=== PATIENT | female | born 1935 | race Caucasian/White ===

== ENCOUNTER → 2016-11-03 | Outpatient (CLI) | payer MEDICARE, OTHER ==
[2016-11-03 11:00] LABS: HEMATOCRIT 37.8 % (36.0-47.0); HEMOGLOBIN 12.5 g/dL (12.0-15.5); HGB HCT DIFFERENCE -0.3; MEAN CORPUSCULAR HEMOGLOBIN 29.1 pg (27.0-33.4); MEAN CORPUSCULAR HGB CONC 32.9 g/dL (32.0-36.0); MEAN CORPUSCULAR VOLUME 88 fl (80-97); RED BLOOD COUNT 4.29 10^6/uL (3.72-5.28); WHITE BLOOD COUNT 11.9 10^3/uL (4.0-10.5)
[2016-11-03 11:25] LABS: ANION GAP 10 (5-19); BLOOD UREA NITROGEN 20 mg/dL (7-20); CALCIUM 9.6 mg/dL (8.4-10.2); CARBON DIOXIDE 31 mmol/L (22-30); CHLORIDE 102 mmol/L (98-107); CREATININE RESULT 1.01 mg/dL (0.52-1.25); GLUCOSE 85 mg/dL (75-110); POTASSIUM 4.4 mmol/L (3.6-5.0); SODIUM 143.1 mmol/L (137-145)
== END ==
LOC: OD 09:58
PROVIDERS: ATTEND Internal Medicine Nephrology
DX: N18.3 Chronic kidney disease, stage 3 (moderate) (principal); M10.00 Idiopathic gout, unspecified site; D64.9 Anemia, unspecified; E87.1 Hypo-osmolality and hyponatremia; E87.5 Hyperkalemia
CPT/HCPCS: 36415; 80048; 82728; 83540; 83550; 85027

== ENCOUNTER 2017-01-24 16:41 | Observation (INO) | payer MEDICARE, OTHER ==
[2017-01-24] MEDS ORDERED: ACETAMINOPHEN 325 MG TABLET PO PRN (18:01)
[2017-01-24 19:00] LABS: ABSOLUTE BASOPHILS # (AUTO) 0.1 10^3/uL (0.0-0.2); ABSOLUTE EOSINOPHILS # (AUTO) 0.5 10^3/uL (0.0-0.6); ABSOLUTE LYMPHOCYTES (AUTO) 1.9 10^3/uL (0.5-4.7); ABSOLUTE MONOCYTES (AUTO) 1.2 10^3/uL (0.1-1.4); ABSOLUTE NEUT (AUTO) 6.7 10^3/uL (1.7-8.2); BASOPHILS % (AUTO) 0.5 % (0-2); EOSINOPHILS % (AUTO) 5.2 % (0-6); HEMATOCRIT 33.9 % (36.0-47.0); HEMOGLOBIN 11.5 g/dL (12.0-15.5); HGB HCT DIFFERENCE 0.6; LYMPHOCYTES % (AUTO) 18.2 % (13-45); MEAN CORPUSCULAR HEMOGLOBIN 29.4 pg (27.0-33.4); MEAN CORPUSCULAR HGB CONC 33.9 g/dL (32.0-36.0); MEAN CORPUSCULAR VOLUME 87 fl (80-97); MONOCYTES % (AUTO) 11.3 % (3-13); RED CELL DISTRIBUTION WIDTH 15.6 % (11.5-14.0); SEGMENTED NEUTROPHILS % (AUTO) 64.8 % (42-78); WHITE BLOOD COUNT 10.3 10^3/uL (4.0-10.5)
[2017-01-24 19:10] LABS: ANION GAP 14 (5-19); BLOOD UREA NITROGEN 14 mg/dL (7-20); CALCIUM 9.2 mg/dL (8.4-10.2); CARBON DIOXIDE 26 mmol/L (22-30); CHLORIDE 101 mmol/L (98-107); CREATININE RESULT 1.02 mg/dL (0.52-1.25); GLUCOSE 87 mg/dL (75-110); POTASSIUM 3.8 mmol/L (3.6-5.0); SODIUM 140.9 mmol/L (137-145)
[2017-01-24] MEDS: IPRATROPIUM/ALBUTEROL 0.5-2.5 MG/3 ML AMPUL NEB SCH (20:07)
[2017-01-24] MEDS: METHYLPREDNISOLONE INJ 125 MG/2 ML SDV IV SCH (22:04)
[2017-01-25 01:42] LABS: APPEARANCE,URINE CLEAR; BILIRUBIN,URINE NEGATIVE (NEGATIVE); GLUCOSE, URINE NEGATIVE (NEGATIVE); KETONES,URINE NEGATIVE (NEGATIVE); LEUKOCYTE ESTERASE,URINE SMALL (NEGATIVE); NITRITE,URINE NEGATIVE (NEGATIVE); PROTEIN,URINE NEGATIVE (NEGATIVE); URINE SPECIFIC GRAVITY 1.005; UROBILINOGEN,URINE NEGATIVE mg/dL (<2.0)
[2017-01-25 05:36] LABS: VENOUS BLOOD BASE EXCESS 1.1 mmol/L; VENOUS BLOOD HCO3 25.2 mmol/L (20-32); VENOUS BLOOD PCO2 38.6 mmHg (35-63); VENOUS BLOOD PH 7.43 (7.30-7.42)
[2017-01-25 05:39] LABS: CHOLESTEROL 141.09 mg/dL (0-200); Direct HDL 63 mg/dL (>40); TRIGLYCERIDES 50 mg/dL (<150)
[2017-01-25 05:50] LABS: DIRECT LDL 58 mg/dL (<100)
--- NOTE | 2017-01-25 07:46 | EKG REPORT ---
SEVERITY:- ABNORMAL ECG - SINUS RHYTHM VENTRICULAR BIGEMINY PROBABLE LEFT ATRIAL ABNORMALITY NON SPECIFIC IVCD : Confirmed by: Charlie Hayward 25-Jan-2017 07:45:57
[2017-01-25] MEDS ORDERED: ENOXAPARIN SODIUM INJ 40 MG/0.4 ML DISP.SYRIN SUBCUT SCH (08:00)
[2017-01-25] MEDS: IPRATROPIUM/ALBUTEROL 0.5-2.5 MG/3 ML AMPUL NEB SCH (08:21)
--- NOTE | 2017-01-25 09:28 | PDOC H&P ---
History of Present Illness Admission Date/PCP: 01/24/17 16:[address] AYDE GREENE History of Present Illness: SHAWN GORDON is a 81 year old female Was a direct admission from Dr. Gagnon's office because of increasing shortness of breath and hypoxemia Patient has a long history of chronic COPD O2 dependent she had been more dyspneic for the last few days Patient denied any chest pain she actually stated" I do not feel any worse than my usual" Patient was admitted to telemetry unit for observation Past Medical History Cardiac Medical History: Reports: Atrial Fibrillation, Congestive Heart Failure - Chronic diastolic CHF, Hypertension Pulmonary Medical History: Reports: Chronic Obstructive Pulmonary Disease (COPD) , Respiratory Failure GI Medical History: Reports: Cirrhosis Past Surgical History Past Surgical History: Reports: Appendectomy, Coronary Stent, Orthopedic Surgery Social History Information Source: Patient Smoking Status: Former Smoker Number of Years Smokin Last Time Smoked: 2014 Frequency of Alcohol Use: Rare Hx Recreational Drug Use: No Drugs: None Hx Prescription Drug Abuse: No - Advance Directive Resuscitation Status: Do Not Resuscitate Surrogate healthcare decision maker:: Her Phillip Family History Family History: DM, Hypertension, Malignancy Parental Family History Reviewed: Yes Children Family History Reviewed: Yes Sibling(s) Family History Reviewed.: Yes Medication/Allergy Home Medications: Fluticasone/Salmeterol [Advair 500-50 Diskus 28 Dose] 1 inh IH BID 05/04/15 Ipratropium/Albuterol Sulfate [Combivent Inhaler] 1 inh IN QID 05/04/15 Loratadine 10 mg PO DAILY 05/04/15 Tiotropium Alpine [Spiriva Handihaler 18 mcg/dose (30 Dose)] 1 inh IN DAILY 12/14 Aspirin [Ecotrin 81 mg EC Tablet] 81 mg PO DAILY #30 tabec 05/09/15 Atorvastatin Calcium [Lipitor 20 mg Tablet] 20 mg PO DAILY 01/24/17 Metoprolol Succinate [Toprol Xl 25 mg Tab.sr] 12.5 mg PO Q2DAYS 01/24/17 Allergies/Adverse Reactions: No Known Allergies Allergy (Unverified 05/04/15 13:21) Review of Systems Constitutional: ABSENT: chills, fever(s), headache(s), weight gain, weight loss Eyes: ABSENT: visual disturbances Ears: ABSENT: hearing changes Cardiovascular: ABSENT: chest pain, dyspnea on exertion, edema, orthropnea, palpitations Respiratory: PRESENT: as per HPI, cough, dyspnea. ABSENT: hemoptysis, sputum Gastrointestinal: ABSENT: abdominal pain, constipation, diarrhea, hematemesis, hematochezia, nausea, vomiting Genitourinary: ABSENT: dysuria, hematuria Musculoskeletal: ABSENT: joint swelling Integumentary: ABSENT: rash, wounds Neurological: ABSENT: abnormal gait, abnormal speech, confusion, dizziness, focal weakness, syncope Psychiatric: ABSENT: anxiety, depression, homidical ideation, suicidal ideation Endocrine: ABSENT: cold intolerance, heat intolerance, polydipsia, polyuria Hematologic/Lymphatic: ABSENT: easy bleeding, easy bruising Physical Exam Vital Signs: Temp Pulse Resp BP Pulse Ox 97.9 F 99 19 146/59 H 93 01/25/17 07:51 01/25/17 07:51 01/25/17 07:51 01/25/17 07:51 01/25/17 07:51 Intake & Output 01/24/17 01/25/17 01/26/17 00:59 00:59 00:59 Intake Total 300 401 Balance 300 401 Weight 47.5 kg 48.1 kg General appearance: PRESENT: no acute distress, thin Head exam: PRESENT: atraumatic, normocephalic Eye exam: PRESENT: conjunctiva pink, EOMI, PERRLA. ABSENT: scleral icterus Ear exam: PRESENT: normal external ear exam Mouth exam: PRESENT: moist, tongue midline Neck exam: ABSENT: carotid bruit, JVD, lymphadenopathy, thyromegaly Respiratory exam: PRESENT: decreased breath sounds, symmetrical, wheezes. ABSENT: accessory muscle use, rales, rhonchi Cardiovascular exam: PRESENT: irregular rhythm, tachycardia. ABSENT: diastolic murmur, rubs, systolic murmur Pulses: PRESENT: normal dorsalis pedis pul Vascular exam: PRESENT: normal capillary refill GI/Abdominal exam: PRESENT: normal bowel sounds, soft. ABSENT: distended, guarding, mass, organolmegaly, rebound, tenderness Rectal exam: PRESENT: deferred Extremities exam: PRESENT: full ROM. ABSENT: calf tenderness, clubbing, pedal edema Neurological exam: PRESENT: alert, awake, oriented to person, oriented to place , oriented to time, oriented to situation, CN II-XII grossly intact. ABSENT: motor sensory deficit Psychiatric exam: PRESENT: appropriate affect, normal mood. ABSENT: homicidal ideation, suicidal ideation Skin exam: PRESENT: dry, intact, warm. ABSENT: cyanosis, rash Results Laboratory Results: 01/24/17 18:40 01/24/17 18:40 01/24/17 01/24/17 01/24/17 18:40 18:40 18:40 WBC 10.3 RBC 3.90 Hgb 11.5 L Hct 33.9 L MCV 87 MCH 29.4 MCHC 33.9 RDW 15.6 H Plt Count 379 Seg Neutrophils % 64.8 Lymphocytes % 18.2 Monocytes % 11.3 Eosinophils % 5.2 Basophils % 0.5 Absolute Neutrophils 6.7 Absolute Lymphocytes 1.9 Absolute Monocytes 1.2 Absolute Eosinophils 0.5 Absolute Basophils 0.1 VBG pH VBG pCO2 VBG HCO3 VBG Base Excess Sodium 140.9 Potassium 3.8 Chloride 101 Carbon Dioxide 26 Anion Gap 14 BUN 14 Creatinine 1.02 Est GFR ( Amer) > 60 Est GFR (Non-Af Amer) 52 L Glucose 87 Calcium 9.2 Triglycerides Cholesterol LDL Cholesterol Direct VLDL Cholesterol HDL Cholesterol TSH 1.09 Urine Color Urine Appearance Urine pH Ur Specific [place] Urine Protein Urine Glucose (UA) Urine Ketones Urine Blood Urine Nitrite Ur Leukocyte Esterase Urine WBC (Auto) 01/25/17 01/25/17 01/25/17 00:15 05:08 05:08 WBC RBC Hgb Hct MCV MCH MCHC RDW Plt Count Seg Neutrophils % Lymphocytes % Monocytes % Eosinophils % Basophils % Absolute Neutrophils Absolute Lymphocytes Absolute Monocytes Absolute Eosinophils Absolute Basophils VBG pH 7.43 H VBG pCO2 38.6 VBG HCO3 25.2 VBG Base Excess 1.1 Sodium Potassium Chloride Carbon Dioxide Anion Gap BUN Creatinine Est GFR ( Amer) Est GFR (Non-Af Amer) Glucose Calcium Triglycerides 50 Cholesterol 141.09 LDL Cholesterol Direct 58 VLDL Cholesterol 10.0 HDL Cholesterol 63 TSH Urine Color YELLOW Urine Appearance CLEAR Urine pH 6.0 Ur Specific [place] 1.005 Urine Protein NEGATIVE Urine Glucose (UA) NEGATIVE Urine Ketones NEGATIVE Urine Blood NEGATIVE Urine Nitrite NEGATIVE Ur Leukocyte Esterase SMALL H Urine WBC (Auto) 2 01/24/17 01/24/17 01/25/17 18:40 18:40 00:36 Troponin I 0.014 0.014 NT-Pro-B Natriuret Pep 2260 H 01/25/17 05:08 Troponin I 0.031 NT-Pro-B Natriuret Pep EKG Comments: [SR] . SINUS RHYTHM [VBIG] . VENTRICULAR BIGEMINY [PLAA] . PROBABLE LEFT ATRIAL ABNORMALITY - STMT - * NON SPECIFIC IVCD [id number] SHAWN GORDON 25-Jan-2017 04:58:27 : 1935 81 Years Female Race: White Dept: Inpatients Room: 307 Oper: st HR 92 VA 168 QRSD 130 QT 408 QTc 505 -- AXIS -- P 74 QRS -40 T 153 Requested By: MAXIMILIANO LEE Reason: SOB Order Impressions: Chest X-Ray 01/24/17 18:05 IMPRESSION: NO ACUTE RADIOGRAPHIC FINDING IN THE CHEST. Assessment & Plan - Diagnosis (1) COPD (chronic obstructive pulmonary disease) Is this a current diagnosis for this admission?: Yes (2) Chronic respiratory failure Is this a current diagnosis for this admission?: Yes (3) Left ventricular diastolic dysfunction Is this a current diagnosis for this admission?: Yes - Time Time Spent with patient: We will admit the patient for observation We will obtain serial troponins Treat the patient with steroids and nebs Reevaluate her cardiac status Patient likely to be discharged tomorrow with follow-up with Dr. Gagnon and Dr. Hayward Time Spent: 50 to 70 Minutes - Inpatient Certification Based on my medical assessment, after consideration of the patient's comorbidities, presenting symptoms, or acuity I expect that the services needed warrant INPATIENT care.: No I certify that my determination is in accordance with my understanding of Medicare's requirements for reasonable and necessary INPATIENT services [42 CFR 412.3e].: No
[2017-01-25] MEDS: METHYLPREDNISOLONE INJ 125 MG/2 ML SDV IV SCH (09:45)
--- NOTE | 2017-01-25 09:55 | PDOC DISCHARGE SUMMARY ---
General - Admit/Disc Date/PCP Admission Date/Primary Care Provider: 01/24/17 16:41 K Eleonora AMAYA MD Discharge Date: 01/25/17 - Discharge Diagnosis (1) COPD (chronic obstructive pulmonary disease) Is this a current diagnosis for this admission?: YesSummary: Patient's chronically O2 dependent She was treated with nebs and steroids overnight She did not have any severe hypoxemia and or acidemia she's to continue her prior regimen Chest x-ray did not show any infiltrate (2) Chronic respiratory failure Is this a current diagnosis for this admission?: YesSummary: continue supplemental O2 at home (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 Hayward We will add Toprol-XL lisinopril and Lasix the prior medication regimen - Additional Information Resuscitation Status: Do Not Resuscitate Home Medications: Fluticasone/Salmeterol [Advair 500-50 Diskus 28 Dose] 1 inh IH BID 05/04/15 Ipratropium/Albuterol Sulfate [Combivent Inhaler] 1 inh IN QID 05/04/15 Loratadine 10 mg PO DAILY 05/04/15 Tiotropium [place] [Spiriva Handihaler 18 mcg/dose (30 Dose)] 1 inh IN DAILY 12/14 Aspirin [Ecotrin 81 mg EC Tablet] 81 mg PO DAILY #30 tabec 05/09/15 Atorvastatin Calcium [Lipitor 20 mg Tablet] 20 mg PO DAILY 01/24/17 Metoprolol Succinate [Toprol Xl 25 mg Tab.sr] 12.5 mg PO Q2DAYS 01/24/17 Furosemide [Lasix] 20 mg PO DAILY #30 tablet 01/25/17 Lisinopril 2.5 mg PO DAILY #30 tablet 01/25/17 Metoprolol Succinate [Toprol Xl 25 mg Tab.sr] 25 mg PO DAILY #30 tab.sr.24h History of Present Illness Patient complains of: Shortness of breath History of Present Illness: SHAWN GORDON is a 81 year old female Was a direct admission from Dr. Gagnon's office because of increasing shortness of breath and hypoxemia Patient has a long history of chronic COPD O2 dependent she had been more dyspneic for the last few days Patient denied any chest pain she actually stated" I do not feel any worse than my usual" Patient was admitted to telemetry unit for observation Hospital Course Hospital Course: See above Physical Exam Vital Signs: Temp Pulse Resp BP Pulse Ox 97.9 F 99 19 146/59 H 93 01/25/17 07:51 01/25/17 07:51 01/25/17 07:51 01/25/17 07:51 01/25/17 07:51 Intake & Output 01/24/17 01/25/17 01/26/17 00:59 00:59 00:59 Intake Total 300 401 Balance 300 401 Weight 47.5 kg 48.1 kg General appearance: PRESENT: no acute distress, well-developed, well-nourished Head exam: PRESENT: atraumatic, normocephalic Eye exam: PRESENT: conjunctiva pink, EOMI, PERRLA. ABSENT: scleral icterus Ear exam: PRESENT: normal external ear exam Mouth exam: PRESENT: moist, tongue midline Neck exam: ABSENT: carotid bruit, JVD, lymphadenopathy, thyromegaly Respiratory exam: PRESENT: decreased breath sounds, wheezes. ABSENT: rales, rhonchi Cardiovascular exam: PRESENT: irregular rhythm. ABSENT: diastolic murmur, rubs , systolic murmur Pulses: PRESENT: normal dorsalis pedis pul Vascular exam: PRESENT: normal capillary refill GI/Abdominal exam: PRESENT: normal bowel sounds, soft. ABSENT: distended, guarding, mass, organolmegaly, rebound, tenderness Rectal exam: PRESENT: deferred Extremities exam: PRESENT: full ROM. ABSENT: calf tenderness, clubbing, pedal edema Neurological exam: PRESENT: alert, awake, oriented to person, oriented to place , oriented to time, oriented to situation, CN II-XII grossly intact. ABSENT: motor sensory deficit Psychiatric exam: PRESENT: appropriate affect, normal mood. ABSENT: homicidal ideation, suicidal ideation Skin exam: PRESENT: dry, intact, warm. ABSENT: cyanosis, rash Results Laboratory Results: 01/24/17 18:40 01/24/17 18:40 01/24/17 01/24/17 01/24/17 18:40 18:40 18:40 WBC 10.3 RBC 3.90 Hgb 11.5 L Hct 33.9 L MCV 87 MCH 29.4 MCHC 33.9 RDW 15.6 H Plt Count 379 Seg Neutrophils % 64.8 Lymphocytes % 18.2 Monocytes % 11.3 Eosinophils % 5.2 Basophils % 0.5 Absolute Neutrophils 6.7 Absolute Lymphocytes 1.9 Absolute Monocytes 1.2 Absolute Eosinophils 0.5 Absolute Basophils 0.1 VBG pH VBG pCO2 VBG HCO3 VBG Base Excess Sodium 140.9 Potassium 3.8 Chloride 101 Carbon Dioxide 26 Anion Gap 14 BUN 14 Creatinine 1.02 Est GFR ( Amer) > 60 Est GFR (Non-Af Amer) 52 L Glucose 87 Calcium 9.2 Triglycerides Cholesterol LDL Cholesterol Direct VLDL Cholesterol HDL Cholesterol TSH 1.09 Urine Color Urine Appearance Urine pH Ur Specific [place] Urine Protein Urine Glucose (UA) Urine Ketones Urine Blood Urine Nitrite Ur Leukocyte Esterase Urine WBC (Auto) 01/25/17 01/25/17 01/25/17 00:15 05:08 05:08 WBC RBC Hgb Hct MCV MCH MCHC RDW Plt Count Seg Neutrophils % Lymphocytes % Monocytes % Eosinophils % Basophils % Absolute Neutrophils Absolute Lymphocytes Absolute Monocytes Absolute Eosinophils Absolute Basophils VBG pH 7.43 H VBG pCO2 38.6 VBG HCO3 25.2 VBG Base Excess 1.1 Sodium Potassium Chloride Carbon Dioxide Anion Gap BUN Creatinine Est GFR ( Amer) Est GFR (Non-Af Amer) Glucose Calcium Triglycerides 50 Cholesterol 141.09 LDL Cholesterol Direct 58 VLDL Cholesterol 10.0 HDL Cholesterol 63 TSH Urine Color YELLOW Urine Appearance CLEAR Urine pH 6.0 Ur Specific [place] 1.005 Urine Protein NEGATIVE Urine Glucose (UA) NEGATIVE Urine Ketones NEGATIVE Urine Blood NEGATIVE Urine Nitrite NEGATIVE Ur Leukocyte Esterase SMALL H Urine WBC (Auto) 2 01/24/17 01/24/17 01/25/17 18:40 18:40 00:36 Troponin I 0.014 0.014 NT-Pro-B Natriuret Pep 2260 H 01/25/17 05:08 Troponin I 0.031 NT-Pro-B Natriuret Pep EKG Comments: SR] . SINUS RHYTHM [VBIG] . VENTRICULAR BIGEMINY [PLAA] . PROBABLE LEFT ATRIAL ABNORMALITY - STMT - * NON SPECIFIC IVCD [id number] SHAWN GORDON 25-Jan-2017 04:58:27 : 1935 81 Years Female Race: White Dept: Inpatients Room: 307 Oper: st HR Impressions: Chest X-Ray 01/24/17 18:05 IMPRESSION: NO ACUTE RADIOGRAPHIC FINDING IN THE CHEST. Plan Discharge Plan: Patient was discharged home to follow-up with Dr. Reece Time Spent: Greater than 30 Minutes
[2017-01-25] MEDS ORDERED: LORATADINE 10 MG TABLET PO SCH (10:00)
[2017-01-25] MEDS ORDERED: ASPIRIN 81 MG TABLET, ENT COATED PO SCH (10:00)
[2017-01-25] MEDS ORDERED: FLUTICASONE/SALMETEROL DISKUS 500-50 MCG/DOSE IH SCH (10:00)
[2017-01-25] MEDS ORDERED: METOPROLOL SUCCINATE 25 MG TAB.SR.24H PO SCH (10:00)
[2017-01-25] MEDS ORDERED: FUROSEMIDE INJ/PF 20 MG/2 ML SDV IV ONE (10:00)
[2017-01-25] MEDS ORDERED: ATORVASTATIN CALCIUM 20 MG TABLET PO SCH (10:00)
[2017-01-25] MEDS ORDERED: TIOTROPIUM BROMIDE DPI 5 CAP/KIT (18 MCG/CAP) IH SCH (10:00)
[2017-01-25 10:07] VITALS: BP 123/65
[2017-01-26] MEDS ORDERED: METOPROLOL SUCCINATE 25 MG TAB.SR.24H PO SCH (10:00)
== END 2017-01-25 10:55 | disposition home or self-care (01) ==
LOC: 3N 16:41 → INTOOBSV 16:41
PROVIDERS: ADMIT Emergency Medicine; ATTEND Emergency Medicine
PROC: 3E0F7GC Introduction of Other Therapeutic Substance into Respiratory Tract, Via Natural or Artificial Opening (ICD-10-PCS; principal; 2017-01-24)
DX: J44.9 Chronic obstructive pulmonary disease, unspecified (principal); J96.10 Chronic respiratory failure, unspecified whether with hypoxia or hypercapnia; I50.40 Unspecified combined systolic (congestive) and diastolic (congestive) heart failure; I11.0 Hypertensive heart disease with heart failure; I49.9 Cardiac arrhythmia, unspecified; I44.7 Left bundle-branch block, unspecified; R00.8 Other abnormalities of heart beat; Z66 Do not resuscitate; Z79.82 Long term (current) use of aspirin; Z99.81 Dependence on supplemental oxygen; Z79.51 Long term (current) use of inhaled steroids; Z79.899 Other long term (current) drug therapy; Z87.891 Personal history of nicotine dependence; Z95.5 Presence of coronary angioplasty implant and graft; Z82.49 Family history of ischemic heart disease and other diseases of the circulatory system; Z80.9 Family history of malignant neoplasm, unspecified
CPT/HCPCS: 36415 ×2; 84443; 85025; 80048; 81001; 84484 ×2; 82803; 80061; 83880; 71010; 93005; 93010; 94640 ×2; G0378 ×2; G0379; A9270 ×5; J3490 ×2; J1940; J2930 ×2; J7620

== ENCOUNTER → 2017-05-05 | Outpatient (CLI) | payer MEDICARE, OTHER ==
[2017-05-05 14:28] LABS: HEMATOCRIT 38.8 % (36.0-47.0); HEMOGLOBIN 12.8 g/dL (12.0-15.5); HGB HCT DIFFERENCE -0.4; MEAN CORPUSCULAR HEMOGLOBIN 29.5 pg (27.0-33.4); MEAN CORPUSCULAR HGB CONC 33.1 g/dL (32.0-36.0); MEAN CORPUSCULAR VOLUME 89 fl (80-97); RED BLOOD COUNT 4.35 10^6/uL (3.72-5.28); RED CELL DISTRIBUTION WIDTH 17.9 % (11.5-14.0); WHITE BLOOD COUNT 10.4 10^3/uL (4.0-10.5)
[2017-05-05 14:44] LABS: APPEARANCE,URINE CLEAR; BILIRUBIN,URINE NEGATIVE (NEGATIVE); GLUCOSE, URINE NEGATIVE (NEGATIVE); KETONES,URINE NEGATIVE (NEGATIVE); LEUKOCYTE ESTERASE,URINE NEGATIVE (NEGATIVE); NITRITE,URINE NEGATIVE (NEGATIVE); PROTEIN,URINE NEGATIVE (NEGATIVE); UROBILINOGEN,URINE NEGATIVE mg/dL (<2.0)
[2017-05-05 14:48] LABS: ANION GAP 11 (5-19); BLOOD UREA NITROGEN 22 mg/dL (7-20); CALCIUM 9.5 mg/dL (8.4-10.2); CARBON DIOXIDE 28 mmol/L (22-30); CHLORIDE 101 mmol/L (98-107); CREATININE RESULT 1.26 mg/dL (0.52-1.25); GLUCOSE 91 mg/dL (75-110); POTASSIUM 4.6 mmol/L (3.6-5.0); SODIUM 140.4 mmol/L (137-145)
== END ==
LOC: OD 13:35
PROVIDERS: ATTEND Internal Medicine Nephrology
DX: N18.3 Chronic kidney disease, stage 3 (moderate) (principal); E87.5 Hyperkalemia; E87.0 Hyperosmolality and hypernatremia; D63.1 Anemia in chronic kidney disease
CPT/HCPCS: 36415; 80048; 81001; 85027

== ENCOUNTER → 2017-09-08 | Outpatient (CLI) | payer MEDICARE, OTHER ==
[2017-09-08 09:59] LABS: HEMATOCRIT 39.9 % (36.0-47.0); HEMOGLOBIN 13.3 g/dL (12.0-15.5); MEAN CORPUSCULAR HEMOGLOBIN 30.6 pg (27.0-33.4); MEAN CORPUSCULAR HGB CONC 33.4 g/dL (32.0-36.0); MEAN CORPUSCULAR VOLUME 92 fl (80-97); RED BLOOD COUNT 4.35 10^6/uL (3.72-5.28); RED CELL DISTRIBUTION WIDTH 15.8 % (11.5-14.0); WHITE BLOOD COUNT 10.7 10^3/uL (4.0-10.5)
[2017-09-08 10:06] LABS: APPEARANCE,URINE CLEAR; BILIRUBIN,URINE NEGATIVE (NEGATIVE); GLUCOSE, URINE NEGATIVE (NEGATIVE); KETONES,URINE NEGATIVE (NEGATIVE); LEUKOCYTE ESTERASE,URINE TRACE (NEGATIVE); NITRITE,URINE NEGATIVE (NEGATIVE); PROTEIN,URINE NEGATIVE (NEGATIVE); URINE SPECIFIC GRAVITY 1.004; UROBILINOGEN,URINE NEGATIVE mg/dL (<2.0)
[2017-09-08 10:22] LABS: ANION GAP 17 (5-19); BLOOD UREA NITROGEN 20 mg/dL (7-20); CALCIUM 9.3 mg/dL (8.4-10.2); CARBON DIOXIDE 24 mmol/L (22-30); CHLORIDE 101 mmol/L (98-107); GLUCOSE 78 mg/dL (75-110); POTASSIUM 4.4 mmol/L (3.6-5.0); SODIUM 142.4 mmol/L (137-145)
== END ==
LOC: OD 08:27
PROVIDERS: ATTEND Internal Medicine Nephrology
DX: N18.3 Chronic kidney disease, stage 3 (moderate) (principal); I12.9 Hypertensive chronic kidney disease with stage 1 through stage 4 chronic kidney disease, or unspecified chronic kidney disease; D64.9 Anemia, unspecified
CPT/HCPCS: 36415; 80048; 81001; 85027

== ENCOUNTER → 2018-02-05 | Outpatient (CLI) | payer MEDICARE, OTHER ==
[2018-02-05 11:30] LABS: HEMATOCRIT 40.3 % (36.0-47.0); HEMOGLOBIN 13.3 g/dL (12.0-15.5); MEAN CORPUSCULAR HEMOGLOBIN 30.2 pg (27.0-33.4); MEAN CORPUSCULAR HGB CONC 33.2 g/dL (32.0-36.0); MEAN CORPUSCULAR VOLUME 91 fl (80-97); PLATELET COUNT 417 10^3/uL (150-450); RED BLOOD COUNT 4.42 10^6/uL (3.72-5.28); RED CELL DISTRIBUTION WIDTH 15.5 % (11.5-14.0); WHITE BLOOD COUNT 9.7 10^3/uL (4.0-10.5)
[2018-02-05 11:54] LABS: ANION GAP 11 (5-19); BLOOD UREA NITROGEN 21 mg/dL (7-20); CALCIUM 9.7 mg/dL (8.4-10.2); CARBON DIOXIDE 33 mmol/L (22-30); CHLORIDE 101 mmol/L (98-107); GLUCOSE 95 mg/dL (75-110); SODIUM 144.7 mmol/L (137-145)
== END ==
LOC: OD 11:06
PROVIDERS: ATTEND Internal Medicine Nephrology
DX: N18.3 Chronic kidney disease, stage 3 (moderate) (principal); E87.5 Hyperkalemia; M10.00 Idiopathic gout, unspecified site; D64.9 Anemia, unspecified
CPT/HCPCS: 36415; 80048; 85027

== ENCOUNTER 2018-04-23 19:21 | Inpatient (IN) | payer MEDICARE, OTHER ==
--- NOTE | 2018-04-23 20:16 | RADIOLOGY REPORT (SQ) ---
EXAM DESCRIPTION: CHEST SINGLE VIEW COMPLETED DATE/TIME: 04/23/2018 8:07 pm REASON FOR STUDY: sob COMPARISON: 01/24/2017. EXAM PARAMETERS: NUMBER OF VIEWS: One view. TECHNIQUE: Single frontal radiographic view of the chest acquired. RADIATION DOSE: NA LIMITATIONS: None. FINDINGS: LUNGS AND PLEURA: No opacities, masses or pneumothorax. No pleural effusion. MEDIASTINUM AND HILAR STRUCTURES: No masses. Contour normal. HEART AND VASCULAR STRUCTURES: Heart normal in size. Normal vasculature. BONES: No acute findings. HARDWARE: Breast implants. OTHER: No other significant finding. IMPRESSION: NO ACUTE RADIOGRAPHIC FINDING IN THE CHEST. TECHNICAL DOCUMENTATION: JOB ID: [id number] [employer]- All Rights Reserved Reading location - IP/workstation name: [email or web address]
[2018-04-23] MEDS ORDERED: METHYLPREDNISOLONE INJ 125 MG/2 ML SDV IV ONE (20:34)
[2018-04-23] MEDS ORDERED: IPRATROPIUM/ALBUTEROL 0.5-2.5 MG/3 ML AMPUL NEB ONE (20:34)
--- NOTE | 2018-04-23 20:42 | ER Document Report ---
ED General - General Chief Complaint: Shortness Of Breath Stated Complaint: SHORTNESS OF BREATH Time Seen by Provider: 04/23/18 19:50 Notes: Patient is an 82-year-old female with a past medical history of COPD with oxygen dependence, hypertension, paroxysmal atrial fibrillation, who presents with 3 days of low back pain, cough, worsening shortness of breath. Patient reports that the symptoms started gradually progressively worsening since that time. Exertion dramatically worsens her shortness of breath. Nothing seems to improve her symptoms. She describes the pain as being located in the middle of her low L-spine region and as a throbbing, aching constant pain. She has not seen her general doctor regarding today's concerns. She denies any bowel or bladder incontinence, urinary retention, focal weakness or numbness. She denies any chest pain, fever or constitutional symptoms. TRAVEL OUTSIDE OF THE [place] IN LAST 30 DAYS: No - Related Data Allergies/Adverse Reactions: No Known Allergies Allergy (Unverified 05/04/15 13:21) Past Medical History - General Information source: Patient - Social History Smoking Status: Former Smoker Chew tobacco use (# tins/day): No Frequency of alcohol use: Rare Drug Abuse: None Lives with: Spouse/Significant other Family History: DM, Hypertension, Malignancy Patient has suicidal ideation: No Patient has homicidal ideation: No - Past Medical History Cardiac Medical History: Reports: Hx Atrial Fibrillation, Hx Congestive Heart Failure - Chronic diastolic CHF, Hx Hypertension Pulmonary Medical History: Reports: Hx COPD, Hx Respiratory Failure Renal/ Medical History: Reports: Hx Kidney Stones. Denies: Hx Peritoneal Dialysis GI Medical History: Reports: Hx Cirrhosis Psychiatric Medical History: Reports: Hx Anxiety Past Surgical History: Reports: Hx Appendectomy, Hx Coronary Stent, Hx Neurologic Surgery - brain surg x2 for aneursym, Hx Orthopedic Surgery - Immunizations Hx Pneumococcal Vaccination: 05/04/15 Review of Systems - Review of Systems Notes: Constitutional: Negative for fever. HENT: Negative for sore throat. Eyes: Negative for visual changes. Cardiovascular: Negative for chest pain. Respiratory: Positive for shortness of breath. Gastrointestinal: Negative for abdominal pain, vomiting or diarrhea. Genitourinary: Negative for dysuria. Musculoskeletal: Positive for low back pain Skin: Negative for rash. Neurological: Negative for headaches, weakness or numbness. 10 point ROS negative except as marked above and in HPI. Physical Exam - Vital signs Vitals: Resp Pulse Ox 31 H 95 04/23/18 20:45 04/23/18 20:45 Interpretation: Hypoxic, Tachypneic Notes: PHYSICAL EXAMINATION: GENERAL: Frail, somewhat cachectic in moderate respiratory distress HEAD: Atraumatic, normocephalic. EYES: Pupils equal round and reactive to light, extraocular movements intact, sclera anicteric, conjunctiva are normal. ENT: nares patent, oropharynx clear without exudates. Moderately dry mucous membranes. NECK: Normal range of motion, supple without lymphadenopathy LUNGS: Coarse rhonchi in all lung roche. Moderate tachypnea with moderate respiratory distress breathing 30 times per minute. No retractions. HEART: Regular rate and rhythm without murmurs ABDOMEN: Soft, nontender, normoactive bowel sounds. No guarding, no rebound. No masses appreciated. EXTREMITIES: Normal range of motion, no pitting or edema. No cyanosis. NEUROLOGICAL: No focal neurological deficits. Moves all extremities spontaneously and on command. PSYCH: Normal mood, normal affect. SKIN: Warm, Dry, normal turgor, no rashes or lesions noted. Course - Re-evaluation Re-evalutation: 04/23/18 20:10 Patient presents in moderate respiratory distress breathing 30 times per minute saturating 91% on 4 L by nasal cannula when she normally requires 2 L to maintain saturations in the upper 90s. Patient has a wet sounding cough. On examination she is able speak in 4-5 word sentences before she is clearly short of breath. She has a known history of COPD but no prior history of CHF. No history of DVT or pulmonary embolus. She has not had any fever or constitutional symptoms. Primary considerations are a COPD exacerbation, early pneumonia which is not present on initial chest x-ray, less likely pulmonary edema given normal chest x-ray and absence of prior history of the same. Very low clinical suspicion for an acute pulmonary and was given patient's cough as well as her clinical history. Patient is having some back pain but it is low in her lumbar spinal region where she has had a spinal fusion in the past. However I am concerned of the possibility of a compression fracture given the patient's persistent cough, advanced age and frail state. The patient will be placed on BiPAP given her respiratory distress and was started on continuous nebulizers, IV steroids, IV magnesium, will obtain labs, CT of the L-spine and reassess. Given her respiratory distress she will require frequent reassessments. 2100-patient is on BiPAP, breathing is improved although she is quite anxious on the BiPAP. 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 04/23/18 22:35 Patient has had difficulty tolerating the BiPAP, continues to take it off although when she comes off of the BiPAP she again breeze in the mid 30s and drops her saturations into the 80s. I have convinced the patient to go back on BiPAP and will give 2 mg of IV haloperidol to help her relax along with BiPAP. Her BNP is elevated today at 4000 and is higher than it has been in the past. Although the radiologist has read the chest x-ray is not having any evidence of findings, to me it appears that there is vascular congestion that was not present on a chest x-ray from 2014. This would also fit with her clinical exam of rales as well as bilateral lower extremity edema. Will give 20 mg of Lasix. I discussed with the hospitalist Dr. Sosa - Vital Signs Vital signs: Temp Pulse Resp BP Pulse Ox 31 H 95 04/23/18 20:45 04/23/18 20:45 - Laboratory Result Diagrams: 04/23/18 20:51 04/23/18 20:51 Laboratory results interpreted by me: 04/23/18 04/23/18 04/23/18 20:51 20:51 20:51 RDW 15.3 H Lymphocytes % 10.6 L Sodium 136.9 L BUN 24 H Est GFR ( Amer) 53 L Est GFR (Non-Af Amer) 44 L Direct Bilirubin 0.5 H NT-Pro-B Natriuret Pep 4560 H - Diagnostic Test Radiology reviewed: Image reviewed, Reports reviewed Radiology results interpreted by me: 04/23/18 20:40 Chest x-ray: No acute infiltrate or pneumothorax Critical Care Note - Critical Care Note Total time excluding time spent on procedures (mins): 38 Comments: Critical care time spent obtaining history from patient or surrogate, discussions with consultants, development of treatment plan with patient or surrogate, evaluation of patient's response to treatment, examination of patient , ordering and performing treatments and interventions, ordering and review of laboratory studies, re-evaluation of patient's condition, ordering and review of radiographic studies and review of old charts Discharge - Discharge Clinical Impression: Respiratory distress, COPD exacerbation, Pulmonary vascular congestion Condition: Fair Disposition: ADMITTED INPATIENT Admitting Provider: Hospitalist Unit Admitted: [facility]
[2018-04-23] MEDS: MAGNESIUM SULFATE/D5W 1 GM/100 ML RTUPB IV SCH ×2 (20:51→22:04)
[2018-04-23] MEDS ORDERED: METOCLOPRAMIDE HCL INJ/PF 10 MG/2 ML SDV IV ONE (20:59)
[2018-04-23 21:03] LABS: ABSOLUTE BASOPHILS # (AUTO) 0.1 10^3/uL (0.0-0.2); ABSOLUTE EOSINOPHILS # (AUTO) 0.5 10^3/uL (0.0-0.6); ABSOLUTE LYMPHOCYTES (AUTO) 1.1 10^3/uL (0.5-4.7); ABSOLUTE MONOCYTES (AUTO) 1.3 10^3/uL (0.1-1.4); ABSOLUTE NEUT (AUTO) 7.4 10^3/uL (1.7-8.2); BASOPHILS % (AUTO) 0.6 % (0-2); EOSINOPHILS % (AUTO) 5.1 % (0-6); HEMATOCRIT 39.3 % (36.0-47.0); LYMPHOCYTES % (AUTO) 10.6 % (13-45); MEAN CORPUSCULAR HEMOGLOBIN 29.6 pg (27.0-33.4); MEAN CORPUSCULAR VOLUME 90 fl (80-97); MONOCYTES % (AUTO) 12.2 % (3-13); PLATELET COUNT 351 10^3/uL (150-450); RED BLOOD COUNT 4.39 10^6/uL (3.72-5.28); RED CELL DISTRIBUTION WIDTH 15.3 % (11.5-14.0); SEGMENTED NEUTROPHILS % (AUTO) 71.5 % (42-78); TOTAL CELLS COUNTED % (AUTO) 100 %; WHITE BLOOD COUNT 10.3 10^3/uL (4.0-10.5)
[2018-04-23 21:04] LABS: VENOUS BLOOD BASE EXCESS 0.4 mmol/L; VENOUS BLOOD HCO3 26.1 mmol/L (20-32); VENOUS BLOOD PH 7.37 (7.30-7.42)
[2018-04-23 21:30] LABS: ALANINE AMINOTRANSFERASE 22 U/L (9-52); ALBUMIN 3.7 g/dL (3.5-5.0); ALKALINE PHOSPHATASE 84 U/L (38-126); ANION GAP 13 (5-19); ASPARTATE AMINO TRANSFERASE 28 U/L (14-36); BILIRUBIN,DIRECT 0.5 mg/dL (0.0-0.4); BILIRUBIN,TOTAL 0.9 mg/dL (0.2-1.3); BLOOD UREA NITROGEN 24 mg/dL (7-20); CALCIUM 9.3 mg/dL (8.4-10.2); CARBON DIOXIDE 23 mmol/L (22-30); CHLORIDE 101 mmol/L (98-107); CREATINE KINASE 86 U/L (30-135); GLUCOSE 80 mg/dL (75-110); POTASSIUM 4.8 mmol/L (3.6-5.0); SODIUM 136.9 mmol/L (137-145); TOTAL PROTEIN 7.1 g/dL (6.3-8.2)
[2018-04-23 21:57] LABS: TROPONIN I 0.05 ng/mL
[2018-04-23] MEDS ORDERED: FUROSEMIDE INJ/PF 20 MG/2 ML SDV IV ONE (22:08)
[2018-04-23] MEDS ORDERED: ONDANSETRON HCL INJ/PF 4 MG/2 ML SDV IV ONE (22:09)
[2018-04-23] MEDS ORDERED: HALOPERIDOL LACTATE INJ 5 MG/1 ML VIAL IV ONE (22:33)
[2018-04-24] MEDS ORDERED: METHYLPREDNISOLONE INJ 40 MG/1 ML SDV IV SCH ×2 (02:00→12:00)
[2018-04-24] MEDS ORDERED: IPRATROPIUM/ALBUTEROL 0.5-2.5 MG/3 ML AMPUL NEB PRN (02:01)
[2018-04-24] MEDS ORDERED: MAG HYDROX/AL HYDROX/SIMETH SUSP 30 ML UDCUP PO PRN (02:07)
[2018-04-24] MEDS ORDERED: PROMETHAZINE HCL INJ 25 MG/1 ML VIAL IV PRN (02:07)
--- NOTE | 2018-04-24 02:54 | PDOC H&P ---
History of Present Illness Admission Date/PCP: 04/23/18 23:36 Paty RUSSO Patient complains of: Sortness of breath History of Present Illness: SHAWN GORDON is a 82 year old female with medical history of chronic respiratory failure secondary to COPD and severe pulmonary hypertension, on oxygen 2 L via nasal cannula, with average O2 sat of 95%; comes to the emergency department complaining of shortness of breath. Her tells me last day she went to her PCP because of right foot swelling and tenderness and recommended right lower extremity ultrasound, the patient had a long walking and started complaining of back pain located in the middle of her low L spine region, throbbing, aching and constant pain. Since then she was deteriorating with progressive shortness of breath, chest congestion, wheezing. Denies fever, chills, nausea, vomiting, sore throat, urinary symptoms or changes in her bowel movements. In the emergency department she was noted on respiratory distress with a respiratory rate of 36, he was initiated on BiPAP, at some point she did not want it but her oxygen saturation was dropping into the mid 80s. By the time of when to see her she was tolerating BiPAP with an oxygen saturation in the 93% . Chest x-ray shows emphysema BNP 4560 Recent lower extremity ultrasound negative for DVT Past Medical History Cardiac Medical History: Reports: Atrial Fibrillation, Congestive Heart Failure - Chronic diastolic CHF, Hypertension Pulmonary Medical History: Reports: Chronic Obstructive Pulmonary Disease (COPD ) - Chronic respiratory failure on 2 L oxygen at home, Respiratory Failure, Other - Pulmonary hypertension GI Medical History: Reports: Cirrhosis Past Surgical History Past Surgical History: Reports: Appendectomy, Coronary Stent, Orthopedic Surgery Social History Lives with: Spouse/Significant other Smoking Status: Former Smoker Frequency of Alcohol Use: Rare Hx Recreational Drug Use: No Drugs: None Hx Prescription Drug Abuse: No Family History Family History: DM, Hypertension, Malignancy Parental Family History Reviewed: No Children Family History Reviewed: NA Sibling(s) Family History Reviewed.: NA Medication/Allergy Home Medications: Fluticasone/Salmeterol [Advair 500-50 Diskus 28 Dose] 1 inh IH BID 05/04/15 Ipratropium/Albuterol Sulfate [Combivent Inhaler] 1 inh IN QID 05/04/15 Loratadine 10 mg PO DAILY 05/04/15 Tiotropium [place] [Spiriva Handihaler 18 mcg/dose (30 Dose)] 1 inh IN DAILY 12/14 Aspirin [Ecotrin 81 mg EC Tablet] 81 mg PO DAILY #30 tabec 05/09/15 Atorvastatin Calcium [Lipitor 20 mg Tablet] 20 mg PO DAILY 01/24/17 Metoprolol Succinate [Toprol Xl 25 mg Tab.sr] 12.5 mg PO Q2DAYS 01/24/17 Furosemide [Lasix] 20 mg PO DAILY #30 tablet 01/25/17 Lisinopril 2.5 mg PO DAILY #30 tablet 01/25/17 Metoprolol Succinate [Toprol Xl 25 mg Tab.sr] 25 mg PO DAILY #30 tab.sr.24h Allergies/Adverse Reactions: No Known Allergies Allergy (Unverified 05/04/15 13:21) Review of Systems Review of Systems: As outlined in the HPI, all others negative Physical Exam Vital Signs: Temp Pulse Resp BP Pulse Ox 16 95 04/24/18 00:49 04/24/18 00:52 Additional comments: General appearance: Well-developed, well-nourished, alert and cooperative, and appears to be in no acute distress. Wearing BiPAP Head: Normocephalic Eyes: PEERL, EOMI, vision is grossly intact. Ears: External auditory canal and tympanic membranes clear, hearing grossly intact. Nose: No nasal discharge. Throat: Oral cavity and pharynx normal. No inflammation, swelling, exudate or lesions. Neck: Neck supple, nontender without lymphadenopathy, masses or thyromegaly. Cardiac: Normal S1 and S2. No S3, S4 or murmurs. Rhythm is regular. There is no peripheral edema, cyanosis or pallor. Extremities are warm and well perfused. Capillary refill is less than 2 seconds. No carotid bruits. Lungs: Bilateral decreased breath sounds with diffuse coarse crackles, expiratory wheezing and diffuse rhonchi. Not using accessory muscles. Abdomen: Positive bowel sounds. Soft. Nondistended, nontender. No guarding or rebound. No masses. No hepatosplenomegaly Extremities: No significant deformity or joint abnormality. No edema at the time of my exam. Peripheral pulses intact. Positive varicosities. Neurological: Cranial nerves II through XII grossly intact. Strength and sensation symmetric and intact throughout. Reflexes 2+ throughout. Skin: Skin normal color, texture and turgor with no lesions or eruptions, warm and dry. Psychiatric: The mental examination revealed the patient was oriented to person , place, and time. The patient was able to demonstrate good judgment on recent , without hallucinations, abnormal affect or abnormal behaviors. Results Laboratory Results: 04/23/18 04/23/18 04/23/18 20:51 20:51 20:51 WBC 10.3 RBC 4.39 Hgb 13.0 Hct 39.3 MCV 90 MCH 29.6 MCHC 33.0 RDW 15.3 H Plt Count 351 Seg Neutrophils % 71.5 Lymphocytes % 10.6 L Monocytes % 12.2 Eosinophils % 5.1 Basophils % 0.6 Absolute Neutrophils 7.4 Absolute Lymphocytes 1.1 Absolute Monocytes 1.3 Absolute Eosinophils 0.5 Absolute Basophils 0.1 VBG pH VBG pCO2 VBG HCO3 VBG Base Excess Sodium 136.9 L Potassium 4.8 Chloride 101 Carbon Dioxide 23 Anion Gap 13 BUN 24 H Creatinine 1.19 Est GFR ( Amer) 53 L Est GFR (Non-Af Amer) 44 L Glucose 80 Calcium 9.3 Total Bilirubin 0.9 Direct Bilirubin 0.5 H AST 28 ALT 22 Alkaline Phosphatase 84 Creatine Kinase 86 Troponin I 0.050 NT-Pro-B Natriuret Pep 4560 H Total Protein 7.1 Albumin 3.7 04/23/18 20:51 WBC RBC Hgb Hct MCV MCH MCHC RDW Plt Count Seg Neutrophils % Lymphocytes % Monocytes % Eosinophils % Basophils % Absolute Neutrophils Absolute Lymphocytes Absolute Monocytes Absolute Eosinophils Absolute Basophils VBG pH 7.37 VBG pCO2 46.0 VBG HCO3 26.1 VBG Base Excess 0.4 Sodium Potassium Chloride Carbon Dioxide Anion Gap BUN Creatinine Est GFR ( Amer) Est GFR (Non-Af Amer) Glucose Calcium Total Bilirubin Direct Bilirubin AST ALT Alkaline Phosphatase Creatine Kinase Troponin I NT-Pro-B Natriuret Pep Total Protein Albumin EKG Comments: Reviewed by me, sinus tachycardia, LBBB Impressions: Chest X-Ray 04/23/18 19:50 IMPRESSION: NO ACUTE RADIOGRAPHIC FINDING IN THE CHEST. Assessment & Plan - Diagnosis (1) COPD exacerbation Is this a current diagnosis for this admission?: Yes Plan: Vision comes with progressive respiratory symptoms in the setting of chronic respiratory failure on 2 L oxygen, wearing BiPAP in the ED, I will continue with BiPAP. IV azithromycin. IV steroids. RT consultation. Incentive spirometry. Close monitor of the respiratory status. (2) Chronic respiratory failure Qualifiers: Respiratory failure complication: hypoxia Qualified Code(s): J96.11 - Chronic respiratory failure with hypoxia Is this a current diagnosis for this admission?: Yes Plan: At home on 2 L oxygen via nasal cannula, oxygen saturation average 95%. (3) Pulmonary hypertension, moderate to severe Is this a current diagnosis for this admission?: Yes Plan: As per echocardiogram read by Dr. Hayward in 2015 the patient has severe pulmonary hypertension this can be a contributor of dyspnea probably her lower extremities edema. (4) CKD (chronic kidney disease), stage III Is this a current diagnosis for this admission?: Yes Plan: Stable, BUN 24 and creatinine 1.19 (5) Chronic diastolic CHF (congestive heart failure) Is this a current diagnosis for this admission?: Yes Plan: As per records chronic diastolic CHF, her last echocardiogram with normal ejection fraction. She is on Lasix at home. Her lower extremities edema completely resolved by the time I saw her and the tells me since she is laying down for the last couple of days it has resolved. I do not see any pulmonary edema or venous congestion but we are going to be careful with IV fluids. (6) Hypertension Is this a current diagnosis for this admission?: Yes - Time Time Spent: 30 to 50 Minutes - Inpatient Certification Based on my medical assessment, after consideration of the patient's comorbidities, presenting symptoms, or acuity I expect that the services needed warrant INPATIENT care.: Yes I certify that my determination is in accordance with my understanding of Medicare's requirements for reasonable and necessary INPATIENT services [42 CFR 412.3e].: Yes Medical Necessity: Need Close Monitoring Due to Risk of Patient Decompensation, Risk of Complication if Not Cared For in Hospital
[2018-04-24] MEDS ORDERED: AZITHROMYCIN 500 MG in DEXTROSE 5%-WATER 250 ML IV ONE (03:00)
[2018-04-24] MEDS ORDERED: AZITHROMYCIN INJ 500 MG VIAL IV ONE (03:35)
[2018-04-24 04:00] LABS: ABSOLUTE LYMPHOCYTES (AUTO) 0.5 10^3/uL (0.5-4.7); ABSOLUTE MONOCYTES (AUTO) 0.1 10^3/uL (0.1-1.4); ABSOLUTE NEUT (AUTO) 7.6 10^3/uL (1.7-8.2); BASOPHILS % (AUTO) 0.2 % (0-2); EOSINOPHILS % (AUTO) 0.1 % (0-6); HEMATOCRIT 38.2 % (36.0-47.0); HEMOGLOBIN 12.8 g/dL (12.0-15.5); MEAN CORPUSCULAR HEMOGLOBIN 30.2 pg (27.0-33.4); MEAN CORPUSCULAR HGB CONC 33.6 g/dL (32.0-36.0); MEAN CORPUSCULAR VOLUME 90 fl (80-97); MONOCYTES % (AUTO) 1.6 % (3-13); PLATELET COUNT 369 10^3/uL (150-450); RED BLOOD COUNT 4.25 10^6/uL (3.72-5.28); RED CELL DISTRIBUTION WIDTH 15.5 % (11.5-14.0); SEGMENTED NEUTROPHILS % (AUTO) 92.1 % (42-78); TOTAL CELLS COUNTED % (AUTO) 100 %; WHITE BLOOD COUNT 8.2 10^3/uL (4.0-10.5)
[2018-04-24 04:13] LABS: ANION GAP 18 (5-19); BLOOD UREA NITROGEN 28 mg/dL (7-20); CALCIUM 9.2 mg/dL (8.4-10.2); CARBON DIOXIDE 20 mmol/L (22-30); CHLORIDE 98 mmol/L (98-107); GLUCOSE 132 mg/dL (75-110); PHOSPHORUS 5.9 mg/dL (2.5-4.5); POTASSIUM 5.5 mmol/L (3.6-5.0); SODIUM 136.2 mmol/L (137-145)
[2018-04-24 06:02] LABS: ARTERIAL BLOOD BASE EXCESS -3.7 mmol/L; ARTERIAL BLOOD HCO3 20.9 mmol/L (20-26); ARTERIAL BLOOD O2 SATURATION 97.3 % (94-98); ARTERIAL BLOOD PCO2 36.6 mmHg (35-45); ARTERIAL BLOOD PH 7.38 (7.35-7.45)
[2018-04-24 06:09] LABS: ARTERIAL BLOOD FIO2 35%
[2018-04-24] MEDS: HEPARIN SOD (PORCINE) 5,000 UNIT/ML 1 ML SYRINGE SUBCUT SCH ×3 (07:05→22:23)
--- NOTE | 2018-04-24 08:00 | EKG REPORT ---
SEVERITY:- ABNORMAL ECG - SINUS RHYTHM LEFT BUNDLE BRANCH BLOCK : Confirmed by: Betsey Rojas MD 24-Apr-2018 07:59:16
[2018-04-24] MEDS: IPRATROPIUM/ALBUTEROL 0.5-2.5 MG/3 ML AMPUL NEB SCH ×3 (08:32→20:44)
[2018-04-24] MEDS ORDERED: LEVALBUTEROL HCL NEB 1.25 MG/3 ML AMPUL NEB PRN (08:51)
[2018-04-24] MEDS ORDERED: FLUTICASONE/SALMETEROL DISKUS 500-50 MCG/DOSE IH SCH (10:00)
[2018-04-24] MEDS ORDERED: ALBUTEROL SULFATE IN SCH (10:00)
[2018-04-24] MEDS ORDERED: IPRATROPIUM IN SCH (10:00)
[2018-04-24] MEDS: METOPROLOL SUCCINATE 25 MG TAB.SR.24H PO SCH ×2 (10:26→17:33)
[2018-04-24] MEDS: LORATADINE 10 MG TABLET PO SCH (10:26)
[2018-04-24] MEDS: FUROSEMIDE 20 MG TABLET PO SCH (10:26)
[2018-04-24] MEDS: ASPIRIN 81 MG TABLET, ENT COATED PO SCH (10:27)
[2018-04-24] MEDS: FLUTICASONE/SALMETEROL DISKUS 500-50 MCG/DOSE IH SCH ×2 (10:27→17:32)
[2018-04-24] MEDS ORDERED: METHYLPREDNISOLONE INJ 40 MG/1 ML SDV IV ONE (10:30)
[2018-04-24] MEDS: METHYLPREDNISOLONE INJ 40 MG/1 ML SDV IV SCH ×2 (17:32→23:31)
--- NOTE | 2018-04-24 19:39 | Progress Note ---
Provider Note Provider Note: 82 y.o. F admitted for acute respiratory failure. History of COPD, pulmonary HTN , on home O2 (2L average SPO2 95%) presented to the ED complaining of SOB placed on BIPAP. Patient seen this morning on rounds, she is resting comfortably in bed on nasal cannula. The patient states that she feels much better when compared to her initial arrival. Agree with coiler operator's plan of care: 1. COPD exacerbation: Supplemental O2 for SPO2> 88%. Empiric antibiotics. IV steroids. PRN and scheduled nebulizers 2. CHRONIC RESPIRATORY FAILURE: Supplemental O2 for SPO2>88%. 3. PULMONARY HTN: 2014 ECHO demonstrated Pulmonary HTN. Patient was due for f/u ECHO next week with Dr. Hayward, will complete while she is inpatient. Diuresed in ED, will continue daily PO lasix. 4. CKD: currently at patient's baseline Cr. 1.19 5. CHF: Normal EF per last ECHO in 2014. Continue home dose Metoprolol and Lasix. BNP 4560 6. HTN: Continue home dose Metoprolol and Lasix
[2018-04-24] MEDS ORDERED: AZITHROMYCIN 500 MG in DEXTROSE 5%-WATER 250 ML IV SCH (22:00)
[2018-04-24] MEDS: ATORVASTATIN CALCIUM 20 MG TABLET PO SCH (22:23)
[2018-04-25] MEDS: IPRATROPIUM/ALBUTEROL 0.5-2.5 MG/3 ML AMPUL NEB SCH ×4 (01:11→19:48)
[2018-04-25 04:40] LABS: HEMATOCRIT 33.6 % (36.0-47.0); HEMOGLOBIN 11.6 g/dL (12.0-15.5); MEAN CORPUSCULAR HEMOGLOBIN 30.7 pg (27.0-33.4); MEAN CORPUSCULAR HGB CONC 34.6 g/dL (32.0-36.0); MEAN CORPUSCULAR VOLUME 89 fl (80-97); PLATELET COUNT 323 10^3/uL (150-450); RED BLOOD COUNT 3.79 10^6/uL (3.72-5.28); RED CELL DISTRIBUTION WIDTH 15.4 % (11.5-14.0); WHITE BLOOD COUNT 11.3 10^3/uL (4.0-10.5)
[2018-04-25 05:02] LABS: ANION GAP 17 (5-19); BLOOD UREA NITROGEN 45 mg/dL (7-20); CARBON DIOXIDE 19 mmol/L (22-30); CHLORIDE 98 mmol/L (98-107); GLUCOSE 115 mg/dL (75-110); POTASSIUM 4.7 mmol/L (3.6-5.0); SODIUM 133.8 mmol/L (137-145)
[2018-04-25] MEDS: HEPARIN SOD (PORCINE) 5,000 UNIT/ML 1 ML SYRINGE SUBCUT SCH ×3 (05:16→21:35)
[2018-04-25] MEDS: METHYLPREDNISOLONE INJ 40 MG/1 ML SDV IV SCH ×4 (05:16→23:53)
[2018-04-25] MEDS ORDERED: AZITHROMYCIN 500 MG in DEXTROSE 5%-WATER 250 ML IV SCH (08:00)
[2018-04-25] MEDS: FUROSEMIDE 20 MG TABLET PO SCH (10:25)
[2018-04-25] MEDS: FLUTICASONE/SALMETEROL DISKUS 500-50 MCG/DOSE IH SCH ×2 (10:25→17:46)
[2018-04-25] MEDS: ASPIRIN 81 MG TABLET, ENT COATED PO SCH (10:25)
[2018-04-25] MEDS: LORATADINE 10 MG TABLET PO SCH (10:26)
[2018-04-25] MEDS: METOPROLOL SUCCINATE 25 MG TAB.SR.24H PO SCH ×2 (10:26→17:46)
[2018-04-25] MEDS: GUAIFENESIN 600 MG TABLET.SA PO SCH ×2 (12:21→21:34)
[2018-04-25] MEDS: LEVOFLOXACIN 750 MG/D5W RTU 750 MG/150 ML RTUPB IV SCH (12:22)
[2018-04-25] MEDS ORDERED: NORMAL SALINE 1000 ML 1,000 ML IV PRN (15:57)
--- NOTE | 2018-04-25 16:11 | PDOC PROGRESS REPORT ---
Subjective Progress Note for:: 04/25/18 Subjective:: 82 y.o. F who presented 04/23/2018 with shortness of breath, admitted for COPD exacerbation and acute respiratory failure requiring BIPAP. PMH includes COPD, pulmonary HTN, on home O2 (2L average SPO2 95%), HTN, CHF, AFIB. The patient was seen this morning on rounds, she is resting in bed comfortably on supplemental oxygen via nasal cannula. Her is at the bedside. The patient states that she feels 'much better' today and denies any respiratory complaints. The patient is alert and oriented to self and place, she is disoriented to the year and situation. Per , this is normal for the patient. Her dementia has been getting progressively worse over the years. Upon assessment, rhonchi can be auscultated in all lung roche, wheezing heard in the RML and are RLL. The patient does not exhibit any s/s of respiratory distress. She is able to answer all questions appropriately without pause. Plan to expand antibiotic regimen. Review ECHOcardiogram results to determine degree of Pulmonary HTN. Reason For Visit: COPD EXACERBATION WITH ACUTE HYPOXIC RESPIRATORY Physical Exam Vital Signs: Temp Pulse Resp BP Pulse Ox 97.8 F 101 H 16 114/66 93 04/25/18 11:31 04/25/18 13:56 04/25/18 13:56 04/25/18 11:31 04/25/18 13:56 Intake & Output 04/24/18 04/25/18 04/26/18 06:59 06:59 06:59 Intake Total 250 175 637 Output Total 1850 300 Balance 250 -1675 337 Weight 49.3 kg General appearance: PRESENT: no acute distress Eye exam: PRESENT: conjunctiva pink, PERRLA Mouth exam: PRESENT: moist Neck exam: PRESENT: full ROM Respiratory exam: PRESENT: rhonchi - bilaterally, symmetrical, unlabored, wheezes - RML RLL Cardiovascular exam: PRESENT: +S1, +S2 Pulses: PRESENT: normal radial pulses, normal dorsalis pedis pul GI/Abdominal exam: PRESENT: normal bowel sounds, soft. ABSENT: tenderness Rectal exam: PRESENT: deferred Extremities exam: PRESENT: full ROM. ABSENT: pedal edema Musculoskeletal exam: PRESENT: ambulatory, full ROM Neurological exam: PRESENT: alert, awake, oriented to person, oriented to place , oriented to time, oriented to situation Psychiatric exam: PRESENT: appropriate affect Skin exam: PRESENT: dry, intact, normal color Results Laboratory Results: 04/25/18 03:58 04/25/18 03:58 04/25/18 04/25/18 03:58 03:58 WBC 11.3 H RBC 3.79 Hgb 11.6 L Hct 33.6 L MCV 89 MCH 30.7 MCHC 34.6 RDW 15.4 H Plt Count 323 Sodium 133.8 L Potassium 4.7 Chloride 98 Carbon Dioxide 19 L Anion Gap 17 BUN 45 H Creatinine 1.29 H Est GFR ( Amer) 48 L Est GFR (Non-Af Amer) 40 L Glucose 115 H Calcium 9.0 Magnesium 3.1 H Impressions: Chest X-Ray 04/23/18 19:50 IMPRESSION: NO ACUTE RADIOGRAPHIC FINDING IN THE CHEST. Status: Imported from PACS Assessment & Plan - Diagnosis (1) COPD exacerbation Is this a current diagnosis for this admission?: Yes Plan: Likely stemming from upper respiratory infection as evidence by leukocytosis, tachypnea, and productive cough CXR does not demonstrate acute findings or any significant cardiopulmonary pathology Initially required BIPAP, weaned to home dose O2 Rhonci heard this morning on assessment, plan to broaden antibiotic spectrum Patient remains afebrile Discontinue IV azithromycin, initiate IV levaquin Continue IV steroids Continue PRN and scheduled nebulizer treatments Mucinex BID (2) Chronic respiratory failure with hypoxia Is this a current diagnosis for this admission?: Yes Plan: Improved, weaned from BIPAP to nasal cannula Likely due to COPD exacerbation stemming from upper respiratory infection see plan above (3) Pulmonary hypertension, moderate to severe Is this a current diagnosis for this admission?: Yes Plan: Patient endorses history of Pulmonary HTN, diagnosed on ECHO done by Dr. Hayward in 2015 Repeat ECHO done today, results pending (4) CKD (chronic kidney disease), stage III Is this a current diagnosis for this admission?: Yes Plan: Worsening. Creatinine increased from 1.19 to 1.29 today Rise in BUN 25->45 Likely related to dehydration following diuresis in the ED Encourage PO intake Initiate gentle IVF @ 50mL/hr (5) Chronic diastolic CHF (congestive heart failure) Is this a current diagnosis for this admission?: Yes Plan: BNP upon arrival 4500 ECHOcardiogram completed today, results pending Gentle IV for worsening CKD Hold PO lasix for now while on IVF Monitor closely for symptoms of volume overload ASA therapy Statin therapy Continue home dose Metoprolol (6) Hypertension Is this a current diagnosis for this admission?: Yes Plan: Endorses history of HTN Continue home dose metoprolol (7) Debility Is this a current diagnosis for this admission?: Yes Plan: Per , patient has been experiencing back pain and swollen extremities for a few weeks (ruled out for DVT) She has not been very mobile recently given her overall poor state of health At home, she was requiring a walker to ambulate, which she normally does not use Requested PT/OT consult to help patient regain strength - Time Time Spent with patient: 15-24 minutes Medications reviewed and adjusted accordingly: Yes Anticipated discharge: Home - Inpatient Certification Based on my medical assessment, after consideration of the patient's comorbidities, presenting symptoms, or acuity I expect that the services needed warrant INPATIENT care.: Yes I certify that my determination is in accordance with my understanding of Medicare's requirements for reasonable and necessary INPATIENT services [42 CFR 412.3e].: Yes Medical Necessity: Risk of Complication if Not Cared For in Hospital - Plan Summary Plan Summary: CHANGE ANTIBIOTICS TO LEVAQUIN, CONCERN FOR PNA. PT/OT EVAL GIVEN RECENT PROBLEMS WITH MOBILITY. ECHO RESULTS PENDING.
--- NOTE | 2018-04-25 18:56 | XCELERA REPORT ---
[address] [address] Transthoracic Echocardiogram Report Name: SHAWN GORDON Age: 82 yrs Gender: Female : 1935 Patient Status: Inpatient Patient Location: [address] [place], [place] [address] Study Date: 04/25/2018 09:33 AM Procedure: A complete two-dimensional transthoracic echocardiogram was performed (2D, M-mode, spectral and color flow Doppler). The study was technically difficult with many images being suboptimal in quality. Reason For Study: New CHF. Hx significant Pulm HTN Ordering Physician: GRABIEL REED Performed By: Yuliya Rodríguez Interpretation Summary LV EF is 45% The left ventricle is grossly normal size. There is mild concentric left ventricular hypertrophy. Doppler measurements suggest reversible restrictive left ventricular relaxation, which is associated with grade III/IV or moderate diastolic dysfunction There is apical wall mild hypokinesis The right ventricular systolic function is normal. The left atrial size is normal. The right atrium is normal. There is a trace amount of mitral regurgitation There is no mitral valve stenosis. No aortic regurgitation is present. There is no aortic valve stenosis There is no tricuspid stenosis. No tricuspid regurgitation. The aortic root is not well visualized but is probably normal size. The inferior vena cava was not well visualized There is no pericardial effusion. MMode/2D Measurements & Calculations RVDd: 3.1 cm LVIDd: 4.9 cmFS: 32.1 % Ao root diam: 3.0 cm IVSd: 1.1 cm LVIDs: 3.3 cmEDV(Teich): 111.9 ml Ao root area: 7.0 cm2 LVPWd: 1.0 cmESV(Teich): 44.6 ml EF(Teich): 60.2 % LVOT diam: 1.5 cm LVOT area: 1.7 cm2 Doppler Measurements & Calculations MV E max sandy: MV dec slope: Ao V2 max: LV V1 max P.1 cm/sec 125.3 cm/sec 4.4 mmHg MV A max sandy: 786.5 cm/sec2 Ao max PG: LV V1 max: 34.3 cm/sec MV dec time: 6.3 mmHg 105.4 cm/sec MV E/A: 3.6 0.16 sec RACHEL(V,D): 1.4 cm2 PA V2 max: 91.8 cm/sec PA max P.4 mmHg Left Ventricle The left ventricle is grossly normal size. There is mild concentric left ventricular hypertrophy. LV EF is 45%. Doppler measurements suggest reversible restrictive left ventricular relaxation, which is associated with grade III/IV or moderate diastolic dysfunction. There is apical wall mild hypokinesis. Right Ventricle The right ventricle is grossly normal size. The right ventricular systolic function is normal. Atria The right atrium is normal. The left atrial size is normal. Interarterial septum not well visualized and not well dopplered. Cannot comment on ASD/PFO presence. Mitral Valve The mitral valve is grossly normal. There is no mitral valve stenosis. There is a trace amount of mitral regurgitation. Aortic Valve The aortic valve is grossly normal. There is no aortic valve stenosis. No aortic regurgitation is present. Tricuspid Valve The tricuspid valve is not well visualized, but is grossly normal. There is no tricuspid stenosis. No tricuspid regurgitation. Pulmonic Valve The pulmonic valve is not well visualized. Great Vessels The aortic root is not well visualized but is probably normal size. The inferior vena cava was not well visualized. Effusions There is no pericardial effusion. : GRABIEL REED Shyamal
[2018-04-25] MEDS ORDERED: LORAZEPAM INJ 2 MG/1 ML VIAL IV ONE (20:30)
[2018-04-25] MEDS: ATORVASTATIN CALCIUM 20 MG TABLET PO SCH (21:34)
[2018-04-26] MEDS: IPRATROPIUM/ALBUTEROL 0.5-2.5 MG/3 ML AMPUL NEB SCH ×4 (01:32→19:48)
[2018-04-26] MEDS: METHYLPREDNISOLONE INJ 40 MG/1 ML SDV IV SCH ×4 (05:26→23:29)
[2018-04-26] MEDS: HEPARIN SOD (PORCINE) 5,000 UNIT/ML 1 ML SYRINGE SUBCUT SCH ×3 (05:26→21:19)
[2018-04-26 08:28] LABS: HEMATOCRIT 34.7 % (36.0-47.0); HEMOGLOBIN 11.8 g/dL (12.0-15.5); MEAN CORPUSCULAR HGB CONC 34.1 g/dL (32.0-36.0); MEAN CORPUSCULAR VOLUME 88 fl (80-97); PLATELET COUNT 354 10^3/uL (150-450); RED BLOOD COUNT 3.94 10^6/uL (3.72-5.28); RED CELL DISTRIBUTION WIDTH 15.2 % (11.5-14.0); WHITE BLOOD COUNT 7.8 10^3/uL (4.0-10.5)
[2018-04-26 08:51] LABS: ALANINE AMINOTRANSFERASE 29 U/L (9-52); ALBUMIN 3.5 g/dL (3.5-5.0); ALKALINE PHOSPHATASE 73 U/L (38-126); ANION GAP 12 (5-19); ASPARTATE AMINO TRANSFERASE 41 U/L (14-36); BILIRUBIN,DIRECT 0.4 mg/dL (0.0-0.4); BILIRUBIN,TOTAL 0.6 mg/dL (0.2-1.3); BLOOD UREA NITROGEN 39 mg/dL (7-20); CALCIUM 9.1 mg/dL (8.4-10.2); CARBON DIOXIDE 23 mmol/L (22-30); CHLORIDE 105 mmol/L (98-107); GLUCOSE 119 mg/dL (75-110); POTASSIUM 4.8 mmol/L (3.6-5.0); TOTAL PROTEIN 6.7 g/dL (6.3-8.2)
[2018-04-26] MEDS: FUROSEMIDE 20 MG TABLET PO SCH (10:06)
[2018-04-26] MEDS: GUAIFENESIN 600 MG TABLET.SA PO SCH ×2 (10:07→21:21)
[2018-04-26] MEDS: LORATADINE 10 MG TABLET PO SCH (10:07)
[2018-04-26] MEDS: METOPROLOL SUCCINATE 25 MG TAB.SR.24H PO SCH ×2 (10:07→18:42)
[2018-04-26] MEDS: FLUTICASONE/SALMETEROL DISKUS 500-50 MCG/DOSE IH SCH ×2 (10:08→18:43)
[2018-04-26] MEDS: ASPIRIN 81 MG TABLET, ENT COATED PO SCH (10:08)
[2018-04-26] MEDS: LEVOFLOXACIN 750 MG/D5W RTU 750 MG/150 ML RTUPB IV SCH (12:20)
--- NOTE | 2018-04-26 17:02 | PDOC PROGRESS REPORT ---
Subjective Progress Note for:: 04/26/18 Subjective:: 82 y.o. F who presented 04/23/2018 with shortness of breath, admitted for COPD exacerbation and acute respiratory failure requiring BIPAP. PMH includes COPD, pulmonary HTN, on home O2 (2L average SPO2 95%), HTN, CHF, AFIB. The patient was seen this morning on rounds, she is resting in bed comfortably on supplemental oxygen via nasal cannula. Her is at the bedside. The patient states that she feels well today and denies any respiratory complaints. Upon assessment, rhonchi can be auscultated in all lung roche, wheezing heard in the RML. The patient does not exhibit any s/s of respiratory distress. She is able to answer all questions appropriately without pause. Patient ambulated today with nursing staff while on portable vital signs monitor. She became tachycardic (HR 130s) and hypoxic (85%) and short of breath. Plan to keep inpatient while continuing to treat COPD exacerbation. Reason For Visit: COPD EXACERBATION WITH ACUTE HYPOXIC RESPIRATORY Physical Exam Vital Signs: Temp Pulse Resp BP Pulse Ox 97.5 F 115 H 16 138/76 H 97 04/26/18 15:29 04/26/18 15:29 04/26/18 15:29 04/26/18 15:29 04/26/18 15:29 Intake & Output 04/25/18 04/26/18 04/27/18 06:59 06:59 06:59 Intake Total 175 1687 325 Output Total 1850 1850 225 Balance -1675 -163 100 Weight 49.3 kg 48.4 kg General appearance: PRESENT: no acute distress, thin Head exam: PRESENT: atraumatic Eye exam: PRESENT: conjunctiva pink, PERRLA Mouth exam: PRESENT: moist Neck exam: PRESENT: full ROM Respiratory exam: PRESENT: rhonchi, symmetrical, unlabored, wheezes Cardiovascular exam: PRESENT: +S1, +S2 Pulses: PRESENT: normal radial pulses, normal dorsalis pedis pul GI/Abdominal exam: PRESENT: normal bowel sounds, soft. ABSENT: tenderness Rectal exam: PRESENT: deferred Extremities exam: PRESENT: full ROM Musculoskeletal exam: PRESENT: ambulatory, full ROM Neurological exam: PRESENT: alert, awake, oriented to person, oriented to place , oriented to time, oriented to situation Psychiatric exam: PRESENT: appropriate affect Skin exam: PRESENT: dry, intact, normal color, warm Results Laboratory Results: 04/26/18 07:52 04/26/18 07:52 04/26/18 04/26/18 07:52 07:52 WBC 7.8 RBC 3.94 Hgb 11.8 L Hct 34.7 L MCV 88 MCH 30.0 MCHC 34.1 RDW 15.2 H Plt Count 354 Sodium 140.0 Potassium 4.8 Chloride 105 Carbon Dioxide 23 Anion Gap 12 BUN 39 H Creatinine 1.08 Est GFR ( Amer) 59 L Est GFR (Non-Af Amer) 49 L Glucose 119 H Calcium 9.1 Total Bilirubin 0.6 AST 41 H ALT 29 Alkaline Phosphatase 73 Total Protein 6.7 Albumin 3.5 Impressions: Chest X-Ray 04/23/18 19:50 IMPRESSION: NO ACUTE RADIOGRAPHIC FINDING IN THE CHEST. Status: Imported from PACS Assessment & Plan - Diagnosis (1) COPD exacerbation Is this a current diagnosis for this admission?: Yes Plan: Likely stemming from upper respiratory infection as evidence by leukocytosis, tachypnea, and productive cough CXR does not demonstrate acute findings or any significant cardiopulmonary pathology Initially required BIPAP, weaned to home dose O2 Rhonci heard this morning on assessment, continue IV levaquin for severe COPD exacerbation Patient remains afebrile Increase dose of IV steroids due to persistent wheezing Continue PRN and scheduled nebulizer treatments Mucinex BID (2) Chronic respiratory failure with hypoxia Is this a current diagnosis for this admission?: Yes Plan: Improved, weaned from BIPAP to nasal cannula Likely due to COPD exacerbation stemming from upper respiratory infection see plan above (3) Pulmonary hypertension, moderate to severe Is this a current diagnosis for this admission?: Yes Plan: Patient endorses history of Pulmonary HTN, diagnosed on ECHO done by Dr. Hayward in 2014 Repeat ECHO done yesterday, LVEF 45%, mild concentric LVH, grade III/IV diastolic dysfunction. Interpreting physician did not comment on presence of pulmonary hypertension, RV appears normal on ECHO (4) CKD (chronic kidney disease), stage III Is this a current diagnosis for this admission?: Yes Plan: Improving. Creatinine decreased from 1.29 to 1.08 today Likely related to dehydration following diuresis in the ED Encourage PO intake Initiate gentle IVF @ 50mL/hr (5) Chronic diastolic CHF (congestive heart failure) Is this a current diagnosis for this admission?: Yes Plan: BNP upon arrival 4500 ECHOcardiogram completed LVEF 45%, mild concentric LVH, grade III/IV diastolic dysfunction. Hold PO lasix for now for dehydration stemming from overdiuresis early in admission Monitor closely for symptoms of volume overload ASA therapy Statin therapy Continue home dose Metoprolol (6) Hypertension Is this a current diagnosis for this admission?: Yes Plan: Endorses history of HTN Continue home dose metoprolol (7) Debility Is this a current diagnosis for this admission?: Yes Plan: Per , patient has been experiencing back pain and swollen extremities for a few weeks (ruled out for DVT) She has not been very mobile recently given her overall poor state of health At home, she was requiring a walker to ambulate, which she normally does not use Requested PT/OT consult to help patient regain strength - Time Time Spent with patient: 15-24 minutes Medications reviewed and adjusted accordingly: Yes Anticipated discharge: Home - Inpatient Certification Based on my medical assessment, after consideration of the patient's comorbidities, presenting symptoms, or acuity I expect that the services needed warrant INPATIENT care.: Yes I certify that my determination is in accordance with my understanding of Medicare's requirements for reasonable and necessary INPATIENT services [42 CFR 412.3e].: Yes Medical Necessity: Risk of Complication if Not Cared For in Hospital - Plan Summary Plan Summary: CONTINUE IV ANTIBIOTICS, STEROIDS, NEBULIZER TREATMENTS
[2018-04-26] MEDS: ATORVASTATIN CALCIUM 20 MG TABLET PO SCH (21:21)
[2018-04-27] MEDS: IPRATROPIUM/ALBUTEROL 0.5-2.5 MG/3 ML AMPUL NEB SCH ×4 (01:42→19:43)
[2018-04-27] MEDS: METHYLPREDNISOLONE INJ 40 MG/1 ML SDV IV SCH ×4 (05:27→23:47)
[2018-04-27] MEDS: HEPARIN SOD (PORCINE) 5,000 UNIT/ML 1 ML SYRINGE SUBCUT SCH ×3 (05:27→21:38)
[2018-04-27 08:18] LABS: HEMATOCRIT 35.1 % (36.0-47.0); HEMOGLOBIN 11.9 g/dL (12.0-15.5); MEAN CORPUSCULAR HEMOGLOBIN 29.9 pg (27.0-33.4); MEAN CORPUSCULAR VOLUME 88 fl (80-97); PLATELET COUNT 348 10^3/uL (150-450); RED BLOOD COUNT 3.99 10^6/uL (3.72-5.28); WHITE BLOOD COUNT 8.4 10^3/uL (4.0-10.5)
[2018-04-27 08:33] LABS: ALANINE AMINOTRANSFERASE 36 U/L (9-52); ALBUMIN 3.5 g/dL (3.5-5.0); ALKALINE PHOSPHATASE 70 U/L (38-126); ANION GAP 14 (5-19); ASPARTATE AMINO TRANSFERASE 45 U/L (14-36); BILIRUBIN,DIRECT 0.4 mg/dL (0.0-0.4); BILIRUBIN,TOTAL 0.7 mg/dL (0.2-1.3); BLOOD UREA NITROGEN 34 mg/dL (7-20); CALCIUM 9.1 mg/dL (8.4-10.2); CARBON DIOXIDE 21 mmol/L (22-30); CHLORIDE 102 mmol/L (98-107); GLUCOSE 128 mg/dL (75-110); SODIUM 137.2 mmol/L (137-145); TOTAL PROTEIN 6.5 g/dL (6.3-8.2)
[2018-04-27] MEDS: ASPIRIN 81 MG TABLET, ENT COATED PO SCH (09:14)
[2018-04-27] MEDS: GUAIFENESIN 600 MG TABLET.SA PO SCH ×2 (09:14→21:38)
[2018-04-27] MEDS: METOPROLOL SUCCINATE 25 MG TAB.SR.24H PO SCH ×2 (09:14→18:36)
[2018-04-27] MEDS: LORATADINE 10 MG TABLET PO SCH (09:14)
[2018-04-27] MEDS: FUROSEMIDE 20 MG TABLET PO SCH (09:14)
[2018-04-27] MEDS: FLUTICASONE/SALMETEROL DISKUS 500-50 MCG/DOSE IH SCH (09:15)
[2018-04-27] MEDS: LEVOFLOXACIN 750 MG/D5W RTU 750 MG/150 ML RTUPB IV SCH (13:19)
[2018-04-27] MEDS: SALMETEROL XINAFOATE DISKUS 50 MCG/1 DOSE 28 DOSE IH SCH ×2 (15:23→21:40)
[2018-04-27] MEDS: TIOTROPIUM BROMIDE DPI 5 CAP/KIT (18 MCG/CAP) IH SCH (15:23)
--- NOTE | 2018-04-27 18:08 | PDOC PROGRESS REPORT ---
Subjective Progress Note for:: 04/27/18 Subjective:: 82 y.o. F who presented 04/23/2018 with shortness of breath, admitted for COPD exacerbation and acute respiratory failure requiring BIPAP. PMH includes COPD, pulmonary HTN, on home O2 (2L average SPO2 95%), HTN, CHF, AFIB. The patient was seen this morning on rounds, she had just finished ambulating in the hallway with RN and . Audible wheezing could be heard from the doorway. She is somewhat tachypneic and needs to pause frequently to take a breath when answering questions. Upon assessment, rhonchi can be auscultated in all lung roche, wheezing heard in the RML. Plan to keep inpatient while continuing to treat COPD exacerbation. Reason For Visit: COPD EXACERBATION WITH ACUTE HYPOXIC RESPIRATORY Physical Exam Vital Signs: Temp Pulse Resp BP Pulse Ox 97.7 F 111 H 20 134/67 H 99 04/27/18 10:47 04/27/18 15:54 04/27/18 15:54 04/27/18 10:47 04/27/18 15:54 Intake & Output 04/26/18 04/27/18 04/28/18 06:59 06:59 06:59 Intake Total 1687 2855 537 Output Total 1850 1725 400 Balance -163 1130 137 Weight 48.4 kg 51.5 kg General appearance: PRESENT: no acute distress Head exam: PRESENT: atraumatic Eye exam: PRESENT: conjunctiva pink, PERRLA Mouth exam: PRESENT: moist Teeth exam: PRESENT: poor dentation Neck exam: PRESENT: full ROM Respiratory exam: PRESENT: rhonchi, symmetrical, tachypnea, wheezes Cardiovascular exam: PRESENT: +S1, +S2 Pulses: PRESENT: normal radial pulses, normal dorsalis pedis pul GI/Abdominal exam: PRESENT: normal bowel sounds, soft. ABSENT: tenderness Rectal exam: PRESENT: deferred Extremities exam: PRESENT: full ROM. ABSENT: joint swelling, pedal edema Musculoskeletal exam: PRESENT: ambulatory, full ROM Neurological exam: PRESENT: alert, awake, oriented to person, oriented to place , oriented to time, oriented to situation Psychiatric exam: PRESENT: appropriate affect Skin exam: PRESENT: dry, intact, normal color Results Laboratory Results: 04/27/18 07:53 04/27/18 07:53 04/27/18 04/27/18 07:53 07:53 WBC 8.4 RBC 3.99 Hgb 11.9 L Hct 35.1 L MCV 88 MCH 29.9 MCHC 34.0 RDW 15.0 H Plt Count 348 Sodium 137.2 Potassium 4.0 Chloride 102 Carbon Dioxide 21 L Anion Gap 14 BUN 34 H Creatinine 1.10 Est GFR ( Amer) 58 L Est GFR (Non-Af Amer) 48 L Glucose 128 H Calcium 9.1 Total Bilirubin 0.7 AST 45 H ALT 36 Alkaline Phosphatase 70 Total Protein 6.5 Albumin 3.5 Impressions: Chest X-Ray 04/23/18 19:50 IMPRESSION: NO ACUTE RADIOGRAPHIC FINDING IN THE CHEST. Status: Imported from PACS Assessment & Plan - Diagnosis (1) COPD exacerbation Is this a current diagnosis for this admission?: Yes Plan: Likely stemming from upper respiratory infection as evidence by leukocytosis, tachypnea, and productive cough CXR does not demonstrate acute findings or any significant cardiopulmonary pathology Initially required BIPAP, weaned to home dose O2 Rhonci heard this morning on assessment, continue IV levaquin for severe COPD exacerbation Patient remains afebrile IV steroids 60mg q6hr due to persistent wheezing Continue PRN and scheduled nebulizer treatments Mucinex BID Spiriva and Serevent inhalers (2) Chronic respiratory failure with hypoxia Is this a current diagnosis for this admission?: Yes Plan: Improved, weaned from BIPAP to nasal cannula Likely due to COPD exacerbation stemming from upper respiratory infection see plan above (3) Pulmonary hypertension, moderate to severe Is this a current diagnosis for this admission?: Yes Plan: Patient endorses history of Pulmonary HTN, diagnosed on ECHO done by Dr. Hayward in 2014 Repeat ECHO done yesterday, LVEF 45%, mild concentric LVH, grade III/IV diastolic dysfunction. Interpreting physician did not comment on presence of pulmonary hypertension, RV appears normal on ECHO (4) CKD (chronic kidney disease), stage III Is this a current diagnosis for this admission?: Yes Plan: Stabilized. Creatinine 1.1 today, 1.08 yesterday Likely related to dehydration following diuresis in the ED Encourage PO intake (5) Chronic diastolic CHF (congestive heart failure) Is this a current diagnosis for this admission?: Yes Plan: BNP upon arrival 4500 ECHOcardiogram completed LVEF 45%, mild concentric LVH, grade III/IV diastolic dysfunction. Hold PO lasix for now for dehydration stemming from overdiuresis early in admission Monitor closely for symptoms of volume overload ASA therapy Statin therapy Continue home dose Metoprolol (6) Hypertension Is this a current diagnosis for this admission?: Yes Plan: Endorses history of HTN Continue home dose metoprolol (7) Debility Is this a current diagnosis for this admission?: Yes Plan: Per , patient has been experiencing back pain and swollen extremities for a few weeks (ruled out for DVT) She has not been very mobile recently given her overall poor state of health At home, she was requiring a walker to ambulate, which she normally does not use Requested PT/OT consult to help patient regain strength but patient able to ambulate in hallway with RN and walker - Time Time Spent with patient: 15-24 minutes Medications reviewed and adjusted accordingly: Yes Anticipated discharge: Home - Inpatient Certification Based on my medical assessment, after consideration of the patient's comorbidities, presenting symptoms, or acuity I expect that the services needed warrant INPATIENT care.: Yes I certify that my determination is in accordance with my understanding of Medicare's requirements for reasonable and necessary INPATIENT services [42 CFR 412.3e].: Yes Medical Necessity: Risk of Complication if Not Cared For in Hospital - Plan Summary Plan Summary: Continue treatment for COPD exacerbation. Resume daily Lasix. Likely discharge home within 48-72 hours.
[2018-04-27] MEDS: ATORVASTATIN CALCIUM 20 MG TABLET PO SCH (21:38)
[2018-04-28] MEDS: IPRATROPIUM/ALBUTEROL 0.5-2.5 MG/3 ML AMPUL NEB SCH ×6 (00:15→19:51)
[2018-04-28] MEDS: HEPARIN SOD (PORCINE) 5,000 UNIT/ML 1 ML SYRINGE SUBCUT SCH ×3 (05:24→21:34)
[2018-04-28] MEDS: METHYLPREDNISOLONE INJ 40 MG/1 ML SDV IV SCH ×3 (05:24→17:26)
[2018-04-28] MEDS ORDERED: FUROSEMIDE 40 MG TABLET PO SCH (10:00)
[2018-04-28] MEDS: LORATADINE 10 MG TABLET PO SCH (10:04)
[2018-04-28] MEDS: FUROSEMIDE 20 MG TABLET PO SCH (10:04)
[2018-04-28] MEDS: GUAIFENESIN 600 MG TABLET.SA PO SCH ×2 (10:05→21:32)
[2018-04-28] MEDS: TIOTROPIUM BROMIDE DPI 5 CAP/KIT (18 MCG/CAP) IH SCH (10:05)
[2018-04-28] MEDS: METOPROLOL SUCCINATE 25 MG TAB.SR.24H PO SCH ×2 (10:05→17:25)
[2018-04-28] MEDS: SALMETEROL XINAFOATE DISKUS 50 MCG/1 DOSE 28 DOSE IH SCH ×2 (10:06→21:33)
[2018-04-28] MEDS ORDERED: ASPIRIN 81 MG TABLET, ENT COATED PO ONE (11:00)
[2018-04-28 11:13] LABS: HEMATOCRIT 35.8 % (36.0-47.0); HEMOGLOBIN 11.9 g/dL (12.0-15.5); MEAN CORPUSCULAR HEMOGLOBIN 29.4 pg (27.0-33.4); MEAN CORPUSCULAR HGB CONC 33.4 g/dL (32.0-36.0); MEAN CORPUSCULAR VOLUME 88 fl (80-97); PLATELET COUNT 332 10^3/uL (150-450); RED BLOOD COUNT 4.06 10^6/uL (3.72-5.28); RED CELL DISTRIBUTION WIDTH 15.4 % (11.5-14.0); WHITE BLOOD COUNT 7.7 10^3/uL (4.0-10.5)
[2018-04-28] MEDS: LEVOFLOXACIN 750 MG/D5W RTU 750 MG/150 ML RTUPB IV SCH (11:14)
--- NOTE | 2018-04-28 16:54 | PDOC PROGRESS REPORT ---
Subjective Progress Note for:: 04/28/18 Subjective:: 82 y.o. F who presented 04/23/2018 with shortness of breath, admitted for COPD exacerbation and acute respiratory failure requiring BIPAP. PMH includes COPD, pulmonary HTN, on home O2 (2L average SPO2 95%), HTN, CHF, AFIB. The patient was seen this morning on rounds, she is resting comfortably in bed on supplemental oxygen. She is alert and oriented 3, able to answer all questions appropriately and without pause. Upon assessment, rhonchi can be auscultated in all lung roche, wheezing heard in the RML. The patient frequently becomes hypoxic and tachycardic when ambulating in the hallways on supplemental oxygen, this despite days of treatment with steroids, nebulizers, and antibiotics for her COPD exacerbation. Plan for CT chest to evaluate for other cardiopulmonary pathology. Will keep inpatient while continuing to treat COPD exacerbation. Reason For Visit: COPD EXACERBATION WITH ACUTE HYPOXIC RESPIRATORY Physical Exam Vital Signs: Temp Pulse Resp BP Pulse Ox 98.6 F 101 H 20 118/77 97 04/28/18 14:45 04/28/18 14:45 04/28/18 14:45 04/28/18 14:45 04/28/18 14:45 Intake & Output 04/27/18 04/28/18 04/29/18 06:59 06:59 06:59 Intake Total 2855 812 150 Output Total 1725 1450 Balance 1130 -638 150 Weight 51.5 kg 49 kg General appearance: PRESENT: no acute distress Eye exam: PRESENT: conjunctiva pink, PERRLA Mouth exam: PRESENT: moist Neck exam: PRESENT: full ROM Respiratory exam: PRESENT: clear to auscultation ulises, symmetrical, unlabored Cardiovascular exam: PRESENT: +S1, +S2 Pulses: PRESENT: normal radial pulses, normal dorsalis pedis pul GI/Abdominal exam: PRESENT: normal bowel sounds, soft. ABSENT: tenderness Rectal exam: PRESENT: deferred Extremities exam: PRESENT: full ROM. ABSENT: pedal edema Musculoskeletal exam: PRESENT: ambulatory, full ROM Neurological exam: PRESENT: alert, awake, oriented to person, oriented to place , oriented to time, oriented to situation Psychiatric exam: PRESENT: appropriate affect Skin exam: PRESENT: dry, intact, normal color Results Laboratory Results: 04/28/18 10:52 04/27/18 07:53 04/28/18 10:52 WBC 7.7 RBC 4.06 Hgb 11.9 L Hct 35.8 L MCV 88 MCH 29.4 MCHC 33.4 RDW 15.4 H Plt Count 332 Impressions: Chest X-Ray 04/23/18 19:50 IMPRESSION: NO ACUTE RADIOGRAPHIC FINDING IN THE CHEST. Status: Imported from PACS Assessment & Plan - Diagnosis (1) COPD exacerbation Is this a current diagnosis for this admission?: Yes Plan: Likely stemming from upper respiratory infection as evidence by leukocytosis, tachypnea, and productive cough CXR does not demonstrate acute findings or any significant cardiopulmonary pathology Initially required BIPAP, weaned to home dose O2 Rhonci heard this morning on assessment, continue IV levaquin for severe COPD exacerbation Patient remains afebrile IV steroids 60mg q6hr, wheezing has improved, will attempt slow steroid wean Continue PRN and scheduled nebulizer treatments Mucinex BID Spiriva and Serevent inhalers (2) Chronic respiratory failure with hypoxia Is this a current diagnosis for this admission?: Yes Plan: Improved, weaned from BIPAP to nasal cannula Likely due to COPD exacerbation stemming from upper respiratory infection see plan above (3) Pulmonary hypertension, moderate to severe Is this a current diagnosis for this admission?: Yes Plan: Patient endorses history of Pulmonary HTN, diagnosed on ECHO done by Dr. Hayward in 2014 Repeat ECHO done yesterday, LVEF 45%, mild concentric LVH, grade III/IV diastolic dysfunction. Interpreting physician did not comment on presence of pulmonary hypertension, RV appears normal on ECHO (4) CKD (chronic kidney disease), stage III Is this a current diagnosis for this admission?: Yes Plan: Stabilized. Creatinine 1.1 Initial elevated creatinine related to dehydration following diuresis in the ED Encourage PO intake (5) Chronic diastolic CHF (congestive heart failure) Is this a current diagnosis for this admission?: Yes Plan: BNP upon arrival 4500 ECHOcardiogram completed LVEF 45%, mild concentric LVH, grade III/IV diastolic dysfunction. PO Lasix 40mg daily Monitor closely for symptoms of volume overload ASA therapy Statin therapy Continue home dose Metoprolol (6) Hypertension Is this a current diagnosis for this admission?: Yes Plan: Endorses history of HTN Continue home dose metoprolol (7) Debility Is this a current diagnosis for this admission?: Yes Plan: Per , patient has been experiencing back pain and swollen extremities for a few weeks (ruled out for DVT) She has not been very mobile recently given her overall poor state of health At home, she was requiring a walker to ambulate, which she normally does not use PT/OT following - Time Time Spent with patient: 15-24 minutes Medications reviewed and adjusted accordingly: Yes Anticipated discharge: Home Within: within 48 hours - Inpatient Certification Based on my medical assessment, after consideration of the patient's comorbidities, presenting symptoms, or acuity I expect that the services needed warrant INPATIENT care.: Yes I certify that my determination is in accordance with my understanding of Medicare's requirements for reasonable and necessary INPATIENT services [42 CFR 412.3e].: Yes Medical Necessity: Need for IV Antibiotics, Risk of Complication if Not Cared For in Hospital - Plan Summary Plan Summary: CONTINUE IV ABX, NEBS, STEROIDS. CT CHEST TO ASSESS FOR OTHER PATHOLOGY.
--- NOTE | 2018-04-28 18:01 | RADIOLOGY REPORT (SQ) ---
EXAM DESCRIPTION: CTA CHEST COMPLETED DATE/TIME: 04/28/2018 5:51 pm REASON FOR STUDY: Tachycardia. SOB. Evaluate for PE COMPARISON: 04/23/2018 chest radiograph TECHNIQUE: CT scan of the chest performed using helical scanning technique with dynamic intravenous contrast injection. Images reviewed with lung, soft tissue and bone windows. Reconstructed coronal and sagittal MPR images reviewed. Additional 3 dimensional post-processing performed to develop Maximal Intensity Projection images (NC P). All images stored on PACS. All CT scanners at this facility use dose modulation, iterative reconstruction, and/or weight based d osing when appropriate to reduce radiation dose to as low as reasonably achievable (ALARA). [facility]: Dose Right [facility]: CareDose [facility]: Dose Right [facility]: Teradose 4D [facility]: [employer] CONTRAST TYPE AND DOSE: contrast/concentration: Isovue 370.00 mg/ml; Total Contrast Delivered: 61.0 ml; Total Saline Delivered: 101.0 ml Contrast bolus optimized for the pulmonary arteries. Not diagnostic for the aorta. RENAL FUNCTION: Creatinine 1.1 RADIATION DOSE: CT Rad equipment meets quality standard of care and radiation dose reduction techniq ues were employed. CTDIvol: 13.2 - 17.5 mGy. DLP: 610 mGy-cm. . LIMITATIONS: None. FINDINGS: LUNGS AND PLEURA: Parenchymal opacity in the right upper lobe with air bronchograms and sm all right effusion. AORTA AND GREAT VESSELS: No aneurysm. Contrast bolus not optimized for the aorta. HEART: No pericardial effusion. No significant coronary artery calcifications. PULMONARY ARTERIES: No emboli visualized in the main pulmonary arteries or the segmental branches. HILAR AND MEDIASTINAL STRUCTURES: No identified masses or abnormal nodes. HARDWARE: None in the chest. UPPER ABDOMEN: No significant findings. Limited exam. THYROID AND OTHER SOFT TISSUES: Breast prostheses. BONES: No acute findings. 3D MIPS: Confirm above findings. OTHER: No other significant finding. IMPRESSION: No pulmonary emboli. Right upper lobe pneumonia with minimal right effusion. COMMENT: Quality ID # [id number]: Final reports with documentation of one or more dose reduction techniques (e.g., Automated exposure control, adjustment of the mA and/or kV according to patient size, use of iterative reconstruction technique) TECHNICAL DOCUMENTATION: JOB ID: [id number] [employer]- All Rights Reserved Reading location - IP/workstation name: [email or web address]
[2018-04-28] MEDS: ATORVASTATIN CALCIUM 20 MG TABLET PO SCH (21:32)
[2018-04-29] MEDS: IPRATROPIUM/ALBUTEROL 0.5-2.5 MG/3 ML AMPUL NEB SCH ×6 (00:03→19:38)
[2018-04-29] MEDS: METHYLPREDNISOLONE INJ 40 MG/1 ML SDV IV SCH ×5 (01:27→23:07)
[2018-04-29 04:52] LABS: HEMATOCRIT 33.3 % (36.0-47.0); HEMOGLOBIN 11.3 g/dL (12.0-15.5); MEAN CORPUSCULAR HEMOGLOBIN 29.6 pg (27.0-33.4); MEAN CORPUSCULAR HGB CONC 33.8 g/dL (32.0-36.0); MEAN CORPUSCULAR VOLUME 88 fl (80-97); PLATELET COUNT 274 10^3/uL (150-450); RED BLOOD COUNT 3.81 10^6/uL (3.72-5.28); WHITE BLOOD COUNT 9.2 10^3/uL (4.0-10.5)
[2018-04-29] MEDS: HEPARIN SOD (PORCINE) 5,000 UNIT/ML 1 ML SYRINGE SUBCUT SCH ×3 (06:33→22:53)
[2018-04-29] MEDS: FUROSEMIDE 20 MG TABLET PO SCH (11:00)
[2018-04-29] MEDS: METOPROLOL SUCCINATE 25 MG TAB.SR.24H PO SCH ×2 (11:00→22:53)
[2018-04-29] MEDS: GUAIFENESIN 600 MG TABLET.SA PO SCH ×2 (11:01→22:53)
[2018-04-29] MEDS: LORATADINE 10 MG TABLET PO SCH (11:01)
[2018-04-29] MEDS: ASPIRIN 81 MG TABLET, ENT COATED PO SCH (11:01)
[2018-04-29] MEDS: TIOTROPIUM BROMIDE DPI 5 CAP/KIT (18 MCG/CAP) IH SCH (11:05)
[2018-04-29] MEDS: SALMETEROL XINAFOATE DISKUS 50 MCG/1 DOSE 28 DOSE IH SCH ×2 (11:10→22:53)
[2018-04-29] MEDS: LEVOFLOXACIN 750 MG/D5W RTU 750 MG/150 ML RTUPB IV SCH (12:14)
[2018-04-29] MEDS ORDERED: METOPROLOL TARTRATE PF/INJ 5 MG/5 ML SDV IV ONE (16:00)
--- NOTE | 2018-04-29 19:05 | PDOC PROGRESS REPORT ---
Subjective Progress Note for:: 04/29/18 Subjective:: 82 y.o. F who presented 04/23/2018 with shortness of breath, admitted for COPD exacerbation and acute respiratory failure requiring BIPAP. PMH includes COPD, pulmonary HTN, on home O2 (2L average SPO2 95%), HTN, CHF, AFIB. The patient was seen this morning on rounds, she is resting comfortably in bed on supplemental oxygen. She is alert and oriented 3, able to answer all questions appropriately and without pause. Upon assessment, rhonchi can be auscultated in RML. The patient frequently becomes hypoxic and tachycardic when ambulating in the hallways on supplemental oxygen, this despite days of treatment with steroids, nebulizers, and antibiotics for her COPD exacerbation. CTA chest completed, reveals RML infiltrate - no other pathology. Nursing staff reports that the patient was ambulated in the hallway today and her SPO2 dropped to 83% while on supplemental oxygen. The staff reports that the patient became tachypneic and had to stop multiple times to catch her breath. Plan to keep inpatient while continuing to treat COPD exacerbation. Reason For Visit: COPD EXACERBATION WITH ACUTE HYPOXIC RESPIRATORY Physical Exam Vital Signs: Temp Pulse Resp BP Pulse Ox 97.9 F 99 18 127/74 H 97 04/29/18 15:18 04/29/18 16:17 04/29/18 16:17 04/29/18 15:18 04/29/18 16:17 Intake & Output 04/28/18 04/29/18 04/30/18 06:59 06:59 06:59 Intake Total 812 980 525 Output Total 1450 300 270 Balance -638 680 255 Weight 49 kg 48.8 kg General appearance: PRESENT: mild distress, thin Head exam: PRESENT: atraumatic Eye exam: PRESENT: conjunctiva pink, PERRLA Mouth exam: PRESENT: moist Neck exam: PRESENT: full ROM Respiratory exam: PRESENT: rhonchi, symmetrical, unlabored Cardiovascular exam: PRESENT: +S1, +S2, tachycardia Pulses: PRESENT: normal radial pulses, normal dorsalis pedis pul Vascular exam: PRESENT: normal capillary refill GI/Abdominal exam: PRESENT: normal bowel sounds, soft. ABSENT: tenderness Rectal exam: PRESENT: deferred Extremities exam: PRESENT: full ROM. ABSENT: joint swelling, pedal edema Musculoskeletal exam: PRESENT: ambulatory, full ROM Neurological exam: PRESENT: alert, awake, oriented to person, oriented to place , oriented to time, oriented to situation Psychiatric exam: PRESENT: appropriate affect Skin exam: PRESENT: dry, intact, normal color Results Laboratory Results: 04/29/18 03:46 04/27/18 07:53 04/29/18 03:46 WBC 9.2 RBC 3.81 Hgb 11.3 L Hct 33.3 L MCV 88 MCH 29.6 MCHC 33.8 RDW 15.0 H Plt Count 274 04/24/18 03:50 Blood Blood Culture - Final NO GROWTH IN 5 DAYS 04/24/18 03:45 Blood Blood Culture - Final NO GROWTH IN 5 DAYS Impressions: Chest X-Ray 04/23/18 19:50 IMPRESSION: NO ACUTE RADIOGRAPHIC FINDING IN THE CHEST. Chest/Abdomen CTA 04/28/18 00:00 IMPRESSION: No pulmonary emboli. Right upper lobe pneumonia with minimal right effusion. Status: Imported from PACS Assessment & Plan - Diagnosis (1) COPD exacerbation Is this a current diagnosis for this admission?: Yes Plan: Likely stemming from upper respiratory infection as evidence by leukocytosis, tachypnea, and productive cough CXR does not demonstrate acute findings or any significant cardiopulmonary pathology Initially required BIPAP, weaned to home dose O2 Rhonci heard this morning on assessment, continue IV levaquin for severe COPD exacerbation Patient remains afebrile IV steroids 40mg q6hr, continue slow steroid wean Continue PRN and scheduled nebulizer treatments Mucinex BID Spiriva and Serevent inhalers (2) Chronic respiratory failure with hypoxia Is this a current diagnosis for this admission?: Yes Plan: Improved, weaned from BIPAP to nasal cannula Likely due to COPD exacerbation stemming from upper respiratory infection see plan above (3) Pulmonary hypertension, moderate to severe Is this a current diagnosis for this admission?: Yes Plan: Patient endorses history of Pulmonary HTN, diagnosed on ECHO done by Dr. Hayward in 2015 Repeat ECHO done yesterday, LVEF 45%, mild concentric LVH, grade III/IV diastolic dysfunction. Interpreting physician did not comment on presence of pulmonary hypertension, RV appears normal on ECHO (4) CKD (chronic kidney disease), stage III Is this a current diagnosis for this admission?: Yes Plan: Stabilized. Creatinine 1.1 Initial elevated creatinine related to dehydration following diuresis in the ED Encourage PO intake (5) Chronic diastolic CHF (congestive heart failure) Is this a current diagnosis for this admission?: Yes Plan: BNP upon arrival 4500 ECHOcardiogram completed LVEF 45%, mild concentric LVH, grade III/IV diastolic dysfunction. PO Lasix 40mg daily Monitor closely for symptoms of volume overload ASA therapy Statin therapy Increased dose of Metoprolol from 25mg to 50mg PO for persistent tachycardia (6) Hypertension Is this a current diagnosis for this admission?: Yes Plan: Endorses history of HTN Continue home dose metoprolol (7) Debility Is this a current diagnosis for this admission?: Yes Plan: Per , patient has been experiencing back pain and swollen extremities for a few weeks (ruled out for DVT) She has not been very mobile recently given her overall poor state of health At home, she was requiring a walker to ambulate, which she normally does not use PT/OT following - Time Time Spent with patient: 15-24 minutes Medications reviewed and adjusted accordingly: Yes Anticipated discharge: Home - Inpatient Certification Based on my medical assessment, after consideration of the patient's comorbidities, presenting symptoms, or acuity I expect that the services needed warrant INPATIENT care.: Yes I certify that my determination is in accordance with my understanding of Medicare's requirements for reasonable and necessary INPATIENT services [42 CFR 412.3e].: Yes Medical Necessity: Need for IV Antibiotics, Risk of Complication if Not Cared For in Hospital - Plan Summary Plan Summary: CONTINUE IVF ANTIBIOTICS. DAILY AMBULATION. NEBULIZERS. STEROIDS.
[2018-04-29] MEDS: ATORVASTATIN CALCIUM 20 MG TABLET PO SCH (22:53)
[2018-04-30] MEDS: IPRATROPIUM/ALBUTEROL 0.5-2.5 MG/3 ML AMPUL NEB SCH ×4 (00:13→12:27)
[2018-04-30 04:52] LABS: HEMATOCRIT 30.7 % (36.0-47.0); HEMOGLOBIN 10.5 g/dL (12.0-15.5); MEAN CORPUSCULAR HGB CONC 34.2 g/dL (32.0-36.0); MEAN CORPUSCULAR VOLUME 88 fl (80-97); PLATELET COUNT 308 10^3/uL (150-450); RED CELL DISTRIBUTION WIDTH 15.4 % (11.5-14.0); WHITE BLOOD COUNT 11.8 10^3/uL (4.0-10.5)
[2018-04-30 05:11] LABS: ALANINE AMINOTRANSFERASE 38 U/L (9-52); ALBUMIN 2.8 g/dL (3.5-5.0); ALKALINE PHOSPHATASE 53 U/L (38-126); ANION GAP 11 (5-19); ASPARTATE AMINO TRANSFERASE 49 U/L (14-36); BILIRUBIN,DIRECT 0.4 mg/dL (0.0-0.4); BILIRUBIN,TOTAL 0.5 mg/dL (0.2-1.3); BLOOD UREA NITROGEN 34 mg/dL (7-20); CALCIUM 8.6 mg/dL (8.4-10.2); CARBON DIOXIDE 25 mmol/L (22-30); CHLORIDE 102 mmol/L (98-107); GLUCOSE 157 mg/dL (75-110); POTASSIUM 3.3 mmol/L (3.6-5.0); SODIUM 138.2 mmol/L (137-145); TOTAL PROTEIN 5.4 g/dL (6.3-8.2)
[2018-04-30] MEDS: METHYLPREDNISOLONE INJ 40 MG/1 ML SDV IV SCH ×2 (06:08→11:57)
[2018-04-30] MEDS: HEPARIN SOD (PORCINE) 5,000 UNIT/ML 1 ML SYRINGE SUBCUT SCH (06:08)
[2018-04-30] MEDS: ASPIRIN 81 MG TABLET, ENT COATED PO SCH (10:14)
[2018-04-30] MEDS: FUROSEMIDE 20 MG TABLET PO SCH (10:14)
[2018-04-30] MEDS: GUAIFENESIN 600 MG TABLET.SA PO SCH (10:14)
[2018-04-30] MEDS: METOPROLOL SUCCINATE 25 MG TAB.SR.24H PO SCH (10:14)
[2018-04-30] MEDS: SALMETEROL XINAFOATE DISKUS 50 MCG/1 DOSE 28 DOSE IH SCH (10:15)
[2018-04-30] MEDS: TIOTROPIUM BROMIDE DPI 5 CAP/KIT (18 MCG/CAP) IH SCH (10:15)
[2018-04-30] MEDS ORDERED: POTASSIUM CHLORIDE 10 MEQ CAPSULE.ER PO ONE (11:30)
[2018-04-30] MEDS: LEVOFLOXACIN 750 MG/D5W RTU 750 MG/150 ML RTUPB IV SCH (11:58)
[2018-04-30] MEDS: LORATADINE 10 MG TABLET PO SCH (11:59)
[2018-04-30 13:20] VITALS: BP 118/50
--- NOTE | 2018-05-03 11:11 | PDOC DISCHARGE SUMMARY ---
General - Admit/Disc Date/PCP Admission Date/Primary Care Provider: 04/23/18 23:36 SANJEEV FORD-Landy Discharge Date: 04/30/18 - Discharge Diagnosis (1) COPD exacerbation Is this a current diagnosis for this admission?: Yes (2) Chronic respiratory failure with hypoxia Is this a current diagnosis for this admission?: Yes (3) Pulmonary hypertension, moderate to severe Is this a current diagnosis for this admission?: Yes (4) CKD (chronic kidney disease), stage III Is this a current diagnosis for this admission?: Yes (5) Chronic diastolic CHF (congestive heart failure) Is this a current diagnosis for this admission?: Yes (6) Hypertension Is this a current diagnosis for this admission?: Yes (7) Debility Is this a current diagnosis for this admission?: Yes - Additional Information Resuscitation Status: Full Code Discharge Diet: As Tolerated Discharge Activity: Activity As Tolerated, Balance Activity w/Rest Prescriptions: Guaifenesin [Mucinex Sr 600 mg Tablet.sa] 600 mg PO Q12 #12 tablet.sa Levofloxacin [Levaquin 750 mg Tablet] 750 mg PO DAILY 10 Days #10 tab Metoprolol Succinate [Toprol Xl 25 mg Tab.sr] 50 mg PO Q12 #60 tab.sr.24h Prednisone 20 mg PO DAILY #20 tablet Home Medications: Loratadine 10 mg PO DAILYP PRN 05/04/15 Aspirin [Ecotrin 81 mg EC Tablet] 81 mg PO DAILY #30 tabec 05/09/15 Atorvastatin Calcium [Lipitor 20 mg Tablet] 20 mg PO DAILY 01/24/17 Fluticasone/Salmeterol [Advair 500-50 Diskus 14 Dose/Diskus] 1 puff IN BID 04/24 Furosemide [Lasix] 40 mg PO DAILY 04/24/18 Ipratropium/Albuterol Sulfate [Combivent Respimat 4 gm Mdi] 1 puff IH QID Metoprolol Succinate [Toprol Xl 25 mg Tab.sr] 25 mg PO BID 04/24/18 Nystatin 1 applic TP BID 04/24/18 Guaifenesin [Mucinex Sr 600 mg Tablet.sa] 600 mg PO Q12 #12 tablet.sa 04/30/18 Levofloxacin [Levaquin 750 mg Tablet] 750 mg PO DAILY 10 Days #10 tab 04/30/18 Metoprolol Succinate [Toprol Xl 25 mg Tab.sr] 50 mg PO Q12 #60 tab.sr.24h Prednisone 20 mg PO DAILY #20 tablet 04/30/18 History of Present Illness History of Present Illness: Per Dr. Kayley Maldonado: SHAWN GORDON is a 82 year old female with medical history of chronic respiratory failure secondary to COPD and severe pulmonary hypertension , on oxygen 2 L via nasal cannula, with average O2 sat of 95%; comes to the emergency department complaining of shortness of breath. Her tells me last day she went to her PCP because of right foot swelling and tenderness and recommended right lower extremity ultrasound, the patient had a long walking and started complaining of back pain located in the middle of her low L spine region, throbbing, aching and constant pain. Since then she was deteriorating with progressive shortness of breath, chest congestion, wheezing. Denies fever, chills, nausea, vomiting, sore throat, urinary symptoms or changes in her bowel movements. In the emergency department she was noted on respiratory distress with a respiratory rate of 36, he was initiated on BiPAP, at some point she did not want it but her oxygen saturation was dropping into the mid 80s. By the time of when to see her she was tolerating BiPAP with an oxygen saturation in the 93% . Chest x-ray shows emphysema BNP 4560 Recent lower extremity ultrasound negative for DVT Hospital Course Hospital Course: 82 y.o. F with a PMH that includes COPD, pulmonary HTN, on home O2 (2L average SPO2 95%), HTN, CHF, AFIB. She presented 04/23/2018 with shortness of breath, admitted for COPD exacerbation and acute respiratory failure requiring BIPAP. Symptoms likely stemming from upper respiratory infection as evidence by leukocytosis, tachypnea, and productive cough, although CXR did not demonstrate acute findings or any significant cardiopulmonary pathology. Additionally, the patient's creatinine was elevated (1.2) above her baseline (>1.0). BNP upon arrival was 4500. The patient was empirically started on Azithromycin IV, as well as IV steroids, mucinex and scheduled nebulizer treatments. Gentle IVF hydration was provided for prerenal acute on chronic renal failure. Of note, the patient endorses history of Pulmonary HTN, diagnosed on ECHO done by Dr. Hayward in 2014. A repeat ECHOcardiogram was done, which showed LVEF 45%, mild concentric LVH, grade III/IV diastolic dysfunction. Interpreting physician did not comment on presence of pulmonary hypertension but RV appeared normal. The patient was able to wean from BIPAP to her home dose of O2, but the patient had developed significant rhonci and wheezing approx. 72 hours into her hospital stay. Her antibiotic coverage was expanded to Levaquin IV. The patient' s creatinine had returned to baseline and her IVF was discontinued. In order to avoid volume overload and worsening her respiratory status, the patient was restarted on her home dose of PO lasix. In preparation for discharge, medical staff began ambulating the patient at least once per shift while observing her vital signs. Unfortunately, the patient frequently become hypoxic (SPO2 mid-80s) and tachycardic (HR 130s), requiring frequent stops to catch her breath. CTA chest was done to evaluate for other pulmonary pathology (PE, tumor, etc.) and it demonstrated a RML infiltrate. Unfortunately, the patient's bronchitis had evolved to pneumonia. The patient was offered incentive spirometry and a flutter valve. It was reinforced to nursing staff to ambulate the patient 1-2 times per shift during daytime. The patient was noted to be persistently tachycardic even when resting in bed ( HR 110). As stated earlier, her HR would escalate to 130s when ambulating. The patient remained afebrile and lab work did not reveal leukocytosis. Her tachycardia was not felt to be related to worsening infection. 6 days into her hospital stay, the patient's home dose of metoprolol was increased from 25mg BID to 50mg BID. Following 7 days in the hospital, the patient was deemed safe for discharge. She was able to ambulate without becoming tachypneic and without derrangements to her vital signs. The patient stated she was "more than ready" to go home. She was prescribed a PO prednisone steroid taper, PO levaquin to complete her antibiotic treatment of PNA, and the increased dose of Metoprolol. The patient was instructed to follow up with her manager paid/PMD to track her progress on the new dose of metoprolol. The family/patient requested home health with physical therapy, discharge planning was notified and agreed to coordinate. The patient and stated full understanding of the discharge instructions. For any further information regarding the patient's hospitalization, please refer to the EMR. Physical Exam Vital Signs: Temp Pulse Resp BP Pulse Ox 97.4 F 84 18 118/50 L 95 04/30/18 13:12 04/30/18 13:12 04/30/18 13:12 04/30/18 13:12 04/30/18 13:12 Results Laboratory Results: 04/30/18 03:53 04/30/18 03:53 Impressions: Chest X-Ray 04/23/18 19:50 IMPRESSION: NO ACUTE RADIOGRAPHIC FINDING IN THE CHEST. Chest/Abdomen CTA 04/28/18 00:00 IMPRESSION: No pulmonary emboli. Right upper lobe pneumonia with minimal right effusion. Status: Imported from PACS Qualifiers - * PATIENT BEING DISCHARGED WITH ANY OF THE FOLLOWING DIAGNOSIS: No Plan Discharge Plan: DISCHARGE HOME ON PREDNISONE TAPER & ORAL ANTIBIOTICS. INCREASE METOPROLOL DOSE FROM 25MG TO 50MG. FOLLOW UP WITH PMD/LOSS CONTROL TECHNICIAN. HOME HEALTH W/PHYSICAL THERAPY. Time Spent: Less than 30 Minutes
== END 2018-04-30 14:55 | disposition home health service (06) | DRG 190 ==
LOC: ER 19:21 → EH 23:36 → 3N 04-24 22:05
PROVIDERS: ADMIT Internal Medicine; ATTEND Internal Medicine
PROC: 5A09457 Assistance with Respiratory Ventilation, 24-96 Consecutive Hours, Continuous Positive Airway Pressure (ICD-10-PCS; principal; 2018-04-23)
PROC: 3E0F73Z Introduction of Anti-inflammatory into Respiratory Tract, Via Natural or Artificial Opening (ICD-10-PCS; 2018-04-24)
DX: J44.1 Chronic obstructive pulmonary disease with (acute) exacerbation (principal); J96.21 Acute and chronic respiratory failure with hypoxia; J18.9 Pneumonia, unspecified organism; I13.0 Hypertensive heart and chronic kidney disease with heart failure and stage 1 through stage 4 chronic kidney disease, or unspecified chronic kidney disease; I50.32 Chronic diastolic (congestive) heart failure; F03.90 Unspecified dementia, unspecified severity, without behavioral disturbance, psychotic disturbance, mood disturbance, and anxiety; E86.0 Dehydration; J44.0 Chronic obstructive pulmonary disease with (acute) lower respiratory infection; N18.3 Chronic kidney disease, stage 3 (moderate); I27.20 Pulmonary hypertension, unspecified; I48.91 Unspecified atrial fibrillation; Z99.81 Dependence on supplemental oxygen; Z95.5 Presence of coronary angioplasty implant and graft; Z90.49 Acquired absence of other specified parts of digestive tract; Z83.3 Family history of diabetes mellitus; Z82.49 Family history of ischemic heart disease and other diseases of the circulatory system; Z80.9 Family history of malignant neoplasm, unspecified; Z79.899 Other long term (current) drug therapy; Z79.51 Long term (current) use of inhaled steroids
CPT/HCPCS: 36415; 36600; 71045; 71275; 80048; 80053; 82550; 82803; 83605; 83735; 83880; 84100; 84484; 85025; 85027; 87040; 93005; 93010; 93306; 94660; 94667; 94668; 94799; G8978-GP; G8979-GP; G8987-GO; G8988-GO; J0456; J1630; J1644; J1940; J1956; J2060; J2405; J2765; J2920; J2930; J3475; J3490; J7030; J7060; J7620

== ENCOUNTER 2018-05-15 10:30 | Emergency (ER) | payer MEDICARE, OTHER ==
--- NOTE | 2018-05-15 10:54 | ER Document Report ---
ED Respiratory Problem - General Mode of Arrival: Medic Information source: Patient, Relative TRAVEL OUTSIDE OF THE [place] IN LAST 30 DAYS: No <TOMAS LEDEZMA - Last Filed: 05/15/18 11:53> <AZEEM SELLERS - Last Filed: 05/15/18 16:09> - General Stated Complaint: BLOOD PRESSURE ISSUES Time Seen by Provider: 05/15/18 10:41 Notes: 82-year-old female presents to the emergency department today with complaints of hypotension. According to at bedside, the patient has had physical therapy coming to the house after the patient was discharged 2 weeks ago from this facility for pneumonia. states the patient's blood pressure was "lower than normal" today for home health as her normal blood pressure is 100 systolic and today prior to arrival her blood pressure was 50/32. Patient is on 2L of home O2 [id number]. states the patient has not been drinking as many fluids as she should. (TOMAS LEDEZMA) The patient's spouse reports the patient's problems with swallowing seem to have developed since she was discharged from the hospital 2 weeks ago. (AZEEM SELLERS) - Related Data Allergies/Adverse Reactions: No Known Allergies Allergy (Verified 05/15/18 11:37) Past Medical History - General Information source: Patient - Social History Smoking Status: Former Smoker Cigarette use (# per day): No Frequency of alcohol use: None Drug Abuse: None Lives with: Family Family History: Reviewed & Not Pertinent, DM, Hypertension, Malignancy - Past Medical History Cardiac Medical History: Reports: Hx Atrial Fibrillation, Hx Congestive Heart Failure - Chronic diastolic CHF, Hx Hypertension Pulmonary Medical History: Reports: Hx COPD - Chronic respiratory failure on 2 L oxygen at home, Hx Respiratory Failure Renal/ Medical History: Reports: Hx Kidney Stones GI Medical History: Reports: Hx Cirrhosis Psychiatric Medical History: Reports: Hx Anxiety Past Surgical History: Reports: Hx Appendectomy, Hx Coronary Stent, Hx Neurologic Surgery - brain surg x2 for aneursym, Hx Orthopedic Surgery - Immunizations Hx Pneumococcal Vaccination: 05/04/15 <TOMAS LEDEZMA - Last Filed: 05/15/18 11:53> Review of Systems - Review of Systems Constitutional: No symptoms reported EENT: No symptoms reported Cardiovascular: See HPI, Other - hypotensive Respiratory: No symptoms reported Gastrointestinal: No symptoms reported Genitourinary: No symptoms reported Female Genitourinary: No symptoms reported Musculoskeletal: No symptoms reported Skin: No symptoms reported Hematologic/Lymphatic: No symptoms reported Neurological/Psychological: No symptoms reported -: Yes All other systems reviewed and negative <TOMAS LEDEZMA - Last Filed: 05/15/18 11:53> Physical Exam <TOMAS LEDEZMA - Last Filed: 05/15/18 11:53> <AZEEM SELLERS - Last Filed: 05/15/18 16:09> - Vital signs Vitals: Resp 17 05/15/18 11:05 - Notes Notes: Physical Exam: General: Alert, appears age appropriate, requesting to go home. HEENT: Normocephalic. Atraumatic. PERRL. Extraocular movements intact. Oropharynx clear. Neck: Supple. Non-tender. Respiratory: No respiratory distress. Rhonchi bilaterally with forced cough. Cardiovascular: Regular rate and rhythm. Abdominal: Normal Inspection. Non-tender. No distension. Normal Bowel Sounds. Back: Non-tender. No deformity or step off. Extremities: Moves all four extremities. Upper extremities: Normal inspection. Normal ROM. Lower extremities: Normal inspection. No edema. Normal ROM. Neurological: Normal cognition. AAOx4. Normal speech. Psychological: Normal affect. Normal Mood. Skin: Warm. Dry. Normal color. (TOMAS LEDEZMA) Course - Laboratory Result Diagrams: 05/15/18 11:28 05/15/18 11:28 <TOMAS LEDEZMA - Last Filed: 05/15/18 11:53> - Laboratory Result Diagrams: 05/15/18 11:28 05/15/18 11:28 - Diagnostic Test Radiology reviewed: Image reviewed, Reports reviewed - Chest x-ray does not show any acute changes. <AZEEM SELLERS - Last Filed: 05/15/18 16:09> - Re-evaluation Re-evalutation: 05/15/18 14:07 Patient vomited soon after receiving the oral potassium. 05/15/18 16:05 The patient did drink half a bottle of Ensure, but then developed some nauseousness. She will be sent home with prescription for Zofran to take for nausea as needed. (AZEEM SELLERS) - Vital Signs Vital signs: Temp Pulse Resp BP Pulse Ox 98.1 F 20 106/63 97 05/15/18 15:16 05/15/18 15:16 05/15/18 15:16 05/15/18 15:16 - Laboratory Laboratory results interpreted by me: 05/15/18 05/15/18 05/15/18 11:28 11:28 11:28 WBC 13.9 H RBC 3.37 L Hgb 9.9 L Hct 29.9 L RDW 15.6 H Seg Neutrophils % 83.0 H Lymphocytes % 6.0 L Absolute Neutrophils 11.5 H Potassium 3.1 L BUN 31 H Est GFR (Non-Af Amer) 58 L Calcium 7.8 L NT-Pro-B Natriuret Pep 3170 H Total Protein 5.8 L Albumin 2.8 L Discharge <TOMAS LEDEZMA - Last Filed: 05/15/18 11:53> <AZEEM SELLERS - Last Filed: 05/15/18 16:09> - Discharge Clinical Impression: Hypokalemia Hypotension Qualifiers: Hypotension type: unspecified hypotension type Qualified Code(s): I95.9 - Hypotension, unspecified COPD (chronic obstructive pulmonary disease) Qualifiers: COPD type: unspecified COPD Qualified Code(s): J44.9 - Chronic obstructive pulmonary disease, unspecified Condition: Stable Disposition: HOME, SELF-CARE Additional Instructions: Hypotension Your blood pressure is low. Low blood pressure can make you feel weak, lightheaded, and even make you pass out. Low blood pressure can be caused by dehydration or blood loss. Problems with the heart, kidneys, or blood vessels can cause hypotension. Certain medications can make your blood pressure abnormally low. Infection can lower blood pressure. In many cases, the person is totally healthy, but for unknown reasons, the blood pressure falls when they stand up. This is called benign orthostatic hypotension. The treatment of low blood pressure depends on the severity of the symptoms , and on the underlying cause. Sometimes it's not possible to identify a cause. At this time, it doesn't appear that the problem is serious enough to require hospitalization. Medicines that could be contributing to the problem can be withheld or reduced in dosage if your doctor approves. Get plenty of fluids. Eat a healthy diet. Be careful to stand up slowly. If you feel suddenly lightheaded or if your vision goes echeverria, sit or lie down at once. Don't drive or operate machinery until the symptoms are under control. Return or call the doctor if you develop fainting or severe dizziness, severe weakness, problems with vision, chest pain, shortness of breath, fever, or confusion. Hypokalemia You have an abnormally decreased level of serum potassium. Hypokalemia may cause weakness, fatigue, or heart rhythm abnormalities. Sometimes there are no symptoms at all. Usually, low serum potassium is due to taking diuretics ( water pills). It can also be due to excessive vomiting or diarrhea. If no obvious cause is evident, further evaluation will be necessary. Treatment is usually oral potassium supplements. Take these exactly as prescribed. You may also want to select foods which are naturally high in potassium -- fruits (such as bananas, cantaloupe, grapes, oranges, prunes, tomatoes), fresh vegetables (potatoes, spinach, beans, peas), orange or tomato juice, tomato pasta sauce, milk, fish (halibut, tuna, salmon, emmett) A follow-up blood test is usually performed to assure that the potassium is returning to normal. Call the physician if you suffer severe weakness, muscle twitching or cramping, palpitations (pounding or irregular heartbeat), or any other new or alarming symptoms. Your low blood pressure was most likely due to inadequate fluid intake. You should increase your nutritional and fluid intake. Try drinking Ensure or boost if you do not get your appetite back. Your potassium levels or low, probably due to poor dietary intake. You can raise your potassium levels fairly quickly by eating a few bananas. Be sure you are drinking plenty of fluids so that you are urinating at least every few hours. Take medication as prescribed for nausea if needed. Follow-up with your doctor in the next 1-2 days if not improving. RETURN TO THE EMERGENCY ROOM IF ANY NEW OR WORSENING SYMPTOMS. Prescriptions: Ondansetron [Zofran Odt 4 mg Tablet] 1 tab PO Q4H PRN #15 tab.rapdis PRN Reason: For Nausea/Vomiting Referrals: ETHEL SANTIAGO, CUSTOM DESIGNER-C [Primary Care Provider] - Follow up as needed Scribe Attestation: 05/15/18 11:04 I personally performed the services described in the documentation, reviewed and edited the documentation which was dictated to the scribe in my presence, and it accurately records my words and actions. (AZEEM SELLERS) Scribe Documentation - Scribe Written by Monyibe:: Ceci Sarmiento, 05/15/2018 1211 acting as scribe for :: Mima <TOMAS LEDEZMA - Last Filed: 05/15/18 11:53>
--- NOTE | 2018-05-15 11:35 | RADIOLOGY REPORT (SQ) ---
EXAM DESCRIPTION: CHEST SINGLE VIEW COMPLETED DATE/TIME: 05/15/2018 11:20 am REASON FOR STUDY: Hypotension, dehydration, COPD COMPARISON: 04/23/2018 NUMBER OF VIEWS: One view. TECHNIQUE: Single frontal radiographic image of the chest acquired. LIMITATIONS: Breast implants. FINDINGS: LUNGS AND PLEURA: Chronic interstitial changes. Right lower lobe airspace disease. MEDIASTINUM AND HEART: Stable heart size and mediastinal structures. BONY STRUCTURES: No acute findings. HARDWARE: None. OTHER: No other significant finding. IMPRESSION: Right lower lobe pneumonia. TECHNICAL DOCUMENTATION: JOB ID: [id number] Reading location - IP/workstation name: [facility]
[2018-05-15 11:46] LABS: ABSOLUTE BASOPHILS # (AUTO) 0.1 10^3/uL (0.0-0.2); ABSOLUTE EOSINOPHILS # (AUTO) 0.2 10^3/uL (0.0-0.6); ABSOLUTE LYMPHOCYTES (AUTO) 0.8 10^3/uL (0.5-4.7); ABSOLUTE MONOCYTES (AUTO) 1.3 10^3/uL (0.1-1.4); ABSOLUTE NEUT (AUTO) 11.5 10^3/uL (1.7-8.2); BASOPHILS % (AUTO) 0.4 % (0-2); EOSINOPHILS % (AUTO) 1.2 % (0-6); HEMATOCRIT 29.9 % (36.0-47.0); HEMOGLOBIN 9.9 g/dL (12.0-15.5); MEAN CORPUSCULAR HEMOGLOBIN 29.3 pg (27.0-33.4); MEAN CORPUSCULAR VOLUME 89 fl (80-97); MONOCYTES % (AUTO) 9.4 % (3-13); PLATELET COUNT 214 10^3/uL (150-450); RED BLOOD COUNT 3.37 10^6/uL (3.72-5.28); RED CELL DISTRIBUTION WIDTH 15.6 % (11.5-14.0); TOTAL CELLS COUNTED % (AUTO) 100 %; WHITE BLOOD COUNT 13.9 10^3/uL (4.0-10.5)
[2018-05-15 12:05] LABS: ALANINE AMINOTRANSFERASE 16 U/L (9-52); ALBUMIN 2.8 g/dL (3.5-5.0); ALKALINE PHOSPHATASE 90 U/L (38-126); ANION GAP 9 (5-19); ASPARTATE AMINO TRANSFERASE 31 U/L (14-36); BILIRUBIN,DIRECT 0.4 mg/dL (0.0-0.4); BILIRUBIN,TOTAL 0.8 mg/dL (0.2-1.3); BLOOD UREA NITROGEN 31 mg/dL (7-20); CALCIUM 7.8 mg/dL (8.4-10.2); CARBON DIOXIDE 27 mmol/L (22-30); CHLORIDE 107 mmol/L (98-107); CREATINE KINASE 42 U/L (30-135); GLUCOSE 78 mg/dL (75-110); POTASSIUM 3.1 mmol/L (3.6-5.0); SODIUM 143.1 mmol/L (137-145); TOTAL PROTEIN 5.8 g/dL (6.3-8.2)
[2018-05-15] MEDS ORDERED: POTASSIUM CHLORIDE 20 MEQ/15 ML UDCUP PO ONE (12:17)
[2018-05-15 12:22] LABS: TROPONIN I 0.044 ng/mL
--- NOTE | 2018-05-15 12:25 | RADIOLOGY REPORT (SQ) ---
EXAM DESCRIPTION: CHEST SINGLE VIEW COMPLETED DATE/TIME: 05/15/2018 12:07 pm REASON FOR STUDY: Please move breast implants out of the field COMPARISON: Earlier same day. NUMBER OF VIEWS: Two view. TECHNIQUE: Frontal and lateral radiographic views of the chest acquired. LIMITATIONS: None. FINDINGS: LUNGS AND PLEURA: Density previously seen in the right lower lobe no longer visualize cons istent with overlying artifact from breast implant. COPD with stable areas of scarring in the lung b ases. MEDIASTINUM AND HILAR STRUCTURES: No masses. No contour abnormalities. HEART AND VASCULAR STRUCTURES: Heart normal in size and contour. No evidence for failure. BONES: No acute findings. HARDWARE: None in the chest. OTHER: No other significant finding. IMPRESSION: COPD. NO ACUTE RADIOGRAPHIC FINDING IN THE CHEST. TECHNICAL DOCUMENTATION: JOB ID: [id number] [employer]- All Rights Reserved Reading location - IP/workstation name: [email or web address]
[2018-05-15] MEDS ORDERED: DEXTROSE 5%-LACTATED RINGERS 1,000 ML IV ONE (13:36)
[2018-05-15] MEDS ORDERED: ONDANSETRON HCL INJ/PF 4 MG/2 ML SDV IV ONE (13:36)
[2018-05-15 13:46] LABS: APPEARANCE,URINE CLEAR; BILIRUBIN,URINE NEGATIVE (NEGATIVE); COLOR,URINE YELLOW; GLUCOSE, URINE NEGATIVE (NEGATIVE); KETONES,URINE NEGATIVE (NEGATIVE); LEUKOCYTE ESTERASE,URINE NEGATIVE (NEGATIVE); NITRITE,URINE NEGATIVE (NEGATIVE); PROTEIN,URINE NEGATIVE (NEGATIVE); URINE SPECIFIC GRAVITY 1.019; UROBILINOGEN,URINE NEGATIVE mg/dL (<2.0)
[2018-05-15 15:36] VITALS: BP 106/63
== END 2018-05-15 16:45 | disposition home or self-care (01) ==
LOC: ER 10:30
DX: I95.9 Hypotension, unspecified (principal); E87.6 Hypokalemia; R11.2 Nausea with vomiting, unspecified; I10 Essential (primary) hypertension; J44.9 Chronic obstructive pulmonary disease, unspecified; J96.10 Chronic respiratory failure, unspecified whether with hypoxia or hypercapnia; Z99.81 Dependence on supplemental oxygen; Z87.891 Personal history of nicotine dependence
CPT/HCPCS: 99285; 51701; 96374; 36415; 87040; 82550; 85025; 80053; 81001; 84484; 83605; 83880; 71045; A9270; J2405

== ENCOUNTER 2018-05-19 10:00 | Inpatient (IN) | payer MEDICARE, OTHER ==
[2018-05-19] MEDS ORDERED: NORMAL SALINE 250 ML IV ONE ×2 (11:09→14:12)
--- NOTE | 2018-05-19 11:15 | ER Document Report ---
ED General - General Chief Complaint: Back Pain Stated Complaint: BACK PAIN Time Seen by Provider: 05/19/18 10:28 Mode of Arrival: Medic Information source: Patient, Relative Notes: Patient presents with multiple complaints today. Patient's spouse states that she has had low blood pressure at home as low as 50s over 30s causing him to adjust her doses of her medications. Patient's spouse states that her metoprolol had been increased to 50 mg twice a day at the end of April when she was admitted recently. Patient spell states that her blood pressure initially had good rate control and her blood pressure was stable although over the past week she has been having low blood pressure. Patient's spouse only gave her 25 mg today of her metoprolol. As a result he has noticed that she has had a fast heart rate which is not typical for her although her blood pressure at this time 100/50 is a typical blood pressure for her at this time. Patient also reports that she has had a productive cough since yesterday, patient denies any chest pain or shortness of breath. Patient does complain of some constipation symptoms stating that she really has not had a decent bowel movement over the past 3 weeks. The patient has been leaking liquid stool rectally. Patient also complains of back pain for the past month that has flared up causing her to have difficulty with ambulation. Patient normally walks without assistance but states she cannot get up today due to the increased low back pain. Patient additionally has prominent blood vessels and bruising to the left posterior lower leg that are tender to palpation. Patient denies any recent falls or trauma. Patient was evaluated in the emergency department 4 days ago for hypotension as well as hypokalemia. TRAVEL OUTSIDE OF THE [place] IN LAST 30 DAYS: No - HPI Onset: Other - Past month, worse over the past week Onset/Duration: Worse Quality of pain: Sharp Pain Level: 5 Associated symptoms: Productive cough, Other - fast heart rate low back pain,. denies: Chest pain, Fever, Leg swelling, Vomiting, Shortness of breath Exacerbated by: Movement Relieved by: Denies Similar symptoms previously: Yes Recently seen / treated by doctor: Yes - Related Data Allergies/Adverse Reactions: No Known Allergies Allergy (Verified 05/15/18 11:37) Past Medical History - General Information source: Patient, Relative - Social History Smoking Status: Former Smoker Chew tobacco use (# tins/day): No Frequency of alcohol use: None Drug Abuse: None Lives with: Spouse/Significant other Family History: Reviewed & Not Pertinent, DM, Hypertension, Malignancy Patient has suicidal ideation: No Patient has homicidal ideation: No - Past Medical History Cardiac Medical History: Reports: Hx Atrial Fibrillation, Hx Congestive Heart Failure - Chronic diastolic CHF, Hx Heart Attack, Hx Hypertension Pulmonary Medical History: Reports: Hx COPD - Chronic respiratory failure on 2 L oxygen at home, Hx Respiratory Failure Renal/ Medical History: Reports: Hx Kidney Stones. Denies: Hx Peritoneal Dialysis Psychiatric Medical History: Reports: Hx Anxiety Denies: Hx Depression Past Surgical History: Reports: Hx Appendectomy, Hx Coronary Stent, Hx Neurologic Surgery - brain surg x2 for aneursym, Hx Orthopedic Surgery - Immunizations Hx Pneumococcal Vaccination: 05/04/15 Review of Systems - Review of Systems Constitutional: No symptoms reported. denies: Fever, Recent illness EENT: No symptoms reported Cardiovascular: See HPI - Tachycardia. denies: Chest pain Respiratory: Cough, Sputum Gastrointestinal: Abdominal pain, Constipation, Poor fluid intake. denies: Vomiting Genitourinary: No symptoms reported. denies: Dysuria, Flank pain Female Genitourinary: No symptoms reported Musculoskeletal: Back pain Skin: Other - Bruising, prominent vessels to left lower leg Hematologic/Lymphatic: Easy bruising Neurological/Psychological: No symptoms reported. denies: Headaches Physical Exam - Vital signs Vitals: Temp Resp 98.6 F 24 H 05/19/18 10:03 05/19/18 10:03 - General General appearance: Appears well, Alert In distress: None - HEENT Head: Normocephalic, Atraumatic Eyes: Normal Conjunctiva: Normal Nasal: Normal Mouth/Lips: Normal Mucous membranes: Normal Neck: Normal, Supple. No: Lymphadenopathy - Respiratory Respiratory status: No respiratory distress. No: Labored, Tachypnea Chest status: Nontender Breath sounds: Productive cough, Rhonchi Chest palpation: Normal - Cardiovascular Rhythm: Tachycardia Heart sounds: S1 appreciated, S2 appreciated - Abdominal Inspection: Normal Distension: No distension Bowel sounds: Normal Tenderness: Tender - LLQ Organomegaly: No organomegaly - Back Back: Vertebra tenderness - Lower lumbar tenderness, Scars - Linear lumbar scar - Extremities General upper extremity: Normal ROM General lower extremity: Normal ROM, Other - Tenderness to posterior aspect of left calf with ecchymosis extending down distal two thirds of left lower leg. No: Edema - Neurological Neuro grossly intact: Yes Joselo Coma Scale Eye Opening: Spontaneous Joselo Coma Scale Verbal: Oriented Joselo Coma Scale Motor: Obeys Commands Joselo Coma Scale Total: 15 Speech: Normal Cranial nerves: Normal Notes: No saddle anesthesia, no footdrop - Psychological Associated symptoms: Normal affect, Normal mood - Skin Skin Temperature: Warm Skin Moisture: Dry Skin Color: Ecchymosis - Scattered areas of ecchymosis to bilateral upper and lower extremities, large area of ecchymosis to posterior left calf area Course - Re-evaluation Re-evalutation: 05/19/18 13:13 Patient recently returned from radiology department. Patient updated regarding plan of care at this time. 05/19/18 14:13 Doppler roving technician called with preliminary report, Doppler study negative for any DVT to left lower extremity. 05/19/18 15:[address] Sun regarding patient presentation as well as diagnostic evaluation. Recommends consultation with hospitalist given patient's hypotension in the setting of tachycardia and poor rate control, given hx of a fib and CHF. 05/19/18 15:21 Patient reports improvement of back pain after application of Lidoderm patch. Pt continues tachycardic 110's, blood pressure 105/52. 05/19/18 15:[address] Parada who agrees to accept patient for admission but does advise obtaining orthostatics at this time. 05/19/18 15:50 Patient unable to tolerate getting up for orthostatics. Patient was assisted to the sitting position and heart rate increased to the 130s, blood pressure dropped to 90/77. Patient adamant that she cannot tolerate standing, patient assisted back to supine position. Patient states back pain is better at this time and does not need any pain medication when she is lying down. - Vital Signs Vital signs: Temp Pulse Resp BP Pulse Ox 98.6 F 116 H 18 105/52 L 95 05/19/18 10:03 05/19/18 17:22 05/19/18 17:22 05/19/18 17:22 05/19/18 18:07 - Laboratory Result Diagrams: 05/19/18 11:27 05/19/18 11:27 Laboratory results interpreted by me: 05/19/18 05/19/18 05/19/18 11:27 11:27 11:27 RBC 3.54 L Hgb 10.4 L Hct 31.2 L RDW 16.0 H Monocytes % 14.2 H PT APTT Alkaline Phosphatase 128 H NT-Pro-B Natriuret Pep 8430 H Albumin 2.9 L 05/19/18 11:27 RBC Hgb Hct RDW Monocytes % PT 15.9 H APTT 43.2 H Alkaline Phosphatase NT-Pro-B Natriuret Pep Albumin Labs- Entire Visit 05/19/18 05/19/18 05/19/18 11:27 11:27 11:27 WBC 6.8 RBC 3.54 L Hgb 10.4 L Hct 31.2 L MCV 88 MCH 29.3 MCHC 33.2 RDW 16.0 H Plt Count 408 Seg Neutrophils % 67.7 Lymphocytes % 13.3 Monocytes % 14.2 H Eosinophils % 4.3 Basophils % 0.5 Absolute Neutrophils 4.6 Absolute Lymphocytes 0.9 Absolute Monocytes 1.0 Absolute Eosinophils 0.3 Absolute Basophils 0.0 PT INR APTT VBG pH VBG pCO2 VBG HCO3 VBG Base Excess Sodium 142.2 Potassium 4.5 Chloride 106 Carbon Dioxide 28 Anion Gap 8 BUN 12 Creatinine 0.78 Est GFR ( Amer) > 60 Est GFR (Non-Af Amer) > 60 Glucose 80 Lactic Acid Calcium 8.5 Magnesium 2.3 Total Bilirubin 0.6 Direct Bilirubin 0.4 Neonat Total Bilirubin Not Reportable Neonat Direct Bilirubin Not Reportable Neonat Indirect Bili Not Reportable AST 26 ALT 11 Alkaline Phosphatase 128 H Creatine Kinase 35 CK-MB (CK-2) 1.24 Troponin I 0.013 NT-Pro-B Natriuret Pep 8430 H Total Protein 6.3 Albumin 2.9 L TSH Urine Color Urine Appearance Urine pH Ur Specific [place] Urine Protein Urine Glucose (UA) Urine Ketones Urine Blood Urine Nitrite Urine Bilirubin Urine Urobilinogen Ur Leukocyte Esterase Urine WBC (Auto) Urine RBC (Auto) U Hyaline Cast (Auto) Urine Bacteria (Auto) Squamous Epi Cells Auto Urine Mucus (Auto) Urine Ascorbic Acid 05/19/18 05/19/18 05/19/18 11:27 11:27 11:27 WBC RBC Hgb Hct MCV MCH MCHC RDW Plt Count Seg Neutrophils % Lymphocytes % Monocytes % Eosinophils % Basophils % Absolute Neutrophils Absolute Lymphocytes Absolute Monocytes Absolute Eosinophils Absolute Basophils PT 15.9 H INR 1.21 APTT 43.2 H VBG pH 7.35 VBG pCO2 52.5 VBG HCO3 28.4 VBG Base Excess 1.8 Sodium Potassium Chloride Carbon Dioxide Anion Gap BUN Creatinine Est GFR ( Amer) Est GFR (Non-Af Amer) Glucose Lactic Acid Calcium Magnesium Total Bilirubin Direct Bilirubin Neonat Total Bilirubin Neonat Direct Bilirubin Neonat Indirect Bili AST ALT Alkaline Phosphatase Creatine Kinase CK-MB (CK-2) Troponin I NT-Pro-B Natriuret Pep Total Protein Albumin TSH 1.46 Urine Color Urine Appearance Urine pH Ur Specific [place] Urine Protein Urine Glucose (UA) Urine Ketones Urine Blood Urine Nitrite Urine Bilirubin Urine Urobilinogen Ur Leukocyte Esterase Urine WBC (Auto) Urine RBC (Auto) U Hyaline Cast (Auto) Urine Bacteria (Auto) Squamous Epi Cells Auto Urine Mucus (Auto) Urine Ascorbic Acid 05/19/18 05/19/18 11:27 11:30 WBC RBC Hgb Hct MCV MCH MCHC RDW Plt Count Seg Neutrophils % Lymphocytes % Monocytes % Eosinophils % Basophils % Absolute Neutrophils Absolute Lymphocytes Absolute Monocytes Absolute Eosinophils Absolute Basophils PT INR APTT VBG pH VBG pCO2 VBG HCO3 VBG Base Excess Sodium Potassium Chloride Carbon Dioxide Anion Gap BUN Creatinine Est GFR ( Amer) Est GFR (Non-Af Amer) Glucose Lactic Acid 1.5 Calcium Magnesium Total Bilirubin Direct Bilirubin Neonat Total Bilirubin Neonat Direct Bilirubin Neonat Indirect Bili AST ALT Alkaline Phosphatase Creatine Kinase CK-MB (CK-2) Troponin I NT-Pro-B Natriuret Pep Total Protein Albumin TSH Urine Color YELLOW Urine Appearance SLIGHTLY-CLOUDY Urine pH 5.0 Ur Specific [place] 1.020 Urine Protein NEGATIVE Urine Glucose (UA) NEGATIVE Urine Ketones NEGATIVE Urine Blood NEGATIVE Urine Nitrite NEGATIVE Urine Bilirubin NEGATIVE Urine Urobilinogen NEGATIVE Ur Leukocyte Esterase NEGATIVE Urine WBC (Auto) 7 Urine RBC (Auto) 1 U Hyaline Cast (Auto) 9 Urine Bacteria (Auto) TRACE Squamous Epi Cells Auto <1 Urine Mucus (Auto) OCC Urine Ascorbic Acid NEGATIVE Discharge - Discharge Clinical Impression: Chronic diastolic CHF (congestive heart failure), Tachycardia COPD (chronic obstructive pulmonary disease) Qualifiers: COPD type: unspecified COPD Qualified Code(s): J44.9 - Chronic obstructive pulmonary disease, unspecified Constipation Qualifiers: Constipation type: unspecified constipation type Qualified Code(s): K59.00 - Constipation, unspecified Low back pain Qualifiers: Chronicity: chronic Back pain laterality: midline Sciatica presence: without sciatica Qualified Code(s): M54.5 - Low back pain Condition: Fair Disposition: ADMITTED OBSERVATION Admitting Provider: Hospitalist Unit Admitted: Telemetry
[2018-05-19 11:53] LABS: ABSOLUTE EOSINOPHILS # (AUTO) 0.3 10^3/uL (0.0-0.6); ABSOLUTE LYMPHOCYTES (AUTO) 0.9 10^3/uL (0.5-4.7); ABSOLUTE NEUT (AUTO) 4.6 10^3/uL (1.7-8.2); BASOPHILS % (AUTO) 0.5 % (0-2); EOSINOPHILS % (AUTO) 4.3 % (0-6); HEMATOCRIT 31.2 % (36.0-47.0); HEMOGLOBIN 10.4 g/dL (12.0-15.5); LYMPHOCYTES % (AUTO) 13.3 % (13-45); MEAN CORPUSCULAR HEMOGLOBIN 29.3 pg (27.0-33.4); MEAN CORPUSCULAR HGB CONC 33.2 g/dL (32.0-36.0); MEAN CORPUSCULAR VOLUME 88 fl (80-97); MONOCYTES % (AUTO) 14.2 % (3-13); PLATELET COUNT 408 10^3/uL (150-450); RED BLOOD COUNT 3.54 10^6/uL (3.72-5.28); SEGMENTED NEUTROPHILS % (AUTO) 67.7 % (42-78); TOTAL CELLS COUNTED % (AUTO) 100 %; WHITE BLOOD COUNT 6.8 10^3/uL (4.0-10.5)
[2018-05-19 11:59] LABS: VENOUS BLOOD BASE EXCESS 1.8 mmol/L; VENOUS BLOOD HCO3 28.4 mmol/L (20-32); VENOUS BLOOD PCO2 52.5 mmHg (35-63); VENOUS BLOOD PH 7.35 (7.30-7.42)
[2018-05-19 12:08] LABS: INTERNATIONAL RATION (INR) 1.21; PROTHROMBIN TIME 15.9 SEC (11.4-15.4)
[2018-05-19 12:09] LABS: PARTIAL THROMBOPLASTIN TIME 43.2 SEC (23.5-35.8)
[2018-05-19 12:20] LABS: APPEARANCE,URINE SLIGHTLY-CLOUDY; BILIRUBIN,URINE NEGATIVE (NEGATIVE); COLOR,URINE YELLOW; GLUCOSE, URINE NEGATIVE (NEGATIVE); KETONES,URINE NEGATIVE (NEGATIVE); LEUKOCYTE ESTERASE,URINE NEGATIVE (NEGATIVE); NITRITE,URINE NEGATIVE (NEGATIVE); PROTEIN,URINE NEGATIVE (NEGATIVE); UROBILINOGEN,URINE NEGATIVE mg/dL (<2.0)
[2018-05-19] MEDS ORDERED: LIDOCAINE 5% (700 MG) TRANSDERMAL ADH..PATCH TP ONE (12:28)
[2018-05-19 12:47] LABS: ALANINE AMINOTRANSFERASE 11 U/L (9-52); ALBUMIN 2.9 g/dL (3.5-5.0); ALKALINE PHOSPHATASE 128 U/L (38-126); ANION GAP 8 (5-19); ASPARTATE AMINO TRANSFERASE 26 U/L (14-36); BILIRUBIN,DIRECT 0.4 mg/dL (0.0-0.4); BILIRUBIN,TOTAL 0.6 mg/dL (0.2-1.3); BLOOD UREA NITROGEN 12 mg/dL (7-20); CALCIUM 8.5 mg/dL (8.4-10.2); CARBON DIOXIDE 28 mmol/L (22-30); CHLORIDE 106 mmol/L (98-107); CREATINE KINASE 35 U/L (30-135); GLUCOSE 80 mg/dL (75-110); POTASSIUM 4.5 mmol/L (3.6-5.0); SODIUM 142.2 mmol/L (137-145); TOTAL PROTEIN 6.3 g/dL (6.3-8.2)
[2018-05-19 12:56] LABS: CREATINE KINASE MB 1.24 ng/mL (<4.55); TROPONIN I 0.013 ng/mL
--- NOTE | 2018-05-19 13:00 | RADIOLOGY REPORT (SQ) ---
EXAM DESCRIPTION: ACUTE ABDOMEN SERIES COMPLETED DATE/TIME: 05/19/2018 12:37 pm REASON FOR STUDY: low back pain, cough, LLQ, constipation COMPARISON: None. NUMBER OF VIEWS: Two views TECHNIQUE: Frontal AP upright chest and a supine abdomen radiographic images acquired. LIMITATIONS: None. FINDINGS: CHEST: Chronic appearing lung markings. No focal consolidation, pleural effusion or pneum othorax. Calcifications of the visualized aorta. FREE AIR: None. No abnormal gas collections. BOWEL GAS PATTERN: Nonobstructive pattern. No dilated loops or air fluid levels. Moderate stool dlian en. CALCIFICATIONS: No suspicious calcifications. Scattered vascular calcifications. HARDWARE: None in the abdomen. SOFT TISSUES: No gross mass or suggestion of organomegaly. BONES: Diffuse osteopenia. A gentle levocurvature. No sinister bone lesions. OTHER: Calcified bilateral breast implants. IMPRESSION: Extent 1. Nonobstructive bowel gas pattern. 2. Moderate stool burden. TECHNICAL DOCUMENTATION: JOB ID: [id number] [employer]- All Rights Reserved Reading location - IP/workstation name: [email or web address]
--- NOTE | 2018-05-19 14:14 | RADIOLOGY REPORT (SQ) ---
EXAM DESCRIPTION: VENOUS UNILATERAL LOWER COMPLETED DATE/TIME: 05/19/2018 1:55 pm REASON FOR STUDY: LLE pain, bruising COMPARISON: None. TECHNIQUE: Dynamic and static echeverria scale and color images acquired of the left leg venous system. Se lected spectral images acquired with additional compression and augmentation maneuvers. The contralat eral common femoral vein and saphenofemoral junction were also imaged. Images stored on PACS. LIMITATIONS: None. FINDINGS: COMMON FEMORAL: Normal phasicity, compression and augmentation. No visualized echogenic ma terial on echeverria scale. No defects on color images. FEMORAL: Normal compression and augmentation. No visualized echogenic material on echeverria scale. No defe cts on color images. POPLITEAL: Normal compression, augmentation. No visualized echogenic material on echeverria scale. No defec ts on color images. CALF VESSELS: Normal compression, augmentation. No visualized echogenic material on echeverria scale. No de fects on color images. GSV and SSV: Normal compression, augmentation. No visualized echogenic material on echeverria scale. No def ects on color images. ANY DEEP VENOUS INSUFFICIENCY: Not evaluated. ANY EVIDENCE OF POPLITEAL CYST: No. OTHER: No other significant finding. CONTRALATERAL COMMON FEMORAL VEIN AND SAPHENOFEMORAL JUNCTION: Normal phasicity, compression and augmentation. No visualized echogenic material on echeverria scale. No de fects on color images. IMPRESSION: NO EVIDENCE DVT OR SVT IN THE LEFT LEG. TECHNICAL DOCUMENTATION: JOB ID: [id number] [employer]- All Rights Reserved Reading location - IP/workstation name: [email or web address]
[2018-05-19] MEDS ORDERED: IPRATROPIUM/ALBUTEROL 0.5-2.5 MG/3 ML AMPUL NEB ONE (14:18)
[2018-05-19] MEDS ORDERED: ACETAMINOPHEN 325 MG TABLET PO ONE (15:54)
--- NOTE | 2018-05-19 17:15 | EKG REPORT ---
SEVERITY:- ABNORMAL ECG - SINUS TACHYCARDIA LEFT BUNDLE BRANCH BLOCK : Confirmed by: Nikko Royal MD 19-May-2018 17:13:58
[2018-05-19] MEDS ORDERED: DIGOXIN 0.25 MG TABLET PO ONE (17:16)
[2018-05-19] MEDS ORDERED: BISACODYL 10 MG SUPP.RECT PR ONE (17:33)
--- NOTE | 2018-05-19 17:33 | PDOC H&P ---
History of Present Illness Admission Date/PCP: 05/19/18 16:14 SANJEEV FORD-Landy Patient complains of: LOW BLOOD PRESSURES, BACK PAIN History of Present Illness: SHAWN GORDON is a 82 year old female with a past medical history of COPD on 2 L of home oxygen, history of atrial fibrillation not on anticoagulation at the moment, history of chronic systolic and diastolic congestive heart failure, hypertension, prior brain aneurysm status post clipping and chronic low back pain who was brought in by her because of worsening back pain anD low blood pressures at home. Patient has been says that patient's metoprolol has been recently increased to 50 mg twice daily but patient has been tolerating this and has been controlling her heart rate at home well. However in the past 3-4 days, he noticed that the blood pressures at home has been running at 50 over 30s with a 63/50 blood pressure earlier today. Patient denies any dizziness, headache chest pain or shortness of breath. Patient is also getting 20 of Lasix daily at home. Patient also complains that she has been having worsening lower back pain in the past week. She also complains that she has been constipated for almost 4 weeks now. She denies any leg weakness or numbness. Denies vertigo. No slurring of speech. Patient says she was supposed to see Dr. Hayward this Monday for medication adjustment of her metoprolol. Patient denies any fever, or chills or cough. No abdominal pain. Denies hematuria, dysuria, frequency. In the ER, patient complained of severe low back pain. She was given a lidocaine patch and this slightly relieved her back pain. A was in the bedside to help the nurse sit and have the patient stand up. Patient is able to stand up with troopers and assistance however she complained of severe low back pain even on lidocaine patch. Past Medical History Cardiac Medical History: Reports: Atrial Fibrillation, Congestive Heart Failure - Chronic diastolic CHF, Myocardial Infarction, Hypertension Pulmonary Medical History: Reports: Chronic Obstructive Pulmonary Disease (COPD ) - Chronic respiratory failure on 2 L oxygen at home, Respiratory Failure GI Medical History: Reports: Cirrhosis Psychiatric Medical History: Denies: Depression Past Surgical History Past Surgical History: Reports: Appendectomy, Coronary Stent, Orthopedic Surgery Social History Lives with: Spouse/Significant other Smoking Status: Former Smoker Frequency of Alcohol Use: Rare Hx Recreational Drug Use: No Drugs: None Hx Prescription Drug Abuse: No Family History Family History: Reviewed & Not Pertinent, DM, Hypertension, Malignancy Medication/Allergy Home Medications: Aspirin [Ecotrin 81 mg EC Tablet] 81 mg PO DAILY 05/19/18 Atorvastatin Calcium [Lipitor 20 mg Tablet] 20 mg PO QHS 05/19/18 Fluticasone/Salmeterol [Advair 500-50 Diskus 14 Dose/Diskus] 1 puff IH Q12 05/19 Furosemide [Lasix 20 mg Tablet] 20 mg PO BID 05/19/18 Loratadine [Claritin 10 mg Tablet] 10 mg PO DAILY 05/19/18 Metoprolol Succinate [Toprol Xl 50 mg Tab.sr] 25 mg PO DAILY 05/19/18 Nystatin [Mycostatin Cream 15 gm] 1 applic TOP BID 05/19/18 Ondansetron [Zofran Odt 4 mg Tablet] 4 mg PO Q4HP PRN 05/19/18 Allergies/Adverse Reactions: No Known Allergies Allergy (Verified 05/15/18 11:37) Review of Systems All systems: reviewed and no additional remarkable complaints except as stated - As mentioned in HPI. Physical Exam Vital Signs: Temp Pulse Resp BP Pulse Ox 98.6 F 116 H 21 H 105/52 L 94 05/19/18 10:03 05/19/18 15:55 05/19/18 17:00 05/19/18 15:55 05/19/18 17:00 General appearance: PRESENT: no acute distress, well-developed, well-nourished Head exam: PRESENT: atraumatic, normocephalic Eye exam: PRESENT: conjunctiva pink, EOMI, PERRLA. ABSENT: scleral icterus Mouth exam: PRESENT: moist, tongue midline Neck exam: ABSENT: carotid bruit, JVD, lymphadenopathy, thyromegaly Respiratory exam: PRESENT: clear to auscultation ulises, rhonchi - Patient rhonchi on the right base, no crackles or wheezes.. ABSENT: rales, wheezes Cardiovascular exam: PRESENT: tachycardia. ABSENT: diastolic murmur, rubs, systolic murmur Pulses: PRESENT: normal dorsalis pedis pul GI/Abdominal exam: PRESENT: soft. ABSENT: distended, guarding, mass, organolmegaly, rebound, tenderness Rectal exam: PRESENT: deferred Neurological exam: PRESENT: alert, awake, oriented to person, oriented to place , oriented to time, oriented to situation, CN II-XII grossly intact. ABSENT: motor sensory deficit Results Impressions: Acute Abdomen Series 05/19/18 11:02 IMPRESSION: Extent 1. Nonobstructive bowel gas pattern. 2. Moderate stool burden. Venous Doppler Study 05/19/18 11:11 IMPRESSION: NO EVIDENCE DVT OR SVT IN THE LEFT LEG. Assessment & Plan - Diagnosis (1) Hypotension Qualifiers: Hypotension type: unspecified hypotension type Qualified Code(s): I95.9 - Hypotension, unspecified Is this a current diagnosis for this admission?: Yes Plan: Blood pressures in the ER are in the low normal side from 97/53-100/73. Heart rate runs in the 100-110s with sinus tachycardia on tele monitor. Patient was given IV fluids in the ER. We will hold off on Lasix for now. Will reduce back metoprolol to 25 twice daily for now with blood pressure parameters. We will see how the patient does overnight. Asked the patient's to bring their home blood pressure machine to compare blood pressure readings with hospital readings. (2) Low back pain Qualifiers: Chronicity: chronic Back pain laterality: midline Sciatica presence: without sciatica Qualified Code(s): M54.5 - Low back pain; G89.29 - Other chronic pain; G89.29 - Other chronic pain Is this a current diagnosis for this admission?: Yes Plan: Patient does have a history of chronic low back pain. She has history of back surgery however she does not take any pain medications for her back pain. Patient's says that she does not usually complain of back pain and this is the worst episode of back pain that she had. The patient's worsening acute back pain and constipation we will go ahead and order a CT to rule out any acute lumbar spinal compression. (3) Atrial fibrillation Is this a current diagnosis for this admission?: Yes Plan: Patient is currently in sinus tachycardia. EKG shows left bundle branch block which is not new. No concern for DC with this LBBB per Sgarbossa's criteria. Patient also has ST depressions on inferior leads which are also old compared to previous EKGs. Patient is not on anticoagulation. She is only on aspirin. and patient says that she has been taken off her blood thinner after a previous discussion on its bleeding risks. Resume metoprolol at lower dose of 25 mg bid. [address]iscuss[address] with Dr. Hayward, patient's certified breastfeeding educator. Will start her on digoxin. (4) COPD (chronic obstructive pulmonary disease) Qualifiers: COPD type: unspecified COPD Qualified Code(s): J44.9 - Chronic obstructive pulmonary disease, unspecified Is this a current diagnosis for this admission?: Yes Plan: Stable. Breathing treatments as needed for wheezing or shortness of breath. (5) Chronic respiratory failure with hypoxia Is this a current diagnosis for this admission?: Yes Plan: Stable. Patient uses 2 L of home oxygen. (6) Combined systolic and diastolic congestive heart failure Is this a current diagnosis for this admission?: Yes Plan: Patient does have chronic combined systolic and diastolic heart failure. Recent echo showed an EF of 45% and a grade 3/4 diastolic dysfunction. We will resume aspirin. Resume Lopressor. Will hold off on Lasix for now. Her x-ray today does not show any vascular congestion. Continue fluid restriction and I and O's. (7) Constipation Qualifiers: Constipation type: unspecified constipation type Qualified Code(s): K59.00 - Constipation, unspecified Is this a current diagnosis for this admission?: Yes Plan: Patient refused enema. Will give dulcolax suppository. - Time Time Spent: 50 to 70 Minutes
--- NOTE | 2018-05-19 17:58 | Progress Note ---
Provider Note Provider Note: Discussed CODE STATUS with patient and . Patient is a full code at the moment. They say they will discuss this in the next few months but they do want to proceed with her being a full code at the moment.
--- NOTE | 2018-05-19 18:45 | RADIOLOGY REPORT (SQ) ---
EXAM DESCRIPTION: CT LUMBAR SPINE WITHOUT COMPLETED DATE/TIME: 05/19/2018 5:28 pm REASON FOR STUDY: persistnet and increasingly acute low back pain COMPARISON: None. TECHNIQUE: Axial images acquired through the lumbar spine without intravenous contrast. Images revi ewed with lung, soft tissue and bone windows. Reconstructed coronal and sagittal MPR images reviewed . All images stored on PACS. All CT scanners at this facility use dose modulation, iterative reconstruction, and/or weight based d osing when appropriate to reduce radiation dose to as low as reasonably achievable (ALARA). [facility]: Dose Right [facility]: CareDose [facility]: Dose Right [facility]: Teradose 4D [facility]: [employer] RADIATION DOSE: mGy. LIMITATIONS: None. 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 ALIGNMENT: Relative straightening of the normal lordotic curvature. VERTEBRAL BODIES: Age indeterminate compression fractures of the T11 and T12 vertebral bodies. DISCS: Multilevel loss of intervertebral disc height with endplate sclerosis and marginal osteophytes . PEDICLES, TRANSVERSE PROCESSES: No acute findings. No fractures. FACETS, POSTERIOR ELEMENTS: Multilevel facet arthropathy. No acute findings. HARDWARE: None in the spine. VISUALIZED RIBS: No fractures. SOFT TISSUES: No significant or acute finding in adjacent soft tissues. OTHER: No other significant finding. IMPRESSION: 1. Age-indeterminate compression fractures of the T11 and T12 vertebral bodies. 2. Multilevel spondylotic changes. 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 TECHNICAL DOCUMENTATION: JOB ID: [id number] Quality ID # [id number]: Final reports with documentation of one or more dose reduction techniques (e.g., Au tomated exposure control, adjustment of the mA and/or kV according to patient size, use of iterative reconstruction technique) 2010 [employer]- All Rights Reserved Reading location - IP/workstation name: [email or web address]
[2018-05-19] MEDS: METOPROLOL SUCCINATE 25 MG TAB.SR.24H PO SCH (21:26)
[2018-05-19] MEDS: ATORVASTATIN CALCIUM 20 MG TABLET PO SCH (21:26)
[2018-05-20] MEDS: DIGOXIN 0.125 MG TABLET PO SCH ×2 (10:42→23:24)
[2018-05-20] MEDS: METOPROLOL SUCCINATE 25 MG TAB.SR.24H PO SCH ×2 (10:42→23:02)
[2018-05-20] MEDS: ENOXAPARIN SODIUM INJ 30 MG/0.3 ML DISP.SYRIN SUBCUT SCH (10:42)
[2018-05-20] MEDS: ASPIRIN 81 MG TABLET, CHEWABLE PO SCH (10:42)
--- NOTE | 2018-05-20 12:49 | PDOC CONSULTATION ---
Consultation Consult Date: 05/20/18 Attending physician:: JUAN ADAMS Consult reason:: Tachycardia and hypotension History of Present Illness Admission Date/PCP: 05/19/18 16:14 CARMELO FORD Patient complains of: Generalized weakness, low blood pressure, constipation History of Present Illness: SHAWN GORDON is a 82 year old female with a past medical history of COPD on 2 L of home oxygen, history of atrial fibrillation not on anticoagulation at the moment, history of chronic systolic and diastolic congestive heart failure, hypertension, prior brain aneurysm status post clipping and chronic low back pain who was brought in by her because of worsening back pain and low blood pressures at home. Patient has been says that patient's metoprolol has been recently increased to 50 mg twice daily but patient has been tolerating this and has been controlling her heart rate at home well. However in the past 3-4 days, he noticed that the blood pressures at home has been running at 50 over 30s with a 63/50 blood pressure earlier today. Patient denies any dizziness, headache chest pain or shortness of breath. Patient is also getting 20 of Lasix daily at home. Patient also complains that she has been having worsening lower back pain in the past week. She also complains that she has been constipated for almost 4 weeks now. She denies any leg weakness or numbness. Denies vertigo. No slurring of speech. Patient says she was supposed to see Dr. Hayward this Monday for medication adjustment of her metoprolol. Patient denies any fever, or chills or cough. No abdominal pain. Denies hematuria, dysuria, frequency. In the ER, patient complained of severe low back pain. She was given a lidocaine patch and this slightly relieved her back pain. A was in the bedside to help the nurse sit and have the patient stand up. Patient is able to stand up with troopers and assistance however she complained of severe low back pain even on lidocaine patch. This history obtained by the hospitalist was reviewed and confirmed. Patient denied any chest pain. Patient claims that her breathing is at baseline. Patient does have a wrist blood pressure monitor by which she monitors her blood pressure. Patient's family claims that wrist blood pressure monitor has been noted to be fairly accurate. Patient does have a home health nurse. Patient claims that she has noted swallowing difficulty and her p.o. intake has been poor. Past Medical History Cardiac Medical History: Reports: Atrial Fibrillation, Congestive Heart Failure - Chronic diastolic CHF, Myocardial Infarction, Hypertension Pulmonary Medical History: Reports: Chronic Obstructive Pulmonary Disease (COPD ) - Chronic respiratory failure on 2 L oxygen at home, Respiratory Failure GI Medical History: Reports: Cirrhosis Psychiatric Medical History: Denies: Depression Past Surgical History Past Surgical History: Reports: Appendectomy, Coronary Stent, Orthopedic Surgery Social History Information Source: Patient Lives with: Spouse/Significant other Smoking Status: Former Smoker Frequency of Alcohol Use: Rare Hx Recreational Drug Use: No Drugs: None Hx Prescription Drug Abuse: No - Advance Directive Resuscitation Status: Full Code Family History Family History: DM, Hypertension, Malignancy Parental Family History Reviewed: Yes Children Family History Reviewed: Yes Sibling(s) Family History Reviewed.: Yes Medication/Allergy Home Medications: Aspirin [Ecotrin 81 mg EC Tablet] 81 mg PO DAILY 05/19/18 Atorvastatin Calcium [Lipitor 20 mg Tablet] 20 mg PO QHS 05/19/18 Fluticasone/Salmeterol [Advair 500-50 Diskus 14 Dose/Diskus] 1 puff IH Q12 05/19 Furosemide [Lasix 20 mg Tablet] 20 mg PO BID 05/19/18 Loratadine [Claritin 10 mg Tablet] 10 mg PO DAILY 05/19/18 Metoprolol Succinate [Toprol Xl 50 mg Tab.sr] 25 mg PO DAILY 05/19/18 Nystatin [Mycostatin Cream 15 gm] 1 applic TOP BID 05/19/18 Ondansetron [Zofran Odt 4 mg Tablet] 4 mg PO Q4HP PRN 05/19/18 Allergies/Adverse Reactions: No Known Allergies Allergy (Verified 05/15/18 11:37) Review of Systems Review of Systems: Please see history of present illness and past medical history as wall. Constitutional: No fever or chills reported. Head : No recent chronic headaches, recent head injury. Eyes: No recent eye pain, diplopia, redness, discharge, acute visual changes. Ears: No recent chronic ear pain, acute hearing loss, ear discharge. Oral cavity: No recent ulcerations, bleeding, oral cavity discomfort. Neck: No recent acute neck pain reported. Hematologic: No recent easy bruising or bleeding. Lymphatic: No recent lymph node enlargement reported. Cardiovascular system review: See history of present illness. Respiratory system review: No hemoptysis or blood clots in the lungs reported. Shortness of breath on exertion Gastrointestinal system review: Negative for any recent acute hematemesis, melena. Swallowing difficulty and constipation reported. Genitourinary system review: No recent acute or chronic hematuria, flank pain, UTI etc. reported. Skin system review: Negative for any recent abnormal bruising, no rash, no pruritus reported. Neurologic: No prior history of strokes, mini strokes, seizure disorder. Psychologic: No history of major psychosis or major depression reported. Musculoskeletal: Minor aches and pains reported. No acute joint swelling reported. Severe back pain reported. Endocrine: No recent polyuria, polydipsia, recent heat or cold intolerance. Physical Exam Vital Signs: Temp Pulse Resp BP Pulse Ox 99.4 F 92 20 104/51 L 97 05/20/18 07:43 05/20/18 08:40 05/20/18 08:40 05/20/18 07:43 05/20/18 08:40 Intake & Output 05/19/18 05/20/18 05/21/18 06:59 06:59 06:59 Intake Total 460 Balance 460 Weight 46.6 kg Exam: GENERAL: well-nourished and in no acute distress. Alert and oriented x3 HEAD: Atraumatic, normocephalic. EYES: Pupils equal round and reactive to light, extraocular movements intact, sclera anicteric, conjunctiva are normal. ENT: TMs normal, nares patent, oropharynx clear without exudates. Moist mucous membranes. No oral ulcerations or bleeding gums noted NECK: supple without lymphadenopathy. Trachea is central. No cervical or axillary lymphadenopathy noted. Carotids are 2+, JVD WNL LUNGS: Respiration seems nonlabored, no significant accessory muscle action noted. Few bibasilar crackles and few a scattered wheezes rales or rhonchi noted. No significant dullness noted on percussion. CHEST: Palpation of the chest wall shows no significant chest wall tenderness. 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 ABDOMEN: Soft, no significant tenderness appreciated, normoactive bowel sounds. No guarding, no rebound. No rigidity noted . No masses appreciated. EXTREMITIES: Pedal pulses are 1-2+, no calf tenderness noted. No clubbing or cyanosis. negative pedal edema noted NEUROLOGICAL: Focused neurological exam showed no significant neurologic deficit. Normal speech, no focal weakness appreciated. PSYCH: Normal mood, normal affect. Judgment and insight within normal limits. SKIN: Mild superficial ecchymosis noted, skin is noted to be warm. MUSCULOSKELETAL EXAM: No significant acute joint swelling noted. Results EKG Comments: Shows sinus tachycardia and right bundle branch block with secondary ST-T wave changes Impressions: Lumbar Spine CT 05/19/18 00:00 IMPRESSION: 1. Age-indeterminate compression fractures of the T11 and T12 vertebral bodies. 2. Multilevel spondylotic changes. 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 Acute Abdomen Series 05/19/18 11:02 IMPRESSION: Extent 1. Nonobstructive bowel gas pattern. 2. Moderate stool burden. Venous Doppler Study 05/19/18 11:11 IMPRESSION: NO EVIDENCE DVT OR SVT IN THE LEFT LEG. Assessment & Plan - Diagnosis (1) Hypotension Qualifiers: Hypotension type: unspecified hypotension type Qualified Code(s): I95.9 - Hypotension, unspecified Is this a current diagnosis for this admission?: Yes (2) Dehydration Is this a current diagnosis for this admission?: Yes (3) COPD (chronic obstructive pulmonary disease) Qualifiers: COPD type: unspecified COPD Qualified Code(s): J44.9 - Chronic obstructive pulmonary disease, unspecified Is this a current diagnosis for this admission?: Yes (4) Combined systolic and diastolic congestive heart failure Qualifiers: Heart failure chronicity: chronic Qualified Code(s): I50.42 - Chronic combined systolic (congestive) and diastolic (congestive) heart failure Is this a current diagnosis for this admission?: Yes (5) Tachycardia Is this a current diagnosis for this admission?: Yes (6) Chronic respiratory failure with hypoxia Is this a current diagnosis for this admission?: Yes - Notes Notes: Hypotension: Most likely related to volume depletion from poor intake and diuretic therapy. Agree with holding diuretic therapy and IV fluids as needed to bring blood pressure up. However monitor for any CHF. Dehydration: Patient claims her poor intake has been poor because of some swallowing difficulty that she is noted. I am told by the patient that his swallowing evaluation is being planned. COPD: Patient has severe almost end-stage COPD, continue oxygen supplementation , bronchodilator therapies. Combined systolic and diastolic heart failure, chronic: Currently compensated and seems volume depleted. Agree with cautious fluid infusion and increasing fluid and salt intake. Regular follow-up will be needed. Tachycardia: Sinus tachycardia noted. Agree with adding digoxin. Continue metoprolol but at a lower dose. Chronic respiratory failure with hypoxemia: Secondary to severe COPD. Continue with oxygen supplementation. - Time Time Spent: 30 to 50 Minutes - CODE STATUS was discussed, patient remains full code. Surrogate decision-maker patient's . Multiple medical problems were addressed. More than 50% of the time spent coordinating care, discussing management plans with involved caregivers. Management plans discussed with involved personnels. Medical decision making was of moderate to high complexity , patient's has multiple comorbidities. Medications reviewed and adjusted accordingly: Yes
[2018-05-20] MEDS ORDERED: BISACODYL 10 MG SUPP.RECT PR ONE (15:21)
--- NOTE | 2018-05-20 16:48 | PDOC PROGRESS REPORT ---
Subjective Progress Note for:: 05/20/18 Subjective:: No acute event overnight. Patient refused enema last night. Her heart rate and blood pressures have been stable overnight. Patient's home BP machine was also compared with hospital machine and it appears to be accurate. No recurrence of hypotension. Patient's back pain is beteer controlled. She has not had a BM yet today. RN noted she has stool impaction whan rectal suppository was attempted. Denies any chest pain, palpitations or SOB. Patient was assisted by this provider and nurse to stand up from bed and walk. Patient remains very unstable in walking. We will have to wait for formal PT evaluation. Reason For Visit: HYPOTENSIOIN,ATRIAL FIBRILLATION,ACUTE ON CHRONIC Physical Exam Vital Signs: Temp Pulse Resp BP Pulse Ox 98.8 F 91 14 100/67 96 05/20/18 12:00 05/20/18 16:12 05/20/18 16:12 05/20/18 12:00 05/20/18 16:12 Intake & Output 05/19/18 05/20/18 05/21/18 06:59 06:59 06:59 Intake Total 460 Balance 460 Weight 102 lb 11.767 oz General appearance: PRESENT: no acute distress, well-developed, well-nourished Eye exam: PRESENT: conjunctiva pink, EOMI, PERRLA. ABSENT: scleral icterus Mouth exam: PRESENT: moist, tongue midline Neck exam: ABSENT: carotid bruit, JVD, lymphadenopathy, thyromegaly Respiratory exam: PRESENT: clear to auscultation ulises. ABSENT: rales, rhonchi, wheezes Cardiovascular exam: PRESENT: RRR. ABSENT: diastolic murmur, rubs, systolic murmur GI/Abdominal exam: PRESENT: normal bowel sounds, soft. ABSENT: distended, guarding, mass, organolmegaly, rebound, tenderness Neurological exam: PRESENT: alert, awake, oriented to person, oriented to place , oriented to time, oriented to situation, CN II-XII grossly intact. ABSENT: motor sensory deficit Results Impressions: Lumbar Spine CT 05/19/18 00:00 IMPRESSION: 1. Age-indeterminate compression fractures of the T11 and T12 vertebral bodies. 2. Multilevel spondylotic changes. 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 Acute Abdomen Series 05/19/18 11:02 IMPRESSION: Extent 1. Nonobstructive bowel gas pattern. 2. Moderate stool burden. Venous Doppler Study 05/19/18 11:11 IMPRESSION: NO EVIDENCE DVT OR SVT IN THE LEFT LEG. Assessment & Plan - Diagnosis (1) Hypotension Qualifiers: Hypotension type: unspecified hypotension type Qualified Code(s): I95.9 - Hypotension, unspecified Is this a current diagnosis for this admission?: Yes Plan: Resolved. Likely from higher doses of metoprolol and lasix at home. She was started on digoxin yesterday and it seems she is responding well. No recurrence of hypotension. She continues to be in sinus rhythm good rate control but she does have transient tachycardia in the low 100s. Continue metoprolol at lower dose of 25 mg daily. (2) Low back pain Qualifiers: Chronicity: chronic Back pain laterality: midline Sciatica presence: without sciatica Qualified Code(s): M54.5 - Low back pain; G89.29 - Other chronic pain; G89.29 - Other chronic pain Is this a current diagnosis for this admission?: Yes Plan: Controlled. Patient was started on Neurontin and she has been responding well to it. CT of the lumbar spine was done and does not show any acute pathology. She had indeterminate compression fractures on the thoracic vertebrae. She does not complain of any upper back pain but complains of lumbar/low back pain. CT showed multilevel spondylotic changes and congenital fusion of the L4 and L5 vertebral bodies. She does have a history of vertebroplasty on the lumbar spine. (3) Atrial fibrillation Is this a current diagnosis for this admission?: Yes Plan: Currently rate controlled with very occasional transient tachycardia in the low 100s.. EKG shows left bundle branch block which is not new. No concern for NE with this LBBB per Sgarbossa's criteria. Patient also has ST depressions on inferior leads which are also old compared to previous EKGs. Patient is not on anticoagulation. She is only on aspirin. and patient says that she has been taken off her blood thinner after a previous discussion on its bleeding risks. Cardiology following. Continue metoprolol and digoxin. (4) COPD (chronic obstructive pulmonary disease) Qualifiers: COPD type: unspecified COPD Qualified Code(s): J44.9 - Chronic obstructive pulmonary disease, unspecified Is this a current diagnosis for this admission?: Yes Plan: Stable. Breathing treatments as needed for wheezing or shortness of breath. (5) Chronic respiratory failure with hypoxia Is this a current diagnosis for this admission?: Yes Plan: Stable. Patient uses 2 L of home oxygen. (6) Combined systolic and diastolic congestive heart failure Qualifiers: Heart failure chronicity: chronic Qualified Code(s): I50.42 - Chronic combined systolic (congestive) and diastolic (congestive) heart failure Is this a current diagnosis for this admission?: Yes Plan: Patient does have chronic combined systolic and diastolic heart failure. Recent echo showed an EF of 45% and a grade 3/4 diastolic dysfunction. Continue aspirin and Lopressor. X-ray today does not show any vascular congestion. Continue fluid restriction and I and O's. Resume p.o. Lasix at 20 mg daily. (7) Constipation Qualifiers: Constipation type: unspecified constipation type Qualified Code(s): K59.00 - Constipation, unspecified Is this a current diagnosis for this admission?: Yes Plan: Patient does have fecal impaction on rectal exam. Will proceed with Fleet enema. - Time Time Spent with patient: 25-34 minutes
[2018-05-20] MEDS ORDERED: NA PHOS,M-B/NA PHOS,DI-BA (ADULT) 133 ML ENEMA PR ONE (18:00)
[2018-05-20] MEDS: ATORVASTATIN CALCIUM 20 MG TABLET PO SCH (23:01)
--- NOTE | 2018-05-21 07:45 | EKG REPORT ---
SEVERITY:- ABNORMAL ECG - SINUS RHYTHM MULTIFORM VENTRICULAR PREMATURE COMPLEXES LEFT BUNDLE BRANCH BLOCK : Confirmed by: Charlie Hayward 21-May-2018 07:44:13
[2018-05-21] MEDS: DIGOXIN 0.125 MG TABLET PO SCH ×2 (09:07→13:51)
[2018-05-21] MEDS: ENOXAPARIN SODIUM INJ 30 MG/0.3 ML DISP.SYRIN SUBCUT SCH (09:09)
[2018-05-21] MEDS: METOPROLOL SUCCINATE 25 MG TAB.SR.24H PO SCH ×2 (09:09→22:13)
[2018-05-21] MEDS: ASPIRIN 81 MG TABLET, CHEWABLE PO SCH (09:09)
[2018-05-21] MEDS: GABAPENTIN 100 MG CAPSULE PO SCH ×2 (15:56→22:13)
[2018-05-21] MEDS ORDERED: MORPHINE SULFATE 10 MG/ML INJ ONE (16:09)
[2018-05-21] MEDS ORDERED: SENNOSIDES/DOCUSATE 8.6-50 MG 1 EACH TABLET PO PRN (16:59)
--- NOTE | 2018-05-21 16:59 | PDOC PROGRESS REPORT ---
Subjective Progress Note for:: 05/21/18 Subjective:: No acute event overnight. Her heart rate and blood pressures have been stable overnight. No recurrence of hypotension. Patient had regular bowel movement today. Denies any chest pain, palpitations or SOB. She complains of worsening lower back pain today. Patient remained very unsteady when assessed by PT. Patient will need inpatient rehab. Reason For Visit: AFIB Physical Exam Vital Signs: Temp Pulse Resp BP Pulse Ox 99 F 86 18 103/42 L 95 05/21/18 16:00 05/21/18 16:00 05/21/18 16:00 05/21/18 16:00 05/21/18 16:00 General appearance: PRESENT: no acute distress, well-developed, well-nourished Head exam: PRESENT: atraumatic, normocephalic Eye exam: PRESENT: conjunctiva pink, EOMI, PERRLA. ABSENT: scleral icterus Neck exam: ABSENT: carotid bruit, JVD, lymphadenopathy, thyromegaly Respiratory exam: PRESENT: clear to auscultation ulises. ABSENT: rales, rhonchi, wheezes Cardiovascular exam: PRESENT: RRR Pulses: PRESENT: normal dorsalis pedis pul GI/Abdominal exam: PRESENT: normal bowel sounds, soft. ABSENT: distended, guarding, mass, organolmegaly, rebound, tenderness Rectal exam: PRESENT: deferred Neurological exam: PRESENT: alert, awake, oriented to person, oriented to place , oriented to time, oriented to situation, CN II-XII grossly intact. ABSENT: motor sensory deficit Results Impressions: Lumbar Spine CT 05/19/18 00:00 IMPRESSION: 1. Age-indeterminate compression fractures of the T11 and T12 vertebral bodies. 2. Multilevel spondylotic changes. 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 Acute Abdomen Series 05/19/18 11:02 IMPRESSION: Extent 1. Nonobstructive bowel gas pattern. 2. Moderate stool burden. Venous Doppler Study 05/19/18 11:11 IMPRESSION: NO EVIDENCE DVT OR SVT IN THE LEFT LEG. Assessment & Plan - Diagnosis (1) Hypotension Qualifiers: Hypotension type: unspecified hypotension type Qualified Code(s): I95.9 - Hypotension, unspecified Is this a current diagnosis for this admission?: Yes Plan: Resolved. Likely from higher doses of metoprolol and lasix at home. She was started on digoxin and it seems she is responding well. No recurrence of hypotension. She continues to be in sinus rhythm with good rate control but she does have transient tachycardia in the low 100s. Continue metoprolol at lower dose of 25 mg daily. (2) Low back pain Qualifiers: Chronicity: chronic Back pain laterality: midline Sciatica presence: without sciatica Qualified Code(s): M54.5 - Low back pain; G89.29 - Other chronic pain; G89.29 - Other chronic pain Is this a current diagnosis for this admission?: Yes Plan: Patient had worsening back pain again today. Continue Neurontin. Continue lidocaine patch. CT of the lumbar spine was done and does not show any acute pathology. She had indeterminate compression fractures on the thoracic vertebrae. She does not complain of any upper back pain but complains of lumbar /low back pain. CT showed multilevel spondylotic changes and congenital fusion of the L4 and L5 vertebral bodies. She does have a history of vertebroplasty on the lumbar spine. Consult pain specialist for further evaluation and recommendations. (3) Atrial fibrillation Is this a current diagnosis for this admission?: Yes Plan: Currently rate controlled with very occasional transient tachycardia in the low 100s. EKG shows left bundle branch block which is not new. No concern for CA with this LBBB per Sgarbossa's criteria. Patient also has ST depressions on inferior leads which are also old compared to previous EKGs. Patient is not on anticoagulation. She is only on aspirin. and patient says that she has been taken off her blood thinner after a previous discussion on its bleeding risks. Cardiology following. Continue metoprolol and digoxin. Discussed with pharmacy, will reduce digoxin to daily dosing. (4) COPD (chronic obstructive pulmonary disease) Qualifiers: COPD type: unspecified COPD Qualified Code(s): J44.9 - Chronic obstructive pulmonary disease, unspecified Is this a current diagnosis for this admission?: Yes Plan: Stable. Breathing treatments as needed for wheezing or shortness of breath. (5) Chronic respiratory failure with hypoxia Is this a current diagnosis for this admission?: Yes Plan: Stable. Patient uses 2 L of home oxygen. (6) Combined systolic and diastolic congestive heart failure Qualifiers: Heart failure chronicity: chronic Qualified Code(s): I50.42 - Chronic combined systolic (congestive) and diastolic (congestive) heart failure Is this a current diagnosis for this admission?: Yes Plan: Patient does have chronic combined systolic and diastolic heart failure. Recent echo showed an EF of 45% and a grade 3/4 diastolic dysfunction. Continue aspirin and Lopressor. X-ray today does not show any vascular congestion. Continue fluid restriction and I and O's. Resume p.o. Lasix at 20 mg daily. (7) Constipation Qualifiers: Constipation type: unspecified constipation type Qualified Code(s): K59.00 - Constipation, unspecified Is this a current diagnosis for this admission?: Yes Plan: Resolved after patient was given Fleet enema yesterday. Continue senna. - Time Time Spent with patient: 25-34 minutes
[2018-05-21] MEDS ORDERED: MORPHINE SULFATE 10 MG/ML INJ IV ONE (17:00)
[2018-05-21] MEDS ORDERED: CYCLOBENZAPRINE HCL 10 MG TABLET PO PRN (18:06)
[2018-05-21] MEDS ORDERED: OXYCODONE HCL IR 5 MG TABLET PO PRN (18:07)
--- NOTE | 2018-05-21 21:05 | PDOC PROGRESS REPORT ---
Subjective Progress Note for:: 05/21/18 Subjective:: Patient seems to be doing better with gradual improvement. Patient however noted to be generally weak. She had complained of swallowing difficulty but claims now this has improved. Pt is denying any chest arm or neck discomfort. Patient denying any PND, orthopnea. Patient denied any sustained palpitations, dizziness, syncope, near syncope. Patient denying any fever chills. Patient denying any other significant discomfort. Patient is maintaining sinus rhythm. Review of systems: Rest review of systems negative. Medications: Medications have been reviewed. Reason For Visit: AFIB Physical Exam Vital Signs: Temp Pulse Resp BP Pulse Ox 99 F 91 18 103/42 L 95 05/21/18 16:00 05/21/18 19:00 05/21/18 16:00 05/21/18 16:00 05/21/18 16:00 Intake & Output 05/20/18 05/21/18 05/22/18 06:59 06:59 06:59 Intake Total 877 Balance 877 Exam: GENERAL: well-nourished and in no acute distress. Alert and oriented x3 HEAD: Atraumatic, normocephalic. EYES: Pupils equal round and reactive to light, extraocular movements intact, sclera anicteric, conjunctiva are normal. ENT: TMs normal, nares patent, oropharynx clear without exudates. Moist mucous membranes. No oral ulcerations or bleeding gums noted NECK: supple without lymphadenopathy. Trachea is central. No cervical or axillary lymphadenopathy noted. Carotids are 2+, JVD WNL LUNGS: Respiration seems nonlabored, no significant accessory muscle action noted. Bibasilar fine crackles and few a scattered wheezes rales or rhonchi noted. No significant dullness noted on percussion. CHEST: Palpation of the chest wall shows no significant chest wall tenderness. HEART: [place] [employer], No PSH, 1/6 LISA aortic area, 1/6 adams systolic murmur mitral area, no rubs, no gallops. ABDOMEN: Soft, no significant tenderness appreciated, normoactive bowel sounds. No guarding, no rebound. No rigidity noted . No masses appreciated. EXTREMITIES: Pedal pulses are 1-2+, no calf tenderness noted. No clubbing or cyanosis. negative pedal edema noted NEUROLOGICAL: Focused neurological exam showed no significant neurologic deficit. Normal speech, no focal weakness appreciated. PSYCH: Normal mood, normal affect. Judgment and insight within normal limits. SKIN: Superficial ecchymosis, skin is noted to be warm. MUSCULOSKELETAL EXAM: No significant acute joint swelling noted. Results EKG Comments: Telemetry shows sinus rhythm Impressions: Lumbar Spine CT 05/19/18 00:00 IMPRESSION: 1. Age-indeterminate compression fractures of the T11 and T12 vertebral bodies. 2. Multilevel spondylotic changes. 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 Acute Abdomen Series 05/19/18 11:02 IMPRESSION: Extent 1. Nonobstructive bowel gas pattern. 2. Moderate stool burden. Venous Doppler Study 05/19/18 11:11 IMPRESSION: NO EVIDENCE DVT OR SVT IN THE LEFT LEG. Assessment & Plan - Diagnosis (1) Hypotension Qualifiers: Hypotension type: unspecified hypotension type Qualified Code(s): I95.9 - Hypotension, unspecified Is this a current diagnosis for this admission?: Yes (2) Dehydration Is this a current diagnosis for this admission?: Yes (3) COPD (chronic obstructive pulmonary disease) Qualifiers: COPD type: unspecified COPD Qualified Code(s): J44.9 - Chronic obstructive pulmonary disease, unspecified Is this a current diagnosis for this admission?: Yes (4) Combined systolic and diastolic congestive heart failure Qualifiers: Heart failure chronicity: chronic Qualified Code(s): I50.42 - Chronic combined systolic (congestive) and diastolic (congestive) heart failure Is this a current diagnosis for this admission?: Yes (5) Tachycardia Is this a current diagnosis for this admission?: Yes (6) Chronic respiratory failure with hypoxia Is this a current diagnosis for this admission?: Yes - Notes Notes: Hypotension: Most likely related to volume depletion from poor intake and diuretic therapy. Continue holding diuretic therapy and IV fluids as needed to bring blood pressure up. However monitor for any CHF. Dehydration: Patient claims her poor intake has been poor because of some swallowing difficulty that she is noted. I am told by the patient that his swallowing evaluation is being planned. COPD: Patient has severe almost end-stage COPD, continue oxygen supplementation , bronchodilator therapies. Combined systolic and diastolic heart failure, chronic: Currently compensated and seems volume depleted. Agree with cautious fluid infusion and increasing fluid and salt intake. Regular follow-up will be needed. Tachycardia: Sinus tachycardia noted. Agree with adding digoxin. Continue metoprolol but at a lower dose. Chronic respiratory failure with hypoxemia: Secondary to severe COPD. Continue with oxygen supplementation. - Time Time with patient: 15-25 minutes - CODE STATUS was discussed, patient remains full code. Surrogate decision-maker unchanged. Multiple medical problems were addressed. More than 50% of the time spent coordinating care, discussing management plans with involved caregivers. Management plans discussed with involved personnels. Medical decision making was of moderate to high complexity , patient's has multiple comorbidities. Medications reviewed and adjusted accordingly: Yes
[2018-05-21] MEDS: ACETAMINOPHEN 325 MG TABLET PO SCH (22:12)
[2018-05-21] MEDS: ATORVASTATIN CALCIUM 20 MG TABLET PO SCH (22:13)
[2018-05-21] MEDS: PHARMACY COMMUNICATION ORDER MC SCH (22:13)
[2018-05-22] MEDS: GABAPENTIN 100 MG CAPSULE PO SCH ×2 (05:43→13:22)
[2018-05-22] MEDS: ACETAMINOPHEN 325 MG TABLET PO SCH ×3 (05:43→22:42)
--- NOTE | 2018-05-22 08:53 | EKG REPORT ---
SEVERITY:- ABNORMAL ECG - SINUS RHYTHM NONSPECIFIC IVCD WITH LAD LVH WITH SECONDARY REPOLARIZATION ABNORMALITY : Confirmed by: Charlie Hayward 22-May-2018 08:52:25
[2018-05-22] MEDS: ENOXAPARIN SODIUM INJ 30 MG/0.3 ML DISP.SYRIN SUBCUT SCH (09:32)
[2018-05-22] MEDS: ASPIRIN 81 MG TABLET, CHEWABLE PO SCH (09:32)
[2018-05-22] MEDS: METOPROLOL SUCCINATE 25 MG TAB.SR.24H PO SCH ×2 (09:32→22:41)
[2018-05-22] MEDS: DIGOXIN 0.125 MG TABLET PO SCH (12:04)
[2018-05-22] MEDS: LIDOCAINE 5% (700 MG) TRANSDERMAL ADH..PATCH TP SCH (13:54)
[2018-05-22] MEDS: OXYCODONE HCL IR 5 MG TABLET PO PRN ×2 (15:34→22:49)
--- NOTE | 2018-05-22 17:24 | PDOC PROGRESS REPORT ---
Subjective Progress Note for:: 05/22/18 Subjective:: No acute events overnight. Patient blood pressure and vitals have been stable overnight. Patient has had regular bowel movements. Patient is p.o. tolerant. Patient denies any pain except her chronic lower back pain. Patient denies any chest pain nausea vomiting shortness of breath. Patient is pending a decision on rehab by the family. Reason For Visit: AFIB Physical Exam Vital Signs: Temp Pulse Resp BP Pulse Ox 98.0 F 72 20 94/55 L 94 05/22/18 16:24 05/22/18 16:24 05/22/18 16:24 05/22/18 16:24 05/22/18 16:24 Intake & Output 05/21/18 05/22/18 05/23/18 06:59 06:59 06:59 Intake Total 877 473 Balance 877 473 General appearance: PRESENT: no acute distress, well-developed, well-nourished Head exam: PRESENT: atraumatic, normocephalic Eye exam: PRESENT: conjunctiva pink, EOMI, PERRLA. ABSENT: scleral icterus Ear exam: PRESENT: normal external ear exam Mouth exam: PRESENT: moist, tongue midline Neck exam: ABSENT: carotid bruit, JVD, lymphadenopathy, thyromegaly Respiratory exam: PRESENT: clear to auscultation ulises. ABSENT: rales, rhonchi, wheezes Cardiovascular exam: PRESENT: RRR. ABSENT: diastolic murmur, rubs, systolic murmur Pulses: PRESENT: normal dorsalis pedis pul Vascular exam: PRESENT: normal capillary refill GI/Abdominal exam: PRESENT: normal bowel sounds, soft. ABSENT: distended, guarding, mass, organolmegaly, rebound, tenderness Rectal exam: PRESENT: deferred Extremities exam: PRESENT: full ROM. ABSENT: calf tenderness, clubbing, pedal edema Neurological exam: PRESENT: alert, awake, oriented to person, oriented to place , oriented to time, oriented to situation, CN II-XII grossly intact. ABSENT: motor sensory deficit Psychiatric exam: PRESENT: appropriate affect, normal mood. ABSENT: homicidal ideation, suicidal ideation Skin exam: PRESENT: dry, intact, warm. ABSENT: cyanosis, rash Results Impressions: Lumbar Spine CT 05/19/18 00:00 IMPRESSION: 1. Age-indeterminate compression fractures of the T11 and T12 vertebral bodies. 2. Multilevel spondylotic changes. 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 Acute Abdomen Series 05/19/18 11:02 IMPRESSION: Extent 1. Nonobstructive bowel gas pattern. 2. Moderate stool burden. Venous Doppler Study 05/19/18 11:11 IMPRESSION: NO EVIDENCE DVT OR SVT IN THE LEFT LEG. Assessment & Plan - Diagnosis (1) Atrial fibrillation Is this a current diagnosis for this admission?: Yes (2) Hypotension Qualifiers: Hypotension type: unspecified hypotension type Qualified Code(s): I95.9 - Hypotension, unspecified Is this a current diagnosis for this admission?: Yes Plan: Resolved this may have been due to high-dose metoprolol and Lasix. Lasix currently on hold and will switch will continue Toprol 25 mg daily. Will continue to monitor her vitals and adjust medications as needed (3) Low back pain Qualifiers: Chronicity: chronic Back pain laterality: midline Sciatica presence: without sciatica Qualified Code(s): M54.5 - Low back pain; G89.29 - Other chronic pain; G89.29 - Other chronic pain Is this a current diagnosis for this admission?: Yes Plan: Patient has been seen by pain management started on oxycodone and cyclobenzaprine. (4) Constipation Qualifiers: Constipation type: unspecified constipation type Qualified Code(s): K59.00 - Constipation, unspecified Is this a current diagnosis for this admission?: Yes Plan: Resolved after [employer] will continue senna.
[2018-05-22] MEDS: CYCLOBENZAPRINE HCL 10 MG TABLET PO SCH (17:31)
--- NOTE | 2018-05-22 19:32 | PDOC PROGRESS REPORT ---
Subjective Progress Note for:: 05/22/18 Subjective:: No significant change but telemetry shows increased ventricular ectopy. Patient seems to be doing better with gradual improvement. Patient however noted to be generally weak. She had complained of swallowing difficulty but claims now this has improved. Pt is denying any chest arm or neck discomfort. Patient denying any PND, orthopnea. Patient denied any sustained palpitations, dizziness, syncope, near syncope. Patient denying any fever chills. Patient denying any other significant discomfort. Patient is maintaining sinus rhythm. Increased ventricular ectopy noted. Review of systems: Rest review of systems negative. Medications: Medications have been reviewed. Reason For Visit: AFIB Physical Exam Vital Signs: Temp Pulse Resp BP Pulse Ox 98.0 F 72 20 94/55 L 94 05/22/18 16:24 05/22/18 16:24 05/22/18 16:24 05/22/18 16:24 05/22/18 16:24 Intake & Output 05/21/18 05/22/18 05/23/18 06:59 06:59 06:59 Intake Total 877 473 Balance 877 473 Exam: GENERAL: well-nourished and in no acute distress. Alert and oriented x3 HEAD: Atraumatic, normocephalic. EYES: Pupils equal round and reactive to light, extraocular movements intact, sclera anicteric, conjunctiva are normal. ENT: TMs normal, nares patent, oropharynx clear without exudates. Moist mucous membranes. No oral ulcerations or bleeding gums noted NECK: supple without lymphadenopathy. Trachea is central. No cervical or axillary lymphadenopathy noted. Carotids are 2+, JVD WNL LUNGS: Respiration seems nonlabored, no significant accessory muscle action noted. Bibasilar coarse crackles and few scattered significant dullness noted on percussion. CHEST: Palpation of the chest wall shows no significant chest wall tenderness. 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 ABDOMEN: Soft, no significant tenderness appreciated, normoactive bowel sounds. No guarding, no rebound. No rigidity noted . No masses appreciated. EXTREMITIES: Pedal pulses are 1-2+, no calf tenderness noted. No clubbing or cyanosis. negative pedal edema noted NEUROLOGICAL: Focused neurological exam showed no significant neurologic deficit. Normal speech, no focal weakness appreciated. PSYCH: Normal mood, normal affect. Judgment and insight within normal limits. SKIN: Superficial ecchymosis, skin is noted to be warm. MUSCULOSKELETAL EXAM: No significant acute joint swelling noted. Results EKG Comments: Telemetry shows sinus rhythm with increased ventricular ectopy. Patient continues to have right bundle branch block. Impressions: Lumbar Spine CT 05/19/18 00:00 IMPRESSION: 1. Age-indeterminate compression fractures of the T11 and T12 vertebral bodies. 2. Multilevel spondylotic changes. 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 Acute Abdomen Series 05/19/18 11:02 IMPRESSION: Extent 1. Nonobstructive bowel gas pattern. 2. Moderate stool burden. Venous Doppler Study 05/19/18 11:11 IMPRESSION: NO EVIDENCE DVT OR SVT IN THE LEFT LEG. Assessment & Plan - Diagnosis (1) Hypotension Qualifiers: Hypotension type: unspecified hypotension type Qualified Code(s): I95.9 - Hypotension, unspecified Is this a current diagnosis for this admission?: Yes (2) Dehydration Is this a current diagnosis for this admission?: Yes (3) COPD (chronic obstructive pulmonary disease) Qualifiers: COPD type: unspecified COPD Qualified Code(s): J44.9 - Chronic obstructive pulmonary disease, unspecified Is this a current diagnosis for this admission?: Yes (4) Combined systolic and diastolic congestive heart failure Qualifiers: Heart failure chronicity: chronic Qualified Code(s): I50.42 - Chronic combined systolic (congestive) and diastolic (congestive) heart failure Is this a current diagnosis for this admission?: Yes (5) Tachycardia Is this a current diagnosis for this admission?: Yes (6) Chronic respiratory failure with hypoxia Is this a current diagnosis for this admission?: Yes - Notes Notes: Hypotension: Most likely related to volume depletion from poor intake and diuretic therapy. Continue holding diuretic therapy and IV fluids as needed to bring blood pressure up. However monitor for any CHF. Dehydration: Patient claims her poor intake has been poor because of some swallowing difficulty that she is noted. I am told by the patient that his swallowing evaluation is being planned. COPD: Patient has severe almost end-stage COPD, continue oxygen supplementation , bronchodilator therapies. Combined systolic and diastolic heart failure, chronic: Currently compensated and seems volume depleted. Agree with cautious fluid infusion and increasing fluid and salt intake. Regular follow-up will be needed. Tachycardia: This seems to have resolved but patient now having frequent ventricular ectopy. Will switch patient to digoxin every other day. Digoxin level obtained along with chemistry panel and magnesium level. Continue metoprolol but at a lower dose. Chronic respiratory failure with hypoxemia: Secondary to severe COPD. Continue with oxygen supplementation. - Time Time with patient: 15-25 minutes - CODE STATUS was discussed, patient remains full code. Surrogate decision-maker unchanged. Multiple medical problems were addressed. More than 50% of the time spent coordinating care, discussing management plans with involved caregivers. Management plans discussed with involved personnels. Medical decision making was of moderate to high complexity , patient's has multiple comorbidities. Medications reviewed and adjusted accordingly: Yes
[2018-05-22 21:01] LABS: ALANINE AMINOTRANSFERASE 22 U/L (9-52); ALBUMIN 2.2 g/dL (3.5-5.0); ALKALINE PHOSPHATASE 102 U/L (38-126); ANION GAP 11 (5-19); ASPARTATE AMINO TRANSFERASE 28 U/L (14-36); BILIRUBIN,DIRECT 0.3 mg/dL (0.0-0.4); BILIRUBIN,TOTAL 0.4 mg/dL (0.2-1.3); BLOOD UREA NITROGEN 14 mg/dL (7-20); CALCIUM 7.9 mg/dL (8.4-10.2); CARBON DIOXIDE 22 mmol/L (22-30); CHLORIDE 103 mmol/L (98-107); GLUCOSE 47 mg/dL (75-110); POTASSIUM 4.2 mmol/L (3.6-5.0); SODIUM 135.9 mmol/L (137-145); TOTAL PROTEIN 5.1 g/dL (6.3-8.2)
[2018-05-22] MEDS: PHARMACY COMMUNICATION ORDER MC SCH (21:23)
[2018-05-22] MEDS: DOCUSATE SODIUM 100 MG CAPSULE PO SCH (22:41)
[2018-05-22] MEDS: ATORVASTATIN CALCIUM 20 MG TABLET PO SCH (22:41)
[2018-05-22] MEDS: GABAPENTIN 300 MG CAPSULE PO SCH (22:41)
[2018-05-23] MEDS: CYCLOBENZAPRINE HCL 10 MG TABLET PO SCH ×3 (05:34→22:49)
[2018-05-23] MEDS: ACETAMINOPHEN 325 MG TABLET PO SCH ×3 (05:34→22:47)
[2018-05-23] MEDS: GABAPENTIN 300 MG CAPSULE PO SCH ×3 (05:35→22:47)
[2018-05-23 07:45] LABS: HEMATOCRIT 29.7 % (36.0-47.0); HEMOGLOBIN 9.7 g/dL (12.0-15.5); MEAN CORPUSCULAR HEMOGLOBIN 28.7 pg (27.0-33.4); MEAN CORPUSCULAR HGB CONC 32.8 g/dL (32.0-36.0); MEAN CORPUSCULAR VOLUME 87 fl (80-97); PLATELET COUNT 615 10^3/uL (150-450); RED CELL DISTRIBUTION WIDTH 15.7 % (11.5-14.0); WHITE BLOOD COUNT 9.4 10^3/uL (4.0-10.5)
[2018-05-23 08:07] LABS: ALANINE AMINOTRANSFERASE 18 U/L (9-52); ALBUMIN 2.5 g/dL (3.5-5.0); ALKALINE PHOSPHATASE 120 U/L (38-126); ANION GAP 17 (5-19); ASPARTATE AMINO TRANSFERASE 28 U/L (14-36); BILIRUBIN,DIRECT 0.4 mg/dL (0.0-0.4); BILIRUBIN,TOTAL 0.4 mg/dL (0.2-1.3); BLOOD UREA NITROGEN 14 mg/dL (7-20); CALCIUM 8.1 mg/dL (8.4-10.2); CARBON DIOXIDE 20 mmol/L (22-30); CHLORIDE 101 mmol/L (98-107); DIGOXIN 1.02 ng/mL (0.8-2.0); POTASSIUM 4.8 mmol/L (3.6-5.0); SODIUM 138.2 mmol/L (137-145); TOTAL PROTEIN 5.6 g/dL (6.3-8.2)
[2018-05-23 08:22] LABS: GLUCOSE 40 mg/dL (75-110)
[2018-05-23 08:25] LABS: ABSOLUTE LYMPHOCYTES# (MANUAL) 0.4 10^3/uL (0.5-4.7); ABSOLUTE MONOCYTES # (MANUAL) 1.1 10^3/uL (0.1-1.4); ABSOLUTE NEUTROPHILS# (MANUAL) 7.8 10^3/uL (1.7-8.2); BAND NEUTROPHILS % (MANUAL) 1 % (3-5); BASOPHILS % (MANUAL) 0 % (0-2); EOSINOPHILS % (MANUAL) 1 % (0-6); LYMPHOCYTES % (MANUAL) 4 % (13-45); METAMYELOCYTES % (MANUAL) 1 % (0); MONOCYTES % (MANUAL) 12 % (3-13); SEGMENTED NEUTROPHILS % (MAN) 81 % (42-78); TOTAL CELLS COUNTED 100
[2018-05-23 08:28] LABS: PLATELET CLUMPS PRESENT; PLATELET COMMENT INCREASED; POLYCHROMASIA 1+; TOXIC GRANULATION 2+; TOXIC VACUOLATION PRESENT
[2018-05-23 08:29] LABS: BURR CELLS SLIGHT; POIKILOCYTOSIS 2+; SCHISTOCYTES 1+; SMUDGE CELLS PRESENT
--- NOTE | 2018-05-23 08:42 | EKG REPORT ---
SEVERITY:- ABNORMAL ECG - SINUS RHYTHM NONSPECIFIC IVCD WITH LAD LVH WITH SECONDARY REPOLARIZATION ABNORMALITY : Confirmed by: Charlie Hayward 23-May-2018 08:41:21
[2018-05-23] MEDS: METOPROLOL SUCCINATE 25 MG TAB.SR.24H PO SCH ×2 (09:42→22:47)
[2018-05-23] MEDS: DIGOXIN 0.125 MG TABLET PO SCH (09:43)
[2018-05-23] MEDS: ENOXAPARIN SODIUM INJ 30 MG/0.3 ML DISP.SYRIN SUBCUT SCH (09:43)
[2018-05-23] MEDS: DOCUSATE SODIUM 100 MG CAPSULE PO SCH ×2 (09:43→17:17)
[2018-05-23] MEDS: ASPIRIN 81 MG TABLET, CHEWABLE PO SCH (09:43)
--- NOTE | 2018-05-23 12:02 | RADIOLOGY REPORT (SQ) ---
EXAM DESCRIPTION: NM WHOLE BODY BONE SCAN COMPLETED DATE/TIME: 05/23/2018 11:36 am REASON FOR STUDY: chronic back pain COMPARISON: CT lumbar spine 05/19/2018. CT chest 04/28/2018. RADIONUCLIDE AND DOSE: 21.5 millicuries Tc99m MDP. The route of agent administration: Intravenous. ADDITIONAL DRUGS AND DOSES: None. TECHNIQUE: Routine delayed images at 3 hour post radionuclide injection acquired of the bony skeleto n including anterior and posterior whole-body projections and additional focused images as needed. LIMITATIONS: None. FINDINGS: BONES: Transverse uptake in the lower thoracic spine at T11 and T12. This is scratch at t his correlates with compression fractures on recent CT. Minimal uptake along the inferior sternum. This may relate to a relatively chronic appearing fracture seen on chest CT. KIDNEYS: Symmetric excretion without obstruction. OTHER: No other significant finding. IMPRESSION: 1. T11 and T12 bone scan uptake is consistent with recent compression fractures. 2. Mi ld uptake in the inferior sternum may also be related to posttraumatic change. There is a fairly hea led appearing fracture here on recent CT chest. COMMENT: Quality measure 147: Current bone scan is compared with any available plain radiographs, p rior bone scans, and CT/MRI. TECHNICAL DOCUMENTATION: JOB ID: [id number] 1988 [employer]- All Rights Reserved Reading location - IP/workstation name: [email or web address]
[2018-05-23] MEDS: OXYCODONE HCL IR 5 MG TABLET PO PRN (12:12)
[2018-05-23] MEDS: LIDOCAINE 5% (700 MG) TRANSDERMAL ADH..PATCH TP SCH (13:48)
--- NOTE | 2018-05-23 14:14 | PROGRESS NOTE E ---
Progress Note NAME: SHAWN GORDON : 1935 AGE: 82Y DATE: 05/22/2018 ROOM: 535 CHIEF COMPLAINT: Back pain. HISTORY OF PRESENT ILLNESS: The patient is awake today. She notes the pain has improved from yesterday with medication changes. The hospitalist actually changed the Flexeril to be scheduled, which seems to be helping. The oxycodone is effective and she has only asked for it twice today, so far. A whole tablet makes her pretty sleepy, so the half tablets were tolerated better. She does note some mild constipation since starting the oxycodone. She describes an achy pain on the right side of her lower back where her previous surgery was. She denies any radicular symptoms, saddle anesthesia, weakness, foot drop, bowel or bladder incontinence. She does not have any pain in the upper lumbar/lower thoracic spine. However, she is still not able to get out of bed or use the restroom on her own and states she has just been "going in my diaper." The patient states she had a surgery back in the 1960s, and she has had some on and off achy pain, but tolerable and just took Tylenol when it was bothering her at home. She denies a history of any pain management treatment such as injections or medications. The bone scan has not been completed yet. OBJECTIVE: VITAL SIGNS: Temperature 98, pulse 17, blood pressure of 94/55, respirations 20, O2 sats were 94% on nasal cannula of 1.5 L of oxygen. GENERAL: She is a well-developed, well-nourished 82-year-old female, alert and oriented x3, in no acute distress, lying in bed leaning more towards her left side. LUNGS: Respirations are even and nonlabored work of breathing. Her lungs are clear to auscultation. CARDIOVASCULAR: There is no edema in the bilateral extremities. Her pedal pulses are +2 at the dorsalis pedis. GASTROINTESTINAL: Bowel sounds are present. She is not tender, nor is she distended. SPINE: She is wearing the Lidoderm patches, still cannot see the surgical scarring. She is nontender to palpation along the axial thoracic and lumbar spine. She is mild to moderately tender along the right side of her lumbosacral area and iliac crest. NEUROLOGIC: Again, alert and oriented x3. Sensation is intact in bilateral lower extremities. She is moving her limbs freely. She can roll herself over in bed. Strength is 5/5 with EHL and dorsi and plantar flexion of the ankles. There is no clonus on ankle jerks. ASSESSMENT: 1. POST LAMINECTOMY SYNDROME. 2. 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 3. SPONDYLOSIS. 4. LOW BACK PAIN. 5. ASYMPTOMATIC COMPRESSION FRACTURE OF T11 AND T12, AGE INDETERMINATE. PLAN: 1. Medication adjustment. She will discontinue the oxycodone 5 mg, as it was too strong, and continue the 2.5 mg dose every 4 hours as needed. We are going to increase the gabapentin to 300 mg t.i.d., also going to add some Colace for constipation. 2. Awaiting the bone scan results. 3. It does not sound like the compression fractures are the issue, as she is not experiencing pain in the area nor is she tender over the area where the suspected fractures are, and it is likely that this is just, again, post-laminectomy pain syndrome presenting as low back pain. We could likely treat her outpatient for the chronic pain, i.e., injections, medication management, but again, we will wait and see what the bone scan results show and discuss a further treatment plan, but ideally get her feeling better, so she can be discharged home. DICTATING PHYSICIAN: GENNY LOZANO, PA-C For Phillip Alatorre MD [id number] PHY#: [id number] ID: [id number] JOB#: [id number] ACCT: [id number] cc: > MTDD
--- NOTE | 2018-05-23 14:31 | CONSULT/HISTORY AND PHYSICAL E ---
Consultation/History and Physical PATIENT NAME: SHAWN GORDON : 1935 AGE: 82Y DATE: 05/23/2018 ROOM: 535 PAIN MANAGEMENT CONSULTATION CHIEF COMPLAINT: Back pain HISTORY OF PRESENT ILLNESS: Per patient's as the patient was asleep at this time and unarousable. She has been in and out of the hospital for pneumonia for the past month. She had some increased back pain but tolerable up until about 05/19 when pain was severe and came to the ER and was admitted. He denies violent coughing spells or fall to cause the acute pain. He denies history of osteoporosis. She has a history of lumbar surgery "years ago" but has not had any significant episodes of pain and she uses just Tylenol when she was in any sort of pain. She is not complaining of new onset radicular symptoms, weakness, bowel or bladder incontinence. She was recently given IV morphine about an hour before my arrival and has been pretty much asleep ever since. PAST MEDICAL HISTORY: 1. Atrial fibrillation. 2. Congestive heart failure. 3. Hypertension. 4. History of myocardial infarctions. 5. Chronic obstructive pulmonary disease. 6. History of cranial aneurysms. PAST SURGICAL HISTORY: 1. Appendectomy. 2. Coronary stenting. 3. Cranial aneurysm clips. 4. Lumbar surgery that happened in the 1960s. SOCIAL HISTORY: She lives with her , she is a nonsmoker/former smoker. She drinks alcohol occasionally or socially and she does not use or abuse illicit drugs or prescription drugs. FAMILY HISTORY: Diabetes mellitus, hypertension, malignancy. MEDICATIONS: At home medications listed are: 1. Aspirin. 2. Atorvastatin. 3. Advair. 4. Lasix. 5. Claritin. 6. Toprol. 7. Zofran. 8. Nystatin cream. 9. Tylenol. ALLERGIES: NO KNOWN DRUG ALLERGIES REVIEW OF SYSTEMS: Per the HPI. PHYSICAL EXAMINATION: VITAL SIGNS: Temperature of 99, pulse 86, blood pressure 103/72, respirations 18, O2 sats of 95% via 1.5 liter nasal cannula. GENERAL: She is an 82-year-old female asleep. LUNGS: Respirations were even and unlabored. Work of breathing, she is wearing O2 via nasal cannula. BACK: She is wearing some Lidoderm patches. Unable to visualize the surgical scars. They are nontender (wound not allow doctor palpation). NEURO: She is asleep due to IV morphine, unarousable at the time. DIAGNOSTIC: CT of spine done on 05/19/2018. IMPRESSION: 1. Age indeterminate compression fracture T11 and 12 vertebral bodies. 2. Multiple spondylitic changes. 3. 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 After viewing the images, it is noted that she has some lumbosacral scoliosis as well. ASSESSMENT: 1. Lumbar degenerative disc disease, spondylosis, scoliosis, post laminectomy syndrome. 2. Compression fracture T11 and T12, age indeterminate. Unsure if symptomatic or not at this time given that she is sleeping when I was there today. I will plan to reevaluate her tomorrow when she is awake. PLAN: 1. Unable to order MRI due to aneurysm clip, so we will order a technetium-99m whole body bone scan to evaluate the age of the fractures. 2. We will trial some medication adjustments. We will avoid any IV morphine due to the sedation. I am adding some Flexeril 10 mg as needed 3 times a day and some oxycodone for pain, half tablet as needed, and whole tablet as needed for severe pain 5/5. I am also adding some acetaminophen scheduled for inflammation and pain. 3. I will check on the patient tomorrow to evaluate her pain and medication changes, complete a more thorough history and physical exam, and hopefully review the bone scan results. DICTATING PHYSICIAN: GENNY LOZANO PA-C For Phillip Alatorre MD [id number] PHY#: [id number] ID: [id number] JOB#: [id number] ACCT: [id number] cc:NATACHA LOZANO M.D. > MANJIT
--- NOTE | 2018-05-23 21:05 | PDOC PROGRESS REPORT ---
Subjective Progress Note for:: 05/23/18 Subjective:: No acute events overnight. Patient blood pressure and vitals have been stable overnight. Patient has had regular bowel movements. Patient is p.o. tolerant. Patient denies any pain except her chronic lower back pain. Patient denies any chest pain nausea vomiting shortness of breath. Patient is pending a decision on rehab by the family. Reason For Visit: AFIB Physical Exam Vital Signs: Temp Pulse Resp BP Pulse Ox 98.6 F 98 16 131/67 H 97 05/23/18 20:00 05/23/18 20:00 05/23/18 20:00 05/23/18 20:00 05/23/18 20:00 Intake & Output 05/22/18 05/23/18 05/24/18 06:59 06:59 06:59 Intake Total 877 473 350 Balance 877 473 350 Weight 46.6 kg General appearance: PRESENT: no acute distress, well-developed, well-nourished Head exam: PRESENT: atraumatic, normocephalic Eye exam: PRESENT: conjunctiva pink, EOMI, PERRLA. ABSENT: scleral icterus Ear exam: PRESENT: normal external ear exam Mouth exam: PRESENT: moist, tongue midline Neck exam: ABSENT: carotid bruit, JVD, lymphadenopathy, thyromegaly Respiratory exam: PRESENT: clear to auscultation ulises. ABSENT: rales, rhonchi, wheezes Cardiovascular exam: PRESENT: RRR. ABSENT: diastolic murmur, rubs, systolic murmur Pulses: PRESENT: normal dorsalis pedis pul Vascular exam: PRESENT: normal capillary refill GI/Abdominal exam: PRESENT: normal bowel sounds, soft. ABSENT: distended, guarding, mass, organolmegaly, rebound, tenderness Rectal exam: PRESENT: deferred Extremities exam: PRESENT: full ROM. ABSENT: calf tenderness, clubbing, pedal edema Neurological exam: PRESENT: alert, awake, oriented to person, oriented to place , oriented to time, oriented to situation, CN II-XII grossly intact. ABSENT: motor sensory deficit Psychiatric exam: PRESENT: appropriate affect, normal mood. ABSENT: homicidal ideation, suicidal ideation Skin exam: PRESENT: dry, intact, warm. ABSENT: cyanosis, rash Results Laboratory Results: 05/23/18 06:55 05/23/18 06:55 05/22/18 05/23/18 05/23/18 20:25 06:55 06:55 WBC 9.4 RBC 3.40 L Hgb 9.7 L Hct 29.7 L MCV 87 MCH 28.7 MCHC 32.8 RDW 15.7 H Plt Count 615 H Seg Neutrophils % Not Reportable Lymphocytes % Not Reportable Monocytes % Not Reportable Eosinophils % Not Reportable Basophils % Not Reportable Absolute Neutrophils Not Reportable Absolute Lymphocytes Not Reportable Absolute Monocytes Not Reportable Absolute Eosinophils Not Reportable Absolute Basophils Not Reportable Sodium 135.9 L 138.2 Potassium 4.2 4.8 Chloride 103 101 Carbon Dioxide 22 20 L Anion Gap 11 17 BUN 14 14 Creatinine 0.84 0.91 Est GFR ( Amer) > 60 > 60 Est GFR (Non-Af Amer) > 60 59 L Glucose 47 L 40 L* Calcium 7.9 L 8.1 L Magnesium 2.3 Total Bilirubin 0.4 0.4 AST 28 28 ALT 22 18 Alkaline Phosphatase 102 120 Total Protein 5.1 L 5.6 L Albumin 2.2 L 2.5 L Impressions: Lumbar Spine CT 05/19/18 00:00 IMPRESSION: 1. Age-indeterminate compression fractures of the T11 and T12 vertebral bodies. 2. Multilevel spondylotic changes. 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 Acute Abdomen Series 05/19/18 11:02 IMPRESSION: Extent 1. Nonobstructive bowel gas pattern. 2. Moderate stool burden. Venous Doppler Study 05/19/18 11:11 IMPRESSION: NO EVIDENCE DVT OR SVT IN THE LEFT LEG. Body Scan Nuclear Medicine 05/22/18 00:00 IMPRESSION: 1. T11 and T12 bone scan uptake is consistent with recent compression fractures. 2. Mild uptake in the inferior sternum may also be related to posttraumatic change. There is a fairly healed appearing fracture here on recent CT chest. Assessment & Plan - Diagnosis (1) Atrial fibrillation Is this a current diagnosis for this admission?: Yes Plan: Rate controlled patient is on aspirin only as per patient and her decision they do not want to pursue anticoagulation continue metoprolol and digoxin. Cardiology on board (2) Low back pain Qualifiers: Chronicity: chronic Back pain laterality: midline Sciatica presence: without sciatica Qualified Code(s): M54.5 - Low back pain; G89.29 - Other chronic pain; G89.29 - Other chronic pain Is this a current diagnosis for this admission?: Yes Plan: Patient has been seen by pain management started on oxycodone and cyclobenzaprine. Nuclear nuclear scan suggested for pathologic fracture no evidence of malignancy as per nuclear scan (3) Constipation Qualifiers: Constipation type: unspecified constipation type Qualified Code(s): K59.00 - Constipation, unspecified Is this a current diagnosis for this admission?: Yes Plan: Resolved after Fleet Enema will continue senna.
--- NOTE | 2018-05-23 22:27 | PDOC PROGRESS REPORT ---
Subjective Progress Note for:: 05/23/18 Subjective:: No significant change but telemetry shows increased ventricular ectopy. Patient seems to be doing better with gradual improvement. Patient however noted to be generally weak. She had complained of swallowing difficulty but claims now this has improved. Pt is denying any chest arm or neck discomfort. Patient denying any PND, orthopnea. Patient denied any sustained palpitations, dizziness, syncope, near syncope. Patient denying any fever chills. Patient denying any other significant discomfort. Patient is maintaining sinus rhythm. Increased ventricular ectopy noted. Review of systems: Rest review of systems negative. Medications: Medications have been reviewed. Reason For Visit: AFIB Physical Exam Vital Signs: Temp Pulse Resp BP Pulse Ox 98.6 F 98 16 131/67 H 97 05/23/18 20:00 05/23/18 20:00 05/23/18 20:00 05/23/18 20:00 05/23/18 20:00 Intake & Output 05/22/18 05/23/18 05/24/18 06:59 06:59 06:59 Intake Total 877 473 350 Balance 877 473 350 Weight 46.6 kg Results Laboratory Results: 05/23/18 06:55 05/23/18 06:55 05/23/18 05/23/18 06:55 06:55 WBC 9.4 RBC 3.40 L Hgb 9.7 L Hct 29.7 L MCV 87 MCH 28.7 MCHC 32.8 RDW 15.7 H Plt Count 615 H Seg Neutrophils % Not Reportable Lymphocytes % Not Reportable Monocytes % Not Reportable Eosinophils % Not Reportable Basophils % Not Reportable Absolute Neutrophils Not Reportable Absolute Lymphocytes Not Reportable Absolute Monocytes Not Reportable Absolute Eosinophils Not Reportable Absolute Basophils Not Reportable Sodium 138.2 Potassium 4.8 Chloride 101 Carbon Dioxide 20 L Anion Gap 17 BUN 14 Creatinine 0.91 Est GFR ( Amer) > 60 Est GFR (Non-Af Amer) 59 L Glucose 40 L* Calcium 8.1 L Magnesium 2.3 Total Bilirubin 0.4 AST 28 ALT 18 Alkaline Phosphatase 120 Total Protein 5.6 L Albumin 2.5 L Impressions: Lumbar Spine CT 05/19/18 00:00 IMPRESSION: 1. Age-indeterminate compression fractures of the T11 and T12 vertebral bodies. 2. Multilevel spondylotic changes. 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 Acute Abdomen Series 05/19/18 11:02 IMPRESSION: Extent 1. Nonobstructive bowel gas pattern. 2. Moderate stool burden. Venous Doppler Study 05/19/18 11:11 IMPRESSION: NO EVIDENCE DVT OR SVT IN THE LEFT LEG. Body Scan Nuclear Medicine 05/22/18 00:00 IMPRESSION: 1. T11 and T12 bone scan uptake is consistent with recent compression fractures. 2. Mild uptake in the inferior sternum may also be related to posttraumatic change. There is a fairly healed appearing fracture here on recent CT chest. 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 Twelve-lead EKG was reviewed. Labs were checked. Digoxin level was noted to be WNL. Telemetry strips showed sinus rhythm with occasional APCs and VPCs. Hypotension: Most likely related to volume depletion from poor intake and diuretic therapy. Continue holding diuretic therapy and IV fluids as needed to bring blood pressure up. However monitor for any CHF. Dehydration: Currently this patient seems to be in adequate volume status. COPD: Patient has severe almost end-stage COPD, continue oxygen supplementation , bronchodilator therapies. Combined systolic and diastolic heart failure, chronic: Currently compensated watch for any fluid overload. Tachycardia: This seems to have resolved but patient now having frequent ventricular ectopy. Will switch patient to digoxin every other day. Digoxin level obtained along with chemistry panel and magnesium level. Continue metoprolol but at a lower dose. Digoxin level was WNL. Chronic respiratory failure with hypoxemia: Secondary to severe COPD. Continue with oxygen supplementation. Patient is quite debilitated and weak. Agree that patient will need rehab. - Time Time with patient: 15-25 minutes - CODE STATUS was discussed, patient remains full code. Surrogate decision-maker patient's . Multiple medical problems were addressed. More than 50% of the time spent coordinating care, discussing management plans with involved caregivers. Management plans discussed with involved personnels. Medical decision making was of moderate to high complexity, patient's has multiple comorbidities. Medications reviewed and adjusted accordingly: Yes
[2018-05-23] MEDS: ATORVASTATIN CALCIUM 20 MG TABLET PO SCH (22:47)
[2018-05-23] MEDS: PHARMACY COMMUNICATION ORDER MC SCH (22:47)
[2018-05-24] MEDS: GABAPENTIN 300 MG CAPSULE PO SCH (05:31)
[2018-05-24] MEDS: ACETAMINOPHEN 325 MG TABLET PO SCH ×3 (05:31→22:30)
[2018-05-24] MEDS: CYCLOBENZAPRINE HCL 10 MG TABLET PO SCH (05:32)
[2018-05-24 06:53] LABS: HEMATOCRIT 28.6 % (36.0-47.0); HEMOGLOBIN 9.7 g/dL (12.0-15.5); MEAN CORPUSCULAR HEMOGLOBIN 29.1 pg (27.0-33.4); MEAN CORPUSCULAR HGB CONC 33.8 g/dL (32.0-36.0); MEAN CORPUSCULAR VOLUME 86 fl (80-97); PLATELET COUNT 627 10^3/uL (150-450); RED BLOOD COUNT 3.32 10^6/uL (3.72-5.28); WHITE BLOOD COUNT 9.6 10^3/uL (4.0-10.5)
[2018-05-24 07:09] LABS: ALANINE AMINOTRANSFERASE 25 U/L (9-52); ALBUMIN 2.3 g/dL (3.5-5.0); ALKALINE PHOSPHATASE 120 U/L (38-126); ANION GAP 12 (5-19); ASPARTATE AMINO TRANSFERASE 28 U/L (14-36); BILIRUBIN,DIRECT 0.3 mg/dL (0.0-0.4); BILIRUBIN,TOTAL 0.3 mg/dL (0.2-1.3); BLOOD UREA NITROGEN 19 mg/dL (7-20); CALCIUM 7.9 mg/dL (8.4-10.2); CARBON DIOXIDE 23 mmol/L (22-30); CHLORIDE 102 mmol/L (98-107); GLUCOSE 77 mg/dL (75-110); POTASSIUM 4.1 mmol/L (3.6-5.0); SODIUM 137.1 mmol/L (137-145); TOTAL PROTEIN 5.3 g/dL (6.3-8.2)
[2018-05-24 07:28] LABS: ABSOLUTE LYMPHOCYTES# (MANUAL) 1.2 10^3/uL (0.5-4.7); ABSOLUTE MONOCYTES # (MANUAL) 0.9 10^3/uL (0.1-1.4); ABSOLUTE NEUTROPHILS# (MANUAL) 7.4 10^3/uL (1.7-8.2); BAND NEUTROPHILS % (MANUAL) 1 % (3-5); BASOPHILS % (MANUAL) 0 % (0-2); EOSINOPHILS % (MANUAL) 2 % (0-6); LYMPHOCYTES % (MANUAL) 12 % (13-45); MONOCYTES % (MANUAL) 9 % (3-13); SEGMENTED NEUTROPHILS % (MAN) 76 % (42-78); TOTAL CELLS COUNTED 100
[2018-05-24 07:29] LABS: ANISOCYTOSIS 1+; BURR CELLS SLIGHT; OVALOCYTES SLIGHT; PLATELET COMMENT INCREASED; POIKILOCYTOSIS 1+; POLYCHROMASIA SLIGHT; SCHISTOCYTES 1+; TOXIC GRANULATION 1+; TOXIC VACUOLATION PRESENT
[2018-05-24 09:22] LABS: PATH REVIEW PATHOLOGIST REVIEWED
[2018-05-24] MEDS ORDERED: INSULIN LISPRO 100 UNIT/ML 3 ML VIAL SUBCUT PRN (11:04)
[2018-05-24] MEDS ORDERED: DEXTROSE 40% GEL 15 GM TUBE X 2 PO PRN (11:04)
[2018-05-24] MEDS ORDERED: GLUCAGON,HUMAN RECOMB 1 MG INJ IM PRN (11:04)
[2018-05-24] MEDS ORDERED: DEXTROSE 50%-WATER SYRINGE 25 GM/50 ML DOSE IV PRN (11:04)
[2018-05-24] MEDS ORDERED: DEXTROSE 40% GEL 15 GM TUBE PO PRN (11:04)
[2018-05-24] MEDS: ASPIRIN 81 MG TABLET, CHEWABLE PO SCH (11:23)
[2018-05-24] MEDS: DOCUSATE SODIUM 100 MG CAPSULE PO SCH ×2 (11:23→18:20)
[2018-05-24] MEDS: METOPROLOL SUCCINATE 25 MG TAB.SR.24H PO SCH (11:24)
[2018-05-24] MEDS: ENOXAPARIN SODIUM INJ 30 MG/0.3 ML DISP.SYRIN SUBCUT SCH (11:27)
[2018-05-24] MEDS: DIGOXIN 0.125 MG TABLET PO SCH (11:32)
--- NOTE | 2018-05-24 11:45 | RADIOLOGY REPORT (SQ) ---
EXAM DESCRIPTION: CHEST SINGLE VIEW COMPLETED DATE/TIME: 05/24/2018 11:33 am REASON FOR STUDY: heart failure COMPARISON: 05/15/2018 NUMBER OF VIEWS: One view. TECHNIQUE: Single frontal radiographic image of the chest acquired. LIMITATIONS: Breast implants. FINDINGS: LUNGS AND PLEURA: Stable appearance. COPD. Stable left pulmonary nodules. No effusions. MEDIASTINUM AND HEART: Stable heart size and mediastinal structures. BONY STRUCTURES: No acute findings. HARDWARE: None. OTHER: No other significant finding. IMPRESSION: COPD. Stable left pulmonary nodules. TECHNICAL DOCUMENTATION: JOB ID: [id number] Reading location - IP/workstation name: [facility]-[email or web address] BY [email or web address]
[2018-05-24] MEDS ORDERED: DEXTROSE 50%-WATER 25 GM/50 ML DISP.SYRIN IV ONE ×2 (11:46→12:15)
[2018-05-24 11:57] LABS: ARTERIAL BLOOD BASE EXCESS -2.3 mmol/L; ARTERIAL BLOOD FIO2 2L; ARTERIAL BLOOD H2CO3 1.04 mmol/L (1.05-1.35); ARTERIAL BLOOD HCO3 21.8 mmol/L (20-26); ARTERIAL BLOOD O2 SATURATION 95.3 % (94-98); ARTERIAL BLOOD PCO2 34.4 mmHg (35-45); ARTERIAL BLOOD PH 7.42 (7.35-7.45); ARTERIAL BLOOD PO2 74.4 mmHg (80-100); ARTERIAL BLOOD TOTAL CO2 22.9 mmol/L (21-25)
[2018-05-24] MEDS: DEXTROSE 50%-WATER SYRINGE 12.5 GM/25 ML DOSE IV PRN (12:02)
[2018-05-24] MEDS: LIDOCAINE 5% (700 MG) TRANSDERMAL ADH..PATCH TP SCH (12:02)
[2018-05-24 12:10] LABS: ABSOLUTE EOSINOPHILS # (AUTO) 0.4 10^3/uL (0.0-0.6); ABSOLUTE LYMPHOCYTES (AUTO) 1.1 10^3/uL (0.5-4.7); ABSOLUTE MONOCYTES (AUTO) 0.9 10^3/uL (0.1-1.4); ABSOLUTE NEUT (AUTO) 7.7 10^3/uL (1.7-8.2); BASOPHILS % (AUTO) 0.2 % (0-2); EOSINOPHILS % (AUTO) 3.8 % (0-6); HEMATOCRIT 28.6 % (36.0-47.0); HEMOGLOBIN 9.6 g/dL (12.0-15.5); MEAN CORPUSCULAR HGB CONC 33.5 g/dL (32.0-36.0); MEAN CORPUSCULAR VOLUME 86 fl (80-97); PLATELET COUNT 680 10^3/uL (150-450); RED BLOOD COUNT 3.31 10^6/uL (3.72-5.28); RED CELL DISTRIBUTION WIDTH 15.8 % (11.5-14.0); TOTAL CELLS COUNTED % (AUTO) 100 %; WHITE BLOOD COUNT 10.1 10^3/uL (4.0-10.5)
[2018-05-24 12:24] LABS: ALANINE AMINOTRANSFERASE 19 U/L (9-52); ALBUMIN 2.4 g/dL (3.5-5.0); ALKALINE PHOSPHATASE 130 U/L (38-126); ANION GAP 12 (5-19); ASPARTATE AMINO TRANSFERASE 29 U/L (14-36); BILIRUBIN,DIRECT 0.3 mg/dL (0.0-0.4); BILIRUBIN,TOTAL 0.3 mg/dL (0.2-1.3); BLOOD UREA NITROGEN 19 mg/dL (7-20); CARBON DIOXIDE 23 mmol/L (22-30); CHLORIDE 102 mmol/L (98-107); GLUCOSE 104 mg/dL (75-110); POTASSIUM 4.2 mmol/L (3.6-5.0); SODIUM 136.8 mmol/L (137-145); TOTAL PROTEIN 5.4 g/dL (6.3-8.2)
[2018-05-24] MEDS ORDERED: CEFTRIAXONE 1 GM/D5W RTU 1 GM/50 ML RTUPB IV SCH (14:00)
--- NOTE | 2018-05-24 16:26 | RADIOLOGY REPORT (SQ) ---
EXAM DESCRIPTION: CTA CHEST COMPLETED DATE/TIME: 05/24/2018 4:11 pm REASON FOR STUDY: SOB COMPARISON: 04/28/2018 TECHNIQUE: CT scan of the chest performed using helical scanning technique with dynamic intravenous contrast injection. Images reviewed with lung, soft tissue and bone windows. Reconstructed coronal and sagittal MPR images reviewed. Additional 3 dimensional post-processing performed to develop Maximal Intensity Projection images (IL P). All images stored on PACS. All CT scanners at this facility use dose modulation, iterative reconstruction, and/or weight based d osing when appropriate to reduce radiation dose to as low as reasonably achievable (ALARA). [facility]: Dose Right [facility]: CareDose [facility]: Dose Right [facility]: Teradose 4D [facility]: [facility] [place] CONTRAST TYPE AND DOSE: 64 cc Omnipaque 350- low osmolar. Contrast bolus adequate for pulmonary arteries and aorta. RENAL FUNCTION: BUN 19 creatinine 0.8 RADIATION DOSE: . LIMITATIONS: None. FINDINGS: LUNGS AND PLEURA: Bandlike scarring in the posterior right upper lobe. 1.8 cm nodule left upper lobe. Several smaller nodules in the left upper lobe. 2.7 cm pleural-based nodule left lower lobe. Additional smaller nodules in the left lower lobe. AORTA AND GREAT VESSELS: No aneurysm. No dissection. HEART: No pericardial effusion. Cardiomegaly. PULMONARY ARTERIES: No emboli visualized in the main pulmonary arteries or the segmental branches. HILAR AND MEDIASTINAL STRUCTURES: No identified masses or abnormal nodes. HARDWARE: None in the chest. UPPER ABDOMEN: No acute findings. Limited exam. THYROID AND OTHER SOFT TISSUES: Bilateral breast implants. BONES: No acute or significant finding. 3D MIPS: Confirm above findings. OTHER: No other significant finding. IMPRESSION: 1. No PE. 2. Development of additional pulmonary nodules since 04/28/2018 most likely infectious or embolic in e tiology. COMMENT: Quality ID # [id number]: Final reports with documentation of one or more dose reduction techniques (e.g., Automated exposure control, adjustment of the mA and/or kV according to patient size, use of iterative reconstruction technique) TECHNICAL DOCUMENTATION: JOB ID: [id number] [employer]- All Rights Reserved Reading location - IP/workstation name: [email or web address]
--- NOTE | 2018-05-24 16:29 | RADIOLOGY REPORT (SQ) ---
EXAM DESCRIPTION: CT HEAD WITH COMPLETED DATE/TIME: 05/24/2018 4:13 pm REASON FOR STUDY: ams COMPARISON: None. TECHNIQUE: Axial images acquired through the brain with intravenous contrast. Images reviewed with b one, brain and subdural windows. Additional sagittal and coronal reconstructions were generated. Jeniffer ges stored on PACS. All CT scanners at this facility use dose modulation, iterative reconstruction, and/or weight based d osing when appropriate to reduce radiation dose to as low as reasonably achievable (ALARA). [facility]: Dose Right [facility]: CareDose [facility]: Dose Right [facility]: Teradose 4D [facility]: [facility] CONTRAST TYPE AND DOSE: See separate report of the same date. RENAL FUNCTION: See separate report of the same date RADIATION DOSE: . LIMITATIONS: None. FINDINGS: VENTRICLES: Prominent. CEREBRUM: Encephalomalacia adjacent to right temporal craniotomy. Right MCA aneurysm clips. No mass es. No hemorrhage. No midline shift. Areas of low density in the white matter most likely due to c hronic micro-vascular ischemic change. No evidence for acute infarction. No enhancing lesions. CEREBELLUM: No masses. No hemorrhage. No alteration of density. No evidence for acute infarction. N o enhancing lesions. EXTRAAXIAL SPACES: Age-related involutional change. No fluid collections. No masses. ORBITS AND GLOBE: No intra- or extraconal masses. Normal contour of globe without masses. CALVARIUM: Right occipital and right temporal craniotomies. PARANASAL SINUSES: No fluid or mucosal thickening. SOFT TISSUES: No mass or hematoma. OTHER: No other significant finding. IMPRESSION: Chronic ischemic and postsurgical changes. No acute findings. EVIDENCE OF ACUTE STROKE: NO. TECHNICAL DOCUMENTATION: JOB ID: [id number] Quality ID # [id number]: Final reports with documentation of one or more dose reduction techniques (e.g., Au tomated exposure control, adjustment of the mA and/or kV according to patient size, use of iterative reconstruction technique) 2010 [employer]- All Rights Reserved Reading location - IP/workstation name: [email or web address]
--- NOTE | 2018-05-24 20:12 | PDOC PROGRESS REPORT ---
Subjective Progress Note for:: 05/24/18 Subjective:: Pt has been altered since last night, as per she is not acting liker herself. Pt endorses sob on exertion otherwise denies any fever, chills, cp, n/v /d/c. Reason For Visit: AFIB Physical Exam Vital Signs: Temp Pulse Resp BP Pulse Ox 97.7 F 118 H 15 110/70 85 L 05/24/18 16:00 05/24/18 16:00 05/24/18 16:00 05/24/18 16:00 05/24/18 16:00 Intake & Output 05/23/18 05/24/18 05/25/18 06:59 06:59 06:59 Intake Total 473 468 0 Balance 473 468 0 Weight 46.6 kg 50 kg General appearance: PRESENT: no acute distress, cooperative, well-developed, well-nourished Head exam: PRESENT: atraumatic, normocephalic Eye exam: PRESENT: conjunctiva pink, EOMI, PERRLA. ABSENT: scleral icterus Ear exam: PRESENT: normal external ear exam Mouth exam: PRESENT: moist, tongue midline Neck exam: ABSENT: carotid bruit, JVD, lymphadenopathy, thyromegaly Respiratory exam: PRESENT: clear to auscultation ulises. ABSENT: rales, rhonchi, wheezes Cardiovascular exam: PRESENT: RRR. ABSENT: diastolic murmur, rubs, systolic murmur Pulses: PRESENT: normal dorsalis pedis pul Vascular exam: PRESENT: normal capillary refill GI/Abdominal exam: PRESENT: normal bowel sounds, soft. ABSENT: distended, guarding, mass, organolmegaly, rebound, tenderness Rectal exam: PRESENT: deferred Extremities exam: PRESENT: full ROM. ABSENT: calf tenderness, clubbing, pedal edema Neurological exam: PRESENT: alert, awake, oriented to person, oriented to place , oriented to time, oriented to situation, CN II-XII grossly intact. ABSENT: motor sensory deficit Psychiatric exam: PRESENT: appropriate affect, normal mood. ABSENT: homicidal ideation, suicidal ideation Skin exam: PRESENT: dry, intact, warm. ABSENT: cyanosis, rash Results Laboratory Results: 05/24/18 11:48 05/24/18 11:48 05/24/18 05/24/18 05/24/18 06:35 06:35 11:40 WBC 9.6 RBC 3.32 L Hgb 9.7 L Hct 28.6 L MCV 86 MCH 29.1 MCHC 33.8 RDW 16.0 H Plt Count 627 H Seg Neutrophils % Not Reportable Lymphocytes % Not Reportable Monocytes % Not Reportable Eosinophils % Not Reportable Basophils % Not Reportable Absolute Neutrophils Not Reportable Absolute Lymphocytes Not Reportable Absolute Monocytes Not Reportable Absolute Eosinophils Not Reportable Absolute Basophils Not Reportable Carbonic Acid 1.04 L HCO3/H2CO3 Ratio 20:1 ABG pH 7.42 ABG pCO2 34.4 L ABG pO2 74.4 L ABG HCO3 21.8 ABG O2 Saturation 95.3 ABG Base Excess -2.3 FiO2 2L Sodium 137.1 Potassium 4.1 Chloride 102 Carbon Dioxide 23 Anion Gap 12 BUN 19 Creatinine 0.91 Est GFR ( Amer) > 60 Est GFR (Non-Af Amer) 59 L Glucose 77 Calcium 7.9 L Total Bilirubin 0.3 AST 28 ALT 25 Alkaline Phosphatase 120 Ammonia Total Protein 5.3 L Albumin 2.3 L 05/24/18 05/24/18 05/24/18 11:48 11:48 11:48 WBC 10.1 RBC 3.31 L Hgb 9.6 L Hct 28.6 L MCV 86 MCH 29.0 MCHC 33.5 RDW 15.8 H Plt Count 680 H Seg Neutrophils % 76.0 Lymphocytes % 11.0 L Monocytes % 9.0 Eosinophils % 3.8 Basophils % 0.2 Absolute Neutrophils 7.7 Absolute Lymphocytes 1.1 Absolute Monocytes 0.9 Absolute Eosinophils 0.4 Absolute Basophils 0.0 Carbonic Acid HCO3/H2CO3 Ratio ABG pH ABG pCO2 ABG pO2 ABG HCO3 ABG O2 Saturation ABG Base Excess FiO2 Sodium 136.8 L Potassium 4.2 Chloride 102 Carbon Dioxide 23 Anion Gap 12 BUN 19 Creatinine 0.79 Est GFR ( Amer) > 60 Est GFR (Non-Af Amer) > 60 Glucose 104 Calcium 8.0 L Total Bilirubin 0.3 AST 29 ALT 19 Alkaline Phosphatase 130 H Ammonia < 8.7 L Total Protein 5.4 L Albumin 2.4 L 05/24/18 11:48 NT-Pro-B Natriuret Pep 3790 H Impressions: Lumbar Spine CT 05/19/18 00:00 IMPRESSION: 1. Age-indeterminate compression fractures of the T11 and T12 vertebral bodies. 2. Multilevel spondylotic changes. 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 Acute Abdomen Series 05/19/18 11:02 IMPRESSION: Extent 1. Nonobstructive bowel gas pattern. 2. Moderate stool burden. Venous Doppler Study 05/19/18 11:11 IMPRESSION: NO EVIDENCE DVT OR SVT IN THE LEFT LEG. Body Scan Nuclear Medicine 05/22/18 00:00 IMPRESSION: 1. T11 and T12 bone scan uptake is consistent with recent compression fractures. 2. Mild uptake in the inferior sternum may also be related to posttraumatic change. There is a fairly healed appearing fracture here on recent CT chest. Chest X-Ray 05/24/18 00:00 IMPRESSION: COPD. Stable left pulmonary nodules. Chest/Abdomen CTA 05/24/18 00:00 IMPRESSION: 1. No PE. 2. Development of additional pulmonary nodules since 04/28/2018 most likely infectious or embolic in etiology. Head CT 05/24/18 00:00 IMPRESSION: Chronic ischemic and postsurgical changes. No acute findings. EVIDENCE OF ACUTE STROKE: NO. Assessment & Plan - Diagnosis (1) Atrial fibrillation Is this a current diagnosis for this admission?: Yes (2) Low back pain Qualifiers: Chronicity: chronic Back pain laterality: midline Sciatica presence: without sciatica Qualified Code(s): M54.5 - Low back pain; G89.29 - Other chronic pain; G89.29 - Other chronic pain Is this a current diagnosis for this admission?: Yes Plan: Patient has been seen by pain management started on oxycodone and cyclobenzaprine. Nuclear nuclear scan suggested for pathologic fracture no evidence of malignancy as per nuclear scan (3) Constipation Qualifiers: Constipation type: unspecified constipation type Qualified Code(s): K59.00 - Constipation, unspecified Is this a current diagnosis for this admission?: Yes Plan: Resolved after Fleet Enema will continue senna. (4) Altered mental state Is this a current diagnosis for this admission?: Yes Plan: Most likely due to Narcotics for pain management. CTH, CTA, CXR, CBC, CMP wnl. Will transfer to ICU for close monitoring. Also started on emperic abx for pneumonia. (5) Chronic diastolic CHF (congestive heart failure) Is this a current diagnosis for this admission?: Yes Plan: Monitor volume status. BB and Diuretics held because of hypotension. Continue Dig every other day as per cardiology Recs.
--- NOTE | 2018-05-24 20:38 | PDOC PROGRESS REPORT ---
Subjective Progress Note for:: 05/24/18 Subjective:: Patient was noted to have mental status changes. Arterial blood gases, CT scan of the head, CT chest etc. were obtained. Patient was noted to have new pulmonary nodule. It was determined that the patient's mental status changes could be due to excess pain medication. Patient is maintaining sinus rhythm. Review of systems: Rest review of systems negative. Medications: Medications have been reviewed. Reason For Visit: AFIB Physical Exam Vital Signs: Temp Pulse Resp BP Pulse Ox 99.0 F 61 13 128/67 H 96 05/24/18 20:00 05/24/18 20:00 05/24/18 20:00 05/24/18 20:00 05/24/18 20:00 Intake & Output 05/23/18 05/24/18 05/25/18 06:59 06:59 06:59 Intake Total 473 468 0 Balance 473 468 0 Weight 46.6 kg 50 kg Exam: GENERAL: well-nourished and in no acute distress. Patient is alert, she is oriented to person but not to place or time. HEAD: Atraumatic, normocephalic. EYES: Pupils equal round and reactive to light, extraocular movements intact, sclera anicteric, conjunctiva are normal. ENT: TMs normal, nares patent, oropharynx clear without exudates. Moist mucous membranes. No oral ulcerations or bleeding gums noted NECK: supple without lymphadenopathy or JVD. Trachea is central. No cervical or axillary lymphadenopathy noted. Carotids are 2+ LUNGS: Breath sounds bibasilar fine crackles at bases. Few a scattered crackles noted. No significant dullness noted. CHEST: Palpation of chest wall shows no significant chest wall tenderness. 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 ABDOMEN: Soft, no significant tenderness appreciated, normoactive bowel sounds. No guarding, no rebound. No rigidity noted . No masses appreciated. EXTREMITIES: Pedal pulses are 1-2+, no calf tenderness noted, Trace + pedal edema noted. No clubbing or cyanosis. NEUROLOGICAL: Patient is alert but is not able to participate in neurological exam because of patient's current mental status PSYCH: Patient cannot participate in a neurologic and psych exam because of the patient's current mental status SKIN: Superficial ecchymosis, rash, ulcerations or signs of pruritus noted. MUSCULOSKELETAL EXAM: No significant joint swelling noted. Results Laboratory Results: 05/24/18 11:48 05/24/18 11:48 05/24/18 05/24/18 05/24/18 06:35 06:35 11:40 WBC 9.6 RBC 3.32 L Hgb 9.7 L Hct 28.6 L MCV 86 MCH 29.1 MCHC 33.8 RDW 16.0 H Plt Count 627 H Seg Neutrophils % Not Reportable Lymphocytes % Not Reportable Monocytes % Not Reportable Eosinophils % Not Reportable Basophils % Not Reportable Absolute Neutrophils Not Reportable Absolute Lymphocytes Not Reportable Absolute Monocytes Not Reportable Absolute Eosinophils Not Reportable Absolute Basophils Not Reportable Carbonic Acid 1.04 L HCO3/H2CO3 Ratio 20:1 ABG pH 7.42 ABG pCO2 34.4 L ABG pO2 74.4 L ABG HCO3 21.8 ABG O2 Saturation 95.3 ABG Base Excess -2.3 FiO2 2L Sodium 137.1 Potassium 4.1 Chloride 102 Carbon Dioxide 23 Anion Gap 12 BUN 19 Creatinine 0.91 Est GFR ( Amer) > 60 Est GFR (Non-Af Amer) 59 L Glucose 77 Calcium 7.9 L Total Bilirubin 0.3 AST 28 ALT 25 Alkaline Phosphatase 120 Ammonia Total Protein 5.3 L Albumin 2.3 L 05/24/18 05/24/18 05/24/18 11:48 11:48 11:48 WBC 10.1 RBC 3.31 L Hgb 9.6 L Hct 28.6 L MCV 86 MCH 29.0 MCHC 33.5 RDW 15.8 H Plt Count 680 H Seg Neutrophils % 76.0 Lymphocytes % 11.0 L Monocytes % 9.0 Eosinophils % 3.8 Basophils % 0.2 Absolute Neutrophils 7.7 Absolute Lymphocytes 1.1 Absolute Monocytes 0.9 Absolute Eosinophils 0.4 Absolute Basophils 0.0 Carbonic Acid HCO3/H2CO3 Ratio ABG pH ABG pCO2 ABG pO2 ABG HCO3 ABG O2 Saturation ABG Base Excess FiO2 Sodium 136.8 L Potassium 4.2 Chloride 102 Carbon Dioxide 23 Anion Gap 12 BUN 19 Creatinine 0.79 Est GFR ( Amer) > 60 Est GFR (Non-Af Amer) > 60 Glucose 104 Calcium 8.0 L Total Bilirubin 0.3 AST 29 ALT 19 Alkaline Phosphatase 130 H Ammonia < 8.7 L Total Protein 5.4 L Albumin 2.4 L 05/24/18 11:48 NT-Pro-B Natriuret Pep 3790 H EKG Comments: Telemetry shows sinus rhythm without any sustained tachycardia or bradycardia Impressions: Lumbar Spine CT 05/19/18 00:00 IMPRESSION: 1. Age-indeterminate compression fractures of the T11 and T12 vertebral bodies. 2. Multilevel spondylotic changes. 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 Acute Abdomen Series 05/19/18 11:02 IMPRESSION: Extent 1. Nonobstructive bowel gas pattern. 2. Moderate stool burden. Venous Doppler Study 05/19/18 11:11 IMPRESSION: NO EVIDENCE DVT OR SVT IN THE LEFT LEG. Body Scan Nuclear Medicine 05/22/18 00:00 IMPRESSION: 1. T11 and T12 bone scan uptake is consistent with recent compression fractures. 2. Mild uptake in the inferior sternum may also be related to posttraumatic change. There is a fairly healed appearing fracture here on recent CT chest. Chest X-Ray 05/24/18 00:00 IMPRESSION: COPD. Stable left pulmonary nodules. Chest/Abdomen CTA 05/24/18 00:00 IMPRESSION: 1. No PE. 2. Development of additional pulmonary nodules since 04/28/2018 most likely infectious or embolic in etiology. Head CT 05/24/18 00:00 IMPRESSION: Chronic ischemic and postsurgical changes. No acute findings. EVIDENCE OF ACUTE STROKE: NO. Assessment & Plan - Diagnosis (1) Hypotension Qualifiers: Hypotension type: unspecified hypotension type Qualified Code(s): I95.9 - Hypotension, unspecified Is this a current diagnosis for this admission?: Yes (2) Dehydration Is this a current diagnosis for this admission?: Yes (3) COPD (chronic obstructive pulmonary disease) Qualifiers: COPD type: unspecified COPD Qualified Code(s): J44.9 - Chronic obstructive pulmonary disease, unspecified Is this a current diagnosis for this admission?: Yes (4) Combined systolic and diastolic congestive heart failure Qualifiers: Heart failure chronicity: chronic Qualified Code(s): I50.42 - Chronic combined systolic (congestive) and diastolic (congestive) heart failure Is this a current diagnosis for this admission?: Yes (5) Tachycardia Is this a current diagnosis for this admission?: Yes (6) Chronic respiratory failure with hypoxia Is this a current diagnosis for this admission?: Yes (7) Paroxysmal atrial fibrillation Is this a current diagnosis for this admission?: Yes - Notes Notes: Mental status changes: Because not clear but blood gases were noted to be satisfactory. Possibly related to pain medication but agree with empirically antibiotic therapy. Hypotension: Most likely related to volume depletion from poor intake and diuretic therapy. Blood pressure has been stable but on the low side. Patient volume was seems compensated. Dehydration: Currently this patient seems to be in adequate volume status. COPD: Patient has severe almost end-stage COPD, continue oxygen supplementation , bronchodilator therapies. Combined systolic and diastolic heart failure, chronic: Currently compensated watch for any fluid overload. Tachycardia: This seems to have resolved. Patient maintaining sinus rhythm. Paroxysmal atrial fibrillation: Patient has so far maintaining sinus rhythm during this hospitalization. For rate control would recommend beta-irlanda in view of history of CHF. Chronic respiratory failure with hypoxemia: Secondary to severe COPD. Continue with oxygen supplementation. Patient is quite debilitated and weak. Agree that patient will need rehab. - Time Time with patient: Greater than 35 minutes - CODE STATUS was discussed, patient remains full code. Surrogate decision-maker unchanged. Multiple medical problems were addressed. More than 50% of the time spent coordinating care, discussing management plans with involved caregivers. Management plans discussed with involved personnels. Medical decision making was of moderate to high complexity, patient's has multiple comorbidities. Medications reviewed and adjusted accordingly: Yes
[2018-05-24] MEDS ORDERED: METOPROLOL SUCCINATE 25 MG TAB.SR.24H PO SCH (22:00)
[2018-05-24] MEDS: ATORVASTATIN CALCIUM 20 MG TABLET PO SCH (22:29)
[2018-05-24] MEDS: PHARMACY COMMUNICATION ORDER MC SCH (22:30)
[2018-05-25] MEDS: NORMAL SALINE 1000 ML 1,000 ML IV PRN ×2 (00:05→13:13)
--- NOTE | 2018-05-25 02:40 | PROGRESS NOTE E ---
Progress Note NAME: SHAWN GORDON : 1935 AGE: 82Y DATE: 05/24/2018 ROOM: 331 SUBJECTIVE: Per the patient's , the patient's mental status declined since yesterday. She started talking of things that were not there and was not making much sense when she would talk and he is quite concerned about this. She is apparently being transferred to ICU for observation. The hospitalist has discontinued her Flexeril and oxycodone already. OBJECTIVE: VITAL SIGNS: Temp 98, pulse 81, blood pressure 106/55, respirations 16, O2 sats are 95% via nasal cannula 2 L today. GENERAL: She is a well-developed, well-nourished, 82-year-old female. She is alert and oriented to person but not place nor time. RESP: Respirations are mildly labored, and again she is on O2 via nasal cannula. NEUROLOGIC: She is able to answer questions efficiently but not accurately. She is able to keep her eyes focused on me during the exam. 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 ASSESSMENT: 1. Altered mental status. 2. Low back pain. PLAN: 1. Altered mental status, likely due to aggressive escalation of gabapentin so we will discontinue altogether in hopes of a quick recovery and she should continue to avoid opioids as well. 2. Back pain. Discussed with patient's , she can follow up with our office outpatient as needed. DICTATING PHYSICIAN: GENNY LOZANO, PANaimaC For Phillip Alatorre MD [id number] PHY#: [id number] ID: [id number] JOB#: [id number] ACCT: [id number] cc: > MTDD
[2018-05-25] MEDS: ACETAMINOPHEN 325 MG TABLET PO SCH ×3 (05:03→22:05)
[2018-05-25] MEDS: ENOXAPARIN SODIUM INJ 30 MG/0.3 ML DISP.SYRIN SUBCUT SCH (09:40)
[2018-05-25] MEDS: DOCUSATE SODIUM 100 MG CAPSULE PO SCH ×2 (09:40→18:13)
[2018-05-25] MEDS: LIDOCAINE 5% (700 MG) TRANSDERMAL ADH..PATCH TP SCH (09:40)
[2018-05-25] MEDS ORDERED: CEFTRIAXONE SODIUM 1,000 MG in NORMAL SALINE 50 ML IV SCH (15:00)
[2018-05-25 16:22] LABS: HEMATOCRIT 27.7 % (36.0-47.0); HEMOGLOBIN 9.2 g/dL (12.0-15.5); MEAN CORPUSCULAR HEMOGLOBIN 28.5 pg (27.0-33.4); MEAN CORPUSCULAR HGB CONC 33.3 g/dL (32.0-36.0); MEAN CORPUSCULAR VOLUME 86 fl (80-97); PLATELET COUNT 599 10^3/uL (150-450); RED BLOOD COUNT 3.23 10^6/uL (3.72-5.28); RED CELL DISTRIBUTION WIDTH 16.1 % (11.5-14.0); WHITE BLOOD COUNT 8.3 10^3/uL (4.0-10.5)
[2018-05-25 16:36] LABS: ABSOLUTE LYMPHOCYTES# (MANUAL) 1.7 10^3/uL (0.5-4.7); ABSOLUTE MONOCYTES # (MANUAL) 1.2 10^3/uL (0.1-1.4); ABSOLUTE NEUTROPHILS# (MANUAL) 5.1 10^3/uL (1.7-8.2); BASOPHILS % (MANUAL) 0 % (0-2); EOSINOPHILS % (MANUAL) 3 % (0-6); LYMPHOCYTES % (MANUAL) 21 % (13-45); MONOCYTES % (MANUAL) 15 % (3-13); SEGMENTED NEUTROPHILS % (MAN) 61 % (42-78); TOTAL CELLS COUNTED 100
[2018-05-25 16:37] LABS: ANISOCYTOSIS 1+; PLATELET COMMENT INCREASED; TOXIC GRANULATION SLIGHT
[2018-05-25 16:56] LABS: ANION GAP 9 (5-19); BLOOD UREA NITROGEN 14 mg/dL (7-20); CALCIUM 7.4 mg/dL (8.4-10.2); CARBON DIOXIDE 20 mmol/L (22-30); CHLORIDE 110 mmol/L (98-107); GLUCOSE 81 mg/dL (75-110); POTASSIUM 4.7 mmol/L (3.6-5.0); SODIUM 138.6 mmol/L (137-145)
--- NOTE | 2018-05-25 17:17 | PDOC PROGRESS REPORT ---
Subjective Progress Note for:: 05/25/18 Subjective:: Patient is doing much better no acute overnight patient is back to baseline she has been able to tolerate p.o. intake. Patient denies any fever chills nausea vomiting chest pain shortness of breath abdominal pain urinary symptoms Reason For Visit: AFIB Physical Exam Vital Signs: Temp Pulse Resp BP Pulse Ox 97.9 F 78 20 116/68 100 05/25/18 11:19 05/25/18 11:19 05/25/18 11:19 05/25/18 11:19 05/25/18 11:19 Intake & Output 05/24/18 05/25/18 05/26/18 06:59 06:59 06:59 Intake Total 956 093 8390 Balance 392 012 7949 Weight 50 kg 50.3 kg General appearance: PRESENT: no acute distress, well-developed, well-nourished Head exam: PRESENT: atraumatic, normocephalic Eye exam: PRESENT: conjunctiva pink, EOMI, PERRLA. ABSENT: scleral icterus Ear exam: PRESENT: normal external ear exam Mouth exam: PRESENT: moist, tongue midline Neck exam: ABSENT: carotid bruit, JVD, lymphadenopathy, thyromegaly Respiratory exam: PRESENT: clear to auscultation ulises. ABSENT: rales, rhonchi, wheezes Cardiovascular exam: PRESENT: RRR. ABSENT: diastolic murmur, rubs, systolic murmur Pulses: PRESENT: normal dorsalis pedis pul Vascular exam: PRESENT: normal capillary refill GI/Abdominal exam: PRESENT: normal bowel sounds, soft. ABSENT: distended, guarding, mass, organolmegaly, rebound, tenderness Rectal exam: PRESENT: deferred Extremities exam: PRESENT: full ROM. ABSENT: calf tenderness, clubbing, pedal edema Neurological exam: PRESENT: alert, awake, oriented to person, oriented to place , oriented to time, oriented to situation, CN II-XII grossly intact. ABSENT: motor sensory deficit Psychiatric exam: PRESENT: appropriate affect, normal mood. ABSENT: homicidal ideation, suicidal ideation Skin exam: PRESENT: dry, intact, warm. ABSENT: cyanosis, rash Results Laboratory Results: 05/25/18 16:01 05/25/18 16:01 WBC 8.3 RBC 3.23 L Hgb 9.2 L Hct 27.7 L MCV 86 MCH 28.5 MCHC 33.3 RDW 16.1 H Plt Count 599 H Seg Neutrophils % Not Reportable Lymphocytes % Not Reportable Monocytes % Not Reportable Eosinophils % Not Reportable Basophils % Not Reportable Absolute Neutrophils Not Reportable Absolute Lymphocytes Not Reportable Absolute Monocytes Not Reportable Absolute Eosinophils Not Reportable Absolute Basophils Not Reportable 05/24/18 11:48 NT-Pro-B Natriuret Pep 3790 H Impressions: Lumbar Spine CT 05/19/18 00:00 IMPRESSION: 1. Age-indeterminate compression fractures of the T11 and T12 vertebral bodies. 2. Multilevel spondylotic changes. 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 Acute Abdomen Series 05/19/18 11:02 IMPRESSION: Extent 1. Nonobstructive bowel gas pattern. 2. Moderate stool burden. Venous Doppler Study 05/19/18 11:11 IMPRESSION: NO EVIDENCE DVT OR SVT IN THE LEFT LEG. Body Scan Nuclear Medicine 05/22/18 00:00 IMPRESSION: 1. T11 and T12 bone scan uptake is consistent with recent compression fractures. 2. Mild uptake in the inferior sternum may also be related to posttraumatic change. There is a fairly healed appearing fracture here on recent CT chest. Chest X-Ray 05/24/18 00:00 IMPRESSION: COPD. Stable left pulmonary nodules. Chest/Abdomen CTA 05/24/18 00:00 IMPRESSION: 1. No PE. 2. Development of additional pulmonary nodules since 04/28/2018 most likely infectious or embolic in etiology. Head CT 05/24/18 00:00 IMPRESSION: Chronic ischemic and postsurgical changes. No acute findings. EVIDENCE OF ACUTE STROKE: NO. Assessment & Plan - Diagnosis (1) Atrial fibrillation Is this a current diagnosis for this admission?: Yes Plan: Rate controlled patient is on aspirin only as per patient and her decision. Continue digoxin every other day. Hold metoprolol as per cardiology recommendation. Cardiology on board (2) Low back pain Qualifiers: Chronicity: chronic Back pain laterality: midline Sciatica presence: without sciatica Qualified Code(s): M54.5 - Low back pain; G89.29 - Other chronic pain; G89.29 - Other chronic pain Is this a current diagnosis for this admission?: Yes Plan: Controlled. Hold narcotics due to mental status changes. Nuclear nuclear scan suggested for pathologic fracture no evidence of malignancy as per nuclear scan (3) Constipation Qualifiers: Constipation type: unspecified constipation type Qualified Code(s): K59.00 - Constipation, unspecified Is this a current diagnosis for this admission?: Yes Plan: Resolved after [employer] will continue senna. (4) Altered mental state Is this a current diagnosis for this admission?: Yes Plan: Back to baseline. Most likely due to narcotics. Hold narcotics for now. Continue empiric antibiotic therapy at the moment. (5) Chronic diastolic CHF (congestive heart failure) Is this a current diagnosis for this admission?: Yes Plan: Monitor volume status. BB and Diuretics held because of hypotension.
[2018-05-25] MEDS: ATORVASTATIN CALCIUM 20 MG TABLET PO SCH (22:05)
[2018-05-25] MEDS: PHARMACY COMMUNICATION ORDER MC SCH (22:18)
[2018-05-26] MEDS: NORMAL SALINE 1000 ML 1,000 ML IV PRN ×2 (02:58→16:46)
[2018-05-26] MEDS: ACETAMINOPHEN 325 MG TABLET PO SCH ×3 (05:26→21:26)
[2018-05-26 07:07] LABS: ALANINE AMINOTRANSFERASE 24 U/L (9-52); ALKALINE PHOSPHATASE 117 U/L (38-126); ANION GAP 9 (5-19); ASPARTATE AMINO TRANSFERASE 24 U/L (14-36); BILIRUBIN,DIRECT 0.2 mg/dL (0.0-0.4); BILIRUBIN,TOTAL 0.2 mg/dL (0.2-1.3); BLOOD UREA NITROGEN 8 mg/dL (7-20); CALCIUM 7.4 mg/dL (8.4-10.2); CARBON DIOXIDE 21 mmol/L (22-30); CHLORIDE 111 mmol/L (98-107); GLUCOSE 71 mg/dL (75-110); POTASSIUM 4.2 mmol/L (3.6-5.0); SODIUM 141.3 mmol/L (137-145); TOTAL PROTEIN 4.7 g/dL (6.3-8.2)
[2018-05-26 07:30] LABS: HEMATOCRIT 24.8 % (36.0-47.0); HEMOGLOBIN 8.5 g/dL (12.0-15.5); MEAN CORPUSCULAR HEMOGLOBIN 29.4 pg (27.0-33.4); MEAN CORPUSCULAR HGB CONC 34.2 g/dL (32.0-36.0); MEAN CORPUSCULAR VOLUME 86 fl (80-97); PLATELET COUNT 550 10^3/uL (150-450); RED BLOOD COUNT 2.88 10^6/uL (3.72-5.28); RED CELL DISTRIBUTION WIDTH 16.2 % (11.5-14.0); WHITE BLOOD COUNT 7.4 10^3/uL (4.0-10.5)
[2018-05-26 08:30] LABS: ABSOLUTE LYMPHOCYTES# (MANUAL) 1.5 10^3/uL (0.5-4.7); ABSOLUTE MONOCYTES # (MANUAL) 0.7 10^3/uL (0.1-1.4); BAND NEUTROPHILS % (MANUAL) 1 % (3-5); BASOPHILS % (MANUAL) 0 % (0-2); EOSINOPHILS % (MANUAL) 2 % (0-6); LYMPHOCYTES % (MANUAL) 20 % (13-45); MONOCYTES % (MANUAL) 10 % (3-13); SEGMENTED NEUTROPHILS % (MAN) 67 % (42-78); TOTAL CELLS COUNTED 100
[2018-05-26 08:32] LABS: ANISOCYTOSIS 1+; BURR CELLS 2+; OVALOCYTES 1+; PLATELET COMMENT INCREASED; POIKILOCYTOSIS 3+; POLYCHROMASIA SLIGHT; TOXIC GRANULATION 1+
[2018-05-26] MEDS: LIDOCAINE 5% (700 MG) TRANSDERMAL ADH..PATCH TP SCH (10:44)
[2018-05-26] MEDS: DOCUSATE SODIUM 100 MG CAPSULE PO SCH ×2 (10:44→17:31)
[2018-05-26] MEDS: DIGOXIN 0.125 MG TABLET PO SCH (10:44)
[2018-05-26] MEDS: ENOXAPARIN SODIUM INJ 30 MG/0.3 ML DISP.SYRIN SUBCUT SCH (10:48)
--- NOTE | 2018-05-26 13:15 | PDOC PROGRESS REPORT ---
Subjective Progress Note for:: 05/26/18 Reason For Visit: AFIB Physical Exam Vital Signs: Temp Pulse Resp BP Pulse Ox 97.2 F 82 22 H 123/67 100 05/26/18 07:33 05/26/18 07:33 05/26/18 07:33 05/26/18 07:33 05/26/18 07:33 Intake & Output 05/25/18 05/26/18 05/27/18 06:59 06:59 06:59 Intake Total 100 3435 Output Total 0 Balance 100 3435 Weight 50.3 kg 52.7 kg General appearance: PRESENT: no acute distress, cooperative, thin, well- developed, well-nourished Head exam: PRESENT: atraumatic, normocephalic Eye exam: PRESENT: conjunctiva pink, EOMI, PERRLA. ABSENT: scleral icterus Ear exam: PRESENT: normal external ear exam Mouth exam: PRESENT: moist, tongue midline Neck exam: ABSENT: carotid bruit, JVD, lymphadenopathy, thyromegaly Respiratory exam: PRESENT: clear to auscultation ulises. ABSENT: rales, rhonchi, wheezes Cardiovascular exam: PRESENT: RRR. ABSENT: diastolic murmur, rubs, systolic murmur Pulses: PRESENT: normal dorsalis pedis pul Vascular exam: PRESENT: normal capillary refill GI/Abdominal exam: PRESENT: normal bowel sounds, soft. ABSENT: distended, guarding, mass, organolmegaly, rebound, tenderness Rectal exam: PRESENT: deferred Extremities exam: PRESENT: full ROM. ABSENT: calf tenderness, clubbing, pedal edema Musculoskeletal exam: PRESENT: tenderness Neurological exam: PRESENT: alert, awake, oriented to person, oriented to place , oriented to time, oriented to situation, CN II-XII grossly intact. ABSENT: motor sensory deficit Psychiatric exam: PRESENT: appropriate affect, normal mood. ABSENT: homicidal ideation, suicidal ideation Skin exam: PRESENT: dry, intact, warm. ABSENT: cyanosis, rash Results Laboratory Results: 05/26/18 06:22 05/26/18 06:22 05/25/18 05/25/18 05/26/18 16:01 16:01 06:22 WBC 8.3 7.4 RBC 3.23 L 2.88 L Hgb 9.2 L 8.5 L Hct 27.7 L 24.8 L MCV 86 86 MCH 28.5 29.4 MCHC 33.3 34.2 RDW 16.1 H 16.2 H Plt Count 599 H 550 H Seg Neutrophils % Not Reportable Not Reportable Lymphocytes % Not Reportable Not Reportable Monocytes % Not Reportable Not Reportable Eosinophils % Not Reportable Not Reportable Basophils % Not Reportable Not Reportable Absolute Neutrophils Not Reportable Not Reportable Absolute Lymphocytes Not Reportable Not Reportable Absolute Monocytes Not Reportable Not Reportable Absolute Eosinophils Not Reportable Not Reportable Absolute Basophils Not Reportable Not Reportable Sodium 138.6 Potassium 4.7 Chloride 110 H Carbon Dioxide 20 L Anion Gap 9 BUN 14 Creatinine 0.55 Est GFR ( Amer) > 60 Est GFR (Non-Af Amer) > 60 Glucose 81 Calcium 7.4 L Magnesium 2.2 Total Bilirubin AST ALT Alkaline Phosphatase Total Protein Albumin 05/26/18 06:22 WBC RBC Hgb Hct MCV MCH MCHC RDW Plt Count Seg Neutrophils % Lymphocytes % Monocytes % Eosinophils % Basophils % Absolute Neutrophils Absolute Lymphocytes Absolute Monocytes Absolute Eosinophils Absolute Basophils Sodium 141.3 Potassium 4.2 Chloride 111 H Carbon Dioxide 21 L Anion Gap 9 BUN 8 Creatinine 0.50 L Est GFR ( Amer) > 60 Est GFR (Non-Af Amer) > 60 Glucose 71 L Calcium 7.4 L Magnesium 2.0 Total Bilirubin 0.2 AST 24 ALT 24 Alkaline Phosphatase 117 Total Protein 4.7 L Albumin 2.0 L 05/24/18 11:48 NT-Pro-B Natriuret Pep 3790 H Impressions: Lumbar Spine CT 05/19/18 00:00 IMPRESSION: 1. Age-indeterminate compression fractures of the T11 and T12 vertebral bodies. 2. Multilevel spondylotic changes. 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 Acute Abdomen Series 05/19/18 11:02 IMPRESSION: Extent 1. Nonobstructive bowel gas pattern. 2. Moderate stool burden. Venous Doppler Study 05/19/18 11:11 IMPRESSION: NO EVIDENCE DVT OR SVT IN THE LEFT LEG. Body Scan Nuclear Medicine 05/22/18 00:00 IMPRESSION: 1. T11 and T12 bone scan uptake is consistent with recent compression fractures. 2. Mild uptake in the inferior sternum may also be related to posttraumatic change. There is a fairly healed appearing fracture here on recent CT chest. Chest X-Ray 05/24/18 00:00 IMPRESSION: COPD. Stable left pulmonary nodules. Chest/Abdomen CTA 05/24/18 00:00 IMPRESSION: 1. No PE. 2. Development of additional pulmonary nodules since 04/28/2018 most likely infectious or embolic in etiology. Head CT 05/24/18 00:00 IMPRESSION: Chronic ischemic and postsurgical changes. No acute findings. EVIDENCE OF ACUTE STROKE: NO. Assessment & Plan - Diagnosis (1) Altered mental state Qualifiers: Altered mental status type: unspecified Qualified Code(s): R41.82 - Altered mental status, unspecified Is this a current diagnosis for this admission?: Yes Plan: Back to baseline. Alert oriented 2. We will hold narcotics for the time being. Hold narcotics for now. Cultures negative. DC antibiotics. (2) Atrial fibrillation Is this a current diagnosis for this admission?: Yes Plan: Rate controlled patient is on aspirin. Patient and will decide on long- term anticoagulation at a later time. Currently patient's does not want to pursue anticoagulation. Continue digoxin every other day. Hold metoprolol as per cardiology recommendation. Cardiology on board (3) Low back pain Qualifiers: Chronicity: chronic Back pain laterality: midline Sciatica presence: without sciatica Qualified Code(s): M54.5 - Low back pain; G89.29 - Other chronic pain; G89.29 - Other chronic pain Is this a current diagnosis for this admission?: Yes Plan: Continue lidocaine patches. Hold narcotics due to mental status changes. Nuclear nuclear scan suggested for pathologic fracture no evidence of malignancy as per nuclear scan (4) Constipation Qualifiers: Constipation type: unspecified constipation type Qualified Code(s): K59.00 - Constipation, unspecified Is this a current diagnosis for this admission?: Yes Plan: Resolved (5) Chronic diastolic CHF (congestive heart failure) Is this a current diagnosis for this admission?: Yes Plan: Monitor volume status. BB and Diuretics held because of hypotension.
[2018-05-26 16:13] LABS: HEMATOCRIT 28.4 % (36.0-47.0); HEMOGLOBIN 9.6 g/dL (12.0-15.5); MEAN CORPUSCULAR HEMOGLOBIN 28.9 pg (27.0-33.4); MEAN CORPUSCULAR HGB CONC 33.7 g/dL (32.0-36.0); MEAN CORPUSCULAR VOLUME 86 fl (80-97); PLATELET COUNT 604 10^3/uL (150-450); RED BLOOD COUNT 3.31 10^6/uL (3.72-5.28); RED CELL DISTRIBUTION WIDTH 16.2 % (11.5-14.0); WHITE BLOOD COUNT 8.3 10^3/uL (4.0-10.5)
[2018-05-26 16:36] LABS: ALANINE AMINOTRANSFERASE 23 U/L (9-52); ALBUMIN 2.1 g/dL (3.5-5.0); ALKALINE PHOSPHATASE 123 U/L (38-126); ANION GAP 10 (5-19); ASPARTATE AMINO TRANSFERASE 26 U/L (14-36); BILIRUBIN,DIRECT 0.2 mg/dL (0.0-0.4); BILIRUBIN,TOTAL 0.2 mg/dL (0.2-1.3); BLOOD UREA NITROGEN 6 mg/dL (7-20); CALCIUM 7.8 mg/dL (8.4-10.2); CARBON DIOXIDE 19 mmol/L (22-30); CHLORIDE 113 mmol/L (98-107); GLUCOSE 71 mg/dL (75-110); POTASSIUM 4.1 mmol/L (3.6-5.0); TOTAL PROTEIN 5.1 g/dL (6.3-8.2)
[2018-05-26 16:44] LABS: ABSOLUTE LYMPHOCYTES# (MANUAL) 1.7 10^3/uL (0.5-4.7); ABSOLUTE MONOCYTES # (MANUAL) 0.5 10^3/uL (0.1-1.4); ABSOLUTE NEUTROPHILS# (MANUAL) 6.1 10^3/uL (1.7-8.2); BASOPHILS % (MANUAL) 0 % (0-2); EOSINOPHILS % (MANUAL) 0 % (0-6); LYMPHOCYTES % (MANUAL) 20 % (13-45); MONOCYTES % (MANUAL) 6 % (3-13); SEGMENTED NEUTROPHILS % (MAN) 74 % (42-78); TOTAL CELLS COUNTED 100
[2018-05-26 16:46] LABS: ANISOCYTOSIS 1+; BURR CELLS 1+; OVALOCYTES SLIGHT; PLATELET COMMENT INCREASED; POIKILOCYTOSIS 1+; SCHISTOCYTES SLIGHT; TOXIC GRANULATION 1+
[2018-05-26] MEDS: ATORVASTATIN CALCIUM 20 MG TABLET PO SCH (21:26)
[2018-05-26] MEDS: PHARMACY COMMUNICATION ORDER MC SCH (21:27)
[2018-05-27] MEDS: IPRATROPIUM/ALBUTEROL 0.5-2.5 MG/3 ML AMPUL NEB PRN (01:34)
[2018-05-27] MEDS: NORMAL SALINE 1000 ML 1,000 ML IV PRN ×2 (05:29→17:35)
[2018-05-27] MEDS: ACETAMINOPHEN 325 MG TABLET PO SCH ×3 (05:29→21:25)
[2018-05-27] MEDS: DEXTROSE 50%-WATER SYRINGE 12.5 GM/25 ML DOSE IV PRN (06:16)
[2018-05-27 09:10] LABS: HEMATOCRIT 24.1 % (36.0-47.0); HEMOGLOBIN 8.2 g/dL (12.0-15.5); MEAN CORPUSCULAR HEMOGLOBIN 29.6 pg (27.0-33.4); MEAN CORPUSCULAR HGB CONC 34.1 g/dL (32.0-36.0); MEAN CORPUSCULAR VOLUME 87 fl (80-97); PLATELET COUNT 536 10^3/uL (150-450); RED BLOOD COUNT 2.78 10^6/uL (3.72-5.28); RED CELL DISTRIBUTION WIDTH 16.4 % (11.5-14.0); WHITE BLOOD COUNT 8.5 10^3/uL (4.0-10.5)
[2018-05-27] MEDS: DOCUSATE SODIUM 100 MG CAPSULE PO SCH ×2 (09:24→17:17)
[2018-05-27] MEDS: LIDOCAINE 5% (700 MG) TRANSDERMAL ADH..PATCH TP SCH (09:25)
[2018-05-27] MEDS: ENOXAPARIN SODIUM INJ 30 MG/0.3 ML DISP.SYRIN SUBCUT SCH (09:25)
[2018-05-27 09:29] LABS: ALANINE AMINOTRANSFERASE 19 U/L (9-52); ALKALINE PHOSPHATASE 100 U/L (38-126); ANION GAP 11 (5-19); ASPARTATE AMINO TRANSFERASE 28 U/L (14-36); BILIRUBIN,DIRECT 0.3 mg/dL (0.0-0.4); BILIRUBIN,TOTAL 0.3 mg/dL (0.2-1.3); BLOOD UREA NITROGEN 5 mg/dL (7-20); CALCIUM 7.5 mg/dL (8.4-10.2); CARBON DIOXIDE 20 mmol/L (22-30); CHLORIDE 111 mmol/L (98-107); GLUCOSE 73 mg/dL (75-110); POTASSIUM 3.9 mmol/L (3.6-5.0); SODIUM 141.8 mmol/L (137-145); TOTAL PROTEIN 4.7 g/dL (6.3-8.2)
[2018-05-27 09:47] LABS: ABSOLUTE LYMPHOCYTES# (MANUAL) 1.1 10^3/uL (0.5-4.7); ABSOLUTE MONOCYTES # (MANUAL) 0.8 10^3/uL (0.1-1.4); ABSOLUTE NEUTROPHILS# (MANUAL) 6.5 10^3/uL (1.7-8.2); BAND NEUTROPHILS % (MANUAL) 2 % (3-5); BASOPHILS % (MANUAL) 0 % (0-2); EOSINOPHILS % (MANUAL) 2 % (0-6); LYMPHOCYTES % (MANUAL) 13 % (13-45); MONOCYTES % (MANUAL) 9 % (3-13); SEGMENTED NEUTROPHILS % (MAN) 72 % (42-78); TOTAL CELLS COUNTED 100
[2018-05-27 09:48] LABS: ANISOCYTOSIS 1+; BURR CELLS 1+; PLATELET COMMENT INCREASED; POLYCHROMASIA SLIGHT; SCHISTOCYTES SLIGHT; TOXIC GRANULATION 1+
[2018-05-27 09:49] LABS: PROMYELOCYTES % (MANUAL) 2 % (0)
[2018-05-27] MEDS: METOPROLOL SUCCINATE 25 MG TAB.SR.24H PO SCH ×2 (11:11→21:27)
--- NOTE | 2018-05-27 11:40 | PDOC PROGRESS REPORT ---
Subjective Progress Note for:: 05/27/18 Subjective:: No acute events overnight. As per patient is more alert and oriented and is back at her baseline. Patient denies any shortness of breath fever chills nausea vomiting abdominal pain. Reason For Visit: AFIB Physical Exam Vital Signs: Temp Pulse Resp BP Pulse Ox 97.8 F 113 H 16 135/63 H 99 05/27/18 07:18 05/27/18 08:12 05/27/18 08:12 05/27/18 07:18 05/27/18 07:18 Intake & Output 05/26/18 05/27/18 05/28/18 06:59 06:59 06:59 Intake Total 3435 2529 Output Total 0 Balance 3435 2529 Weight 52.7 kg 51.4 kg General appearance: PRESENT: no acute distress, well-developed, well-nourished Head exam: PRESENT: atraumatic, normocephalic Eye exam: PRESENT: conjunctiva pink, EOMI, PERRLA. ABSENT: scleral icterus Ear exam: PRESENT: normal external ear exam Mouth exam: PRESENT: moist, tongue midline Neck exam: ABSENT: carotid bruit, JVD, lymphadenopathy, thyromegaly Respiratory exam: PRESENT: clear to auscultation ulises. ABSENT: rales, rhonchi, wheezes Cardiovascular exam: PRESENT: RRR. ABSENT: diastolic murmur, rubs, systolic murmur Pulses: PRESENT: normal dorsalis pedis pul Vascular exam: PRESENT: normal capillary refill GI/Abdominal exam: PRESENT: normal bowel sounds, soft. ABSENT: distended, guarding, mass, organolmegaly, rebound, tenderness Rectal exam: PRESENT: deferred Extremities exam: PRESENT: full ROM. ABSENT: calf tenderness, clubbing, pedal edema Musculoskeletal exam: PRESENT: other - Lumbar spine tenderness and paraspinal muscle tenderness Neurological exam: PRESENT: alert, awake, oriented to person, oriented to place , oriented to time, oriented to situation, CN II-XII grossly intact. ABSENT: motor sensory deficit Psychiatric exam: PRESENT: appropriate affect, normal mood. ABSENT: homicidal ideation, suicidal ideation Skin exam: PRESENT: dry, intact, warm. ABSENT: cyanosis, rash Results Laboratory Results: 05/27/18 08:27 05/27/18 08:27 05/26/18 05/26/18 05/27/18 15:45 15:45 08:27 WBC 8.3 8.5 RBC 3.31 L 2.78 L Hgb 9.6 L 8.2 L Hct 28.4 L 24.1 L MCV 86 87 MCH 28.9 29.6 MCHC 33.7 34.1 RDW 16.2 H 16.4 H Plt Count 604 H 536 H Seg Neutrophils % Not Reportable Not Reportable Lymphocytes % Not Reportable Not Reportable Monocytes % Not Reportable Not Reportable Eosinophils % Not Reportable Not Reportable Basophils % Not Reportable Not Reportable Absolute Neutrophils Not Reportable Not Reportable Absolute Lymphocytes Not Reportable Not Reportable Absolute Monocytes Not Reportable Not Reportable Absolute Eosinophils Not Reportable Not Reportable Absolute Basophils Not Reportable Not Reportable Sodium 142.0 Potassium 4.1 Chloride 113 H Carbon Dioxide 19 L Anion Gap 10 BUN 6 L Creatinine 0.47 L Est GFR ( Amer) > 60 Est GFR (Non-Af Amer) > 60 Glucose 71 L Calcium 7.8 L Magnesium 2.0 Total Bilirubin 0.2 AST 26 ALT 23 Alkaline Phosphatase 123 Total Protein 5.1 L Albumin 2.1 L 05/27/18 08:27 WBC RBC Hgb Hct MCV MCH MCHC RDW Plt Count Seg Neutrophils % Lymphocytes % Monocytes % Eosinophils % Basophils % Absolute Neutrophils Absolute Lymphocytes Absolute Monocytes Absolute Eosinophils Absolute Basophils Sodium 141.8 Potassium 3.9 Chloride 111 H Carbon Dioxide 20 L Anion Gap 11 BUN 5 L Creatinine 0.46 L Est GFR ( Amer) > 60 Est GFR (Non-Af Amer) > 60 Glucose 73 L Calcium 7.5 L Magnesium 1.8 Total Bilirubin 0.3 AST 28 ALT 19 Alkaline Phosphatase 100 Total Protein 4.7 L Albumin 2.0 L 05/24/18 11:48 NT-Pro-B Natriuret Pep 3790 H Impressions: Lumbar Spine CT 05/19/18 00:00 IMPRESSION: 1. Age-indeterminate compression fractures of the T11 and T12 vertebral bodies. 2. Multilevel spondylotic changes. 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 Acute Abdomen Series 05/19/18 11:02 IMPRESSION: Extent 1. Nonobstructive bowel gas pattern. 2. Moderate stool burden. Venous Doppler Study 05/19/18 11:11 IMPRESSION: NO EVIDENCE DVT OR SVT IN THE LEFT LEG. Body Scan Nuclear Medicine 05/22/18 00:00 IMPRESSION: 1. T11 and T12 bone scan uptake is consistent with recent compression fractures. 2. Mild uptake in the inferior sternum may also be related to posttraumatic change. There is a fairly healed appearing fracture here on recent CT chest. Chest X-Ray 05/24/18 00:00 IMPRESSION: COPD. Stable left pulmonary nodules. Chest/Abdomen CTA 05/24/18 00:00 IMPRESSION: 1. No PE. 2. Development of additional pulmonary nodules since 04/28/2018 most likely infectious or embolic in etiology. Head CT 05/24/18 00:00 IMPRESSION: Chronic ischemic and postsurgical changes. No acute findings. EVIDENCE OF ACUTE STROKE: NO. Assessment & Plan - Diagnosis (1) Altered mental state Qualifiers: Altered mental status type: unspecified Qualified Code(s): R41.82 - Altered mental status, unspecified Is this a current diagnosis for this admission?: Yes Plan: Back to baseline. Alert oriented 3. We will hold narcotics for the time being. Cultures negative. DC antibiotics. (2) Atrial fibrillation Is this a current diagnosis for this admission?: Yes Plan: Rate controlled patient is on aspirin. Patient and will decide on long- term anticoagulation at a later time. Currently patient's does not want to pursue anticoagulation. Continue digoxin every other day, metoprolol 12.5 started by cardiology today. Monitor vitals. Cardiology on board (3) Low back pain Qualifiers: Chronicity: chronic Back pain laterality: midline Sciatica presence: without sciatica Qualified Code(s): M54.5 - Low back pain; G89.29 - Other chronic pain; G89.29 - Other chronic pain Is this a current diagnosis for this admission?: Yes Plan: Continue lidocaine patches. Hold narcotics due to mental status changes. Body scan suggestive of compression fracture. (4) Constipation Qualifiers: Constipation type: unspecified constipation type Qualified Code(s): K59.00 - Constipation, unspecified Is this a current diagnosis for this admission?: Yes (5) Chronic diastolic CHF (congestive heart failure) Is this a current diagnosis for this admission?: Yes Plan: Monitor volume status. BB and Diuretics held because of hypotension. (6) Hypoglycemia Is this a current diagnosis for this admission?: No Plan: Continue Accu-Chek. Frequent meals and snacks (7) Anemia Is this a current diagnosis for this admission?: No Plan: Denies any melena, hemoptysis, hematemesis, vaginal bleeding. We will get a guaiac and iron studies. CBC tomorrow. Will start on iron, vitamin B12, and folic acid supplements.
[2018-05-27 11:50] LABS: RETICULOCYTE COUNT (AUTO) 1.74 % (0.66-2.85)
[2018-05-27 13:13] LABS: FOLATE 6.97 ng/mL (>2.76)
[2018-05-27] MEDS ORDERED: CYANOCOBALAMIN (VITAMIN B-12) INJ 1000 MCG/1 ML VIAL IM ONE (14:00)
--- NOTE | 2018-05-27 17:11 | PDOC PROGRESS REPORT ---
Subjective Progress Note for:: 05/25/18 Subjective:: Patient was noted to have mental status changes. Arterial blood gases, CT scan of the head, CT chest etc. were obtained. Patient was noted to have new pulmonary nodule. It was determined that the patient's mental status changes could be due to excess pain medication. Patient is maintaining sinus rhythm. Review of systems: Rest review of systems negative. Medications: Medications have been reviewed. Reason For Visit: AFIB Physical Exam Vital Signs: Temp Pulse Resp BP Pulse Ox 98.0 F 93 20 111/65 100 05/25/18 15:24 05/25/18 15:24 05/25/18 15:24 05/25/18 15:24 05/25/18 15:24 Intake & Output 05/24/18 05/25/18 05/26/18 06:59 06:59 06:59 Intake Total 597 409 1854 Output Total 0 Balance 898 628 2868 Weight 50 kg 50.3 kg Exam: GENERAL: well-nourished and in no acute distress. Alert and oriented x 2 HEAD: Atraumatic, normocephalic. EYES: Pupils equal round and reactive to light, extraocular movements intact, sclera anicteric, conjunctiva are normal. ENT: TMs normal, nares patent, oropharynx clear without exudates. Moist mucous membranes. No oral ulcerations or bleeding gums noted NECK: supple without lymphadenopathy. Trachea is central. No cervical or axillary lymphadenopathy noted. Carotids are 2+, JVD WNL LUNGS: Respiration seems nonlabored, no significant accessory muscle action noted. Bibasilar fine crackles and few a scattered wheezes rales or rhonchi noted. No significant dullness noted on percussion. CHEST: Palpation of the chest wall shows no significant chest wall tenderness. 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 ABDOMEN: Soft, no significant tenderness appreciated, normoactive bowel sounds. No guarding, no rebound. No rigidity noted . No masses appreciated. EXTREMITIES: Pedal pulses are 1-2+, no calf tenderness noted. No clubbing or cyanosis. negative pedal edema noted NEUROLOGICAL: Focused neurological exam showed no significant neurologic deficit. Normal speech, no focal weakness appreciated. PSYCH: Normal mood, normal affect. Judgment and insight not checked. SKIN: Superficial ecchymosis, skin is noted to be warm. MUSCULOSKELETAL EXAM: No significant acute joint swelling noted. Results Laboratory Results: 05/25/18 16:01 05/25/18 16:01 05/25/18 05/25/18 16:01 16:01 WBC 8.3 RBC 3.23 L Hgb 9.2 L Hct 27.7 L MCV 86 MCH 28.5 MCHC 33.3 RDW 16.1 H Plt Count 599 H Seg Neutrophils % Not Reportable Lymphocytes % Not Reportable Monocytes % Not Reportable Eosinophils % Not Reportable Basophils % Not Reportable Absolute Neutrophils Not Reportable Absolute Lymphocytes Not Reportable Absolute Monocytes Not Reportable Absolute Eosinophils Not Reportable Absolute Basophils Not Reportable Sodium 138.6 Potassium 4.7 Chloride 110 H Carbon Dioxide 20 L Anion Gap 9 BUN 14 Creatinine 0.55 Est GFR ( Amer) > 60 Est GFR (Non-Af Amer) > 60 Glucose 81 Calcium 7.4 L Magnesium 2.2 05/24/18 11:48 NT-Pro-B Natriuret Pep 3790 H EKG Comments: Sinus rhythm no sustained tacky or bradycardia arrhythmias noted. Impressions: Lumbar Spine CT 05/19/18 00:00 IMPRESSION: 1. Age-indeterminate compression fractures of the T11 and T12 vertebral bodies. 2. Multilevel spondylotic changes. 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 Acute Abdomen Series 05/19/18 11:02 IMPRESSION: Extent 1. Nonobstructive bowel gas pattern. 2. Moderate stool burden. Venous Doppler Study 05/19/18 11:11 IMPRESSION: NO EVIDENCE DVT OR SVT IN THE LEFT LEG. Body Scan Nuclear Medicine 05/22/18 00:00 IMPRESSION: 1. T11 and T12 bone scan uptake is consistent with recent compression fractures. 2. Mild uptake in the inferior sternum may also be related to posttraumatic change. There is a fairly healed appearing fracture here on recent CT chest. Chest X-Ray 05/24/18 00:00 IMPRESSION: COPD. Stable left pulmonary nodules. Chest/Abdomen CTA 05/24/18 00:00 IMPRESSION: 1. No PE. 2. Development of additional pulmonary nodules since 04/28/2018 most likely infectious or embolic in etiology. Head CT 05/24/18 00:00 IMPRESSION: Chronic ischemic and postsurgical changes. No acute findings. EVIDENCE OF ACUTE STROKE: NO. 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 Possibly related to pain medication but agree with empirically antibiotic therapy. Hypotension: Most likely related to volume depletion from poor intake and diuretic therapy. Blood pressure has been stable but on the low side. Patient volume was seems compensated. Dehydration: Currently this patient seems to be in adequate volume status. COPD: Patient has severe almost end-stage COPD, continue oxygen supplementation , bronchodilator therapies. Combined systolic and diastolic heart failure, chronic: Currently compensated watch for any fluid overload. Tachycardia: This seems to have resolved. Patient maintaining sinus rhythm. Paroxysmal atrial fibrillation: Patient has so far maintaining sinus rhythm during this hospitalization. For rate control would recommend beta-irlanda in view of history of CHF. Chronic respiratory failure with hypoxemia: Secondary to severe COPD. Continue with oxygen supplementation. Will see patient on as needed basis. Patient is quite debilitated and weak. Agree that patient will need rehab. - Time Time with patient: 15-25 minutes - CODE STATUS was discussed, patient remains full code. Surrogate decision-maker unchanged. Multiple medical problems were addressed. More than 50% of the time spent coordinating care, discussing management plans with involved caregivers. Management plans discussed with involved personnels. Medical decision making was of moderate to high complexity , patient's has multiple comorbidities. Medications reviewed and adjusted accordingly: Yes
--- NOTE | 2018-05-27 17:15 | PDOC PROGRESS REPORT ---
Subjective Progress Note for:: 05/27/18 Subjective:: Patient seen today at the request of nurse because with minimal exertion patient develops tachycardia. Rhythm strip review shows that patient has intermittent sinus tachycardia. Patient claims that she walked yesterday but the nurses told me that she did not walk yesterday. Patient is maintaining sinus rhythm with intermittent sinus tachycardia. Review of systems: Rest review of systems negative. Medications: Medications have been reviewed. Reason For Visit: AFIB Physical Exam Vital Signs: Temp Pulse Resp BP Pulse Ox 97.6 F 100 20 131/72 H 100 05/27/18 11:41 05/27/18 14:00 05/27/18 11:41 05/27/18 11:41 05/27/18 11:41 Intake & Output 05/26/18 05/27/18 05/28/18 06:59 06:59 06:59 Intake Total 3435 2529 475 Output Total 0 Balance 3435 2529 475 Weight 52.7 kg 51.4 kg Exam: GENERAL: well-nourished and in no acute distress. Alert and oriented x 2 HEAD: Atraumatic, normocephalic. EYES: Pupils equal round and reactive to light, extraocular movements intact, sclera anicteric, conjunctiva are normal. ENT: TMs normal, nares patent, oropharynx clear without exudates. Moist mucous membranes. No oral ulcerations or bleeding gums noted NECK: supple without lymphadenopathy. Trachea is central. No cervical or axillary lymphadenopathy noted. Carotids are 2+, JVD WNL LUNGS: Respiration seems nonlabored, no significant accessory muscle action noted. Breath sounds clear to auscultation bilaterally and equal noted. No wheezes rales or rhonchi noted. No significant dullness noted on percussion. CHEST: Palpation of the chest wall shows no significant chest wall tenderness. 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 ABDOMEN: Soft, no significant tenderness appreciated, normoactive bowel sounds. No guarding, no rebound. No rigidity noted . No masses appreciated. EXTREMITIES: Pedal pulses are 1-2+, no calf tenderness noted. No clubbing or cyanosis. negative pedal edema noted NEUROLOGICAL: Focused neurological exam showed no significant neurologic deficit. Normal speech, no focal weakness appreciated. PSYCH: Normal mood, normal affect. Judgment and insight not checked. SKIN: Superficial ecchymosis, skin is noted to be warm. MUSCULOSKELETAL EXAM: No significant acute joint swelling noted. Results Laboratory Results: 05/27/18 08:27 05/27/18 08:27 05/27/18 05/27/18 05/27/18 08:27 08:27 08:27 WBC 8.5 RBC 2.78 L Hgb 8.2 L Hct 24.1 L MCV 87 MCH 29.6 MCHC 34.1 RDW 16.4 H Plt Count 536 H Seg Neutrophils % Not Reportable Lymphocytes % Not Reportable Monocytes % Not Reportable Eosinophils % Not Reportable Basophils % Not Reportable Absolute Neutrophils Not Reportable Absolute Lymphocytes Not Reportable Absolute Monocytes Not Reportable Absolute Eosinophils Not Reportable Absolute Basophils Not Reportable Retic Count (auto) 1.74 Absolute Retic 0.050 Sodium 141.8 Potassium 3.9 Chloride 111 H Carbon Dioxide 20 L Anion Gap 11 BUN 5 L Creatinine 0.46 L Est GFR ( Amer) > 60 Est GFR (Non-Af Amer) > 60 Glucose 73 L Calcium 7.5 L Magnesium 1.8 Iron TIBC % Saturation Ferritin Total Bilirubin 0.3 AST 28 ALT 19 Alkaline Phosphatase 100 Total Protein 4.7 L Albumin 2.0 L Vitamin B12 Folate Stool Occult Blood 05/27/18 05/27/18 08:27 12:28 WBC RBC Hgb Hct MCV MCH MCHC RDW Plt Count Seg Neutrophils % Lymphocytes % Monocytes % Eosinophils % Basophils % Absolute Neutrophils Absolute Lymphocytes Absolute Monocytes Absolute Eosinophils Absolute Basophils Retic Count (auto) Absolute Retic Sodium Potassium Chloride Carbon Dioxide Anion Gap BUN Creatinine Est GFR ( Amer) Est GFR (Non-Af Amer) Glucose Calcium Magnesium Iron 30.0 L TIBC 167 L % Saturation 18 Ferritin 482.00 H Total Bilirubin AST ALT Alkaline Phosphatase Total Protein Albumin Vitamin B12 > 1000.0 H Folate 6.97 Stool Occult Blood POSITIVE 05/24/18 11:48 NT-Pro-B Natriuret Pep 3790 H EKG Comments: Telemetry strips shows intermittent sinus tachycardia. Impressions: Lumbar Spine CT 05/19/18 00:00 IMPRESSION: 1. Age-indeterminate compression fractures of the T11 and T12 vertebral bodies. 2. Multilevel spondylotic changes. 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 Acute Abdomen Series 05/19/18 11:02 IMPRESSION: Extent 1. Nonobstructive bowel gas pattern. 2. Moderate stool burden. Venous Doppler Study 05/19/18 11:11 IMPRESSION: NO EVIDENCE DVT OR SVT IN THE LEFT LEG. Body Scan Nuclear Medicine 05/22/18 00:00 IMPRESSION: 1. T11 and T12 bone scan uptake is consistent with recent compression fractures. 2. Mild uptake in the inferior sternum may also be related to posttraumatic change. There is a fairly healed appearing fracture here on recent CT chest. Chest X-Ray 05/24/18 00:00 IMPRESSION: COPD. Stable left pulmonary nodules. Chest/Abdomen CTA 05/24/18 00:00 IMPRESSION: 1. No PE. 2. Development of additional pulmonary nodules since 04/28/2018 most likely infectious or embolic in etiology. Head CT 05/24/18 00:00 IMPRESSION: Chronic ischemic and postsurgical changes. No acute findings. EVIDENCE OF ACUTE STROKE: NO. 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 Start patient on metoprolol succinate at 12.5 mg p.o. twice daily. Side effects reviewed. Mental status changes: Because not clear but blood gases were noted to be satisfactory. Possibly related to pain medication but agree with empirically antibiotic therapy. Hypotension: Most likely related to volume depletion from poor intake and diuretic therapy. Blood pressure has been stable but on the low side. Patient volume was seems compensated. Dehydration: Currently this patient seems to be in adequate volume status. COPD: Patient has severe almost end-stage COPD, continue oxygen supplementation , bronchodilator therapies. Combined systolic and diastolic heart failure, chronic: Currently compensated watch for any fluid overload. Tachycardia: This seems to have resolved. Patient maintaining sinus rhythm. Metoprolol succinate started, verbal order given to the nurse. Paroxysmal atrial fibrillation: Patient has so far maintaining sinus rhythm during this hospitalization. For rate control would recommend beta-irlanda in view of history of CHF. Chronic respiratory failure with hypoxemia: Secondary to severe COPD. Continue with oxygen supplementation. Patient is quite debilitated and weak. Agree that patient will need rehab. - Time Time with patient: 15-25 minutes - CODE STATUS was discussed, patient remains full code. Surrogate decision-maker unchanged. Multiple medical problems were addressed. More than 50% of the time spent coordinating care, discussing management plans with involved caregivers. Management plans discussed with involved personnels. Medical decision making was of moderate to high complexity , patient's has multiple comorbidities. Medications reviewed and adjusted accordingly: Yes
[2018-05-27] MEDS: FOLIC ACID/VITAMIN B COMP W-C CAPSULE PO SCH (17:17)
[2018-05-27] MEDS: ATORVASTATIN CALCIUM 20 MG TABLET PO SCH (21:25)
[2018-05-27] MEDS: PHARMACY COMMUNICATION ORDER MC SCH (21:26)
[2018-05-28] MEDS: ACETAMINOPHEN 325 MG TABLET PO SCH ×3 (05:31→22:59)
[2018-05-28] MEDS: DEXTROSE 50%-WATER SYRINGE 12.5 GM/25 ML DOSE IV PRN (05:35)
[2018-05-28] MEDS: NORMAL SALINE 1000 ML 1,000 ML IV PRN ×2 (07:27→23:00)
[2018-05-28 07:32] LABS: ALANINE AMINOTRANSFERASE 26 U/L (9-52); ALBUMIN 1.9 g/dL (3.5-5.0); ALKALINE PHOSPHATASE 96 U/L (38-126); ANION GAP 9 (5-19); ASPARTATE AMINO TRANSFERASE 29 U/L (14-36); BILIRUBIN,DIRECT 0.4 mg/dL (0.0-0.4); BILIRUBIN,TOTAL 0.4 mg/dL (0.2-1.3); BLOOD UREA NITROGEN 2 mg/dL (7-20); CALCIUM 7.4 mg/dL (8.4-10.2); CARBON DIOXIDE 19 mmol/L (22-30); CHLORIDE 115 mmol/L (98-107); GLUCOSE 82 mg/dL (75-110); POTASSIUM 3.4 mmol/L (3.6-5.0); SODIUM 142.9 mmol/L (137-145); TOTAL PROTEIN 4.6 g/dL (6.3-8.2)
[2018-05-28 07:51] LABS: HEMATOCRIT 25.7 % (36.0-47.0); HEMOGLOBIN 8.6 g/dL (12.0-15.5); MEAN CORPUSCULAR HEMOGLOBIN 28.8 pg (27.0-33.4); MEAN CORPUSCULAR HGB CONC 33.3 g/dL (32.0-36.0); MEAN CORPUSCULAR VOLUME 87 fl (80-97); PLATELET COUNT 395 10^3/uL (150-450); RED BLOOD COUNT 2.97 10^6/uL (3.72-5.28); RED CELL DISTRIBUTION WIDTH 16.5 % (11.5-14.0); WHITE BLOOD COUNT 7.6 10^3/uL (4.0-10.5)
--- NOTE | 2018-05-28 08:16 | EKG REPORT ---
SEVERITY:- ABNORMAL ECG - SINUS TACHYCARDIA INCOMPLETE LEFT BUNDLE BRANCH BLOCK LVH WITH SECONDARY REPOLARIZATION ABNORMALITY : Confirmed by: Nikko Royal MD 28-May-2018 08:16:13
--- NOTE | 2018-05-28 08:16 | EKG REPORT ---
SEVERITY:- ABNORMAL ECG - SINUS TACHYCARDIA LEFT BUNDLE BRANCH BLOCK ANTERIOR ST ELEVATION, NEW SINCE 05/23/18 , CLINICAL CORRELATION NEEDED. : Confirmed by: Nikko Royal MD 28-May-2018 08:15:55
[2018-05-28 08:21] LABS: ABSOLUTE LYMPHOCYTES# (MANUAL) 1.2 10^3/uL (0.5-4.7); ABSOLUTE MONOCYTES # (MANUAL) 0.6 10^3/uL (0.1-1.4); ABSOLUTE NEUTROPHILS# (MANUAL) 5.6 10^3/uL (1.7-8.2); BAND NEUTROPHILS % (MANUAL) 3 % (3-5); BASOPHILS % (MANUAL) 0 % (0-2); EOSINOPHILS % (MANUAL) 2 % (0-6); LYMPHOCYTES % (MANUAL) 16 % (13-45); METAMYELOCYTES % (MANUAL) 2 % (0); MONOCYTES % (MANUAL) 8 % (3-13); SEGMENTED NEUTROPHILS % (MAN) 69 % (42-78); TOTAL CELLS COUNTED 100
[2018-05-28 08:23] LABS: ACANTHOCYTES 1+; ANISOCYTOSIS 1+; BURR CELLS 1+; OVALOCYTES 1+; PLATELET COMMENT ADEQUATE; POIKILOCYTOSIS 2+; POLYCHROMASIA SLIGHT; TOXIC GRANULATION SLIGHT
[2018-05-28] MEDS ORDERED: POTASSIUM CHLORIDE 20 MEQ/15 ML UDCUP PO ONE (09:00)
[2018-05-28] MEDS: DOCUSATE SODIUM 100 MG CAPSULE PO SCH ×2 (09:34→17:32)
[2018-05-28] MEDS: FERROUS SULFATE 325 MG TABLET PO SCH (09:34)
[2018-05-28] MEDS: METOPROLOL SUCCINATE 25 MG TAB.SR.24H PO SCH ×2 (09:35→23:02)
[2018-05-28] MEDS: CYANOCOBALAMIN (VITAMIN B-12) 1,000 MCG TABLET PO SCH (09:35)
[2018-05-28] MEDS: DIGOXIN 0.125 MG TABLET PO SCH (09:36)
[2018-05-28] MEDS: LIDOCAINE 5% (700 MG) TRANSDERMAL ADH..PATCH TP SCH (09:36)
--- NOTE | 2018-05-28 09:49 | PDOC CONSULTATION ---
Consultation Consult Date: 05/28/18 Attending physician:: JOSEPH CRUZ Consult reason:: Hemoccult positive stools History of Present Illness Admission Date/PCP: 05/21/18 07:39 CARMELO FORD History of Present Illness: SHAWN GORDON is a 83 year old female Patient hospitalized at [facility] for generalized weakness clinical deterioration shortness of breath. Also back pain, chronic constipation. Patient's clinical condition is improved, and she is anticipating being discharged and transferred to [facility]. Last night Hemoccult positive stool was detected. Surgery was consulted. According to the patient and her she has never had a GI bleed. She denies previous upper or lower endoscopy. There is no family history of colorectal cancer. The patient is not interested in upper and lower endoscopy. Past Medical History Cardiac Medical History: Reports: Atrial Fibrillation, Congestive Heart Failure - Chronic diastolic CHF, Myocardial Infarction, Hypertension Pulmonary Medical History: Reports: Chronic Obstructive Pulmonary Disease (COPD ) - Chronic respiratory failure on 2 L oxygen at home, Respiratory Failure GI Medical History: Reports: Cirrhosis Psychiatric Medical History: Denies: Depression Past Surgical History Past Surgical History: Reports: Appendectomy, Coronary Stent, Orthopedic Surgery Social History Lives with: Spouse/Significant other Smoking Status: Former Smoker Frequency of Alcohol Use: Rare Hx Recreational Drug Use: No Drugs: None Hx Prescription Drug Abuse: No - Advance Directive Resuscitation Status: Full Code Family History Family History: DM, Hypertension, Malignancy Parental Family History Reviewed: Yes Children Family History Reviewed: Yes Sibling(s) Family History Reviewed.: Yes Medication/Allergy Home Medications: Aspirin [Ecotrin 81 mg EC Tablet] 81 mg PO DAILY 05/19/18 Atorvastatin Calcium [Lipitor 20 mg Tablet] 20 mg PO QHS 05/19/18 Fluticasone/Salmeterol [Advair 500-50 Diskus 14 Dose/Diskus] 1 puff IH Q12 05/19 Furosemide [Lasix 20 mg Tablet] 20 mg PO BID 05/19/18 Loratadine [Claritin 10 mg Tablet] 10 mg PO DAILY 05/19/18 Metoprolol Succinate [Toprol Xl 50 mg Tab.sr] 25 mg PO DAILY 05/19/18 Nystatin [Mycostatin Cream 15 gm] 1 applic TOP BID 05/19/18 Ondansetron [Zofran Odt 4 mg Tablet] 4 mg PO Q4HP PRN 05/19/18 Allergies/Adverse Reactions: No Known Allergies Allergy (Verified 05/15/18 11:37) Review of Systems ROS unobtainable: Due to mental status Physical Exam Vital Signs: Temp Pulse Resp BP Pulse Ox 97.9 F 98 20 121/70 100 05/28/18 07:16 05/28/18 07:16 05/28/18 07:16 05/28/18 07:16 05/28/18 07:16 Intake & Output 05/27/18 05/28/18 05/29/18 06:59 06:59 06:59 Intake Total 2529 2908 Balance 2529 2908 Weight 51.4 kg 52.3 kg General appearance: PRESENT: mild distress Eye exam: PRESENT: EOMI Respiratory exam: PRESENT: other - Patient has shortness of breath, with accessory muscle utilization. Pulses: PRESENT: normal carotid pulses, normal radial pulses, normal femoral pulses GI/Abdominal exam: PRESENT: soft Rectal exam: PRESENT: deferred Psychiatric exam: PRESENT: appropriate affect Results Laboratory Results: 05/28/18 06:43 05/28/18 06:43 05/27/18 05/27/18 05/27/18 08:27 08:27 08:27 WBC 8.5 RBC 2.78 L Hgb 8.2 L Hct 24.1 L MCV 87 MCH 29.6 MCHC 34.1 RDW 16.4 H Plt Count 536 H Seg Neutrophils % Lymphocytes % Monocytes % Eosinophils % Basophils % Absolute Neutrophils Absolute Lymphocytes Absolute Monocytes Absolute Eosinophils Absolute Basophils Retic Count (auto) 1.74 Absolute Retic 0.050 Sodium Potassium Chloride Carbon Dioxide Anion Gap BUN Creatinine Est GFR ( Amer) Est GFR (Non-Af Amer) Glucose Calcium Magnesium Iron 30.0 L TIBC 167 L % Saturation 18 Ferritin 482.00 H Total Bilirubin AST ALT Alkaline Phosphatase Total Protein Albumin Vitamin B12 > 1000.0 H Folate 6.97 Stool Occult Blood 05/27/18 05/28/18 05/28/18 12:28 06:43 06:43 WBC 7.6 RBC 2.97 L Hgb 8.6 L Hct 25.7 L MCV 87 MCH 28.8 MCHC 33.3 RDW 16.5 H Plt Count 395 Seg Neutrophils % Not Reportable Lymphocytes % Not Reportable Monocytes % Not Reportable Eosinophils % Not Reportable Basophils % Not Reportable Absolute Neutrophils Not Reportable Absolute Lymphocytes Not Reportable Absolute Monocytes Not Reportable Absolute Eosinophils Not Reportable Absolute Basophils Not Reportable Retic Count (auto) Absolute Retic Sodium 142.9 Potassium 3.4 L Chloride 115 H Carbon Dioxide 19 L Anion Gap 9 BUN 2 L Creatinine 0.42 L Est GFR ( Amer) > 60 Est GFR (Non-Af Amer) > 60 Glucose 82 Calcium 7.4 L Magnesium 1.8 Iron TIBC % Saturation Ferritin Total Bilirubin 0.4 AST 29 ALT 26 Alkaline Phosphatase 96 Total Protein 4.6 L Albumin 1.9 L Vitamin B12 Folate Stool Occult Blood POSITIVE 05/24/18 11:48 NT-Pro-B Natriuret Pep 3790 H Impressions: Lumbar Spine CT 05/19/18 00:00 IMPRESSION: 1. Age-indeterminate compression fractures of the T11 and T12 vertebral bodies. 2. Multilevel spondylotic changes. 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 Acute Abdomen Series 05/19/18 11:02 IMPRESSION: Extent 1. Nonobstructive bowel gas pattern. 2. Moderate stool burden. Venous Doppler Study 05/19/18 11:11 IMPRESSION: NO EVIDENCE DVT OR SVT IN THE LEFT LEG. Body Scan Nuclear Medicine 05/22/18 00:00 IMPRESSION: 1. T11 and T12 bone scan uptake is consistent with recent compression fractures. 2. Mild uptake in the inferior sternum may also be related to posttraumatic change. There is a fairly healed appearing fracture here on recent CT chest. Chest X-Ray 05/24/18 00:00 IMPRESSION: COPD. Stable left pulmonary nodules. Chest/Abdomen CTA 05/24/18 00:00 IMPRESSION: 1. No PE. 2. Development of additional pulmonary nodules since 04/28/2018 most likely infectious or embolic in etiology. Head CT 05/24/18 00:00 IMPRESSION: Chronic ischemic and postsurgical changes. No acute findings. EVIDENCE OF ACUTE STROKE: NO. Assessment & Plan - Diagnosis (1) Anemia Is this a current diagnosis for this admission?: No Plan: Impression: Heme-positive stool in patient with chronic anemia; no history of gastrointestinal bleeding; no history of upper and lower endoscopy; no family history of colorectal carcinoma. Recommendations: 1. In talking with patient and her , they believe she is too weak to undergo additional procedures; furthermore they do not believe she would be in a position to perform any further treatment for any pathological findings. 2. Patient would like to go to extended care facility, rehabilitation, and then reconsider endoscopy if appropriate. 3. Reconsult surgery as needed. (2) Heme positive stool Is this a current diagnosis for this admission?: Yes (3) Altered mental state Qualifiers: Altered mental status type: unspecified Qualified Code(s): R41.82 - Altered mental status, unspecified Is this a current diagnosis for this admission?: Yes (4) COPD (chronic obstructive pulmonary disease) Qualifiers: COPD type: unspecified COPD Qualified Code(s): J44.9 - Chronic obstructive pulmonary disease, unspecified Is this a current diagnosis for this admission?: Yes (5) Paroxysmal atrial fibrillation Is this a current diagnosis for this admission?: Yes
[2018-05-28] MEDS: IPRATROPIUM/ALBUTEROL 0.5-2.5 MG/3 ML AMPUL NEB PRN (10:06)
[2018-05-28 14:21] LABS: PATH REVIEW PATHOLOGIST REVIEWED
[2018-05-28 14:55] LABS: ANION GAP 9 (5-19); BLOOD UREA NITROGEN 2 mg/dL (7-20); CALCIUM 7.9 mg/dL (8.4-10.2); CARBON DIOXIDE 21 mmol/L (22-30); CHLORIDE 114 mmol/L (98-107); GLUCOSE 84 mg/dL (75-110); POTASSIUM 4.1 mmol/L (3.6-5.0); SODIUM 143.8 mmol/L (137-145)
[2018-05-28] MEDS: FOLIC ACID/VITAMIN B COMP W-C CAPSULE PO SCH (17:00)
--- NOTE | 2018-05-28 17:53 | PDOC PROGRESS REPORT ---
Subjective Progress Note for:: 05/28/18 Subjective:: No acute events overnight. As per patient is more alert and oriented and is back at her baseline. Patient denies any shortness of breath fever chills nausea vomiting abdominal pain. Reason For Visit: AFIB Physical Exam Vital Signs: Temp Pulse Resp BP Pulse Ox 98.7 F 112 H 20 126/62 H 100 05/28/18 15:07 05/28/18 17:34 05/28/18 17:34 05/28/18 15:07 05/28/18 17:34 Intake & Output 05/27/18 05/28/18 05/29/18 06:59 06:59 06:59 Intake Total 2529 2908 0 Balance 2529 2908 0 Weight 51.4 kg 52.3 kg General appearance: PRESENT: no acute distress, well-developed, well-nourished Head exam: PRESENT: atraumatic, normocephalic Eye exam: PRESENT: conjunctiva pink, EOMI, PERRLA. ABSENT: scleral icterus Ear exam: PRESENT: normal external ear exam Mouth exam: PRESENT: moist, tongue midline Neck exam: ABSENT: carotid bruit, JVD, lymphadenopathy, thyromegaly Respiratory exam: PRESENT: clear to auscultation ulises. ABSENT: rales, rhonchi, wheezes Cardiovascular exam: PRESENT: RRR. ABSENT: diastolic murmur, rubs, systolic murmur Pulses: PRESENT: normal dorsalis pedis pul Vascular exam: PRESENT: normal capillary refill GI/Abdominal exam: PRESENT: normal bowel sounds, soft. ABSENT: distended, guarding, mass, organolmegaly, rebound, tenderness Rectal exam: PRESENT: deferred Extremities exam: PRESENT: full ROM. ABSENT: calf tenderness, clubbing, pedal edema Neurological exam: PRESENT: alert, awake, oriented to person, oriented to place , oriented to time, oriented to situation, CN II-XII grossly intact. ABSENT: motor sensory deficit Psychiatric exam: PRESENT: appropriate affect, normal mood. ABSENT: homicidal ideation, suicidal ideation Skin exam: PRESENT: dry, intact, warm. ABSENT: cyanosis, rash Results Laboratory Results: 05/28/18 06:43 05/28/18 14:00 05/28/18 05/28/18 05/28/18 06:43 06:43 14:00 WBC 7.6 RBC 2.97 L Hgb 8.6 L Hct 25.7 L MCV 87 MCH 28.8 MCHC 33.3 RDW 16.5 H Plt Count 395 Seg Neutrophils % Not Reportable Lymphocytes % Not Reportable Monocytes % Not Reportable Eosinophils % Not Reportable Basophils % Not Reportable Absolute Neutrophils Not Reportable Absolute Lymphocytes Not Reportable Absolute Monocytes Not Reportable Absolute Eosinophils Not Reportable Absolute Basophils Not Reportable Sodium 142.9 143.8 Potassium 3.4 L 4.1 Chloride 115 H 114 H Carbon Dioxide 19 L 21 L Anion Gap 9 9 BUN 2 L 2 L Creatinine 0.42 L 0.50 L Est GFR ( Amer) > 60 > 60 Est GFR (Non-Af Amer) > 60 > 60 Glucose 82 84 Calcium 7.4 L 7.9 L Magnesium 1.8 Total Bilirubin 0.4 AST 29 ALT 26 Alkaline Phosphatase 96 Total Protein 4.6 L Albumin 1.9 L 05/24/18 11:48 NT-Pro-B Natriuret Pep 3790 H Impressions: Lumbar Spine CT 05/19/18 00:00 IMPRESSION: 1. Age-indeterminate compression fractures of the T11 and T12 vertebral bodies. 2. Multilevel spondylotic changes. 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 Acute Abdomen Series 05/19/18 11:02 IMPRESSION: Extent 1. Nonobstructive bowel gas pattern. 2. Moderate stool burden. Venous Doppler Study 05/19/18 11:11 IMPRESSION: NO EVIDENCE DVT OR SVT IN THE LEFT LEG. Body Scan Nuclear Medicine 05/22/18 00:00 IMPRESSION: 1. T11 and T12 bone scan uptake is consistent with recent compression fractures. 2. Mild uptake in the inferior sternum may also be related to posttraumatic change. There is a fairly healed appearing fracture here on recent CT chest. Chest X-Ray 05/24/18 00:00 IMPRESSION: COPD. Stable left pulmonary nodules. Chest/Abdomen CTA 05/24/18 00:00 IMPRESSION: 1. No PE. 2. Development of additional pulmonary nodules since 04/28/2018 most likely infectious or embolic in etiology. Head CT 05/24/18 00:00 IMPRESSION: Chronic ischemic and postsurgical changes. No acute findings. EVIDENCE OF ACUTE STROKE: NO. Assessment & Plan - Diagnosis (1) Altered mental state Qualifiers: Altered mental status type: unspecified Qualified Code(s): R41.82 - Altered mental status, unspecified Is this a current diagnosis for this admission?: Yes Plan: Back to baseline. Alert oriented 3. We will hold narcotics for the time being. Cultures negative. DC antibiotics. (2) Atrial fibrillation Is this a current diagnosis for this admission?: Yes Plan: Rate controlled patient is on aspirin. Patient and will decide on long- term anticoagulation at a later time. Currently patient's does not want to pursue anticoagulation. Continue digoxin every other day, metoprolol 12.5 started. Monitor vitals. Cardiology on board (3) Low back pain Qualifiers: Chronicity: chronic Back pain laterality: midline Sciatica presence: without sciatica Qualified Code(s): M54.5 - Low back pain; G89.29 - Other chronic pain; G89.29 - Other chronic pain Is this a current diagnosis for this admission?: Yes Plan: Continue lidocaine patches. Hold narcotics due to mental status changes. Body scan suggestive of compression fracture. (4) Chronic diastolic CHF (congestive heart failure) Is this a current diagnosis for this admission?: Yes Plan: Monitor volume status. Any beta-blockers. Diuretics held because of hypotension. Restart when clinically appropriate. (5) Hypoglycemia Is this a current diagnosis for this admission?: No Plan: Continue Accu-Chek. Frequent meals and snacks (6) Anemia Is this a current diagnosis for this admission?: No Plan: Denies any melena, hemoptysis, hematemesis, vaginal bleeding. Guaiac positive. Surgery was consulted for possible endoscopy/colonoscopy. Patient and patient has been decided to not pursue endoscopy/colonoscopy. CBC tomorrow. Started on iron, vitamin B12, and folic acid supplements.
[2018-05-28] MEDS: ATORVASTATIN CALCIUM 20 MG TABLET PO SCH (22:59)
[2018-05-28] MEDS: PHARMACY COMMUNICATION ORDER MC SCH (23:00)
[2018-05-29] MEDS: ACETAMINOPHEN 325 MG TABLET PO SCH (05:47)
[2018-05-29 07:24] LABS: HEMATOCRIT 25.5 % (36.0-47.0); HEMOGLOBIN 8.6 g/dL (12.0-15.5); MEAN CORPUSCULAR HEMOGLOBIN 29.1 pg (27.0-33.4); MEAN CORPUSCULAR HGB CONC 33.6 g/dL (32.0-36.0); MEAN CORPUSCULAR VOLUME 87 fl (80-97); PLATELET COUNT 529 10^3/uL (150-450); RED BLOOD COUNT 2.95 10^6/uL (3.72-5.28); RED CELL DISTRIBUTION WIDTH 16.5 % (11.5-14.0); WHITE BLOOD COUNT 10.7 10^3/uL (4.0-10.5)
[2018-05-29 07:57] LABS: ALANINE AMINOTRANSFERASE 21 U/L (9-52); ALBUMIN 1.9 g/dL (3.5-5.0); ALKALINE PHOSPHATASE 116 U/L (38-126); ANION GAP 10 (5-19); ASPARTATE AMINO TRANSFERASE 24 U/L (14-36); BILIRUBIN,DIRECT 0.3 mg/dL (0.0-0.4); BILIRUBIN,TOTAL 0.5 mg/dL (0.2-1.3); BLOOD UREA NITROGEN 3 mg/dL (7-20); CALCIUM 7.7 mg/dL (8.4-10.2); CARBON DIOXIDE 18 mmol/L (22-30); CHLORIDE 115 mmol/L (98-107); GLUCOSE 68 mg/dL (75-110); POTASSIUM 3.7 mmol/L (3.6-5.0); SODIUM 142.7 mmol/L (137-145); TOTAL PROTEIN 4.4 g/dL (6.3-8.2)
[2018-05-29] MEDS: DOCUSATE SODIUM 100 MG CAPSULE PO SCH (10:47)
[2018-05-29] MEDS: METOPROLOL SUCCINATE 25 MG TAB.SR.24H PO SCH (10:48)
[2018-05-29] MEDS: LIDOCAINE 5% (700 MG) TRANSDERMAL ADH..PATCH TP SCH (10:48)
[2018-05-29] MEDS: FERROUS SULFATE 325 MG TABLET PO SCH (10:48)
[2018-05-29] MEDS: CYANOCOBALAMIN (VITAMIN B-12) 1,000 MCG TABLET PO SCH (10:48)
[2018-05-29 11:16] LABS: ABSOLUTE LYMPHOCYTES# (MANUAL) 1.2 10^3/uL (0.5-4.7); ABSOLUTE MONOCYTES # (MANUAL) 1.9 10^3/uL (0.1-1.4); ABSOLUTE NEUTROPHILS# (MANUAL) 7.5 10^3/uL (1.7-8.2); ANISOCYTOSIS 1+; BAND NEUTROPHILS % (MANUAL) 1 % (3-5); BASOPHILS % (MANUAL) 0 % (0-2); BURR CELLS 2+; EOSINOPHILS % (MANUAL) 1 % (0-6); LYMPHOCYTES % (MANUAL) 11 % (13-45); MONOCYTES % (MANUAL) 18 % (3-13); PLATELET COMMENT INCREASED; POIKILOCYTOSIS 2+; SCHISTOCYTES 1+; SEGMENTED NEUTROPHILS % (MAN) 69 % (42-78); TOTAL CELLS COUNTED 100
--- NOTE | 2018-05-29 11:33 | PDOC TRANSFER SUMMARY ---
General - Admit/Disc Date/PCP Admission Date/Primary Care Provider: 05/21/18 07:39 SANJEEV FORD-Landy Discharge Date: 05/29/18 - Discharge Diagnosis (1) Low back pain Is this a current diagnosis for this admission?: Yes (2) Atrial fibrillation Is this a current diagnosis for this admission?: Yes (3) COPD (chronic obstructive pulmonary disease) Is this a current diagnosis for this admission?: Yes (4) Chronic respiratory failure with hypoxia Is this a current diagnosis for this admission?: Yes (5) Combined systolic and diastolic congestive heart failure Is this a current diagnosis for this admission?: Yes (6) Constipation Is this a current diagnosis for this admission?: Yes - Additional Information Resuscitation Status: Full Code Prescriptions: Atorvastatin Calcium [Lipitor 20 mg Tablet] 20 mg PO QHS #30 tablet Cholecalciferol (Vitamin D3) [Vitamin D3 2000 unit Tablet] 2,000 unit PO DAILY # 60 tablet Digoxin [Lanoxin 0.125 mg Tablet] 0.125 mg PO Q2D@1000 #30 tablet Docusate Sodium [Colace 100 mg Capsule] 100 mg PO BID PRN #60 capsule PRN Reason: constipation Ferrous Sulfate [Feosol 325 mg Tablet] 325 mg PO DAILY #30 tablet Folic Acid/Vitamin B Comp W-C [Nephrocaps Multiple Vitamin Capsule] 1 cap PO ACSUPPER #30 capsule Furosemide [Lasix 20 mg Tablet] 20 mg PO DAILY #60 tablet Lidocaine [Lidoderm 5% (700 mg) Transdermal Patch] 1 patch TP DAILY #30 adh..patch Metoprolol Succinate [Toprol Xl 25 mg Tab.sr] 12.5 mg PO Q12 30 Days #60 tab.sr.24h Home Medications: Aspirin [Ecotrin 81 mg EC Tablet] 81 mg PO DAILY 05/19/18 Atorvastatin Calcium [Lipitor 20 mg Tablet] 20 mg PO QHS 05/19/18 Fluticasone/Salmeterol [Advair 500-50 Diskus 14 Dose/Diskus] 1 puff IH Q12 05/19 Loratadine [Claritin 10 mg Tablet] 10 mg PO DAILY 05/19/18 Nystatin [Mycostatin Cream 15 gm] 1 applic TOP BID 05/19/18 Ondansetron [Zofran Odt 4 mg Tablet] 4 mg PO Q4HP PRN 08/18/18 Acetaminophen [Tylenol 325 mg Tablet] 650 mg PO Q8 tablet 05/29/18 Atorvastatin Calcium [Lipitor 20 mg Tablet] 20 mg PO QHS #30 tablet 05/29/18 Cholecalciferol (Vitamin D3) [Vitamin D3 2000 unit Tablet] 2,000 unit PO DAILY # 60 tablet 05/29/18 Cyanocobalamin (Vitamin B-12) [Vitamin B-12 1000 mcg Tablet] 1,000 mcg PO DAILY tablet 05/29/18 Digoxin [Lanoxin 0.125 mg Tablet] 0.125 mg PO Q2D@1000 #30 tablet 05/29/18 Docusate Sodium [Colace 100 mg Capsule] 100 mg PO BID PRN #60 capsule 05/29/18 Ferrous Sulfate [Feosol 325 mg Tablet] 325 mg PO DAILY #30 tablet 05/29/18 Folic Acid/Vitamin B Comp W-C [Nephrocaps Multiple Vitamin Capsule] 1 cap PO ACSUPPER #30 capsule 05/29/18 Furosemide [Lasix 20 mg Tablet] 20 mg PO DAILY #60 tablet 05/29/18 Lidocaine [Lidoderm 5% (700 mg) Transdermal Patch] 1 patch TP DAILY #30 adh..patch 05/29/18 Metoprolol Succinate [Toprol Xl 25 mg Tab.sr] 12.5 mg PO Q12 30 Days #60 tab.sr.24h 05/29/18 History of Present Illness Admission Date/PCP: 05/21/18 07:39 RAMY FORDP-C History of Present Illness: SHAWN GORDON is a 82 year old female with a past medical history of COPD on 2 L of home oxygen, history of atrial fibrillation not on anticoagulation at the moment, history of chronic systolic and diastolic congestive heart failure, hypertension, prior brain aneurysm status post clipping and chronic low back pain who was brought in by her because of worsening back pain anD low blood pressures at home. Patient has been says that patient's metoprolol has been recently increased to 50 mg twice daily but patient has been tolerating this and has been controlling her heart rate at home well. However in the past 3-4 days, he noticed that the blood pressures at home has been running at 50 over 30s with a 63/50 blood pressure earlier today. Patient denies any dizziness, headache chest pain or shortness of breath. Patient is also getting 20 of Lasix daily at home. Patient also complains that she has been having worsening lower back pain in the past week. She also complains that she has been constipated for almost 4 weeks now. She denies any leg weakness or numbness. Denies vertigo. No slurring of speech. Patient says she was supposed to see Dr. Hayward this Monday for medication adjustment of her metoprolol. Patient denies any fever, or chills or cough. No abdominal pain. Denies hematuria, dysuria, frequency. In the ER, patient complained of severe low back pain. She was given a lidocaine patch and this slightly relieved her back pain. A was in the bedside to help the nurse sit and have the patient stand up. Patient is able to stand up with troopers and assistance however she complained of severe low back pain even on lidocaine patch. Hospital Course Hospital Course: Ms. Kearns is an 83-year-old female who presented with low blood pressure readings at home. Her hypotension was deemed likely to be from her medications that she was on higher doses of beta-blockers and Lasix. Patient's bed and breakfast cook was consulted upon admission. Her Lopressor was reduced to 12.5 mg twice daily. Lasix was also reduced to 20 mg daily. She did not have recurrence of hypotension throughout this hospital course. Patient was also started on digoxin for heart rate control. She is responded well to digoxin and heart rate has been well controlled although she has very few instances of transient tachycardia in the 110s. Patient is not on anticoagulation. She is just on aspirin. Discussed anticoagulation again with patient and . Patient has high risk of falling. She did not do well when PT evaluate her and was recommended to go to rehab. Because of significant fall risk, patient and decided not to pursue anticoagulation for her atrial fibrillation. Patient also complained of severe low back pain on admission. A CT of the lumbar spine was done which compression fracture is on the thoracic vertebrae. However patient was complaining more of the lumbar pain. His imaging only showed fusion of the lumbar vertebrae. Patient responded well to lidocaine and Tylenol initially. However due to persistent back pain, pain specialist was consulted. Oxyocodne and flexeril were added to patient's pain regimen however she developed confusion from them. These were discontinued and patient went back to her baseline mentation. So far patient's pain has been well controlled with lidocaine patch and Tylenol. Patient and verbalized rather continue the lidocaine and Tylenol. Patient also had positive FOBT but she and her decided not to pursue colonoscopy at the moment. They preferred to follow-up on this on an outpatient basis as well as follow-up with pain specialist for further interventions for her chronic back pain and T11-T12 compression fractures. Patient may also be needed to get a dexa scan and started on bisphosphonates on ff-up with PCP due to her compression fractures. Physical Exam Vital Signs: Temp Pulse Resp BP Pulse Ox 97.8 F 81 14 119/63 100 05/29/18 07:57 05/29/18 08:16 05/29/18 08:16 05/29/18 07:57 05/29/18 08:16 Intake & Output 05/28/18 05/29/18 05/30/18 06:59 06:59 06:59 Intake Total 2908 2258 Balance 2908 2258 Weight 115 lb 4.828 oz 117 lb 1.047 oz General appearance: PRESENT: no acute distress, well-developed, well-nourished Eye exam: PRESENT: conjunctiva pink, EOMI, PERRLA. ABSENT: scleral icterus Ear exam: PRESENT: normal external ear exam Neck exam: ABSENT: carotid bruit, JVD, lymphadenopathy, thyromegaly Respiratory exam: PRESENT: clear to auscultation ulises. ABSENT: rales, rhonchi, wheezes Cardiovascular exam: PRESENT: irregular rhythm GI/Abdominal exam: PRESENT: normal bowel sounds, soft. ABSENT: distended, guarding, mass, organolmegaly, rebound, tenderness Skin exam: PRESENT: dry, intact, warm. ABSENT: cyanosis, rash Results Laboratory Results: 05/29/18 06:49 05/29/18 06:49 05/28/18 05/29/18 05/29/18 14:00 06:49 06:49 WBC 10.7 H RBC 2.95 L Hgb 8.6 L Hct 25.5 L MCV 87 MCH 29.1 MCHC 33.6 RDW 16.5 H Plt Count 529 H Seg Neutrophils % Not Reportable Lymphocytes % Not Reportable Monocytes % Not Reportable Eosinophils % Not Reportable Basophils % Not Reportable Absolute Neutrophils Not Reportable Absolute Lymphocytes Not Reportable Absolute Monocytes Not Reportable Absolute Eosinophils Not Reportable Absolute Basophils Not Reportable Sodium 143.8 142.7 Potassium 4.1 3.7 Chloride 114 H 115 H Carbon Dioxide 21 L 18 L Anion Gap 9 10 BUN 2 L 3 L Creatinine 0.50 L 0.44 L Est GFR ( Amer) > 60 > 60 Est GFR (Non-Af Amer) > 60 > 60 Glucose 84 68 L Calcium 7.9 L 7.7 L Total Bilirubin 0.5 AST 24 ALT 21 Alkaline Phosphatase 116 Total Protein 4.4 L Albumin 1.9 L 05/24/18 11:48 NT-Pro-B Natriuret Pep 3790 H Impressions: Lumbar Spine CT 05/19/18 00:00 IMPRESSION: 1. Age-indeterminate compression fractures of the T11 and T12 vertebral bodies. 2. Multilevel spondylotic changes. 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 Acute Abdomen Series 05/19/18 11:02 IMPRESSION: Extent 1. Nonobstructive bowel gas pattern. 2. Moderate stool burden. Venous Doppler Study 05/19/18 11:11 IMPRESSION: NO EVIDENCE DVT OR SVT IN THE LEFT LEG. Body Scan Nuclear Medicine 05/22/18 00:00 IMPRESSION: 1. T11 and T12 bone scan uptake is consistent with recent compression fractures. 2. Mild uptake in the inferior sternum may also be related to posttraumatic change. There is a fairly healed appearing fracture here on recent CT chest. Chest X-Ray 05/24/18 00:00 IMPRESSION: COPD. Stable left pulmonary nodules. Chest/Abdomen CTA 05/24/18 00:00 IMPRESSION: 1. No PE. 2. Development of additional pulmonary nodules since 04/28/2018 most likely infectious or embolic in etiology. Head CT 05/24/18 00:00 IMPRESSION: Chronic ischemic and postsurgical changes. No acute findings. EVIDENCE OF ACUTE STROKE: NO. Transfer Plan - Time Spent with Patient Time spent with patient: Less than 30 Minutes Qualifiers - * PATIENT BEING DISCHARGED WITH ANY OF THE FOLLOWING DIAGNOSIS: No
[2018-05-29 12:52] VITALS: BP 130/81
--- NOTE | 2018-05-29 19:26 | PDOC PROGRESS REPORT ---
Subjective Progress Note for:: 05/28/18 Subjective:: Patient was seen at the request of nurse yesterday for sinus tachycardia on minimal exertion. Patient was placed on metoprolol succinate. The nurse told me that heart rate is now better controlled. Rhythm strip review shows that heart rate is mostly better controlled but still has intermittent sinus tachycardia Patient is maintaining sinus rhythm with intermittent sinus tachycardia. Review of systems: Rest review of systems negative. Medications: Medications have been reviewed. Reason For Visit: AFIB Physical Exam Vital Signs: Temp Pulse Resp BP Pulse Ox 98.7 F 112 H 20 126/62 H 100 05/28/18 15:07 05/28/18 17:34 05/28/18 17:34 05/28/18 15:07 05/28/18 17:34 Intake & Output 05/27/18 05/28/18 05/29/18 06:59 06:59 06:59 Intake Total 2529 2908 350 Balance 2529 2908 350 Weight 51.4 kg 52.3 kg Exam: GENERAL: well-nourished and in no acute distress. Alert and oriented x 2 HEAD: Atraumatic, normocephalic. EYES: Pupils equal round and reactive to light, extraocular movements intact, sclera anicteric, conjunctiva are normal. ENT: TMs normal, nares patent, oropharynx clear without exudates. Moist mucous membranes. No oral ulcerations or bleeding gums noted NECK: supple without lymphadenopathy. Trachea is central. No cervical or axillary lymphadenopathy noted. Carotids are 2+, JVD WNL LUNGS: Respiration seems nonlabored, no significant accessory muscle action noted. Breath sounds clear to auscultation bilaterally and equal noted. Few a scattered wheezes rales or rhonchi noted. No significant dullness noted on percussion. CHEST: Palpation of the chest wall shows no significant chest wall tenderness. 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 ABDOMEN: Soft, no significant tenderness appreciated, normoactive bowel sounds. No guarding, no rebound. No rigidity noted . No masses appreciated. EXTREMITIES: Pedal pulses are 1-2+, no calf tenderness noted. No clubbing or cyanosis. negative pedal edema noted NEUROLOGICAL: Focused neurological exam showed no significant neurologic deficit. Normal speech, no focal weakness appreciated. PSYCH: Normal mood, normal affect. Judgment and insight within normal limits. SKIN: Superficial ecchymosis, skin is noted to be warm. MUSCULOSKELETAL EXAM: No significant acute joint swelling noted. Results Laboratory Results: 05/28/18 06:43 05/28/18 14:00 05/28/18 05/28/18 05/28/18 06:43 06:43 14:00 WBC 7.6 RBC 2.97 L Hgb 8.6 L Hct 25.7 L MCV 87 MCH 28.8 MCHC 33.3 RDW 16.5 H Plt Count 395 Seg Neutrophils % Not Reportable Lymphocytes % Not Reportable Monocytes % Not Reportable Eosinophils % Not Reportable Basophils % Not Reportable Absolute Neutrophils Not Reportable Absolute Lymphocytes Not Reportable Absolute Monocytes Not Reportable Absolute Eosinophils Not Reportable Absolute Basophils Not Reportable Sodium 142.9 143.8 Potassium 3.4 L 4.1 Chloride 115 H 114 H Carbon Dioxide 19 L 21 L Anion Gap 9 9 BUN 2 L 2 L Creatinine 0.42 L 0.50 L Est GFR ( Amer) > 60 > 60 Est GFR (Non-Af Amer) > 60 > 60 Glucose 82 84 Calcium 7.4 L 7.9 L Magnesium 1.8 Total Bilirubin 0.4 AST 29 ALT 26 Alkaline Phosphatase 96 Total Protein 4.6 L Albumin 1.9 L 05/24/18 11:48 NT-Pro-B Natriuret Pep 3790 H EKG Comments: Intermittent sinus tachycardia, heart rate mostly normal Impressions: Lumbar Spine CT 05/19/18 00:00 IMPRESSION: 1. Age-indeterminate compression fractures of the T11 and T12 vertebral bodies. 2. Multilevel spondylotic changes. 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 Acute Abdomen Series 05/19/18 11:02 IMPRESSION: Extent 1. Nonobstructive bowel gas pattern. 2. Moderate stool burden. Venous Doppler Study 05/19/18 11:11 IMPRESSION: NO EVIDENCE DVT OR SVT IN THE LEFT LEG. Body Scan Nuclear Medicine 05/22/18 00:00 IMPRESSION: 1. T11 and T12 bone scan uptake is consistent with recent compression fractures. 2. Mild uptake in the inferior sternum may also be related to posttraumatic change. There is a fairly healed appearing fracture here on recent CT chest. Chest X-Ray 05/24/18 00:00 IMPRESSION: COPD. Stable left pulmonary nodules. Chest/Abdomen CTA 05/24/18 00:00 IMPRESSION: 1. No PE. 2. Development of additional pulmonary nodules since 04/28/2018 most likely infectious or embolic in etiology. Head CT 05/24/18 00:00 IMPRESSION: Chronic ischemic and postsurgical changes. No acute findings. EVIDENCE OF ACUTE STROKE: NO. 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 Patient tolerating metoprolol succinate at 12.5 mg p.o. twice daily. Side effects reviewed. Increase as needed. Mental status changes: Possibly related to pain medication but agree with empirically antibiotic therapy. Improved since medications were adjusted. Hypotension: Resolved. This was felt to be related to volume depletion. Patient volume was seems compensated. Dehydration: Currently this patient seems to be in adequate volume status. COPD: Patient has severe almost end-stage COPD, continue oxygen supplementation , bronchodilator therapies. Combined systolic and diastolic heart failure, chronic: Currently compensated watch for any fluid overload. Tachycardia: This seems to have resolved. Patient maintaining sinus rhythm. Metoprolol succinate he has started. Increase as tolerated. Paroxysmal atrial fibrillation: Patient has so far maintaining sinus rhythm during this hospitalization. For rate control would recommend beta-irlanda in view of history of CHF. Chronic respiratory failure with hypoxemia: Secondary to severe COPD. Continue with oxygen supplementation. Patient is quite debilitated and weak. Agree that patient will need rehab. - Time Time with patient: 15-25 minutes - CODE STATUS was discussed, patient remains full code. Surrogate decision-maker unchanged. Multiple medical problems were addressed. More than 50% of the time spent coordinating care, discussing management plans with involved caregivers. Management plans discussed with involved personnels. Medical decision making was of moderate to high complexity , patient's has multiple comorbidities. Medications reviewed and adjusted accordingly: Yes
--- NOTE | 2018-05-29 19:27 | PDOC PROGRESS REPORT ---
Subjective Progress Note for:: 05/29/18 Subjective:: I was asked to see patient prior to discharge to custodial to make sure medications satisfactory. Review of systems: Rest review of systems negative. Medications: Medications have been reviewed. Reason For Visit: AFIB Physical Exam Vital Signs: Temp Pulse Resp BP Pulse Ox 97.9 F 115 H 17 130/81 H 99 05/29/18 12:11 05/29/18 12:11 05/29/18 12:11 05/29/18 12:11 05/29/18 12:11 Intake & Output 05/28/18 05/29/18 05/30/18 06:59 06:59 06:59 Intake Total 2908 2258 150 Balance 2908 2258 150 Weight 52.3 kg 53.1 kg Exam: Exam is noted to be relatively unchanged from yesterday. Patient at times is pleasantly confused. Results Laboratory Results: 05/29/18 06:49 05/29/18 06:49 05/29/18 05/29/18 06:49 06:49 WBC 10.7 H RBC 2.95 L Hgb 8.6 L Hct 25.5 L MCV 87 MCH 29.1 MCHC 33.6 RDW 16.5 H Plt Count 529 H Seg Neutrophils % Not Reportable Lymphocytes % Not Reportable Monocytes % Not Reportable Eosinophils % Not Reportable Basophils % Not Reportable Absolute Neutrophils Not Reportable Absolute Lymphocytes Not Reportable Absolute Monocytes Not Reportable Absolute Eosinophils Not Reportable Absolute Basophils Not Reportable Sodium 142.7 Potassium 3.7 Chloride 115 H Carbon Dioxide 18 L Anion Gap 10 BUN 3 L Creatinine 0.44 L Est GFR ( Amer) > 60 Est GFR (Non-Af Amer) > 60 Glucose 68 L Calcium 7.7 L Total Bilirubin 0.5 AST 24 ALT 21 Alkaline Phosphatase 116 Total Protein 4.4 L Albumin 1.9 L 05/24/18 11:48 NT-Pro-B Natriuret Pep 3790 H EKG Comments: Telemetry strips were reviewed. Patient noted to be in stable heart rhythm. Impressions: Lumbar Spine CT 05/19/18 00:00 IMPRESSION: 1. Age-indeterminate compression fractures of the T11 and T12 vertebral bodies. 2. Multilevel spondylotic changes. 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 Acute Abdomen Series 05/19/18 11:02 IMPRESSION: Extent 1. Nonobstructive bowel gas pattern. 2. Moderate stool burden. Venous Doppler Study 05/19/18 11:11 IMPRESSION: NO EVIDENCE DVT OR SVT IN THE LEFT LEG. Body Scan Nuclear Medicine 05/22/18 00:00 IMPRESSION: 1. T11 and T12 bone scan uptake is consistent with recent compression fractures. 2. Mild uptake in the inferior sternum may also be related to posttraumatic change. There is a fairly healed appearing fracture here on recent CT chest. Chest X-Ray 05/24/18 00:00 IMPRESSION: COPD. Stable left pulmonary nodules. Chest/Abdomen CTA 05/24/18 00:00 IMPRESSION: 1. No PE. 2. Development of additional pulmonary nodules since 04/28/2018 most likely infectious or embolic in etiology. Head CT 05/24/18 00:00 IMPRESSION: Chronic ischemic and postsurgical changes. No acute findings. EVIDENCE OF ACUTE STROKE: NO. Assessment & Plan - Diagnosis (1) Hypotension Qualifiers: Hypotension type: unspecified hypotension type Qualified Code(s): I95.9 - Hypotension, unspecified Is this a current diagnosis for this admission?: Yes (2) Dehydration Is this a current diagnosis for this admission?: Yes (3) COPD (chronic obstructive pulmonary disease) Qualifiers: COPD type: unspecified COPD Qualified Code(s): J44.9 - Chronic obstructive pulmonary disease, unspecified Is this a current diagnosis for this admission?: Yes (4) Combined systolic and diastolic congestive heart failure Qualifiers: Heart failure chronicity: chronic Qualified Code(s): I50.42 - Chronic combined systolic (congestive) and diastolic (congestive) heart failure Is this a current diagnosis for this admission?: Yes (5) Tachycardia Is this a current diagnosis for this admission?: Yes (6) Chronic respiratory failure with hypoxia Is this a current diagnosis for this admission?: Yes (7) Paroxysmal atrial fibrillation with RVR Is this a current diagnosis for this admission?: No - Notes Notes: Medications reviewed. Feel that patient has been stable for last 48 hours on current regimen that she is getting. Recommend discharge on current medications. Patient can follow-up with me on discharge. - Time Time with patient: Less than 15 minutes - More than 50% of the time spent coordinating care, discussing management plans with involved caregivers. Management plans discussed with involved personnels. Medical decision making was of moderate to high complexity, patient's has multiple comorbidities. Medications reviewed and adjusted accordingly: Yes
== END 2018-05-29 14:32 | disposition home or self-care (01) | DRG 312 ==
LOC: ER 10:00 → EH 16:14 → 5 17:47 → OBSVTOIN 05-21 07:39 → 3S 05-24 14:31
PROVIDERS: ADMIT Internal Medicine; ATTEND Internal Medicine
PROC: 3E0F73Z Introduction of Anti-inflammatory into Respiratory Tract, Via Natural or Artificial Opening (ICD-10-PCS; principal; 2018-05-20)
DX: I95.2 Hypotension due to drugs (principal); J96.11 Chronic respiratory failure with hypoxia; I50.42 Chronic combined systolic (congestive) and diastolic (congestive) heart failure; M48.54XA Collapsed vertebra, not elsewhere classified, thoracic region, initial encounter for fracture; I48.0 Paroxysmal atrial fibrillation; G89.29 Other chronic pain; M54.5 Low back pain; J44.9 Chronic obstructive pulmonary disease, unspecified; K59.00 Constipation, unspecified; I11.0 Hypertensive heart disease with heart failure; D64.9 Anemia, unspecified; R91.8 Other nonspecific abnormal finding of lung field; R19.5 Other fecal abnormalities; E86.0 Dehydration; I44.7 Left bundle-branch block, unspecified; T44.7X5A Adverse effect of beta-adrenoreceptor antagonists, initial encounter; T50.1X5A Adverse effect of loop [high-ceiling] diuretics, initial encounter; R00.0 Tachycardia, unspecified; M96.1 Postlaminectomy syndrome, not elsewhere classified; Y83.8 Other surgical procedures as the cause of abnormal reaction of the patient, or of later complication, without mention of misadventure at the time of the procedure; M51.37 Other intervertebral disc degeneration, lumbosacral region; R21 Rash and other nonspecific skin eruption; E16.2 Hypoglycemia, unspecified; E87.6 Hypokalemia; F41.9 Anxiety disorder, unspecified; I25.2 Old myocardial infarction; Z79.82 Long term (current) use of aspirin; Z79.899 Other long term (current) drug therapy; Z99.81 Dependence on supplemental oxygen; Z95.5 Presence of coronary angioplasty implant and graft; Z87.891 Personal history of nicotine dependence; Z83.3 Family history of diabetes mellitus; Z80.9 Family history of malignant neoplasm, unspecified; Z82.49 Family history of ischemic heart disease and other diseases of the circulatory system
CPT/HCPCS: 36415; 36600; 51701; 70460; 71045; 71275; 72131; 74022; 78306; 80048; 80053; 80162; 81001; 82140; 82272; 82550; 82553; 82607; 82728; 82746; 82803; 82962; 83540; 83550; 83605; 83735; 83880; 84443; 84484; 85025; 85045; 85610; 85730; 87040; 87086; 93005; 93010; 93971; 94640; 96360; 99285; A9561; G0378; G8978-GP; G8979-GP; G8996-GN; G8997-GN; G8998-GN; J0696; J1650; J2270; J3420; J3490; J7030; J7050; J7620; Q9969

== ENCOUNTER → 2018-09-04 | Outpatient (CLI) | payer MEDICARE, OTHER | LOC: OD 10:33 | PROVIDERS: ATTEND Physician Assistant Medical | DX: E87.6 Hypokalemia (principal) | CPT/HCPCS: 36415; 84132 ==

== ENCOUNTER → 2018-09-10 | Outpatient (CLI) | payer MEDICARE, OTHER | LOC: OD 08:49 | PROVIDERS: ATTEND Physician Assistant Medical | DX: E87.6 Hypokalemia (principal) | CPT/HCPCS: 36415; 84132 ==

== ENCOUNTER → 2018-09-17 | Outpatient (CLI) | payer MEDICARE, OTHER | LOC: OD 08:48 | PROVIDERS: ATTEND Internal Medicine Nephrology | DX: E87.6 Hypokalemia (principal) | CPT/HCPCS: 36415; 84132 ==

== ENCOUNTER → 2018-10-18 | Outpatient (CLI) | payer MEDICARE, OTHER | LOC: OD 09:21 | PROVIDERS: ATTEND Physician Assistant Medical | DX: E87.6 Hypokalemia (principal) | CPT/HCPCS: 36415; 84132 ==

== ENCOUNTER → 2019-02-06 | Outpatient (CLI) | payer MEDICARE, OTHER ==
--- NOTE | 2019-02-06 13:19 | RADIOLOGY REPORT (SQ) ---
EXAM DESCRIPTION: CT CHEST WITHOUT COMPLETED DATE/TIME: 02/06/2019 10:18 am REASON FOR STUDY: OTHER NONSPECIFIC ABNORMAL FINDING OF LUNG FIELD (R91.8) R91.8 OTHER NONSPECIFIC ABNORMAL FINDING OF LUNG FIELD COMPARISON: 05/24/2018 TECHNIQUE: CT scan performed of the chest without intravenous contrast. Images reviewed with lung, soft tissue and bone windows. Reconstructed coronal and sagittal MPR images reviewed. All images st ored on PACS. All CT scanners at this facility use dose modulation, iterative reconstruction, and/or weight based d osing when appropriate to reduce radiation dose to as low as reasonably achievable (ALARA). [facility]: Dose Right [facility]: CareDose [facility]: Dose Right [facility]: Teradose 4D [facility]: [employer] RADIATION DOSE: CT Rad equipment meets quality standard of care and radiation dose reduction techniq ues were employed. CTDIvol: 4.5 mGy. DLP: 156 mGy-cm. mGy. LIMITATIONS: No technical limitations. FINDINGS: LUNGS AND PLEURA: There has been resolution of previously seen 1.8 cm left upper lobe irre gular nodular opacity. Additional smaller nodules within the left upper lobe have also resolved. Th ere has been resolution of previously seen 2.7 cm left lower lobe peripheral opacity. Unchanged calc ified left upper lobe nodule and right upper lobe peripheral linear consolidation and pleural thicken ing. Stable right middle lobe subcentimeter nodule. No definite new nodules or masses. Linear biba silar scarring or atelectasis. Small bilateral pleural effusions. No pneumothorax. HILAR AND MEDIASTINAL STRUCTURES: No new mediastinal, hilar or axillary adenopathy. HEART AND VASCULAR STRUCTURES: Enlarged heart, stable. Coronary atherosclerosis. No pericardial eff usion. No aneurysm. UPPER ABDOMEN: No acute intra-abdominal process on the limited evaluation. Cirrhotic hepatic morphol ogy. THYROID AND OTHER SOFT TISSUES: No masses. No adenopathy. BONES: Compression deformity of T11 and T12 with mild T12 retropulsion. T12 compression has progress ed from exam dated 05/24/2018 HARDWARE: Calcified bilateral breast prostheses, stable. OTHER: No other significant findings. IMPRESSION: 1. Resolution of previously seen new pulmonary nodules from exam dated 05/24/2018. Stab le additional nodules and areas of consolidation and pleural thickening without new discrete lesions. 2. Small bilateral pleural effusions. 3. T11 and T12 compression deformities. There has been progression of the T12 compression since exa m dated 05/24/2018. Recommend correlation with symptomatology. TECHNICAL DOCUMENTATION: JOB ID: [id number] Quality ID # [id number]: Final reports with documentation of one or more dose reduction techniques (e.g., Au tomated exposure control, adjustment of the mA and/or kV according to patient size, use of iterative reconstruction technique) 2010 [employer]- All Rights Reserved Reading location - IP/workstation name: [email or web address]
== END ==
LOC: RAD 09:47
PROVIDERS: ATTEND Internal Medicine Pulmonary Disease
DX: R91.8 Other nonspecific abnormal finding of lung field (principal)
CPT/HCPCS: 71250

== ENCOUNTER → 2019-02-28 | Outpatient (CLI) | payer MEDICARE, OTHER ==
[2019-02-28 09:48] LABS: HEMATOCRIT 40.5 % (36.0-47.0); HEMOGLOBIN 13.1 g/dL (12.0-15.5); MEAN CORPUSCULAR HEMOGLOBIN 29.7 pg (27.0-33.4); MEAN CORPUSCULAR HGB CONC 32.4 g/dL (32.0-36.0); MEAN CORPUSCULAR VOLUME 92 fl (80-97); PLATELET COUNT 261 10^3/uL (150-450); RED BLOOD COUNT 4.43 10^6/uL (3.72-5.28); RED CELL DISTRIBUTION WIDTH 15.1 % (11.5-14.0)
[2019-02-28 09:52] LABS: APPEARANCE,URINE CLEAR; BILIRUBIN,URINE NEGATIVE (NEGATIVE); COLOR,URINE STRAW; GLUCOSE, URINE NEGATIVE (NEGATIVE); KETONES,URINE NEGATIVE (NEGATIVE); LEUKOCYTE ESTERASE,URINE TRACE (NEGATIVE); NITRITE,URINE NEGATIVE (NEGATIVE); PROTEIN,URINE NEGATIVE (NEGATIVE); URINE SPECIFIC GRAVITY 1.005; UROBILINOGEN,URINE NEGATIVE mg/dL (<2.0)
[2019-02-28 10:06] LABS: ANION GAP 9 (5-19); BLOOD UREA NITROGEN 18 mg/dL (7-20); CALCIUM 9.7 mg/dL (8.4-10.2); CARBON DIOXIDE 26 mmol/L (22-30); CHLORIDE 105 mmol/L (98-107); GLUCOSE 86 mg/dL (75-110); POTASSIUM 4.6 mmol/L (3.6-5.0); SODIUM 139.9 mmol/L (137-145)
== END ==
LOC: OD 09:19
PROVIDERS: ATTEND Physician Assistant Medical
DX: N18.3 Chronic kidney disease, stage 3 (moderate) (principal); E87.6 Hypokalemia; D64.9 Anemia, unspecified; M10.00 Idiopathic gout, unspecified site
CPT/HCPCS: 36415; 80048; 81001; 85027

== ENCOUNTER 2019-03-14 15:00 | Inpatient (IN) | payer MEDICARE, OTHER ==
[2019-03-14 15:35] LABS: ABSOLUTE BASOPHILS # (AUTO) 0.1 10^3/uL (0.0-0.2); ABSOLUTE EOSINOPHILS # (AUTO) 0.1 10^3/uL (0.0-0.6); ABSOLUTE LYMPHOCYTES (AUTO) 1.1 10^3/uL (0.5-4.7); ABSOLUTE MONOCYTES (AUTO) 0.9 10^3/uL (0.1-1.4); ABSOLUTE NEUT (AUTO) 10.8 10^3/uL (1.7-8.2); BASOPHILS % (AUTO) 0.6 % (0-2); EOSINOPHILS % (AUTO) 0.7 % (0-6); HEMATOCRIT 41.2 % (36.0-47.0); HEMOGLOBIN 13.6 g/dL (12.0-15.5); LYMPHOCYTES % (AUTO) 8.3 % (13-45); MEAN CORPUSCULAR HEMOGLOBIN 29.7 pg (27.0-33.4); MEAN CORPUSCULAR VOLUME 90 fl (80-97); MONOCYTES % (AUTO) 7.3 % (3-13); PLATELET COUNT 260 10^3/uL (150-450); RED BLOOD COUNT 4.58 10^6/uL (3.72-5.28); RED CELL DISTRIBUTION WIDTH 15.2 % (11.5-14.0); SEGMENTED NEUTROPHILS % (AUTO) 83.1 % (42-78); TOTAL CELLS COUNTED % (AUTO) 100 %; WHITE BLOOD COUNT 12.9 10^3/uL (4.0-10.5)
--- NOTE | 2019-03-14 15:51 | RADIOLOGY REPORT (SQ) ---
EXAM DESCRIPTION: CHEST SINGLE VIEW COMPLETED DATE/TIME: 03/14/2019 3:40 pm REASON FOR STUDY: SOB COMPARISON: 05/07/2015 EXAM PARAMETERS: NUMBER OF VIEWS: One view. TECHNIQUE: Single frontal radiographic view of the chest acquired. RADIATION DOSE: NA LIMITATIONS: None. FINDINGS: LUNGS AND PLEURA: No opacities, masses or pneumothorax. No pleural effusion. MEDIASTINUM AND HILAR STRUCTURES: No masses. Contour normal. HEART AND VASCULAR STRUCTURES: Cardiomegaly. BONES: No acute findings. HARDWARE: None in the chest. OTHER: Calcified bilateral breast implants. IMPRESSION: Cardiomegaly without acute abnormality of the lungs in AP projection. TECHNICAL DOCUMENTATION: JOB ID: [id number] [employer]- All Rights Reserved Reading location - IP/workstation name: [email or web address]
[2019-03-14 15:57] LABS: ALANINE AMINOTRANSFERASE 19 U/L (9-52); ALBUMIN 3.7 g/dL (3.5-5.0); ALKALINE PHOSPHATASE 66 U/L (38-126); ANION GAP 10 (5-19); ASPARTATE AMINO TRANSFERASE 21 U/L (14-36); BILIRUBIN,DIRECT 0.4 mg/dL (0.0-0.4); BILIRUBIN,TOTAL 0.9 mg/dL (0.2-1.3); BLOOD UREA NITROGEN 13 mg/dL (7-20); CALCIUM 9.4 mg/dL (8.4-10.2); CARBON DIOXIDE 24 mmol/L (22-30); CHLORIDE 103 mmol/L (98-107); GLUCOSE 128 mg/dL (75-110); POTASSIUM 4.6 mmol/L (3.6-5.0); SODIUM 136.9 mmol/L (137-145); TOTAL PROTEIN 6.6 g/dL (6.3-8.2)
[2019-03-14] MEDS ORDERED: METHYLPREDNISOLONE INJ 125 MG/2 ML SDV IV ONE (16:29)
[2019-03-14] MEDS ORDERED: IPRATROPIUM/ALBUTEROL 0.5-2.5 MG/3 ML AMPUL NEB ONE (16:29)
--- NOTE | 2019-03-14 16:48 | ER Document Report ---
ED General - General Chief Complaint: Respiratory Distress Stated Complaint: RESPIRATORY DISTRESS Time Seen by Provider: 03/14/19 16:00 Notes: 83-year-old female with history of COPD and possible left ventricle thrombus on Eliquis presents to the emergency department brought in by ambulance for an acute COPD exacerbation. Symptoms started this morning and there was no preceding or definite trigger like cold or illness. She was immediately placed on CPAP on the rig and given 2 DuoNeb's prior to arrival. When she arrived here she was placed on BiPAP on minimal settings at 12/6 at 35%. When I interviewed her she was tachypneic and her blood pressure was stable. She chiefly complained of acute shortness of breath, denied any chest pain, denied any preceding illness. TRAVEL OUTSIDE OF THE [place] IN LAST 30 DAYS: No - Related Data Allergies/Adverse Reactions: No Known Allergies Allergy (Verified 03/14/19 15:55) Past Medical History - Social History Smoking Status: Former Smoker Frequency of alcohol use: None Drug Abuse: None Family History: Reviewed & Not Pertinent, DM, Hypertension, Malignancy Patient has suicidal ideation: No Patient has homicidal ideation: No - Past Medical History Cardiac Medical History: Reports: Hx Atrial Fibrillation, Hx Congestive Heart Failure - Chronic diastolic CHF, Hx Heart Attack, Hx Hypercholesterolemia, Hx Hypertension Pulmonary Medical History: Reports: Hx COPD - Chronic respiratory failure on 2 L oxygen at home, Hx Respiratory Failure Renal/ Medical History: Reports: Hx Kidney Stones. Denies: Hx Peritoneal Dialysis GI Medical History: Reports: Hx Cirrhosis Psychiatric Medical History: Reports: Hx Anxiety Denies: Hx Depression Past Surgical History: Reports: Hx Appendectomy, Hx Breast Surgery, Hx Coronary Stent, Hx Neurologic Surgery - brain surg x2 for aneursym, Hx Orthopedic Surgery - Immunizations Hx Pneumococcal Vaccination: 05/04/15 Review of Systems - Review of Systems Constitutional: See HPI EENT: No symptoms reported Cardiovascular: See HPI Respiratory: See HPI Gastrointestinal: See HPI Genitourinary: No symptoms reported Female Genitourinary: No symptoms reported Musculoskeletal: No symptoms reported Skin: No symptoms reported Hematologic/Lymphatic: No symptoms reported Neurological/Psychological: No symptoms reported Physical Exam - Vital signs Vitals: Temp 100.7 F H 03/14/19 15:00 - Notes Notes: PHYSICAL EXAMINATION: Reviewed vital signs and charting by RN GENERAL: Alert, interacts well. No acute distress. HEAD: Normocephalic, atraumatic. EYES: Pupils equal and round. Extraocular movements intact. ENT: Oral mucosa moist, tongue midline. NECK: Full range of motion. Trachea midline. LUNGS: Diffuse inspiratory and expiratory wheezes but she is moving air, coarse rhonchi also heard. HEART: Tachycardia with a sinus rhythm. No murmur ABDOMEN: soft, non-tender. No distention. Bowel sounds present EXTREMITIES: Moves all 4 extremities spontaneously. No edema, No cyanosis. PSYCH: Normal affect, normal mood. SKIN: Warm, dry, normal turgor. No rashes or lesions noted. Course - Re-evaluation Re-evalutation: 03/14/19 19:29 Patient initially in mild distress upon initial interview tachypneic breathing in the mid 30s with O2 saturations 100% on BiPAP. Patient given a third DuoNeb and Solu-Medrol 125 mg IV once. I initiated contact hospitalist, Dr. Nathan, who accepted the patient for full admission. - Vital Signs Vital signs: Temp Pulse Resp BP Pulse Ox 99.0 F 24 H 126/74 H 96 03/14/19 19:03 03/14/19 19:00 03/14/19 18:20 03/14/19 19:00 - Laboratory Result Diagrams: 03/14/19 15:18 03/14/19 15:18 Laboratory results interpreted by me: 03/14/19 03/14/19 15:18 15:18 WBC 12.9 H RDW 15.2 H Seg Neutrophils % 83.1 H Lymphocytes % 8.3 L Absolute Neutrophils 10.8 H Sodium 136.9 L Est GFR ( Amer) 58 L Est GFR (Non-Af Amer) 48 L Glucose 128 H Discharge - Discharge Clinical Impression: COPD exacerbation Disposition: ADMITTED INPATIENT Admitting Provider: Jac (Hospitalist) Unit Admitted: Telemetry
[2019-03-14] MEDS ORDERED: ACETAMINOPHEN 325 MG TABLET PO PRN (17:20)
[2019-03-14] MEDS ORDERED: ONDANSETRON HCL INJ/PF 4 MG/2 ML SDV IV PRN (17:20)
[2019-03-14] MEDS ORDERED: DOCUSATE SODIUM 100 MG CAPSULE PO PRN (17:24)
--- NOTE | 2019-03-14 17:44 | PDOC H&P ---
History of Present Illness Admission Date/PCP: ITA MUÑOZ PA-C Patient complains of: Shortness of breath for 1 week History of Present Illness: SHAWN GORDON is a 83 year old female with history of COPD on 2 1/2 L oxygen, atrial fibrillation, congestive heart failure, hypertension on Eliquis with questionable history of echocardiogram showing blood clots as per the patient's came to the emergency room with complaints of increasing shortness of breath for the last 1 week. The shortness of breath became so severe today patient and family decided to came to the ER for further evaluation. is given the history that she is also coughing up mucus is yellowish color denies any chest pains denies any dizziness denies any headaches nauseated but denies any vomiting diarrhea or abdominal pain. Denies any urinary problems. Denies any recent rashes. Emergency room she required BiPAP because of the low pulse oxes patient was tachypneic with respiratory rate in between 35-40. At the time of my examination patient is still on BiPAP. Past Medical History Cardiac Medical History: Reports: Atrial Fibrillation, Congestive Heart Failure - Chronic diastolic CHF, Myocardial Infarction, Hyperlipidema, Hypertension Pulmonary Medical History: Reports: Chronic Obstructive Pulmonary Disease (COPD) - Chronic respiratory failure on 2 L oxygen at home, Respiratory Failure GI Medical History: Reports: Cirrhosis Psychiatric Medical History: Denies: Depression Past Surgical History Past Surgical History: Reports: Appendectomy, Coronary Stent, Hysterectomy, Orthopedic Surgery Social History Information Source: Patient Smoking Status: Former Smoker Frequency of Alcohol Use: Rare Hx Recreational Drug Use: No Drugs: None Hx Prescription Drug Abuse: No - Advance Directive Resuscitation Status: Do Not Resuscitate Family History Family History: Reviewed & Not Pertinent, DM, Hypertension, Malignancy Parental Family History Reviewed: Yes - As per the patient no significant family history Children Family History Reviewed: Yes Sibling(s) Family History Reviewed.: Yes Medication/Allergy Allergies/Adverse Reactions: No Known Allergies Allergy (Verified 03/14/19 15:55) Review of Systems Constitutional: PRESENT: fatigue, weakness. ABSENT: fever(s), headache(s), night sweats Eyes: ABSENT: visual disturbances Ears: ABSENT: hearing changes Nose, Mouth, and Throat: ABSENT: sore throat Cardiovascular: PRESENT: dyspnea on exertion. ABSENT: orthropnea, palpitations Respiratory: ABSENT: dyspnea Gastrointestinal: PRESENT: nausea Neurological: ABSENT: abnormal gait, abnormal speech, confusion, dizziness, focal weakness, syncope Psychiatric: ABSENT: anxiety, depression, homidical ideation, suicidal ideation Physical Exam Vital Signs: Temp Pulse Resp BP Pulse Ox 100.7 F H 25 H 119/85 94 03/14/19 15:00 03/14/19 16:00 03/14/19 15:21 03/14/19 16:00 Intake & Output 03/13/19 03/14/19 03/15/19 06:59 06:59 06:59 Weight 45.9 kg General appearance: PRESENT: thin, other - Moderate distress Head exam: PRESENT: atraumatic Eye exam: PRESENT: PERRLA Mouth exam: PRESENT: moist, tongue midline Neck exam: ABSENT: carotid bruit, JVD, lymphadenopathy, thyromegaly Respiratory exam: PRESENT: decreased breath sounds Cardiovascular exam: PRESENT: tachycardia GI/Abdominal exam: PRESENT: normal bowel sounds, soft. ABSENT: distended, guarding, mass, organolmegaly, rebound, tenderness Rectal exam: PRESENT: deferred Extremities exam: PRESENT: full ROM. ABSENT: calf tenderness, clubbing, pedal edema Neurological exam: PRESENT: alert, awake, oriented to person, oriented to place, oriented to time, oriented to situation, CN II-XII grossly intact. ABSENT: motor sensory deficit Psychiatric exam: PRESENT: appropriate affect, normal mood. ABSENT: homicidal ideation, suicidal ideation Results Laboratory Results: 03/14/19 15:18 03/14/19 15:18 03/14/19 03/14/19 15:18 15:18 WBC 12.9 H RBC 4.58 Hgb 13.6 Hct 41.2 MCV 90 MCH 29.7 MCHC 33.0 RDW 15.2 H Plt Count 260 Seg Neutrophils % 83.1 H Lymphocytes % 8.3 L Monocytes % 7.3 Eosinophils % 0.7 Basophils % 0.6 Absolute Neutrophils 10.8 H Absolute Lymphocytes 1.1 Absolute Monocytes 0.9 Absolute Eosinophils 0.1 Absolute Basophils 0.1 Sodium 136.9 L Potassium 4.6 Chloride 103 Carbon Dioxide 24 Anion Gap 10 BUN 13 Creatinine 1.10 Est GFR ( Amer) 58 L Est GFR (Non-Af Amer) 48 L Glucose 128 H Calcium 9.4 Total Bilirubin 0.9 AST 21 ALT 19 Alkaline Phosphatase 66 Total Protein 6.6 Albumin 3.7 Impressions: Chest X-Ray 03/14/19 15:05 IMPRESSION: Cardiomegaly without acute abnormality of the lungs in AP projection. Assessment and Plan - Diagnosis (1) COPD exacerbation Is this a current diagnosis for this admission?: Yes Plan: [id number]-xkef-old female came with COPD exacerbation requiring BiPAP in the ER. She was tachycardic tachypneic and hypoxic in the emergency room. She was placed on BiPAP. Plan to put her in IMCU she is a DNR/DNI. Started on IV Solu-Medrol 40 mg every 8 hours, Xopenex nebulizations every 6 hours as needed, chest physical therapy. She also came in with a low-grade fever and elevated WBC count started on 2 g of IV Rocephin daily. GI prophylaxis was initiated patient is already on a apixaban. Blood cultures sputum cultures are requested. Chest x-ray did not suggestive of any pneumonia except for cardiomegaly. Patient is on 2.5 L oxygen at home. (2) Atrial fibrillation Is this a current diagnosis for this admission?: No Plan: Patient has a history of atrial fibrillation paroxysmal on Eliquis at home. Which was resumed during the hospital stay. Here in the emergency room patient is in sinus rhythm. (3) Chronic diastolic CHF (congestive heart failure) Is this a current diagnosis for this admission?: No Plan: 03/14/2019-patient has history of chronic diastolic heart failure BNP today is pending. Patient is euvolemic. She is on Lasix 20 mg p.o. daily at home which was resumed. (4) Hypertension Is this a current diagnosis for this admission?: No Plan: 03/14/2019-patient has history of chronic essential hypertension blood pressure at the time of admission is 119/80 plan is to resume her home medications. (5) Acute respiratory failure Is this a current diagnosis for this admission?: Yes Plan: [birth year][id number]-old female came in with acute respiratory failure with hypoxia most likely secondary to COPD exacerbation presently on BiPAP Xopenex nebulizations, IV Solu-Medrol chest physical therapy was requested and started on IV Rocephin 2 g daily. - Time Time Spent with patient: 35 or more minutes Medications reviewed and adjusted accordingly: Yes Anticipated discharge: Home
[2019-03-14] MEDS ORDERED: APIXABAN 5 MG TABLET PO SCH (18:00)
--- NOTE | 2019-03-14 18:05 | PDOC PROGRESS REPORT ---
Subjective Progress Note for:: 03/14/19 Subjective:: Patient admitted with progressive shortness of breath over the last several days. Patient has known history of COPD. Patient also has history of cardiomyopathy, paroxysmal atrial fibrillation, possible intraventricular thrombus. Patient currently on chronic anticoagulation. Reason For Visit: RESPIRATORY DISTRESS Physical Exam Vital Signs: Temp Pulse Resp BP Pulse Ox 100.7 F H 25 H 119/85 94 03/14/19 15:00 03/14/19 16:00 03/14/19 15:21 03/14/19 16:00 Intake & Output 03/13/19 03/14/19 03/15/19 06:59 06:59 06:59 Weight 45.9 kg Exam: GENERAL: well-nourished and in no acute distress. Alert and oriented x3 HEAD: Atraumatic, normocephalic. EYES: EMORY, sclera anicteric, conjunctiva are normal. ENT: Moist mucous membranes. No oral ulcerations or bleeding gums noted. No obvious ear, nose or throat abnormalities noted. NECK: supple without lymphadenopathy. Trachea is central. No cervical or axi llary lymphadenopathy noted. Carotids are 2+, JVD WNL LUNGS: Breath sounds bilateral wheezes rales or rhonchi noted. No significant dullness noted on percussion. CHEST: Palpation of the chest wall shows no significant chest wall tenderness. HEART: [place] [employer], No PSH, 1/6 LISA aortic area, 1/6 adams systolic murmur mitral area, no rubs, no gallops. ABDOMEN: Soft, no significant tenderness appreciated, normoactive bowel sounds. No guarding, no rebound. No rigidity noted . No masses appreciated. EXTREMITIES: Pedal pulses are 1-2+, no calf tenderness noted. No clubbing or cyanosis. negative pedal edema noted NEUROLOGICAL: Focused neurological exam showed no significant neurologic deficit. Normal speech, no focal weakness appreciated. PSYCH: Normal mood, normal affect. Judgment and insight within normal limits. SKIN: No significant ecchymosis, skin is noted to be warm. MUSCULOSKELETAL EXAM: No significant acute joint swelling noted. Results Laboratory Results: 03/14/19 15:18 03/14/19 15:18 03/14/19 03/14/19 15:18 15:18 WBC 12.9 H RBC 4.58 Hgb 13.6 Hct 41.2 MCV 90 MCH 29.7 MCHC 33.0 RDW 15.2 H Plt Count 260 Seg Neutrophils % 83.1 H Lymphocytes % 8.3 L Monocytes % 7.3 Eosinophils % 0.7 Basophils % 0.6 Absolute Neutrophils 10.8 H Absolute Lymphocytes 1.1 Absolute Monocytes 0.9 Absolute Eosinophils 0.1 Absolute Basophils 0.1 Sodium 136.9 L Potassium 4.6 Chloride 103 Carbon Dioxide 24 Anion Gap 10 BUN 13 Creatinine 1.10 Est GFR ( Amer) 58 L Est GFR (Non-Af Amer) 48 L Glucose 128 H Calcium 9.4 Total Bilirubin 0.9 AST 21 ALT 19 Alkaline Phosphatase 66 Total Protein 6.6 Albumin 3.7 EKG Comments: Sinus rhythm with frequent APCs, nonspecific IVCD and minor nonspecific ST-T wave changes. Impressions: Chest X-Ray 03/14/19 15:05 IMPRESSION: Cardiomegaly without acute abnormality of the lungs in AP projectio n. Assessment & Plan - Diagnosis (1) Atrial fibrillation Qualifiers: Atrial fibrillation type: paroxysmal Qualified Code(s): I48.0 - Paroxysmal atrial fibrillation Is this a current diagnosis for this admission?: Yes (2) COPD exacerbation Is this a current diagnosis for this admission?: Yes (3) Combined systolic and diastolic cardiac dysfunction Is this a current diagnosis for this admission?: Yes - Notes Notes: Atrial fibrillation: This is paroxysmal. Recommend continue Eliquis therapy. Patient has history of LV thrombus. Will repeat a 2D echo while patient is here. COPD exacerbation: Continue hospitalist management. LV systolic and diastolic dysfunction: Currently seems well compensated. Follow for any CHF development. Continue home medications. - Time Time with patient: Greater than 35 minutes Medications reviewed and adjusted accordingly: Yes
[2019-03-14] MEDS: CEFTRIAXONE 2 GM/D5W RTU 2 GM/50 ML RTUPB IV SCH (18:20)
[2019-03-14 18:45] LABS: CREATINE KINASE MB 2.29 ng/mL (<4.55)
--- NOTE | 2019-03-14 18:49 | EKG REPORT ---
SEVERITY:- ABNORMAL ECG - SINUS TACHYCARDIA NONSPECIFIC INTRAVENTRICULAR CONDUCTION DELAY CONSIDER LEFT VENTRICULAR HYPERTROPHY : Confirmed by: Nikko Royal MD 14-Mar-2019 18:48:26
[2019-03-14 18:53] LABS: TROPONIN I 0.037 ng/mL
[2019-03-14 20:48] LABS: APPEARANCE,URINE CLOUDY; BILIRUBIN,URINE NEGATIVE (NEGATIVE); COLOR,URINE AMBER; GLUCOSE, URINE NEGATIVE (NEGATIVE); KETONES,URINE TRACE mg/dL (NEGATIVE); LEUKOCYTE ESTERASE,URINE LARGE (NEGATIVE); NITRITE,URINE POSITIVE (NEGATIVE); PROTEIN,URINE 30 mg/dL (NEGATIVE); URINE SPECIFIC GRAVITY 1.016; UROBILINOGEN,URINE NEGATIVE mg/dL (<2.0)
[2019-03-14] MEDS ORDERED: (PENDING PHARMACY ID) (Fluticasone/Salmeterol 1 PUFF) IH SCH (22:00)
[2019-03-14] MEDS: METHYLPREDNISOLONE INJ 40 MG/1 ML SDV IV SCH (22:25)
[2019-03-14] MEDS: NYSTATIN CREAM 15 GM TOP SCH (22:25)
[2019-03-14] MEDS: ATORVASTATIN CALCIUM 20 MG TABLET PO SCH (22:25)
[2019-03-14] MEDS: FAMOTIDINE 20 MG TABLET PO SCH (22:25)
[2019-03-14 22:26] LABS: CREATINE KINASE MB 2.18 ng/mL (<4.55); TROPONIN I 0.047 ng/mL
[2019-03-14] MEDS: LEVALBUTEROL HCL NEB 0.63 MG/3 ML AMPUL NEB PRN (23:47)
[2019-03-15] MEDS: LEVALBUTEROL HCL NEB 0.63 MG/3 ML AMPUL NEB PRN ×5 (04:21→20:16)
[2019-03-15 05:01] LABS: ABSOLUTE LYMPHOCYTES (AUTO) 0.6 10^3/uL (0.5-4.7); ABSOLUTE MONOCYTES (AUTO) 0.3 10^3/uL (0.1-1.4); BASOPHILS % (AUTO) 0.1 % (0-2); HEMATOCRIT 37.9 % (36.0-47.0); HEMOGLOBIN 12.6 g/dL (12.0-15.5); LYMPHOCYTES % (AUTO) 5.4 % (13-45); MEAN CORPUSCULAR HEMOGLOBIN 29.7 pg (27.0-33.4); MEAN CORPUSCULAR HGB CONC 33.2 g/dL (32.0-36.0); MEAN CORPUSCULAR VOLUME 90 fl (80-97); MONOCYTES % (AUTO) 2.6 % (3-13); PLATELET COUNT 219 10^3/uL (150-450); RED BLOOD COUNT 4.24 10^6/uL (3.72-5.28); RED CELL DISTRIBUTION WIDTH 15.3 % (11.5-14.0); SEGMENTED NEUTROPHILS % (AUTO) 91.9 % (42-78); TOTAL CELLS COUNTED % (AUTO) 100 %; WHITE BLOOD COUNT 10.9 10^3/uL (4.0-10.5)
[2019-03-15 05:12] LABS: ALANINE AMINOTRANSFERASE 19 U/L (9-52); ALBUMIN 3.4 g/dL (3.5-5.0); ALKALINE PHOSPHATASE 52 U/L (38-126); ANION GAP 9 (5-19); ASPARTATE AMINO TRANSFERASE 22 U/L (14-36); BILIRUBIN,DIRECT 0.5 mg/dL (0.0-0.4); BILIRUBIN,TOTAL 0.7 mg/dL (0.2-1.3); BLOOD UREA NITROGEN 17 mg/dL (7-20); CARBON DIOXIDE 25 mmol/L (22-30); CHLORIDE 103 mmol/L (98-107); CHOLESTEROL 85.55 mg/dL (0-200); CREATINE KINASE 107 U/L (30-135); GLUCOSE 140 mg/dL (75-110); POTASSIUM 4.1 mmol/L (3.6-5.0); SODIUM 136.6 mmol/L (137-145); TOTAL PROTEIN 6.5 g/dL (6.3-8.2); TRIGLYCERIDES 47 mg/dL (<150)
[2019-03-15 05:22] LABS: DIRECT LDL 31 mg/dL (<100)
[2019-03-15 05:23] LABS: CREATINE KINASE MB 3.52 ng/mL (<4.55); TROPONIN I 0.027 ng/mL
[2019-03-15] MEDS: METHYLPREDNISOLONE INJ 40 MG/1 ML SDV IV SCH ×3 (05:26→21:15)
[2019-03-15] MEDS: APIXABAN 2.5 MG TABLET PO SCH ×2 (09:29→17:57)
[2019-03-15] MEDS: CYANOCOBALAMIN (VITAMIN B-12) 1,000 MCG TABLET PO SCH (09:29)
[2019-03-15] MEDS: FLUTICASONE/VILANTEROL 200-25 MCG/DOSE IH SCH (09:30)
[2019-03-15] MEDS: CHOLECALCIFEROL (D3) 1,000 UNIT TABLET PO SCH (09:33)
[2019-03-15] MEDS: FAMOTIDINE 20 MG TABLET PO SCH ×2 (09:33→21:15)
[2019-03-15] MEDS: NYSTATIN CREAM 15 GM TOP SCH ×2 (09:34→21:15)
[2019-03-15] MEDS: FERROUS SULFATE 325 MG TABLET PO SCH (09:34)
[2019-03-15] MEDS: LORATADINE 10 MG TABLET PO SCH (09:34)
[2019-03-15] MEDS ORDERED: FUROSEMIDE 20 MG TABLET PO SCH (10:00)
[2019-03-15] MEDS ORDERED: ASPIRIN 81 MG TABLET, ENT COATED PO SCH (10:00)
[2019-03-15] MEDS ORDERED: (PENDING PHARMACY ID) (Cholecalciferol (Vitamin D3) [Vitamin D3 2000 Unit Tablet] 2,000 UN PO SCH (10:00)
--- NOTE | 2019-03-15 13:06 | PDOC PROGRESS REPORT ---
Subjective Progress Note for:: 03/15/19 Subjective:: Patient admitted with progressive shortness of breath over the last several days. Patient has known history of COPD. Patient also has history of cardiomyopathy, paroxysmal atrial fibrillation, possible intraventricular thrombus. Patient currently on chronic anticoagulation. Patient has history of congestive heart failure. Today on rounds she seems to be more short of breath than usual. Reason For Visit: COPD EXACERBATION Physical Exam Vital Signs: Temp Pulse Resp BP Pulse Ox 97.5 F 89 20 139/91 H 96 03/15/19 11:49 03/15/19 12:20 03/15/19 12:20 03/15/19 11:49 03/15/19 12:20 Intake & Output 03/14/19 03/15/19 03/16/19 06:59 06:59 06:59 Intake Total 595 740 Balance 595 740 Weight 48.4 kg Exam: GENERAL: well-nourished and in no acute distress. Alert and oriented x3 HEAD: Atraumatic, normocephalic. EYES: EMORY, sclera anicteric, conjunctiva are normal. ENT: Moist mucous membranes. No oral ulcerations or bleeding gums noted. No obvious ear, nose or throat abnormalities noted. NECK: supple without lymphadenopathy. Trachea is central. No cervical or axillary lymphadenopathy noted. Carotids are 2+, JVD elevated at around 10 to 12 cm. LUNGS: Bilateral wheezes rales or rhonchi noted. Bibasilar fine crackles noted. No significant dullness noted on percussion. CHEST: Palpation of the chest wall shows no significant chest wall tenderness. HEART: [place] [employer], No PSH, 1/6 LISA aortic area, 1/6 adams systolic murmur mitral area, no rubs, positive S3 gallops. ABDOMEN: Soft, no significant tenderness appreciated, normoactive bowel sounds. No guarding, no rebound. No rigidity noted . No masses appreciated. EXTREMITIES: Pedal pulses are 1-2+, no calf tenderness noted. No clubbing or cya nosis. negative pedal edema noted NEUROLOGICAL: Focused neurological exam showed no significant neurologic deficit. Normal speech, no focal weakness appreciated. PSYCH: Normal mood, normal affect. Judgment and insight within normal limits. SKIN: No significant ecchymosis, skin is noted to be warm. MUSCULOSKELETAL EXAM: No significant acute joint swelling noted. Results Laboratory Results: 03/15/19 04:33 03/15/19 04:33 03/14/19 03/14/19 03/14/19 05:11 15:18 15:18 WBC 12.9 H RBC 4.58 Hgb 13.6 Hct 41.2 MCV 90 MCH 29.7 MCHC 33.0 RDW 15.2 H Plt Count 260 Seg Neutrophils % 83.1 H Lymphocytes % 8.3 L Monocytes % 7.3 Eosinophils % 0.7 Basophils % 0.6 Absolute Neutrophils 10.8 H Absolute Lymphocytes 1.1 Absolute Monocytes 0.9 Absolute Eosinophils 0.1 Absolute Basophils 0.1 Carbonic Acid HCO3/H2CO3 Ratio ABG pH ABG pCO2 ABG pO2 ABG HCO3 ABG O2 Saturation ABG Base Excess FiO2 Sodium 136.9 L Potassium 4.6 Chloride 103 Carbon Dioxide 24 Anion Gap 10 BUN 13 Creatinine 1.10 Est GFR ( Amer) 58 L Est GFR (Non-Af Amer) 48 L Glucose 128 H Calcium 9.4 Total Bilirubin 0.9 AST 21 ALT 19 Alkaline Phosphatase 66 Total Protein 6.6 Albumin 3.7 Triglycerides Cholesterol LDL Cholesterol Direct VLDL Cholesterol HDL Cholesterol TSH Urine Color [place] Urine Appearance CLOUDY Urine pH 5.0 Ur Specific [place] 1.016 Urine Protein 30 H Urine Glucose (UA) NEGATIVE Urine Ketones TRACE H Urine Blood MODERATE H Urine Nitrite POSITIVE H Ur Leukocyte Esterase LARGE H Urine WBC (Auto) >182 Urine RBC (Auto) 45 03/15/19 03/15/19 03/15/19 04:33 04:33 04:33 WBC 10.9 H RBC 4.24 Hgb 12.6 Hct 37.9 MCV 90 MCH 29.7 MCHC 33.2 RDW 15.3 H Plt Count 219 Seg Neutrophils % 91.9 H Lymphocytes % 5.4 L Monocytes % 2.6 L Eosinophils % 0.0 Basophils % 0.1 Absolute Neutrophils 10.0 H Absolute Lymphocytes 0.6 Absolute Monocytes 0.3 Absolute Eosinophils 0.0 Absolute Basophils 0.0 Carbonic Acid HCO3/H2CO3 Ratio ABG pH ABG pCO2 ABG pO2 ABG HCO3 ABG O2 Saturation ABG Base Excess FiO2 Sodium 136.6 L Potassium 4.1 Chloride 103 Carbon Dioxide 25 Anion Gap 9 BUN 17 Creatinine 1.02 Est GFR ( Amer) > 60 Est GFR (Non-Af Amer) 52 L Glucose 140 H Calcium 9.0 Total Bilirubin 0.7 AST 22 ALT 19 Alkaline Phosphatase 52 Total Protein 6.5 Albumin 3.4 L Triglycerides 47 Cholesterol 85.55 LDL Cholesterol Direct 31 VLDL Cholesterol 9.0 L HDL Cholesterol 46 TSH 0.47 Urine Color Urine Appearance Urine pH Ur Specific [place] Urine Protein Urine Glucose (UA) Urine Ketones Urine Blood Urine Nitrite Ur Leukocyte Esterase Urine WBC (Auto) Urine RBC (Auto) 03/15/19 06:09 WBC RBC Hgb Hct MCV MCH MCHC RDW Plt Count Seg Neutrophils % Lymphocytes % Monocytes % Eosinophils % Basophils % Absolute Neutrophils Absolute Lymphocytes Absolute Monocytes Absolute Eosinophils Absolute Basophils Carbonic Acid Cancelled HCO3/H2CO3 Ratio Cancelled ABG pH Cancelled ABG pCO2 Cancelled ABG pO2 Cancelled ABG HCO3 Cancelled ABG O2 Saturation Cancelled ABG Base Excess Cancelled FiO2 Cancelled Sodium Potassium Chloride Carbon Dioxide Anion Gap BUN Creatinine Est GFR ( Amer) Est GFR (Non-Af Amer) Glucose Calcium Total Bilirubin AST ALT Alkaline Phosphatase Total Protein Albumin Triglycerides Cholesterol LDL Cholesterol Direct VLDL Cholesterol HDL Cholesterol TSH Urine Color Urine Appearance Urine pH Ur Specific [place] Urine Protein Urine Glucose (UA) Urine Ketones Urine Blood Urine Nitrite Ur Leukocyte Esterase Urine WBC (Auto) Urine RBC (Auto) 03/14/19 03/14/19 03/14/19 15:18 15:18 21:43 Creatine Kinase 78 83 CK-MB (CK-2) 2.29 Troponin I 0.037 NT-Pro-B Natriuret Pep 03/14/19 03/15/19 03/15/19 21:43 04:33 04:33 Creatine Kinase 107 CK-MB (CK-2) 2.18 3.52 Troponin I 0.047 0.027 NT-Pro-B Natriuret Pep [id number] H Impressions: Chest X-Ray 03/14/19 15:05 IMPRESSION: Cardiomegaly without acute abnormality of the lungs in AP projection. Assessment & Plan - Diagnosis (1) Atrial fibrillation Qualifiers: Atrial fibrillation type: paroxysmal Qualified Code(s): I48.0 - Paroxysmal atrial fibrillation Is this a current diagnosis for this admission?: Yes (2) COPD exacerbation Is this a current diagnosis for this admission?: Yes (3) Combined systolic and diastolic cardiac dysfunction Is this a current diagnosis for this admission?: Yes (4) Combined systolic and diastolic congestive heart failure Qualifiers: Heart failure chronicity: acute on chronic Qualified Code(s): I50.43 - Acute on chronic combined systolic (congestive) and diastolic (congestive) heart failure Is this a current diagnosis for this admission?: Yes - Notes Notes: The patient noted to have CHF on clinical exam and by symptoms. Patient has severely depressed LVEF. Will give patient extra Lasix [address] patient on Entresto. Observe blood pressure closely but would not hold unless patient's blood pressure less than 90/60. As regards other medications will continue with it. Continue Eliquis for atrial fibrillation and stroke prevention. Other noncardiac/cardiac condition being well managed by the hospitalist. - Time Time with patient: Greater than 35 minutes Medications reviewed and adjusted accordingly: Yes
[2019-03-15] MEDS: LIDOCAINE 5% (700 MG) TRANSDERMAL ADH..PATCH TP SCH (13:32)
[2019-03-15] MEDS ORDERED: FUROSEMIDE 20 MG TABLET PO ONE (14:30)
--- NOTE | 2019-03-15 16:15 | PDOC PROGRESS REPORT ---
Subjective Progress Note for:: 03/15/19 Subjective:: No adverse events overnight. No new complaints. Vital signs been stable. She says she feels like her breathing is at its normal level. No cough or shortness of breath at rest. Reason For Visit: COPD EXACERBATION Physical Exam Vital Signs: Temp Pulse Resp BP Pulse Ox 97.5 F 104 H 20 139/91 H 96 03/15/19 11:49 03/15/19 14:00 03/15/19 12:20 03/15/19 11:49 03/15/19 12:20 Intake & Output 03/14/19 03/15/19 03/16/19 06:59 06:59 06:59 Intake Total 595 740 Balance 595 740 Weight 48.4 kg General appearance: PRESENT: no acute distress, cooperative Respiratory exam: PRESENT: decreased breath sounds, symmetrical, unlabored. ABSENT: accessory muscle use, crackles, prolonged expiratory phas, rhonchi, tachypnea, wheezes Cardiovascular exam: PRESENT: irregular rhythm Pulses: PRESENT: normal carotid pulses Vascular exam: PRESENT: normal capillary refill GI/Abdominal exam: PRESENT: normal bowel sounds, soft. ABSENT: distended, guarding, rebound, tenderness Extremities exam: ABSENT: clubbing, pedal edema Musculoskeletal exam: PRESENT: normal inspection. ABSENT: deformity Neurological exam: PRESENT: alert, awake, oriented to person, oriented to place, oriented to situation Psychiatric exam: PRESENT: appropriate affect, normal mood Skin exam: PRESENT: dry, warm Results Laboratory Results: 03/15/19 04:33 03/15/19 04:33 03/14/19 03/15/19 03/15/19 05:11 04:33 04:33 WBC 10.9 H RBC 4.24 Hgb 12.6 Hct 37.9 MCV 90 MCH 29.7 MCHC 33.2 RDW 15.3 H Plt Count 219 Seg Neutrophils % 91.9 H Lymphocytes % 5.4 L Monocytes % 2.6 L Eosinophils % 0.0 Basophils % 0.1 Absolute Neutrophils 10.0 H Absolute Lymphocytes 0.6 Absolute Monocytes 0.3 Absolute Eosinophils 0.0 Absolute Basophils 0.0 Carbonic Acid HCO3/H2CO3 Ratio ABG pH ABG pCO2 ABG pO2 ABG HCO3 ABG O2 Saturation ABG Base Excess FiO2 Sodium 136.6 L Potassium 4.1 Chloride 103 Carbon Dioxide 25 Anion Gap 9 BUN 17 Creatinine 1.02 Est GFR ( Amer) > 60 Est GFR (Non-Af Amer) 52 L Glucose 140 H Calcium 9.0 Total Bilirubin 0.7 AST 22 ALT 19 Alkaline Phosphatase 52 Total Protein 6.5 Albumin 3.4 L Triglycerides 47 Cholesterol 85.55 LDL Cholesterol Direct 31 VLDL Cholesterol 9.0 L HDL Cholesterol 46 TSH Urine Color [place] Urine Appearance CLOUDY Urine pH 5.0 Ur Specific [place] 1.016 Urine Protein 30 H Urine Glucose (UA) NEGATIVE Urine Ketones TRACE H Urine Blood MODERATE H Urine Nitrite POSITIVE H Ur Leukocyte Esterase LARGE H Urine WBC (Auto) >182 Urine RBC (Auto) 45 03/15/19 03/15/19 04:33 06:09 WBC RBC Hgb Hct MCV MCH MCHC RDW Plt Count Seg Neutrophils % Lymphocytes % Monocytes % Eosinophils % Basophils % Absolute Neutrophils Absolute Lymphocytes Absolute Monocytes Absolute Eosinophils Absolute Basophils Carbonic Acid Cancelled HCO3/H2CO3 Ratio Cancelled ABG pH Cancelled ABG pCO2 Cancelled ABG pO2 Cancelled ABG HCO3 Cancelled ABG O2 Saturation Cancelled ABG Base Excess Cancelled FiO2 Cancelled Sodium Potassium Chloride Carbon Dioxide Anion Gap BUN Creatinine Est GFR ( Amer) Est GFR (Non-Af Amer) Glucose Calcium Total Bilirubin AST ALT Alkaline Phosphatase Total Protein Albumin Triglycerides Cholesterol LDL Cholesterol Direct VLDL Cholesterol HDL Cholesterol TSH 0.47 Urine Color Urine Appearance Urine pH Ur Specific [place] Urine Protein Urine Glucose (UA) Urine Ketones Urine Blood Urine Nitrite Ur Leukocyte Esterase Urine WBC (Auto) Urine RBC (Auto) 03/14/19 03/14/19 03/14/19 15:18 15:18 21:43 Creatine Kinase 78 83 CK-MB (CK-2) 2.29 Troponin I 0.037 NT-Pro-B Natriuret Pep 03/14/19 03/15/19 03/15/19 21:43 04:33 04:33 Creatine Kinase 107 CK-MB (CK-2) 2.18 3.52 Troponin I 0.047 0.027 NT-Pro-B Natriuret Pep [id number] H Impressions: Chest X-Ray 03/14/19 15:05 IMPRESSION: Cardiomegaly without acute abnormality of the lungs in AP projec tion. Assessment and Plan - Diagnosis (1) Acute respiratory failure Qualifiers: Respiratory failure complication: hypoxia Qualified Code(s): J96.01 - Acute respiratory failure with hypoxia Is this a current diagnosis for this admission?: Yes Plan: Acute on chronic respiratory failure with hypoxia. Normally on 2.5 liters per n neris cannula, currently on 3.5. Will wean as tolerated. (2) COPD exacerbation Is this a current diagnosis for this admission?: Yes Plan: Currently on steroids and bronchodilators. Will wean steroids as tolerated. (3) Atrial fibrillation Qualifiers: Atrial fibrillation type: paroxysmal Qualified Code(s): I48.0 - Paroxysmal atrial fibrillation Is this a current diagnosis for this admission?: Yes Plan: Rate is well controlled at this time. (4) Chronic diastolic CHF (congestive heart failure) Is this a current diagnosis for this admission?: Yes Plan: BNP was substantially elevated today. Cardiology ordered an extra dose of Lasi x. We will monitor her volume status closely. - Time Time Spent with patient: 15-24 minutes
[2019-03-15 16:42] LABS: ARTERIAL BLOOD BASE EXCESS -1.7 mmol/L; ARTERIAL BLOOD HCO3 21.8 mmol/L (20-24); ARTERIAL BLOOD O2 SATURATION 99.1 % (94-98); ARTERIAL BLOOD PCO2 33.3 mmHg (35-45); ARTERIAL BLOOD PH 7.43 (7.35-7.45); ARTERIAL BLOOD PO2 157.9 mmHg (80-100); ARTERIAL BLOOD TOTAL CO2 22.8 mmol/L (21-25)
[2019-03-15 16:44] LABS: ARTERIAL BLOOD FIO2 4 L
[2019-03-15] MEDS: SACUBITRIL/VALSARTAN 24 MG/26 MG TABLET PO SCH (17:57)
[2019-03-15] MEDS: CEFTRIAXONE 2 GM/D5W RTU 2 GM/50 ML RTUPB IV SCH (17:57)
--- NOTE | 2019-03-15 18:44 | XCELERA REPORT ---
[address] [address] Transthoracic Echocardiogram Report Name: SHAWN GORDON Age: 83 yrs Gender: Female : 1935 Patient Status: Inpatient Patient Location: [address] [place] [address] Study Date: 03/15/2019 09:50 AM Height: 59 in Weight: 101 lb BSA: 1.4 m2 Procedure: A complete two-dimensional transthoracic echocardiogram was performed (2D, M-mode, spectral and color flow Doppler). The study was technically adequate with some images being suboptimal in quality. Reason For Study: Cardiomyopathy Ordering Physician: CHARLIE ARNOLD Performed By: Austin Jenkins Interpretation Summary The Ejection Fraction estimate is <20% Left ventricular systolic function is severely reduced. There is borderline concentric left ventricular hypertrophy. The left ventricle is mildly dilated. Doppler measurements suggest reversible restrictive left ventricular relaxation, which is associated with grade III/IV or moderate diastolic dysfunction There is severe global hypokinesis of the left ventricle. There is apical wall akinesis There is a small apical thrombus, partly organised. Borderline right ventricular enlargement. The right ventricular systolic function is mildly reduced. The left atrium is mildly dilated. The right atrium is mildly dilated. There is a moderate amount of mitral regurgitation There is no mitral valve stenosis. There is a trace amount of aortic regurgitation There is no aortic valve stenosis There is a mild amount of tricuspid regurgitation There is mild to moderate pulmonary hypertension by echo Right ventricular systolic pressure is estimated to be elevated at 40-50mmHg. The aortic root is not well visualized but is probably normal size. The inferior vena cava appeared normal and decreased < 50% with respiration (RAP 10-15 mmHg) There is no pericardial effusion. MMode/2D Measurements & Calculations RVDd: 3.8 cm LVIDd: 4.6 cm FS: 17.7 % Ao root diam: 2.9 cm IVSd: 1.1 cm LVIDs: 3.8 cm EDV(Teich): Ao root area: 95.8 ml LVPWd: 1.0 cm 6.5 cm2 ESV(Teich): LA dimension: 3.7 cm 60.5 ml EF(Teich): 36.8 % LVLd ap4: 8.1 cm SV(MOD-sp4): EDV(MOD-sp4): 21.0 ml 88.0 ml LVLs ap4: 7.6 cm ESV(MOD-sp4): 67.0 ml EF(MOD-sp4): 23.9 % Doppler Measurements & Calculations MV E max sandy: MV P1/2t max sandy: Ao V2 max: AI max sandy: 91.4 cm/sec 99.5 cm/sec 111.8 cm/sec 340.7 cm/sec MV A max sandy: MV P1/2t: 57.8 msec Ao max PG: AI max P.8 cm/sec 5.0 mmHg 46.4 mmHg MVA(P1/2t): 3.8 cm2 MV E/A: 3.0 MV dec slope: AI dec slope: 504.5 cm/sec2 185.2 cm/sec2 MV dec time: AI P1/2t: 0.16 sec 538.7 msec LV V1 max PG: PA V2 max: PI end-d sandy: TR max sandy: 1.1 mmHg 51.3 cm/sec 133.9 cm/sec 275.4 cm/sec LV V1 max: PA max P.1 mmHg TR max P.8 cm/sec 30.3 mmHg LV dP/dt: 606.0 mmHg/s AV P1/2t-pr_phl: MV P1/2t-pr_phl: 538.7 msec 57.8 msec Left Ventricle The left ventricle is mildly dilated. There is borderline concentric left ventricular hypertrophy. Left ventricular systolic function is severely reduced. The Ejection Fraction estimate is <20%. Doppler measurements suggest reversible restrictive left ventricular relaxation, which is associated with grade III/IV or moderate diastolic dysfunction. There is severe global hypokinesis of the left ventricle. There is apical wall akinesis. There is a small apical thrombus. Right Ventricle Borderline right ventricular enlargement. There is normal right ventricular wall thickness. The right ventricular systolic function is mildly reduced. Atria The right atrium is mildly dilated. The left atrium is mildly dilated. Interarterial septum not well visualized and not well dopplered. Cannot comment on ASD/PFO presence. Mitral Valve The mitral valve is grossly normal. There is no mitral valve stenosis. There is a moderate amount of mitral regurgitation. Aortic Valve The aortic valve is grossly normal. There is no aortic valve stenosis. There is a trace amount of aortic regurgitation. Tricuspid Valve The tricuspid valve is not well visualized, but is grossly normal. There is no tricuspid stenosis. There is a mild amount of tricuspid regurgitation. There is mild to moderate pulmonary hypertension by echo. Right ventricular systolic pressure is estimated to be elevated at 40-50mmHg. Pulmonic Valve The pulmonic valve is not well visualized. Great Vessels The aortic root is not well visualized but is probably normal size. The inferior vena cava appeared normal and decreased < 50% with respiration (RAP 10-15 mmHg). Effusions There is no pericardial effusion. : CHARLIE ARNOLD > Charlie Arnold
[2019-03-15] MEDS: ATORVASTATIN CALCIUM 20 MG TABLET PO SCH (21:15)
[2019-03-16] MEDS: METHYLPREDNISOLONE INJ 40 MG/1 ML SDV IV SCH (05:26)
[2019-03-16] MEDS: LEVALBUTEROL HCL NEB 0.63 MG/3 ML AMPUL NEB PRN ×3 (08:52→15:56)
[2019-03-16] MEDS ORDERED: DIGOXIN 0.125 MG TABLET PO SCH (10:00)
[2019-03-16] MEDS: FLUTICASONE/VILANTEROL 200-25 MCG/DOSE IH SCH (10:09)
[2019-03-16] MEDS: CHOLECALCIFEROL (D3) 1,000 UNIT TABLET PO SCH (10:11)
[2019-03-16] MEDS: FUROSEMIDE 40 MG TABLET PO SCH (10:11)
[2019-03-16] MEDS: SACUBITRIL/VALSARTAN 24 MG/26 MG TABLET PO SCH ×2 (10:11→18:14)
[2019-03-16] MEDS: LIDOCAINE 5% (700 MG) TRANSDERMAL ADH..PATCH TP SCH (10:11)
[2019-03-16] MEDS: FAMOTIDINE 20 MG TABLET PO SCH ×2 (10:12→21:18)
[2019-03-16] MEDS: NYSTATIN CREAM 15 GM TOP SCH ×2 (10:12→21:18)
[2019-03-16] MEDS: LORATADINE 10 MG TABLET PO SCH (10:12)
[2019-03-16] MEDS: CYANOCOBALAMIN (VITAMIN B-12) 1,000 MCG TABLET PO SCH (10:12)
[2019-03-16] MEDS: FERROUS SULFATE 325 MG TABLET PO SCH (10:12)
[2019-03-16] MEDS: PREDNISONE 20 MG TABLET PO SCH (10:12)
[2019-03-16] MEDS: APIXABAN 2.5 MG TABLET PO SCH ×2 (10:13→18:14)
--- NOTE | 2019-03-16 15:47 | PDOC PROGRESS REPORT ---
Subjective Progress Note for:: 03/16/19 Subjective:: No adverse events overnight. No new complaints. She likes to talk and she will talk a lot but then she has to catch her breath for a minute. No coughing. No sputum production. No complaints of any wheezing or chest tightness. Reason For Visit: COPD EXACERBATION Physical Exam Vital Signs: Temp Pulse Resp BP Pulse Ox 97.4 F 108 H 20 115/63 96 03/16/19 11:51 03/16/19 12:27 03/16/19 12:27 03/16/19 11:51 03/16/19 12:27 Intake & Output 03/15/19 03/16/19 03/17/19 06:59 06:59 06:59 Intake Total 595 1280 720 Balance 595 1280 720 Weight 48.4 kg 46.2 kg General appearance: PRESENT: no acute distress, cooperative Respiratory exam: PRESENT: Bibasilar crackles, symmetrical, unlabored. ABSENT: accessory muscle use, prolonged expiratory phase, rhonchi, tachypnea, wheezes Cardiovascular exam: PRESENT: irregular rhythm Pulses: PRESENT: normal carotid pulses Vascular exam: PRESENT: normal capillary refill GI/Abdominal exam: PRESENT: normal bowel sounds, soft. ABSENT: distended, gu arding, rebound, tenderness Extremities exam: ABSENT: clubbing, pedal edema Musculoskeletal exam: PRESENT: normal inspection. ABSENT: deformity Neurological exam: PRESENT: alert, awake, oriented to person, oriented to place, oriented to situation Psychiatric exam: PRESENT: appropriate affect, normal mood Skin exam: PRESENT: dry, warm Results Laboratory Results: 03/15/19 04:33 03/15/19 04:33 03/15/19 16:30 Carbonic Acid 1.00 L HCO3/H2CO3 Ratio 21:1 ABG pH 7.43 ABG pCO2 33.3 L ABG pO2 157.9 H ABG HCO3 21.8 ABG O2 Saturation 99.1 H ABG Base Excess -1.7 FiO2 4 L 03/14/19 03/14/19 03/14/19 15:18 15:18 21:43 Creatine Kinase 78 83 CK-MB (CK-2) 2.29 Troponin I 0.037 NT-Pro-B Natriuret Pep 03/14/19 03/15/19 03/15/19 21:43 04:33 04:33 Creatine Kinase 107 CK-MB (CK-2) 2.18 3.52 Troponin I 0.047 0.027 NT-Pro-B Natriuret Pep [address] H Impressions: Chest X-Ray 03/14/19 15:05 IMPRESSION: Cardiomegaly without acute abnormality of the lungs in AP projection. Assessment and Plan - Diagnosis (1) Acute respiratory failure Qualifiers: Respiratory failure complication: hypoxia Qualified Code(s): J96.01 - Acute respiratory failure with hypoxia Is this a current diagnosis for this admission?: Yes Plan: Acute on chronic respiratory failure with hypoxia. Normally on 2.5 liters per nasal cannula, currently on 3.5. Will wean as tolerated. (2) COPD exacerbation Is this a current diagnosis for this admission?: Yes Plan: We have de-escalated her to prednisone. Continue breathing treatments. (3) Atrial fibrillation Qualifiers: Atrial fibrillation type: paroxysmal Qualified Code(s): I48.0 - Paroxysmal atrial fibrillation Is this a current diagnosis for this admission?: Yes Plan: Rate is well controlled at this time. (4) Chronic diastolic CHF (congestive heart failure) Is this a current diagnosis for this admission?: Yes Plan: P.o. Lasix was increased to 40 mg twice a day. 1500 mL's per day fluid restriction. Continue medical optimization. - Time Time Spent with patient: 15-24 minutes
[2019-03-16] MEDS: CEFTRIAXONE 2 GM/D5W RTU 2 GM/50 ML RTUPB IV SCH (18:14)
[2019-03-16] MEDS: ATORVASTATIN CALCIUM 20 MG TABLET PO SCH (21:18)
[2019-03-17] MEDS: LEVALBUTEROL HCL NEB 0.63 MG/3 ML AMPUL NEB PRN (08:45)
[2019-03-17] MEDS: FUROSEMIDE 40 MG TABLET PO SCH (09:21)
[2019-03-17] MEDS: FERROUS SULFATE 325 MG TABLET PO SCH (09:21)
[2019-03-17] MEDS: PREDNISONE 20 MG TABLET PO SCH (09:21)
[2019-03-17] MEDS: LORATADINE 10 MG TABLET PO SCH (09:21)
[2019-03-17] MEDS: CHOLECALCIFEROL (D3) 1,000 UNIT TABLET PO SCH (09:21)
[2019-03-17] MEDS: APIXABAN 2.5 MG TABLET PO SCH (09:21)
[2019-03-17] MEDS: CYANOCOBALAMIN (VITAMIN B-12) 1,000 MCG TABLET PO SCH (09:21)
[2019-03-17] MEDS: FAMOTIDINE 20 MG TABLET PO SCH (09:21)
[2019-03-17] MEDS: SACUBITRIL/VALSARTAN 24 MG/26 MG TABLET PO SCH (09:21)
[2019-03-17] MEDS: LIDOCAINE 5% (700 MG) TRANSDERMAL ADH..PATCH TP SCH (09:22)
[2019-03-17] MEDS: NYSTATIN CREAM 15 GM TOP SCH (09:22)
[2019-03-17] MEDS: FLUTICASONE/VILANTEROL 200-25 MCG/DOSE IH SCH (09:22)
[2019-03-17 11:21] VITALS: BP 115/63
--- NOTE | 2019-03-17 16:58 | PDOC DISCHARGE SUMMARY ---
General - Admit/Disc Date/PCP Admission Date/Primary Care Provider: 03/14/19 18:47 ITA MUÑOZ PA-C Discharge Date: 03/17/19 - Discharge Diagnosis (1) Acute respiratory failure Is this a current diagnosis for this admission?: Yes Summary: Acute on chronic, back to her baseline (2) COPD exacerbation Is this a current diagnosis for this admission?: Yes Summary: [place] to be more likely as a result of CHF and COPD, steroids were discontinued (3) Atrial fibrillation Is this a current diagnosis for this admission?: Yes Summary: Rate is controlled without the use of rate controlling agents, she is anticoagulated (4) Chronic diastolic CHF (congestive heart failure) Is this a current diagnosis for this admission?: Yes Summary: She was acutely exacerbated with some fluid overload, her home Lasix was increased and she was started on Entresto in addition to her other medications. Beta-blockers have been held because of her advanced COPD. - Additional Information Resuscitation Status: Do Not Resuscitate Discharge Diet: Cardiac Discharge Activity: Supervised Activity Prescriptions: Furosemide [Lasix 40 mg Tablet] 40 mg PO DAILY #30 tablet Sacubitril/Valsartan [Entresto 24 mg/26 mg Tablet] 1 tab PO BID #60 tablet Home Medications: Apixaban [Eliquis 2.5 mg Tablet] 2.5 mg PO Q12 03/15/19 Aspirin [Adult Low Dose Aspirin EC] 81 mg PO DAILY 03/15/19 Atorvastatin Calcium [Lipitor 20 mg Tablet] 20 mg PO QHS 03/15/19 Fluticasone Propionate [Flonase Nasal Winston 50 Mcg/Winston 16 gm] 1 spray NASL Q12 03/15/19 Fluticasone/Salmeterol [Advair 500-50 Diskus 14 Dose/Diskus] 1 puff IH BID 03/15/19 Ipratropium/Albuterol Sulfate [Combivent Respimat 4 gm Mdi] 2 puff IH BID 03/15/19 Levalbuterol HCl [Xopenex Neb 0.63 mg/3 ml Ampul] 0.63 mg NEB RTQ6HP PRN 03/15/19 Levalbuterol Tartrate [Xopenex Hfa] 1 puff IH Q4 03/15/19 Loratadine [Claritin 10 mg Tablet] 10 mg PO DAILY 03/15/19 Ondansetron HCl [Zofran 4 mg Tablet] 1 tab PO Q8HP PRN 03/15/19 Potassium Chloride [Klor-Con 10 Meq Capsule ER] 20 meq PO DAILY 03/15/19 Tiotropium [place] [Spiriva Handihaler 5 Cap/Kit (18 Mcg/Cap)] 1 cap IH DAILY 03/15/19 Furosemide [Lasix 40 mg Tablet] 40 mg PO DAILY #30 tablet 03/17/19 Sacubitril/Valsartan [Entresto 24 mg/26 mg Tablet] 1 tab PO BID #60 tablet 03/17/19 History of Present Illness History of Present Illness: SHAWN GORDON is a 83 year old female with history of COPD on 2 1/2 L oxygen, atrial fibrillation, congestive heart failure, hypertension on Eliquis with questionable history of echocardiogram showing blood clots as per the patient's came to the emergency room with complaints of increasing shortness of breath for the last 1 week. The shortness of breath became so severe today patient and family decided to came to the ER for further evaluation. is given the history that she is also coughing up mucus is yellowish color denies any chest pains denies any dizziness denies any headaches nauseated but denies any vomiting diarrhea or abdominal pain. Denies any urinary problems. Denies any recent rashes. Emergency room she required BiPAP because of the low pulse oxes patient was tachypneic with respiratory rate in between 35-40. At the time of my examination patient is still on BiPAP. Hospital Course Hospital Course: She had a repeat BNP which was greater than 30,000. Her EF appears to have gotten a little bit worse since her last echocardiogram. It was down below 20% along with pulmonary hypertension and right ventricular dysfunction as well. She was given a few doses of some IV Lasix and her breathing improved. Her home dose of Lasix was also increased. She was started on Entresto and her blood pressure seems to be tolerating it so far. Again, as noted above, beta-blockers not being used in her because of her advanced COPD. Because of her depressed EF, calcium channel blockers are also not being used. Fortunately she has not had too much trouble with rate control for her atrial fibrillation. She is anticoagulated and will continue her Eliquis. She has excellent home support. Her labs and exam are reassuring and she was discharged in good condition. 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 Hayward in 3 to 5 days for some blood work to make sure she is tolerating the increased dose of Lasix. Physical Exam Vital Signs: Temp Pulse Resp BP Pulse Ox 97.7 F 109 H 22 H 115/63 97 03/17/19 11:17 03/17/19 11:17 03/17/19 11:17 03/17/19 11:17 03/17/19 11:17 Intake & Output 03/16/19 03/17/19 03/18/19 06:59 06:59 06:59 Intake Total 1280 1598 Output Total 358 Balance 1280 1240 Weight 46.2 kg 44.2 kg General appearance: PRESENT: no acute distress, cooperative Respiratory exam: PRESENT: Bibasilar crackles which I think are chronic from scarring, symmetrical, unlabored. ABSENT: accessory muscle use, prolonged expiratory phase, rhonchi, tachypnea, wheezes Cardiovascular exam: PRESENT: irregular rhythm Pulses: PRESENT: normal carotid pulses Vascular exam: PRESENT: normal capillary refill GI/Abdominal exam: PRESENT: normal bowel sounds, soft. ABSENT: distended, guarding, rebound, tenderness Extremities exam: ABSENT: clubbing, pedal edema Musculoskeletal exam: PRESENT: normal inspection. ABSENT: deformity Neurological exam: PRESENT: alert, awake, oriented to person, oriented to place, oriented to situation Psychiatric exam: PRESENT: appropriate affect, normal mood Skin exam: PRESENT: dry, warm Results Laboratory Results: 03/15/19 04:33 03/15/19 04:33 03/14/19 03/14/19 03/14/19 15:18 15:18 21:43 Creatine Kinase 78 83 CK-MB (CK-2) 2.29 Troponin I 0.037 NT-Pro-B Natriuret Pep 03/14/19 03/15/19 03/15/19 21:43 04:33 04:33 Creatine Kinase 107 CK-MB (CK-2) 2.18 3.52 Troponin I 0.047 0.027 NT-Pro-B Natriuret Pep 88855 H Impressions: Chest X-Ray 03/14/19 15:05 IMPRESSION: Cardiomegaly without acute abnormality of the lungs in AP projection. Qualifiers - * PATIENT BEING DISCHARGED WITH ANY OF THE FOLLOWING DIAGNOSIS: No Acute Heart Failure - Is this a Heart Failure Patient?: Yes Documentation of LVEF assessment?: Yes LVEF < 40%?: Yes-if yes answer questions a through e a) Discharged on ACEI?: N/A Discharged on ARNI b) Discharges on ARB?: N/A-Discharged on ARNI c) Discharged on ARNI?: Yes d) Discharged on evidence-based Beta [place](carvedilol, sustained release metoprolol succinate, or bisoprolol)?: No, document contraindications Reason(s) not discharged on Evidence-Based Beta Blockers (carvedilol, sustained released metoprolol succinate, or bisoprolol): Severe COPD/Asthma e) For LVEF <35%, discharged on Aldosterone antagonist?: No-document contraincations Reason(s) not discharged on Aldosterone antagonist for LVEF < 35%: Other - Hypotension 3. Anticoagulant therapy for permanect/persistent/paraoxysmal Afib or Aflutter: Yes Follow-up Appointment scheduled within 7 days?: Yes Plan Time Spent: Greater than 30 Minutes
== END 2019-03-17 12:29 | disposition home or self-care (01) | DRG 190 ==
LOC: ER 15:00 → EH 18:47 → 3S 21:12
PROVIDERS: ADMIT Internal Medicine; ATTEND Internal Medicine
PROC: 5A09357 Assistance with Respiratory Ventilation, Less than 24 Consecutive Hours, Continuous Positive Airway Pressure (ICD-10-PCS; principal; 2019-03-14)
DX: J44.1 Chronic obstructive pulmonary disease with (acute) exacerbation (principal); I50.43 Acute on chronic combined systolic (congestive) and diastolic (congestive) heart failure; J96.21 Acute and chronic respiratory failure with hypoxia; I42.9 Cardiomyopathy, unspecified; I27.20 Pulmonary hypertension, unspecified; I11.0 Hypertensive heart disease with heart failure; I48.0 Paroxysmal atrial fibrillation; Z99.81 Dependence on supplemental oxygen; R50.9 Fever, unspecified; Z66 Do not resuscitate; D72.829 Elevated white blood cell count, unspecified; Z79.01 Long term (current) use of anticoagulants; Z79.82 Long term (current) use of aspirin; Z79.51 Long term (current) use of inhaled steroids; I25.2 Old myocardial infarction; Z95.5 Presence of coronary angioplasty implant and graft; Z87.891 Personal history of nicotine dependence; Z82.49 Family history of ischemic heart disease and other diseases of the circulatory system
CPT/HCPCS: 36415; 71045; 80053; 80061; 81001; 82550; 82553; 82803; 83036; 83880; 84443; 84484; 85025; 87040; 93005; 93010; 93306; 94640; 94660; 94667; 94668; 96374; 99285; J0696; J2405; J2920; J2930; J3490; J7512; J7614; J7620

== ENCOUNTER → 2019-10-01 | Outpatient (CLI) | payer MEDICARE, OTHER ==
[2019-10-01 10:07] LABS: HEMATOCRIT 37.1 % (36.0-47.0); HEMOGLOBIN 12.5 g/dL (12.0-15.5); MEAN CORPUSCULAR HEMOGLOBIN 30.9 pg (27.0-33.4); MEAN CORPUSCULAR HGB CONC 33.7 g/dL (32.0-36.0); MEAN CORPUSCULAR VOLUME 92 fl (80-97); PLATELET COUNT 279 10^3/uL (150-450); RED BLOOD COUNT 4.05 10^6/uL (3.72-5.28)
[2019-10-01 10:32] LABS: ANION GAP 10 (5-19); BLOOD UREA NITROGEN 20 mg/dL (7-20); CALCIUM 9.5 mg/dL (8.4-10.2); CARBON DIOXIDE 24 mmol/L (22-30); CHLORIDE 104 mmol/L (98-107); GLUCOSE 95 mg/dL (75-110); POTASSIUM 4.5 mmol/L (3.6-5.0)
== END ==
LOC: OD 09:03
PROVIDERS: ATTEND Internal Medicine Nephrology
DX: I12.9 Hypertensive chronic kidney disease with stage 1 through stage 4 chronic kidney disease, or unspecified chronic kidney disease (principal); N18.3 Chronic kidney disease, stage 3 (moderate); D63.1 Anemia in chronic kidney disease
CPT/HCPCS: 36415; 80048; 83735; 85027

== ENCOUNTER 2020-08-01 10:59 | Inpatient (IN) | payer MEDICARE, OTHER ==
[2020-08-01] MEDS ORDERED: IPRATROPIUM/ALBUTEROL 0.5-2.5 MG/3 ML AMPUL NEB ONE (11:19)
--- NOTE | 2020-08-01 11:23 | ER Document Report ---
ED Medical Screen (RME) - General Chief Complaint: Leg Swelling Stated Complaint: LEG/FEE SWELLING, SOB, URINARY ISSUE Time Seen by Provider: 08/01/20 11:15 Primary Care Provider: Rossi AMAYA MD [Primary Care Provider] - Follow up as needed TRAVEL OUTSIDE OF THE [place] IN LAST 30 DAYS: No - HPI Notes: 08/01/20 11:21 85-year-old female with a history of atrial fibrillation on Eliquis, COPD, hypertension, chronic kidney disease, hyperlipidemia presents to the emergency room today with her for complaints of shortness of breath that started she lays down, she has been using her inhaler which has not been helping, she is also having bilateral lower leg edema and also complaining of dysuria. Patient has been on 2 different antibiotics to treat her UTI, she still having urgency frequency, they do have an appointment with urologist but is not till September 17, 2020. They did do a urinalysis in office and it was normal. Patient is oxygen dependent at home, wears 4 L. Patient does follow with Dr. Hayward, senior abap developer whose PA advised her to come to the emergency room for further evaluation of her shortness of breath. Denies any Covid exposure. Denies any fevers or chills. Patient did do a breathing treatment prior to arrival of the emergency room I have greeted and performed a rapid initial assessment of this patient. A comprehensive ED assessment and evaluation of the patient, analysis of test results and completion of the medical decision making process will be conducted by additional ED providers. PHYSICAL EXAMINATION: GENERAL: Chronically ill malnourished and in no acute distress. HEAD: Atraumatic, normocephalic. CV: s1, s2 regular LUNGS: Wheezing in upper lungs Musculoskeletal: Normal range of motion NEUROLOGICAL: Normal speech, SKIN: Warm, Dry, normal turgor, no rashes or lesions noted. 08/01/20 11:23 - Related Data Allergies/Adverse Reactions: No Known Allergies Allergy (Verified 03/14/19 15:55) Past Medical History - Past Medical History Cardiac Medical History: Reports: Hx Atrial Fibrillation, Hx Congestive Heart Failure - Chronic diastolic CHF, Hx Heart Attack, Hx Hypercholesterolemia, Hx Hypertension Pulmonary Medical History: Reports: Hx COPD - Chronic respiratory failure on 2 L oxygen at home, Hx Respiratory Failure Renal/ Medical History: Reports: Hx Kidney Stones. Denies: Hx Peritoneal Dialysis GI Medical History: Reports: Hx Cirrhosis Psychiatric Medical History: Reports: Hx Anxiety Denies: Hx Depression Past Surgical History: Reports: Hx Appendectomy, Hx Breast Surgery, Hx Coronary Stent, Hx Hysterectomy, Hx Neurologic Surgery - brain surg x2 for aneursym, Hx Orthopedic Surgery Physical Exam - Vital signs Vitals: Temp Pulse Resp BP Pulse Ox 97.4 F 99 18 93/60 L 95 08/01/20 11:12 08/01/20 11:12 08/01/20 11:12 08/01/20 11:12 08/01/20 11:12 Course - Vital Signs Vital signs: Temp Pulse Resp BP Pulse Ox 97.4 F 99 18 93/60 L 95 08/01/20 11:12 08/01/20 11:12 08/01/20 11:12 08/01/20 11:12 08/01/20 11:12 Doctor's Discharge - Discharge Referrals: Rossi AMAYA MD [Primary Care Provider] - Follow up as needed
[2020-08-01 12:15] LABS: ABSOLUTE EOSINOPHILS # (AUTO) 0.2 10^3/uL (0.0-0.6); ABSOLUTE LYMPHOCYTES (AUTO) 0.5 10^3/uL (0.5-4.7); ABSOLUTE MONOCYTES (AUTO) 0.5 10^3/uL (0.1-1.4); ABSOLUTE NEUT (AUTO) 4.1 10^3/uL (1.7-8.2); BASOPHILS % (AUTO) 0.9 % (0-2); HEMATOCRIT 39.9 % (36.0-47.0); MEAN CORPUSCULAR HEMOGLOBIN 27.3 pg (27.0-33.4); MEAN CORPUSCULAR HGB CONC 32.6 g/dL (32.0-36.0); MEAN CORPUSCULAR VOLUME 84 fl (80-97); MONOCYTES % (AUTO) 8.7 % (3-13); PLATELET COUNT 172 10^3/uL (150-450); RED BLOOD COUNT 4.76 10^6/uL (3.72-5.28); RED CELL DISTRIBUTION WIDTH 18.8 % (11.5-14.0); SEGMENTED NEUTROPHILS % (AUTO) 77.4 % (42-78); TOTAL CELLS COUNTED % (AUTO) 100 %; WHITE BLOOD COUNT 5.3 10^3/uL (4.0-10.5)
--- NOTE | 2020-08-01 12:35 | RADIOLOGY REPORT (SQ) ---
EXAM DESCRIPTION: CHEST SINGLE VIEW IMAGES COMPLETED DATE/TIME: 08/01/2020 12:17 pm REASON FOR STUDY: sob COMPARISON: 03/14/2019 NUMBER OF VIEWS: One view. TECHNIQUE: Single frontal radiographic view of the chest acquired. LIMITATIONS: Overlapping breast tissue. FINDINGS: LUNGS AND PLEURA: Chronic blunting of the left costophrenic angle. Calcified granuloma le ft upper lobe. No infiltrate. MEDIASTINUM AND HILAR STRUCTURES: No masses or contour abnormality. HEART AND VASCULATURE: Cardiac enlargement. Vascular congestion. BONES: No acute findings. HARDWARE: None in the chest. OTHER: No other significant finding. IMPRESSION: CARDIAC ENLARGEMENT. VASCULAR CONGESTION. TECHNICAL DOCUMENTATION: JOB ID: [id number] 2010 [employer]- All Rights Reserved Reading location - IP/workstation name: [email or web address]
[2020-08-01 14:49] LABS: ALBUMIN 3.7 g/dL (3.5-5.0); ALKALINE PHOSPHATASE 95 U/L (38-126); ANION GAP 14 (5-19); ASPARTATE AMINO TRANSFERASE 50 U/L (14-36); BILIRUBIN,TOTAL 1.6 mg/dL (0.2-1.3); BLOOD UREA NITROGEN 38 mg/dL (7-20); CALCIUM 9.1 mg/dL (8.4-10.2); CARBON DIOXIDE 21 mmol/L (22-30); CHLORIDE 98 mmol/L (98-107); POTASSIUM 4.6 mmol/L (3.6-5.0)
[2020-08-01 14:51] LABS: GLUCOSE 69 mg/dL (75-110)
[2020-08-01 14:56] LABS: APPEARANCE,URINE CLEAR; BILIRUBIN,URINE NEGATIVE (NEGATIVE); COLOR,URINE YELLOW; GLUCOSE, URINE NEGATIVE (NEGATIVE); KETONES,URINE NEGATIVE (NEGATIVE); LEUKOCYTE ESTERASE,URINE TRACE (NEGATIVE); NITRITE,URINE NEGATIVE (NEGATIVE); PROTEIN,URINE NEGATIVE (NEGATIVE); URINE SPECIFIC GRAVITY 1.009; UROBILINOGEN,URINE NEGATIVE mg/dL (<2.0)
[2020-08-01 15:12] LABS: TROPONIN I 0.05 ng/mL
--- NOTE | 2020-08-01 15:38 | ER Document Report ---
ED General - General Chief Complaint: Leg Swelling Stated Complaint: LEG/FEE SWELLING, SOB, URINARY ISSUE Time Seen by Provider: 08/01/20 11:15 Primary Care Provider: Rossi AMAYA MD [ACTIVE STAFF] - Follow up as needed TRAVEL OUTSIDE OF THE [place] IN LAST 30 DAYS: No - HPI Notes: Chief complaint: Shortness of breath, increasing peripheral edema and urinary u rgency History of present illness: 85-year-old female followed by Sven Lira at [facility] with history of severe COPD and CHF with chronic respiratory failure maintained on 4 L of nasal O2 per minute at home and taking multiple medications including Lasix and Entresto. Patient also takes nebulizer treatments multiple times daily. She is a former smoker. Comes in today with increasing shortness of breath, peripheral edema and urinary urgency over the past 2 weeks. No chest pain. No sputum production. No fever. Home Medications: Apixaban [Eliquis 2.5 mg Tablet] 2.5 mg PO Q12 03/15/19 Aspirin [Adult Low Dose Aspirin EC] 81 mg PO DAILY 03/15/19 Atorvastatin Calcium [Lipitor 20 mg Tablet] 20 mg PO QHS 03/15/19 Fluticasone Propionate [Flonase Nasal [place] 50 Mcg/[place] 16 gm] 1 spray NASL Q12 03/15/19 Fluticasone/Salmeterol [Advair 500-50 Diskus 14 Dose/Diskus] 1 puff IH BID 03/15/19 Ipratropium/Albuterol Sulfate [Combivent Respimat 4 gm Mdi] 2 puff IH BID 03/15/19 Levalbuterol HCl [Xopenex Neb 0.63 mg/3 ml Ampul] 0.63 mg NEB RTQ6HP PRN 03/15/19 Levalbuterol Tartrate [Xopenex Hfa] 1 puff IH Q4 03/15/19 Loratadine [Claritin 10 mg Tablet] 10 mg PO DAILY 03/15/19 Ondansetron HCl [Zofran 4 mg Tablet] 1 tab PO Q8HP PRN 03/15/19 Potassium Chloride [Klor-Con 10 Meq Capsule ER] 20 meq PO DAILY 03/15/19 Tiotropium [place] [Spiriva Handihaler 5 Cap/Kit (18 Mcg/Cap)] 1 cap IH DAILY 03/15/19 Furosemide [Lasix 40 mg Tablet] 40 mg PO DAILY #30 tablet 03/17/19 Sacubitril/Valsartan [Entresto 24 mg/26 mg Tablet] 1 tab PO BID #60 tablet 03/17/19 - Related Data Allergies/Adverse Reactions: No Known Allergies Allergy (Verified 08/01/20 11:41) Past Medical History - General Information source: Patient, Relative, [facility] Records - Social History Smoking Status: Former Smoker Chew tobacco use (# tins/day): No Frequency of alcohol use: None Drug Abuse: None Family History: Reviewed & Not Pertinent, DM, Hypertension, Malignancy - Past Medical History Cardiac Medical History: Reports: Hx Atrial Fibrillation, Hx Congestive Heart Failure - Chronic diastolic CHF, Hx Heart Attack, Hx Hypercholesterolemia, Hx Hypertension Pulmonary Medical History: Reports: Hx COPD - Chronic respiratory failure on 2 L oxygen at home, Hx Respiratory Failure Renal/ Medical History: Reports: Hx Kidney Stones. Denies: Hx Peritoneal Dialysis GI Medical History: Reports: Hx Cirrhosis Psychiatric Medical History: Reports: Hx Anxiety Denies: Hx Depression Past Surgical History: Reports: Hx Appendectomy, Hx Breast Surgery, Hx Coronary Stent, Hx Hysterectomy, Hx Neurologic Surgery - brain surg x2 for aneursym, Hx Orthopedic Surgery - Immunizations Hx Pneumococcal Vaccination: 05/04/15 Review of Systems - Review of Systems Notes: GENERAL: Frail elderly female who is awake and alert on 4 L nasal O2 and appearing mildly dyspneic. SKIN: Good turgor no rashes. Scattered ecchymoses all 4 extremities. HEAD: Normocephalic atraumatic. EYES: PERRLA. EOMI. Conjunctivae and sclerae clear. EARS: CANALS AND TMS CLEAR. NOSE: CLEAR. MOUTH: Moist mucosa. Good dentition. No stridor or edema. No drooling. NECK: Supple. No masses or thyromegaly. No adenopathy. Carotids 2+ without bruits. 2+ JVD at 45 degrees elevation. BACK: Symmetrical without tenderness. CHEST: Mildly tachypneic . Few fine rales both bases. HEART: Regular rhythm. No murmur gallop or rub. ABDOMEN: Soft nontender with mild hepatomegaly and probable presence of ascites. Bowel sounds normally active. No bruits. EXTREMITIES: 1+ bilateral pretibial. No calf tenderness. Cap refill less than 1.5 seconds. Dorsalis pedis and posterior tibial pulses 3+ and symmetrical. NEUROLOGICAL: GCS 15. Alert and oriented x3. Fluent speech. Cranial nerves II through XII intact. Sensorimotor and cerebellar normal. Normal tone. PSYCHIATRIC: Appropriate affect. Physical Exam - Vital signs Vitals: Temp Pulse Resp BP Pulse Ox 97.4 F 99 18 93/60 L 95 08/01/20 11:12 08/01/20 11:12 08/01/20 11:12 08/01/20 11:12 08/01/20 11:12 Course - Re-evaluation Re-evalutation: 08/01/20 17:45 BNP has risen significantly. This lady has cardiomegaly and vascular congestion on her chest x-ray. Arterial blood gas shows satisfactory compensation with no new CO2 retention her troponin is minimally elevated and I think this is due to renal insufficiency. She has had no chest pain. Her BP is low chronically. I think she would benefit from additional diuresis and this would best be done in the hospital. I think primary problem at this point is decompensated heart failure. Plan was discussed with patient and her . They are agreeable to admission. I spoken with Dr. Hinds who agrees to admit patient to telemetry at this time. - Vital Signs Vital signs: Temp Pulse Resp BP Pulse Ox 97.4 F 99 22 H 113/83 97 08/01/20 11:12 08/01/20 11:12 08/01/20 17:12 08/01/20 17:12 08/01/20 17:12 - Laboratory Result Diagrams: 08/01/20 11:55 08/01/20 14:20 Laboratory results interpreted by me: 08/01/20 08/01/20 08/01/20 11:55 14:20 14:20 RDW 18.8 H Lymph % (Auto) 10.0 L ABG pO2 ABG O2 Saturation Sodium 132.6 L Carbon Dioxide 21 L BUN 38 H Creatinine 1.44 H Est GFR ( Amer) 42 L Est GFR (MDRD) Non-Af 35 L Glucose 69 L Total Bilirubin 1.6 H Direct Bilirubin 1.0 H AST 50 H NT-Pro-B Natriuret Pep 51199 H Ur Leukocyte Esterase 08/01/20 08/01/20 14:35 16:33 RDW Lymph % (Auto) ABG pO2 131.8 H ABG O2 Saturation 98.6 H Sodium Carbon Dioxide BUN Creatinine Est GFR ( Amer) Est GFR (MDRD) Non-Af Glucose Total Bilirubin Direct Bilirubin AST NT-Pro-B Natriuret Pep Ur Leukocyte Esterase TRACE H Discharge - Discharge Clinical Impression: Acute decompensated heart failure, COPD Condition: Fair Disposition: ADMITTED INPATIENT Admitting Provider: Lizet (Hospitalist) Unit Admitted: Telemetry Referrals: Rossi AMAYA MD [ACTIVE STAFF] - Follow up as needed
[2020-08-01 16:43] LABS: ARTERIAL BLOOD BASE EXCESS -2.3 mmol/L; ARTERIAL BLOOD FIO2 36%; ARTERIAL BLOOD H2CO3 1.14 mmol/L (1.05-1.35); ARTERIAL BLOOD HCO3 22.3 mmol/L (20-24); ARTERIAL BLOOD O2 SATURATION 98.6 % (94-98); ARTERIAL BLOOD PCO2 37.9 mmHg (35-45); ARTERIAL BLOOD PH 7.39 (7.35-7.45); ARTERIAL BLOOD PO2 131.8 mmHg (80-100); ARTERIAL BLOOD TOTAL CO2 23.4 mmol/L (21-25)
--- NOTE | 2020-08-01 17:46 | EKG REPORT ---
SEVERITY:- DEFECTIVE ECG - SINUS TACHYCARDIA ATRIAL PREMATURE COMPLEX NONSPECIFIC IVCD WITH LAD ABNRM R PROG, CONSIDER ASMI OR LEAD PLACEMENT LEAD PLACEMENT ERROR : Confirmed by: Nikko Royal MD 01-Aug-2020 17:46:05
[2020-08-01] MEDS ORDERED: ONDANSETRON 4 MG TAB.RAPDIS PO PRN (18:23)
[2020-08-01] MEDS ORDERED: ACETAMINOPHEN 325 MG TABLET PO PRN (18:23)
--- NOTE | 2020-08-01 19:05 | PDOC H&P ---
History of Present Illness Admission Date/PCP: 08/01/20 17:55 ITA MUÑOZ PA-C Patient complains of: Shortness of breath History of Present Illness: SHAWN GORDON is a 85 year old female, COPD on chronic oxygen support, congestive heart failure EF less than 30, atrial fibrillation, CKD who came to the ED today due to shortness of breath. The patient started to experience shortness of breath with orthopnea, and PND 3 days prior to admission. She also noted that she is edematous on her legs and has had to increase her oxygen to 4 L. She also complains of dysuria and has completed a 10-day course of ciprofloxacin and then another 10-day course of Macrobid which has not helped her symptoms. She denied any fever, chest pain, palpitations. According to her she recently had an echo about 2 months ago which showed that her EF is less than 30%. There has not been any change to her heart failure medications recently. She was tried on a LifeVest about a year ago but the patient was unable to use it hence it was discontinued. Follows with Dr. Hayward in the outpatient setting. In the emergency room, blood pressure 113/83, heart rate 99, respiratory rate of 20, O2 sat 98% on 4 L nasal cannula. CBC showed a WBC count of 5.3 hemoglobin of 13 platelet count 172. CMP showed sodium of 132.6 creatinine 1.44 baseline of around 1. BNP 40,000 her x-ray showed pulmonary vascular congestion. Hospitalist service was called for further evaluation and management. Patient was admitted for diuresis. Past Medical History Cardiac Medical History: Reports: Atrial Fibrillation, Congestive Heart Failure - Chronic diastolic CHF, Myocardial Infarction, Hyperlipidema, Hypertension Pulmonary Medical History: Reports: Chronic Obstructive Pulmonary Disease (COPD) - Chronic respiratory failure on 2 L oxygen at home, Respiratory Failure EENT Medical History: Reports: None Neurological Medical History: Reports: None Endocrine Medical History: Reports: None Renal/ Medical History: Reports: Chronic Kidney Disease Malignancy Medical History: Reports: None GI Medical History: Reports: Cirrhosis Musculoskeltal Medical History: Reports: None Skin Medical History: Reports: None Psychiatric Medical History: Reports: None Denies: Depression Past Surgical History Past Surgical History: Reports: Appendectomy, Coronary Stent, Hysterectomy, Orthopedic Surgery Social History Smoking Status: Former Smoker Electronic Cigarette use?: No Frequency of Alcohol Use: None Hx Recreational Drug Use: No Drugs: None Hx Prescription Drug Abuse: No Family History Family History: Reviewed & Not Pertinent, DM, Hypertension, Malignancy Parental Family History Reviewed: Yes Children Family History Reviewed: Yes Sibling(s) Family History Reviewed.: Yes Medication/Allergy Home Medications: Apixaban [Eliquis 2.5 mg Tablet] 2.5 mg PO Q12 03/15/19 Aspirin [Adult Low Dose Aspirin EC] 81 mg PO DAILY 03/15/19 Atorvastatin Calcium [Lipitor 20 mg Tablet] 20 mg PO QHS 03/15/19 Fluticasone Propionate [Flonase Nasal [place] 50 Mcg/[place] 16 gm] 1 spray NASL Q12 03/15/19 Fluticasone/Salmeterol [Advair 500-50 Diskus 14 Dose/Diskus] 1 puff IH BID 03/15/19 Ipratropium/Albuterol Sulfate [Combivent Respimat 4 gm Mdi] 2 puff IH BID 03/15/19 Levalbuterol HCl [Xopenex Neb 0.63 mg/3 ml Ampul] 0.63 mg NEB RTQ6HP PRN 03/15/19 Levalbuterol Tartrate [Xopenex Hfa] 1 puff IH Q4 03/15/19 Loratadine [Claritin 10 mg Tablet] 10 mg PO DAILY 03/15/19 Ondansetron HCl [Zofran 4 mg Tablet] 1 tab PO Q8HP PRN 03/15/19 Potassium Chloride [Klor-Con 10 Meq Tablet ER] 20 meq PO DAILY 03/15/19 Tiotropium [place] [Spiriva Handihaler 5 Cap/Kit (18 Mcg/Cap)] 1 cap IH DAILY 03/15/19 Furosemide [Lasix 40 mg Tablet] 40 mg PO DAILY #30 tablet 03/17/19 Sacubitril/Valsartan [Entresto 24 mg/26 mg Tablet] 1 tab PO BID #60 tablet 03/17/19 Allergies/Adverse Reactions: No Known Allergies Allergy (Verified 08/01/20 11:41) Review of Systems Constitutional: PRESENT: weight gain Eyes: ABSENT: visual disturbances Ears: ABSENT: hearing changes Nose, Mouth, and Throat: ABSENT: headache(s) Cardiovascular: PRESENT: dyspnea on exertion, edema, orthropnea. ABSENT: chest pain, palpitations Respiratory: PRESENT: dyspnea. ABSENT: cough, hemoptysis Gastrointestinal: PRESENT: abdominal pain, heartburn. ABSENT: diarrhea, hematemesis Neurological: ABSENT: confusion Psychiatric: ABSENT: hallucinations Physical Exam Vital Signs: Temp Pulse Resp BP Pulse Ox 97.4 F 99 22 H 113/83 97 08/01/20 11:12 08/01/20 11:12 08/01/20 18:00 08/01/20 17:12 08/01/20 18:00 Intake & Output 07/31/20 08/01/20 08/02/20 06:59 06:59 05:59 Weight 44.906 kg General appearance: PRESENT: cooperative, mild distress, thin Head exam: PRESENT: atraumatic, normocephalic Eye exam: PRESENT: EOMI, PERRLA Mouth exam: PRESENT: moist Neck exam: PRESENT: full ROM Respiratory exam: PRESENT: crackles, rales, symmetrical. ABSENT: tachypnea, wheezes Cardiovascular exam: PRESENT: RRR, +S1, +S2 Pulses: PRESENT: +2 pedal pulses bilateral GI/Abdominal exam: PRESENT: distended, soft. ABSENT: rebound, tenderness Extremities exam: PRESENT: +2 edema Musculoskeletal exam: PRESENT: full ROM Neurological exam: PRESENT: alert, awake, oriented to person, oriented to place, oriented to time, oriented to situation Psychiatric exam: PRESENT: normal mood Skin exam: PRESENT: normal color Results Laboratory Results: 08/01/20 11:55 08/01/20 14:20 08/01/20 08/01/20 08/01/20 11:55 11:55 12:30 WBC 5.3 RBC 4.76 Hgb 13.0 Hct 39.9 MCV 84 MCH 27.3 MCHC 32.6 RDW 18.8 H Plt Count 172 Seg Neutrophils % 77.4 Carbonic Acid HCO3/H2CO3 Ratio ABG pH ABG pCO2 ABG pO2 ABG HCO3 ABG O2 Saturation ABG Base Excess FiO2 Sodium Cancelled Cancelled Potassium Cancelled Cancelled Chloride Cancelled Cancelled Carbon Dioxide Cancelled Cancelled Anion Gap Cancelled Cancelled BUN Cancelled Cancelled Creatinine Cancelled Cancelled Est GFR ( Amer) Cancelled Cancelled Est GFR (Non-Af Amer) Cancelled Cancelled Glucose Cancelled Cancelled Calcium Cancelled Cancelled Total Bilirubin Cancelled Cancelled AST Cancelled Cancelled Alkaline Phosphatase Cancelled Cancelled Total Protein Cancelled Cancelled Albumin Cancelled Cancelled Urine Color Urine Appearance Urine pH Ur Specific [place] Urine Protein Urine Glucose (UA) Urine Ketones Urine Blood Urine Nitrite Ur Leukocyte Esterase Urine WBC (Auto) Urine RBC (Auto) 08/01/20 08/01/20 08/01/20 14:20 14:35 16:33 WBC RBC Hgb Hct MCV MCH MCHC RDW Plt Count Seg Neutrophils % Carbonic Acid 1.14 HCO3/H2CO3 Ratio 19:1 ABG pH 7.39 ABG pCO2 37.9 ABG pO2 131.8 H ABG HCO3 22.3 ABG O2 Saturation 98.6 H ABG Base Excess -2.3 FiO2 36% Sodium 132.6 L Potassium 4.6 Chloride 98 Carbon Dioxide 21 L Anion Gap 14 BUN 38 H Creatinine 1.44 H Est GFR ( Amer) 42 L Est GFR (Non-Af Amer) Glucose 69 L Calcium 9.1 Total Bilirubin 1.6 H AST 50 H Alkaline Phosphatase 95 Total Protein 7.0 Albumin 3.7 Urine Color YELLOW Urine Appearance CLEAR Urine pH 5.0 Ur Specific [place] 1.009 Urine Protein NEGATIVE Urine Glucose (UA) NEGATIVE Urine Ketones NEGATIVE Urine Blood NEGATIVE Urine Nitrite NEGATIVE Ur Leukocyte Esterase TRACE H Urine WBC (Auto) 3 Urine RBC (Auto) 0 08/01/20 08/01/20 08/01/20 11:55 12:30 14:20 Troponin I Cancelled Cancelled 0.050 NT-Pro-B Natriuret Pep Cancelled Cancelled [id number] H Impressions: Chest X-Ray 08/01/20 11:17 IMPRESSION: CARDIAC ENLARGEMENT. VASCULAR CONGESTION. Assessment and Plan - Diagnosis (1) Combined systolic and diastolic congestive heart failure Qualifiers: Heart failure chronicity: acute on chronic Qualified Code(s): I50.43 - Acute on chronic combined systolic (congestive) and diastolic (congestive) heart failure Is this a current diagnosis for this admission?: Yes Plan: -History of CHF combined systolic and diastolic -Last echo about a month and half ago and Dr. Hayward's office according to the EF is less than 30%. -She has tried LifeVest a year ago but she was unable to operated so it was di scontinued -Coming in due to shortness of breath, orthopnea, weight gain -X-ray showed pulmonary vascular congestion -BNP 40,000 -Trop 0.5 -EKG sinus tachycardia premature atrial complex -Started on Lasix 40 IV twice daily for diuresis -Continue Entresto, atorvastatin for her heart failure -Dr. Hayward consulted -Hold off on repeat echo since she just had 1 a few weeks ago -Fluid restriction -Daily weights -Strict I&O's (2) Pulmonary vascular congestion Is this a current diagnosis for this admission?: Yes Plan: - 2/2 decompensated CHF - BNP 40,000 - will diurese withlasix 40 IV BID (3) Chronic respiratory failure with hypoxia Is this a current diagnosis for this admission?: Yes Plan: - chronically on O2 support 4L NC for chronic resp failure 2/2 COPD - CXR pulm vascular congestion (4) COPD (chronic obstructive pulmonary disease) Qualifiers: COPD type: emphysema Qualified Code(s): J44.9 - Chronic obstructive pulmonary disease, unspecified Is this a current diagnosis for this admission?: Yes Plan: - not in exacerbation - CXR pulm vascular congestion - continue fluticasone/salmetarol and tiotropium - PRN duoneb (5) Acute kidney injury superimposed on CKD Is this a current diagnosis for this admission?: Yes Plan: Crea 1.4 baseline 0.5 - likely cardiorenal since she is on decompensated HF - will diureses to improve hemodynamics and monitor crea (6) Paroxysmal atrial fibrillation Is this a current diagnosis for this admission?: Yes Plan: - continue eliquis (7) Hx: UTI (urinary tract infection) Is this a current diagnosis for this admission?: Yes Plan: -Has been having dysuria for several weeks now -Has completed 10-day course of Cipro and after that another 10-day course of Macrobid with minimal symptom improvement -Urinalysis no signs of UTI -We will resume oxybutynin - Time Time Spent with patient: 35 or more minutes Medications reviewed and adjusted accordingly: Yes Anticipated Discharge Disposition: Home with Home Health Anticipated Discharge Timeframe: to be determined - Inpatient Certification Medical Necessity: Need Close Monitoring Due to Risk of Patient Decompensation
[2020-08-01] MEDS: APIXABAN 2.5 MG TABLET PO SCH (21:38)
[2020-08-01] MEDS: ATORVASTATIN CALCIUM 20 MG TABLET PO SCH (21:38)
[2020-08-01] MEDS: FUROSEMIDE INJ/PF 40 MG/4 ML SDV IV SCH (21:40)
[2020-08-01] MEDS ORDERED: FLUTICASONE NASAL SPRAY 50 MCG/SPRY 120 SPRAY/16 GM ONE (21:41)
[2020-08-01] MEDS: FLUTICASONE NASAL SPRAY 50 MCG/SPRY 120 SPRAY/16 GM NASL SCH (21:52)
[2020-08-01] MEDS: DEXTROSE 40% GEL 15 GM TUBE PO PRN (22:32)
[2020-08-01] MEDS ORDERED: DEXTROSE 40% GEL 15 GM TUBE ONE (22:32)
[2020-08-01] MEDS ORDERED: DEXTROSE 50%-WATER SYRINGE 25 GM/50 ML DOSE IV PRN (23:30)
[2020-08-01] MEDS ORDERED: GLUCAGON,HUMAN RECOMB 1 MG INJ IM PRN (23:30)
[2020-08-01] MEDS ORDERED: DEXTROSE 40% GEL 15 GM TUBE X 2 PO PRN (23:30)
[2020-08-02] MEDS: IPRATROPIUM/ALBUTEROL 0.5-2.5 MG/3 ML AMPUL NEB PRN ×3 (02:04→17:57)
[2020-08-02 04:25] LABS: ABSOLUTE EOSINOPHILS # (AUTO) 0.2 10^3/uL (0.0-0.6); ABSOLUTE LYMPHOCYTES (AUTO) 0.7 10^3/uL (0.5-4.7); ABSOLUTE MONOCYTES (AUTO) 0.6 10^3/uL (0.1-1.4); ABSOLUTE NEUT (AUTO) 3.2 10^3/uL (1.7-8.2); BASOPHILS % (AUTO) 0.7 % (0-2); EOSINOPHILS % (AUTO) 3.9 % (0-6); HEMATOCRIT 37.7 % (36.0-47.0); HEMOGLOBIN 12.2 g/dL (12.0-15.5); LYMPHOCYTES % (AUTO) 14.3 % (13-45); MEAN CORPUSCULAR HEMOGLOBIN 27.2 pg (27.0-33.4); MEAN CORPUSCULAR HGB CONC 32.4 g/dL (32.0-36.0); MEAN CORPUSCULAR VOLUME 84 fl (80-97); MONOCYTES % (AUTO) 12.1 % (3-13); PLATELET COUNT 151 10^3/uL (150-450); RED CELL DISTRIBUTION WIDTH 18.9 % (11.5-14.0); TOTAL CELLS COUNTED % (AUTO) 100 %; WHITE BLOOD COUNT 4.6 10^3/uL (4.0-10.5)
[2020-08-02 05:32] LABS: ALBUMIN 3.5 g/dL (3.5-5.0); ALKALINE PHOSPHATASE 98 U/L (38-126); ANION GAP 16 (5-19); ASPARTATE AMINO TRANSFERASE 43 U/L (14-36); BILIRUBIN,DIRECT 0.8 mg/dL (0.0-0.4); BILIRUBIN,TOTAL 1.4 mg/dL (0.2-1.3); BLOOD UREA NITROGEN 39 mg/dL (7-20); CALCIUM 9.3 mg/dL (8.4-10.2); CARBON DIOXIDE 22 mmol/L (22-30); CHLORIDE 98 mmol/L (98-107); GLUCOSE 88 mg/dL (75-110); POTASSIUM 4.1 mmol/L (3.6-5.0); TOTAL PROTEIN 6.5 g/dL (6.3-8.2)
[2020-08-02] MEDS: LORATADINE 10 MG TABLET PO SCH (10:03)
[2020-08-02] MEDS: APIXABAN 2.5 MG TABLET PO SCH ×2 (10:03→22:47)
[2020-08-02] MEDS: ASPIRIN 81 MG TABLET, ENT COATED PO SCH (10:03)
[2020-08-02] MEDS: POTASSIUM CHLORIDE 10 MEQ TABLET.ER PO SCH (10:03)
[2020-08-02] MEDS: SACUBITRIL/VALSARTAN 24 MG/26 MG TABLET PO SCH ×2 (10:04→17:55)
[2020-08-02] MEDS: UMECLIDINIUM BROMIDE 62.5 MCG/DOSE IH SCH (10:04)
[2020-08-02] MEDS: FUROSEMIDE INJ/PF 40 MG/4 ML SDV IV SCH ×2 (10:04→22:46)
[2020-08-02] MEDS: FLUTICASONE NASAL SPRAY 50 MCG/SPRY 120 SPRAY/16 GM NASL SCH ×2 (10:04→22:47)
[2020-08-02] MEDS: FLUTICASONE/VILANTEROL 200-25 MCG/DOSE IH SCH (10:05)
--- NOTE | 2020-08-02 15:33 | PDOC PROGRESS REPORT ---
Subjective Progress Note for:: 08/02/20 Subjective:: SHAWN GORDON is a 85 year old female, COPD on chronic oxygen support, congestive heart failure EF less than 30, atrial fibrillation, CKD who came to the ED today due to shortness of breath. The patient started to experience shortness of breath with orthopnea, and PND 3 days prior to admission. She also noted that she is edematous on her legs and has had to increase her oxygen to 4 L. She also complains of dysuria and has completed a 10-day course of ciproflo xacin and then another 10-day course of Macrobid which has not helped her symptoms. She denied any fever, chest pain, palpitations. According to her she recently had an echo about 2 months ago which showed that her EF is less than 30%. There has not been any change to her heart failure medications recently. She was tried on a LifeVest about a year ago but the patient was unable to use it hence it was discontinued. Follows with Dr. Hayward in the outpatient setting. In the emergency room, blood pressure 113/83, heart rate 99, respiratory rate of 20, O2 sat 98% on 4 L nasal cannula. CBC showed a WBC count of 5.3 hemoglobin of 13 platelet count 172. CMP showed sodium of 132.6 creatinine 1.44 baseline of around 1. BNP 40,000 her x-ray showed pulmonary vascular congestion. Hospi talist service was called for further evaluation and management. Patient was admitted for diuresis. 08/02/20 She was seen and examined at bedside. She reports that her breathing is much better compared to yesterday. She is incontinent of urine but nursing reports that she is making good UO. Oxygen level needs down to 2L. She denied any chest pain, palpitations. Reason For Visit: ACUTE DECOMPENSATED SYSTOLIC HEART FAILURE Physical Exam Vital Signs: Temp Pulse Resp BP Pulse Ox 97.5 F 105 H 30 H 116/64 96 08/02/20 11:26 08/02/20 14:00 08/02/20 13:55 08/02/20 11:26 08/02/20 13:55 Intake & Output 08/01/20 08/02/20 08/03/20 07:59 06:59 06:59 Weight General appearance: PRESENT: no acute distress, cooperative Head exam: PRESENT: atraumatic, normocephalic Eye exam: PRESENT: EOMI, PERRLA Mouth exam: PRESENT: moist Neck exam: PRESENT: full ROM Respiratory exam: PRESENT: crackles, rales, rhonchi, symmetrical Cardiovascular exam: PRESENT: RRR, +S1, +S2 Pulses: PRESENT: +2 pedal pulses bilateral GI/Abdominal exam: PRESENT: normal bowel sounds, rebound, soft, tenderness Extremities exam: PRESENT: full ROM, +1 edema Musculoskeletal exam: PRESENT: full ROM Neurological exam: PRESENT: alert, awake, oriented to person, oriented to place, oriented to time, oriented to situation Skin exam: PRESENT: normal color Results Laboratory Results: 08/02/20 04:11 08/02/20 04:11 08/01/20 08/02/20 08/02/20 16:33 04:11 04:11 WBC 4.6 RBC 4.50 Hgb 12.2 Hct 37.7 MCV 84 MCH 27.2 MCHC 32.4 RDW 18.9 H Plt Count 151 Seg Neutrophils % 69.0 Carbonic Acid 1.14 HCO3/H2CO3 Ratio 19:1 ABG pH 7.39 ABG pCO2 37.9 ABG pO2 131.8 H ABG HCO3 22.3 ABG O2 Saturation 98.6 H ABG Base Excess -2.3 FiO2 36% Sodium 135.7 L Potassium 4.1 Chloride 98 Carbon Dioxide 22 Anion Gap 16 BUN 39 H Creatinine 1.47 H Est GFR ( Amer) 41 L Glucose 88 Calcium 9.3 Magnesium Total Bilirubin 1.4 H AST 43 H Alkaline Phosphatase 98 Total Protein 6.5 Albumin 3.5 08/02/20 04:11 WBC RBC Hgb Hct MCV MCH MCHC RDW Plt Count Seg Neutrophils % Carbonic Acid HCO3/H2CO3 Ratio ABG pH ABG pCO2 ABG pO2 ABG HCO3 ABG O2 Saturation ABG Base Excess FiO2 Sodium Potassium Chloride Carbon Dioxide Anion Gap BUN Creatinine Est GFR ( Amer) Glucose Calcium Magnesium 2.0 Total Bilirubin AST Alkaline Phosphatase Total Protein Albumin 08/01/20 14:35 Clean Catch Midstream Urine Culture - Final Mixed Urogenital [place] 08/01/20 08/01/20 08/01/20 11:55 12:30 14:20 Troponin I Cancelled Cancelled 0.050 NT-Pro-B Natriuret Pep Cancelled Cancelled [id number] H 08/01/20 22:30 Troponin I 0.057 NT-Pro-B Natriuret Pep Impressions: Chest X-Ray 08/01/20 11:17 IMPRESSION: CARDIAC ENLARGEMENT. VASCULAR CONGESTION. Assessment and Plan - Diagnosis (1) Combined systolic and diastolic congestive heart failure Qualifiers: Heart failure chronicity: acute on chronic Qualified Code(s): I50.43 - Acute on chronic combined systolic (congestive) and diastolic (congestive) heart failure Is this a current diagnosis for this admission?: Yes Plan: -History of CHF combined systolic and diastolic -Last echo about a month and half ago and Dr. Hayward's office according to the EF is less than 30%. -She has tried LifeVest a year ago but she was unable to operated so it was discontinued -Coming in due to shortness of breath, orthopnea, weight gain -X-ray showed pulmonary vascular congestion -BNP 40,000 -Trop 0.5.0>0.057 -EKG sinus tachycardia premature atrial complex -continue Lasix 40 IV twice daily for diuresis -Continue Entresto, atorvastatin for her heart failure -Dr. Hayward consulted -Hold off on repeat echo since she just had 1 a few weeks ago -Fluid restriction -Daily weights -Strict I&O's Incontinent of urine (2) Pulmonary vascular congestion Is this a current diagnosis for this admission?: Yes Plan: - 2/2 decompensated CHF - BNP 40,000 - continue with lasix 40 IV BID (3) Chronic respiratory failure with hypoxia Is this a current diagnosis for this admission?: Yes Plan: - chronically on O2 support 4L NC for chronic resp failure 2/2 COPD - CXR pulm vascular congestion (4) COPD (chronic obstructive pulmonary disease) Qualifiers: COPD type: emphysema Qualified Code(s): J44.9 - Chronic obstructive pulmonary disease, unspecified Is this a current diagnosis for this admission?: Yes Plan: - not in exacerbation - CXR pulm vascular congestion - continue fluticasone/salmetarol and tiotropium - PRN duoneb (5) Acute kidney injury superimposed on CKD Is this a current diagnosis for this admission?: Yes Plan: Crea 1.4>1.47 baseline 0.5 - likely cardiorenal since she has decompensated HF - will diureses to improve hemodynamics and monitor crea (6) Paroxysmal atrial fibrillation Is this a current diagnosis for this admission?: Yes Plan: - continue eliquis (7) Hx: UTI (urinary tract infection) Is this a current diagnosis for this admission?: Yes Plan: -Has been having dysuria for several weeks now -Has completed 10-day course of Cipro and after that another 10-day course of Macrobid with minimal symptom improvement -Urinalysis no signs of UTI -We will resume oxybutynin - Time Time Spent with patient: 25-34 minutes Anticipated Discharge Disposition: Home with Home Health Anticipated Discharge Timeframe: to be determined
[2020-08-02] MEDS: ATORVASTATIN CALCIUM 20 MG TABLET PO SCH (22:46)
[2020-08-03 05:30] LABS: ABSOLUTE EOSINOPHILS # (AUTO) 0.1 10^3/uL (0.0-0.6); ABSOLUTE LYMPHOCYTES (AUTO) 0.4 10^3/uL (0.5-4.7); ABSOLUTE MONOCYTES (AUTO) 0.5 10^3/uL (0.1-1.4); ABSOLUTE NEUT (AUTO) 3.4 10^3/uL (1.7-8.2); BASOPHILS % (AUTO) 0.8 % (0-2); EOSINOPHILS % (AUTO) 1.5 % (0-6); HEMATOCRIT 38.5 % (36.0-47.0); HEMOGLOBIN 12.6 g/dL (12.0-15.5); LYMPHOCYTES % (AUTO) 9.6 % (13-45); MEAN CORPUSCULAR HEMOGLOBIN 27.2 pg (27.0-33.4); MEAN CORPUSCULAR HGB CONC 32.9 g/dL (32.0-36.0); MEAN CORPUSCULAR VOLUME 83 fl (80-97); MONOCYTES % (AUTO) 12.2 % (3-13); PLATELET COUNT 151 10^3/uL (150-450); RED BLOOD COUNT 4.65 10^6/uL (3.72-5.28); SEGMENTED NEUTROPHILS % (AUTO) 75.9 % (42-78); TOTAL CELLS COUNTED % (AUTO) 100 %; WHITE BLOOD COUNT 4.4 10^3/uL (4.0-10.5)
[2020-08-03 05:51] LABS: ALBUMIN 3.7 g/dL (3.5-5.0); ALKALINE PHOSPHATASE 101 U/L (38-126); ANION GAP 15 (5-19); ASPARTATE AMINO TRANSFERASE 47 U/L (14-36); BILIRUBIN,DIRECT 0.9 mg/dL (0.0-0.4); BILIRUBIN,TOTAL 1.6 mg/dL (0.2-1.3); BLOOD UREA NITROGEN 41 mg/dL (7-20); CALCIUM 9.6 mg/dL (8.4-10.2); CARBON DIOXIDE 20 mmol/L (22-30); CHLORIDE 101 mmol/L (98-107); GLUCOSE 77 mg/dL (75-110); TOTAL PROTEIN 7.2 g/dL (6.3-8.2)
[2020-08-03] MEDS: FLUTICASONE NASAL SPRAY 50 MCG/SPRY 120 SPRAY/16 GM NASL SCH ×2 (09:28→21:02)
[2020-08-03] MEDS: FUROSEMIDE INJ/PF 40 MG/4 ML SDV IV SCH ×2 (09:28→21:09)
[2020-08-03] MEDS: APIXABAN 2.5 MG TABLET PO SCH ×2 (09:29→21:03)
[2020-08-03] MEDS: SACUBITRIL/VALSARTAN 24 MG/26 MG TABLET PO SCH ×2 (09:29→17:50)
[2020-08-03] MEDS: LORATADINE 10 MG TABLET PO SCH (09:29)
[2020-08-03] MEDS: UMECLIDINIUM BROMIDE 62.5 MCG/DOSE IH SCH (09:29)
[2020-08-03] MEDS: POTASSIUM CHLORIDE 10 MEQ TABLET.ER PO SCH (09:29)
[2020-08-03] MEDS: ASPIRIN 81 MG TABLET, ENT COATED PO SCH (09:29)
[2020-08-03] MEDS: FLUTICASONE/VILANTEROL 200-25 MCG/DOSE IH SCH (09:29)
[2020-08-03] MEDS: IPRATROPIUM/ALBUTEROL 0.5-2.5 MG/3 ML AMPUL NEB PRN (09:46)
[2020-08-03] MEDS ORDERED: ACETAMINOPHEN 325 MG TABLET PO PRN (10:57)
[2020-08-03] MEDS: DEXTROSE 40% GEL 15 GM TUBE PO PRN (13:20)
[2020-08-03] MEDS: DEXTROSE 50%-WATER SYRINGE 12.5 GM/25 ML DOSE IV PRN (13:47)
[2020-08-03] MEDS: LEVALBUTEROL HCL NEB 0.63 MG/3 ML AMPUL NEB PRN (14:37)
--- NOTE | 2020-08-03 20:17 | PDOC PROGRESS REPORT ---
Subjective Progress Note for:: 08/03/20 Subjective:: SHAWN GORDON is a 85 year old female, COPD on chronic oxygen support, congestive heart failure EF less than 30, atrial fibrillation, CKD who came to the ED today due to shortness of breath. The patient started to experience shortness of breath with orthopnea, and PND 3 days prior to admission. She also noted that she is edematous on her legs and has had to increase her oxygen to 4 L. She also complains of dysuria and has completed a 10-day course of ciproflo xacin and then another 10-day course of Macrobid which has not helped her symptoms. She denied any fever, chest pain, palpitations. According to her she recently had an echo about 2 months ago which showed that her EF is less than 30%. There has not been any change to her heart failure medications recently. She was tried on a LifeVest about a year ago but the patient was unable to use it hence it was discontinued. Follows with Dr. Jordan in the outpatient setting. In the emergency room, blood pressure 113/83, heart rate 99, respiratory rate of 20, O2 sat 98% on 4 L nasal cannula. CBC showed a WBC count of 5.3 hemoglobin of 13 platelet count 172. CMP showed sodium of 132.6 creatinine 1.44 baseline of around 1. BNP 40,000 her x-ray showed pulmonary vascular congestion. Hospi talist service was called for further evaluation and management. Patient was admitted for diuresis. 08/02/20 She was seen and examined at bedside. She reports that her breathing is much better compared to yesterday. She is incontinent of urine but nursing reports that she is making good UO. Oxygen level needs down to 2L. She denied any chest pain, palpitations. 08/03/20. She was seen and examined at bedside. feels about the same as yesterday. No chest pain, SOB stable. Dr. Jordan informed of consult today. Creatinine increased to 1.8 from 1.4. She still clinically appears fluid overloaded. would continue diuresis and re assess fluid status and crea tomorrow. Troponin still trending up, no active chest pain and no ST elevation whic is still likely from decompensated CHF. Reason For Visit: ACUTE DECOMPENSATED SYSTOLIC HEART FAILURE Physical Exam Vital Signs: Temp Pulse Resp BP Pulse Ox 97.8 F 102 H 17 90/62 L 99 08/03/20 16:00 08/03/20 17:39 08/03/20 16:00 08/03/20 17:48 08/03/20 16:00 Intake & Output 08/02/20 08/03/20 08/04/20 06:59 06:59 06:59 Intake Total 350 240 Output Total 50 50 Balance 300 190 Weight 47.9 kg General appearance: PRESENT: cooperative, mild distress, thin Head exam: PRESENT: atraumatic, normocephalic Eye exam: PRESENT: EOMI, PERRLA Mouth exam: PRESENT: moist Neck exam: PRESENT: full ROM Respiratory exam: PRESENT: crackles, rales, symmetrical, unlabored Cardiovascular exam: PRESENT: RRR, +S1, +S2 Pulses: PRESENT: +2 pedal pulses bilateral GI/Abdominal exam: PRESENT: normal bowel sounds, soft. ABSENT: rebound, tenderness Extremities exam: PRESENT: full ROM, +1 edema Musculoskeletal exam: PRESENT: full ROM Neurological exam: PRESENT: alert, awake, oriented to person, oriented to place, oriented to time Psychiatric exam: PRESENT: normal mood Skin exam: PRESENT: normal color Results Laboratory Results: 08/03/20 05:14 08/03/20 05:14 08/03/20 08/03/20 05:14 05:14 WBC 4.4 RBC 4.65 Hgb 12.6 Hct 38.5 MCV 83 MCH 27.2 MCHC 32.9 RDW 19.0 H Plt Count 151 Seg Neutrophils % 75.9 Sodium 135.9 L Potassium 5.0 Chloride 101 Carbon Dioxide 20 L Anion Gap 15 BUN 41 H Creatinine 1.82 H Est GFR ( Amer) 32 L Glucose 77 Calcium 9.6 Total Bilirubin 1.6 H AST 47 H Alkaline Phosphatase 101 Total Protein 7.2 Albumin 3.7 08/01/20 08/01/20 08/01/20 11:55 12:30 14:20 Troponin I Cancelled Cancelled 0.050 NT-Pro-B Natriuret Pep Cancelled Cancelled [id number] H 08/01/20 08/02/20 08/02/20 22:30 15:45 23:22 Troponin I 0.057 0.058 0.061 NT-Pro-B Natriuret Pep 08/03/20 08/03/20 12:50 18:20 Troponin I 0.073 0.077 NT-Pro-B Natriuret Pep Impressions: Chest X-Ray 08/01/20 11:17 IMPRESSION: CARDIAC ENLARGEMENT. VASCULAR CONGESTION. Assessment and Plan - Diagnosis (1) Combined systolic and diastolic congestive heart failure Qualifiers: Heart failure chronicity: acute on chronic Qualified Code(s): I50.43 - Acute on chronic combined systolic (congestive) and diastolic (congestive) heart failure Is this a current diagnosis for this admission?: Yes Plan: -History of CHF combined systolic and diastolic -Last echo about a month and half ago and Dr. Jordan's office according to the EF is less than 30%. -She has tried LifeVest a year ago but she was unable to operated so it was discontinued -Coming in due to shortness of breath, orthopnea, weight gain -X-ray showed pulmonary vascular congestion -BNP 40,000 -Trop 0.5.0>0.057>0.077 -EKG sinus tachycardia premature atrial complex -continue Lasix 40 IV twice daily for diuresis. Upward trend in crea noted. Would continue diuresis and re assess her volume status and crea tomorrow -Continue Entresto, atorvastatin for her heart failure -Dr. Jordan consulted -Hold off on repeat echo since she just had 1 a few weeks ago -Fluid restriction -Daily weights -Strict I&O's Incontinent of urine (2) Pulmonary vascular congestion Is this a current diagnosis for this admission?: Yes Plan: - 2/2 decompensated CHF - BNP 40,000 - continue with lasix 40 IV BID (3) Chronic respiratory failure with hypoxia Is this a current diagnosis for this admission?: Yes Plan: - chronically on O2 support 4L NC for chronic resp failure 2/2 COPD - CXR pulm vascular congestion - continue O2 support (4) COPD (chronic obstructive pulmonary disease) Qualifiers: COPD type: emphysema Qualified Code(s): J44.9 - Chronic obstructive pulmonary disease, unspecified Is this a current diagnosis for this admission?: Yes Plan: - not in exacerbation - CXR pulm vascular congestion - continue fluticasone/salmetarol and tiotropium - PRN duoneb (5) NSTEMI (non-ST elevated myocardial infarction) Is this a current diagnosis for this admission?: Yes Plan: - Trop 0.05>0.077 - EKG no ST elevation - on aspirin, entersto, lipitor - cardio on board Dr Jordan informed - likely 2/2 decompesated CHF (6) Acute kidney injury superimposed on CKD Is this a current diagnosis for this admission?: Yes Plan: Crea 1.4>1.47>1.8 baseline 0.5 - likely cardiorenal since she has decompensated HF - will diureses to improve hemodynamics and monitor crea. If crea still trending up would hold do lasix vacation then re assess (7) Paroxysmal atrial fibrillation Is this a current diagnosis for this admission?: Yes Plan: - continue eliquis (8) Hx: UTI (urinary tract infection) Is this a current diagnosis for this admission?: Yes Plan: -Has been having dysuria for several weeks now -Has completed 10-day course of Cipro and after that another 10-day course of Macrobid with minimal symptom improvement -Urinalysis no signs of UTI -We will resume oxybutynin - needs urology follow up - Plan Summary Summary: Patient came in with decompensated CHF and fluid overload. She is on Entresto, Lasix, aspirin at home. According to the she just had an echo a few weeks ago showed decreased EF. She had a LifeVest a year and half ago but she was unable to operated. She is being followed by Dr. Jordan's PA in the outpatient. Her aware of her admission. I have started her on Lasix 40 IV twice daily for diuresis. She likely has cardiorenal syndrome. Creatinine still trending up I continued her diuresis today. Suggest to assess her fluid status and creatinine tomorrow - Time Time Spent with patient: 25-34 minutes Anticipated Discharge Disposition: Home with Home Health Anticipated Discharge Timeframe: to be determined
[2020-08-03] MEDS: ATORVASTATIN CALCIUM 20 MG TABLET PO SCH (21:03)
[2020-08-03] MEDS ORDERED: INSULIN LISPRO 100 UNIT/ML 3 ML VIAL SUBCUT SCH (22:00)
[2020-08-04] MEDS: LEVALBUTEROL HCL NEB 0.63 MG/3 ML AMPUL NEB PRN (03:02)
[2020-08-04] MEDS: CLONAZEPAM 1 MG TABLET PO SCH ×3 (05:00→22:17)
[2020-08-04 07:29] LABS: ABSOLUTE EOSINOPHILS # (AUTO) 0.1 10^3/uL (0.0-0.6); ABSOLUTE LYMPHOCYTES (AUTO) 0.6 10^3/uL (0.5-4.7); ABSOLUTE MONOCYTES (AUTO) 0.7 10^3/uL (0.1-1.4); BASOPHILS % (AUTO) 0.6 % (0-2); EOSINOPHILS % (AUTO) 1.1 % (0-6); HEMATOCRIT 38.2 % (36.0-47.0); HEMOGLOBIN 12.4 g/dL (12.0-15.5); LYMPHOCYTES % (AUTO) 11.7 % (13-45); MEAN CORPUSCULAR HEMOGLOBIN 27.2 pg (27.0-33.4); MEAN CORPUSCULAR HGB CONC 32.3 g/dL (32.0-36.0); MEAN CORPUSCULAR VOLUME 84 fl (80-97); MONOCYTES % (AUTO) 13.1 % (3-13); PLATELET COUNT 158 10^3/uL (150-450); RED BLOOD COUNT 4.54 10^6/uL (3.72-5.28); RED CELL DISTRIBUTION WIDTH 19.5 % (11.5-14.0); SEGMENTED NEUTROPHILS % (AUTO) 73.5 % (42-78); TOTAL CELLS COUNTED % (AUTO) 100 %; WHITE BLOOD COUNT 5.5 10^3/uL (4.0-10.5)
[2020-08-04 07:50] LABS: ALBUMIN 3.6 g/dL (3.5-5.0); ALKALINE PHOSPHATASE 96 U/L (38-126); ANION GAP 17 (5-19); ASPARTATE AMINO TRANSFERASE 55 U/L (14-36); BILIRUBIN,TOTAL 1.8 mg/dL (0.2-1.3); BLOOD UREA NITROGEN 48 mg/dL (7-20); CALCIUM 9.7 mg/dL (8.4-10.2); CARBON DIOXIDE 17 mmol/L (22-30); CHLORIDE 101 mmol/L (98-107); GLUCOSE 87 mg/dL (75-110); POTASSIUM 5.7 mmol/L (3.6-5.0); TOTAL PROTEIN 6.8 g/dL (6.3-8.2)
[2020-08-04] MEDS: LORATADINE 10 MG TABLET PO SCH (10:07)
[2020-08-04] MEDS: FUROSEMIDE INJ/PF 40 MG/4 ML SDV IV SCH (10:07)
[2020-08-04] MEDS: ASPIRIN 81 MG TABLET, ENT COATED PO SCH (10:07)
[2020-08-04] MEDS: APIXABAN 2.5 MG TABLET PO SCH ×2 (10:07→22:17)
[2020-08-04] MEDS: SACUBITRIL/VALSARTAN 24 MG/26 MG TABLET PO SCH ×2 (10:08→17:20)
[2020-08-04] MEDS: UMECLIDINIUM BROMIDE 62.5 MCG/DOSE IH SCH (10:08)
[2020-08-04] MEDS: FLUTICASONE/VILANTEROL 200-25 MCG/DOSE IH SCH (10:12)
[2020-08-04] MEDS: FLUTICASONE NASAL SPRAY 50 MCG/SPRY 120 SPRAY/16 GM NASL SCH ×2 (10:12→22:13)
[2020-08-04] MEDS: IPRATROPIUM/ALBUTEROL 0.5-2.5 MG/3 ML AMPUL NEB PRN (10:52)
[2020-08-04] MEDS ORDERED: LIDOCAINE 2% URO-JET 5 ML KIT MM ONE (16:00)
[2020-08-04 16:26] LABS: ANION GAP 16 (5-19); BLOOD UREA NITROGEN 52 mg/dL (7-20); CALCIUM 9.6 mg/dL (8.4-10.2); CARBON DIOXIDE 20 mmol/L (22-30); CHLORIDE 97 mmol/L (98-107); GLUCOSE 75 mg/dL (75-110)
[2020-08-04 16:29] LABS: POTASSIUM 5.5 mmol/L (3.6-5.0)
--- NOTE | 2020-08-04 16:47 | EKG REPORT ---
SEVERITY:- ABNORMAL ECG - SINUS TACHYCARDIA ATRIAL PREMATURE COMPLEX NONSPECIFIC INTRAVENTRICULAR CONDUCTION DELAY CONSIDER ANTERIOR INFARCT : Confirmed by: Nicho Cox MD 04-Aug-2020 16:47:27
[2020-08-04] MEDS: OXYBUTYNIN CHLORIDE 5 MG TABLET PO SCH (18:30)
--- NOTE | 2020-08-04 19:08 | PDOC PROGRESS REPORT ---
Subjective Progress Note for:: 08/04/20 Subjective:: Patient felt okay today in terms of her shortness of breath. Notably she has been incontinent and has been making difficult evaluation of I's and O's. She did complain of some bladder spasms. Denies chest pain Reason For Visit: ACUTE DECOMPENSATED SYSTOLIC HEART FAILURE Physical Exam Vital Signs: Temp Pulse Resp BP Pulse Ox 97.7 F 107 H 18 106/78 97 08/04/20 15:57 08/04/20 18:58 08/04/20 15:57 08/04/20 15:57 08/04/20 15:57 Intake & Output 08/03/20 08/04/20 08/05/20 06:59 06:59 06:59 Intake Total 350 390 420 Output Total 50 50 Balance 300 340 420 Weight 47.9 kg 47.9 kg General appearance: PRESENT: no acute distress, cooperative Neck exam: ABSENT: JVD Respiratory exam: PRESENT: symmetrical, unlabored. ABSENT: accessory muscle use, tachypnea, wheezes Neurological exam: PRESENT: alert, awake Results Laboratory Results: 08/04/20 06:59 08/04/20 15:13 08/04/20 08/04/20 08/04/20 06:59 06:59 15:13 WBC 5.5 RBC 4.54 Hgb 12.4 Hct 38.2 MCV 84 MCH 27.2 MCHC 32.3 RDW 19.5 H Plt Count 158 Seg Neutrophils % 73.5 Sodium 134.7 L 133.2 L Potassium 5.7 H 5.5 H Chloride 101 97 L Carbon Dioxide 17 L 20 L Anion Gap 17 16 BUN 48 H 52 H Creatinine 2.08 H 2.14 H Est GFR ( Amer) 27 L 27 L Glucose 87 75 Calcium 9.7 9.6 Total Bilirubin 1.8 H AST 55 H Alkaline Phosphatase 96 Total Protein 6.8 Albumin 3.6 08/01/20 08/01/20 08/01/20 11:55 12:30 14:20 Troponin I Cancelled Cancelled 0.050 NT-Pro-B Natriuret Pep Cancelled Cancelled [id number] H 08/01/20 08/02/20 08/02/20 22:30 15:45 23:22 Troponin I 0.057 0.058 0.061 NT-Pro-B Natriuret Pep 08/03/20 08/03/20 08/04/20 12:50 18:20 06:59 Troponin I 0.073 0.077 0.091 NT-Pro-B Natriuret Pep Impressions: Chest X-Ray 08/01/20 11:17 IMPRESSION: CARDIAC ENLARGEMENT. VASCULAR CONGESTION. Assessment and Plan - Diagnosis (1) Combined systolic and diastolic congestive heart failure Qualifiers: Heart failure chronicity: acute on chronic Qualified Code(s): I50.43 - Acute on chronic combined systolic (congestive) and diastolic (congestive) heart failure Is this a current diagnosis for this admission?: Yes (2) Acute kidney injury superimposed on CKD Is this a current diagnosis for this admission?: Yes (3) Chronic respiratory failure with hypoxia Is this a current diagnosis for this admission?: Yes (4) Paroxysmal atrial fibrillation Is this a current diagnosis for this admission?: Yes (5) Hx: UTI (urinary tract infection) Is this a current diagnosis for this admission?: Yes - Plan Summary Summary: Output documentation has been inadequate due to patient's incontinence as reported by patient's nurse. I do believe patient probably has been diuresing adequately on Lasix IV twice daily regimen as her hypoxia has improved down to 2 L currently. Davis was placed earlier today to monitor urine output especially given kidney failure as well. Her MYA has worsened so I will hold evening dose of diuresis today. Check BMP and electrolytes in AM. - Time Time Spent with patient: 15-24 minutes Anticipated Discharge Disposition: Home, Self Care Anticipated Discharge Timeframe: within 48 hours
[2020-08-04 19:32] LABS: APPEARANCE,URINE SLIGHTLY-CLOUDY; BILIRUBIN,URINE NEGATIVE (NEGATIVE); COLOR,URINE AMBER; GLUCOSE, URINE NEGATIVE (NEGATIVE); KETONES,URINE NEGATIVE (NEGATIVE); LEUKOCYTE ESTERASE,URINE NEGATIVE (NEGATIVE); NITRITE,URINE NEGATIVE (NEGATIVE); PROTEIN,URINE 30 mg/dL (NEGATIVE); URINE SPECIFIC GRAVITY 1.013; UROBILINOGEN,URINE NEGATIVE mg/dL (<2.0)
[2020-08-04] MEDS: DEXTROSE 50%-WATER SYRINGE 12.5 GM/25 ML DOSE IV PRN (21:43)
[2020-08-04] MEDS: ATORVASTATIN CALCIUM 20 MG TABLET PO SCH (22:17)
[2020-08-05 07:19] LABS: ANION GAP 18 (5-19); BLOOD UREA NITROGEN 56 mg/dL (7-20); CALCIUM 9.8 mg/dL (8.4-10.2); CARBON DIOXIDE 15 mmol/L (22-30); CHLORIDE 100 mmol/L (98-107)
[2020-08-05 07:24] LABS: GLUCOSE 68 mg/dL (75-110)
[2020-08-05] MEDS: IPRATROPIUM/ALBUTEROL 0.5-2.5 MG/3 ML AMPUL NEB PRN ×2 (07:45→14:04)
[2020-08-05] MEDS ORDERED: DEXTROSE 50%-WATER 25 GM/50 ML DISP.SYRIN IV ONE (08:37)
[2020-08-05] MEDS ORDERED: INSULIN REG, HUMAN 100 UNIT/ML 3 ML VIAL (PYX) IV ONE (08:37)
--- NOTE | 2020-08-05 10:15 | PDOC CONSULTATION ---
Consultation Consult Date: 08/04/20 Attending physician:: CARLOS ORELLANA Provider Consulted: CHARIS HAYWARD Consult reason:: Dyspnea, cardiomyopathy History of Present Illness Admission Date/PCP: 08/01/20 17:55 ITA MUÑOZ PA-C Patient complains of: Dyspnea History of Present Illness: SHAWN GORDON is a 85 year old female with severe COPD on chronic oxygen support, congestive heart failure EF less than 30, atrial fibrillation, CKD who came to the ED today due to shortness of breath. The patient started to experience shortness of breath with orthopnea, and PND 3 days prior to admission. She also noted that she is edematous on her legs and has had to increase her oxygen to 4 L. She also complains of dysuria and has completed a 10-day course of ciprofloxacin and then another 10-day course of Macrobid which has not helped her symptoms. She denied any fever, chest pain, palpitations. According to her she recently had an echo about 2 months ago which showed that her EF is less than 30%. There has not been any change to her heart failure medications recently. She was tried on a LifeVest about a year ago but the patient was unable to use it hence it was discontinued. Follows with Dr. Hayward in the outpatient setting. In the emergency room, blood pressure 113/83, heart rate 99, respiratory rate of 20, O2 sat 98% on 4 L nasal cannula. CBC showed a WBC count of 5.3 hemoglobin of 13 platelet count 172. CMP showed sodium of 132.6 creatinine 1.44 baseline of around 1. BNP 40,000 her x-ray showed pulmonary vascular congestion. Hospitalist service was called for further evaluation and management. Patient was admitted for diuresis. This history was reviewed and confirmed. Patient did not add anything to this history. Patient is denying any chest pain. Patient denying any palpitations. Patient has noted some cough with minimal sputum production. Past Medical History Cardiac Medical History: Reports: Atrial Fibrillation, Congestive Heart Failure - Chronic diastolic CHF, Myocardial Infarction, Hyperlipidema, Hypertension Pulmonary Medical History: Reports: Chronic Obstructive Pulmonary Disease (COPD) - Chronic respiratory failure on 2 L oxygen at home, Respiratory Failure EENT Medical History: Reports: None Neurological Medical History: Reports: None Endocrine Medical History: Reports: None Renal/ Medical History: Reports: Chronic Kidney Disease Malignancy Medical History: Reports: None GI Medical History: Reports: Cirrhosis Musculoskeltal Medical History: Reports: None Skin Medical History: Reports: None Psychiatric Medical History: Reports: None Denies: Depression Past Surgical History Past Surgical History: Reports: Appendectomy, Coronary Stent, Hysterectomy, Orthopedic Surgery Social History Smoking Status: Former Smoker Electronic Cigarette use?: No Last Time Smoked: 5 years ago Frequency of Alcohol Use: None Hx Recreational Drug Use: No Drugs: None Hx Prescription Drug Abuse: No - Advance Directive Resuscitation Status: Do Not Resuscitate Family History Family History: Reviewed & Not Pertinent, DM, Hypertension, Malignancy Parental Family History Reviewed: Yes Children Family History Reviewed: Yes Sibling(s) Family History Reviewed.: Yes Medication/Allergy Home Medications: Apixaban [Eliquis 2.5 mg Tablet] 2.5 mg PO Q12 03/15/19 Atorvastatin Calcium [Lipitor 20 mg Tablet] 20 mg PO QHS 03/15/19 Ipratropium/Albuterol Sulfate [Combivent Respimat 4 gm Mdi] 2 puff IH QIDP PRN 03/15/19 Levalbuterol HCl [Xopenex Neb 0.63 mg/3 ml Ampul] 0.63 mg NEB RTQ6HP PRN 03/15/19 Levalbuterol Tartrate [Xopenex Hfa] 1 puff IH Q4 03/15/19 Loratadine [Claritin 10 mg Tablet] 10 mg PO DAILY 03/15/19 Ondansetron HCl [Zofran 4 mg Tablet] 1 tab PO Q8HP PRN 03/15/19 Furosemide [Lasix 40 mg Tablet] 40 mg PO DAILY #30 tablet 03/17/19 Sacubitril/Valsartan [Entresto 24 mg/26 mg Tablet] 1 tab PO BID #60 tablet 03/17/19 Benzonatate [Tessalon Perles 100 mg Capsule] 100 mg PO Q8 08/02/20 Cholecalciferol (Vitamin D3) [Vitamin D3 1000 Unit Tablet] 1,000 unit PO DAILY 08/02/20 Cyanocobalamin (Vitamin B-12) [B-12] 1,000 mcg PO DAILY 08/02/20 Estrogens,Conjugated [Premarin Vaginal Cream (0.625 mg/gm) 30 gm] 0.5 gm VG ASDIR PRN 08/02/20 Ferrous Sulfate [Feosol 325 mg Tablet] 325 mg PO ASDIR PRN 08/02/20 Fluticasone/Umeclidin/Vilanter [Trelegy 100-62.5-25 Mcg Ellipta 14 Dose/Dpi] 1 each PO DAILY 08/02/20 Guaifenesin [Mucus ER] 600 mg PO DAILYP PRN 08/02/20 Nystatin 1 applic TOP DAILYP PRN 08/02/20 Omeprazole 20 mg PO DAILY 08/02/20 Oxybutynin Chloride [Ditropan 5 Mg Tablet] 5 mg PO DAILY 08/02/20 Allergies/Adverse Reactions: No Known Allergies Allergy (Verified 08/01/20 11:41) Physical Exam Vital Signs: Temp Pulse Resp BP Pulse Ox 97.3 F 102 H 16 104/65 97 08/05/20 03:05 08/05/20 08:31 08/05/20 08:31 08/05/20 03:05 08/05/20 08:31 Intake & Output 08/04/20 08/05/20 08/06/20 06:59 06:59 06:59 Intake Total 390 1460 Output Total 50 60 Balance 340 1400 Weight 47.9 kg 47.2 kg Exam: GENERAL: well-nourished and in no acute distress. Alert and oriented x3 HEAD: Atraumatic, normocephalic. EYES: EMORY, sclera anicteric, conjunctiva are normal. ENT: Moist mucous membranes. No oral ulcerations or bleeding gums noted. No obvious ear, nose or throat abnormalities noted. NECK: supple without lymphadenopathy. Trachea is central. No cervical or axillary lymphadenopathy noted. Carotids are 2+, JVD mildly elevated at around 8 cm from sternal angle. LUNGS: Bilateral wheezes rales or rhonchi noted. Bibasilar crackles noted right more than left. CHEST: Palpation of the chest wall shows no significant chest wall tenderness. HEART: Ray [employer], No PSH, 1/6 LISA aortic area, 1/6 adams systolic murmur mitral area, no rubs, no gallops. ABDOMEN: Soft, no significant tenderness appreciated, normoactive bowel sounds. No guarding, no rebound. No rigidity noted . No masses appreciated. EXTREMITIES: Pedal pulses are 1-2+, no calf tenderness noted. No clubbing or cyanosis. 1+ pedal edema noted NEUROLOGICAL: Focused neurological exam showed no significant neurologic deficit. Normal speech, no focal weakness appreciated. PSYCH: Normal mood, normal affect. Judgment and insight within normal limits. SKIN: No significant ecchymosis, skin is noted to be warm. MUSCULOSKELETAL EXAM: No significant acute joint swelling noted. Results Laboratory Results: 08/04/20 06:59 08/05/20 05:52 08/04/20 08/04/20 08/05/20 15:13 16:45 05:52 Sodium 133.2 L 133.2 L Potassium 5.5 H 6.0 H* Chloride 97 L 100 Carbon Dioxide 20 L 15 L Anion Gap 16 18 BUN 52 H 56 H Creatinine 2.14 H 2.55 H Est GFR ( Amer) 27 L 22 L Glucose 75 68 L Calcium 9.6 9.8 Magnesium 2.3 Urine Color [place] Urine Appearance SLIGHTLY-CLOUDY Urine pH 5.0 Ur Specific [place] 1.013 Urine Protein 30 H Urine Glucose (UA) NEGATIVE Urine Ketones NEGATIVE Urine Blood NEGATIVE Urine Nitrite NEGATIVE Ur Leukocyte Esterase NEGATIVE Urine WBC (Auto) 5 Urine RBC (Auto) 1 08/01/20 08/01/20 08/01/20 11:55 12:30 14:20 Troponin I Cancelled Cancelled 0.050 NT-Pro-B Natriuret Pep Cancelled Cancelled [id number] H 08/01/20 08/02/20 08/02/20 22:30 15:45 23:22 Troponin I 0.057 0.058 0.061 NT-Pro-B Natriuret Pep 08/03/20 08/03/20 08/04/20 12:50 18:20 06:59 Troponin I 0.073 0.077 0.091 NT-Pro-B Natriuret Pep 08/05/20 05:52 Troponin I NT-Pro-B Natriuret Pep [id number] H EKG Comments: Twelve-lead EKG shows sinus tachycardia, nonspecific IVCD incomplete bundle branch block type, probable prior anterior [facility] findings. Impressions: Chest X-Ray 08/01/20 11:17 IMPRESSION: CARDIAC ENLARGEMENT. VASCULAR CONGESTION. Assessment & Plan - Diagnosis (1) Acute decompensated heart failure Is this a current diagnosis for this admission?: Yes (2) Respiratory failure, [id number] Qualifiers: Respiratory failure complication: hypoxia Qualified Code(s): J96.21 - Acute and chronic respiratory failure with hypoxia Is this a current diagnosis for this admission?: Yes (3) CKD (chronic kidney disease), stage III Is this a current diagnosis for this admission?: Yes (4) COPD exacerbation Is this a current diagnosis for this admission?: Yes (5) Left ventricular diastolic dysfunction Is this a current diagnosis for this admission?: Yes (6) Pulmonary hypertension, moderate to severe Is this a current diagnosis for this admission?: Yes - Notes Notes: Patient noted to have acute decompensated heart failure. Patient has p redominantly severe systolic dysfunction. Patient seems to be mildly volume overloaded. At this point recommend cautious diuresis. Could consider repeating the echocardiogram. Patient also has severe COPD with history of respiratory failure currently on oxygen therapy. Maintain O2 sat above 92 if feasible. Continue with aggressive bronchodilator therapy. Feel that there may be some underlying pneumonia. May consider empiric antibiotic therapy. Patient has also chronic kidney disease which seems to be worsening. May consider renal ultrasound, nephrology consultation etc. Possibility of renal hypoperfusion there. Patient always had run a low blood pressure. Patient's medical regimen was reviewed. Continue with aggressive bronchodilator therapy, diuretics, vasodilators. We will continue to follow. Patient has marked fraility, general debility. Due to multitudes of severe comorbid problems, prognosis is very guarded. - Time Time Spent: 30 to 50 Minutes Medications reviewed and adjusted accordingly: Yes
[2020-08-05] MEDS: APIXABAN 2.5 MG TABLET PO SCH ×2 (10:40→21:18)
[2020-08-05] MEDS: CLONAZEPAM 1 MG TABLET PO SCH (10:40)
[2020-08-05] MEDS: ASPIRIN 81 MG TABLET, ENT COATED PO SCH (10:41)
[2020-08-05] MEDS: OXYBUTYNIN CHLORIDE 5 MG TABLET PO SCH (10:41)
[2020-08-05] MEDS: LORATADINE 10 MG TABLET PO SCH (10:41)
[2020-08-05] MEDS: BUMETANIDE INJ/PF 1 MG/4 ML SDV IV SCH ×2 (10:41→17:58)
[2020-08-05] MEDS: FLUTICASONE/VILANTEROL 200-25 MCG/DOSE IH SCH (10:43)
[2020-08-05] MEDS: SACUBITRIL/VALSARTAN 24 MG/26 MG TABLET PO SCH ×2 (10:43→17:59)
[2020-08-05] MEDS: UMECLIDINIUM BROMIDE 62.5 MCG/DOSE IH SCH (10:43)
[2020-08-05] MEDS: FLUTICASONE NASAL SPRAY 50 MCG/SPRY 120 SPRAY/16 GM NASL SCH ×2 (10:43→21:18)
[2020-08-05] MEDS ORDERED: DOPAMINE HCL/DEXTROSE 5%-WATER 800 MG/250 ML RTUINJ IV PRN (10:46)
[2020-08-05 12:10] LABS: INTERNATIONAL RATION (INR) 13.36; PROTHROMBIN TIME 96.9 SEC (11.4-15.4)
[2020-08-05 14:21] LABS: ANION GAP 14 (5-19); BLOOD UREA NITROGEN 61 mg/dL (7-20); CALCIUM 9.3 mg/dL (8.4-10.2); CARBON DIOXIDE 20 mmol/L (22-30); CHLORIDE 100 mmol/L (98-107); POTASSIUM 5.3 mmol/L (3.6-5.0)
[2020-08-05 14:30] LABS: GLUCOSE 39 mg/dL (75-110)
--- NOTE | 2020-08-05 17:07 | PDOC PROGRESS REPORT ---
Subjective Progress Note for:: 08/05/20 Subjective:: Patient denied any shortness of breath this morning. However she continues to remain very fatigued. She was eager to go home left given her electrolyte abnormalities and worsening renal function I discussed with her and her that she will need to stay. They are agreeable. Reason For Visit: ACUTE DECOMPENSATED SYSTOLIC HEART FAILURE Physical Exam Vital Signs: Temp Pulse Resp BP Pulse Ox 98.2 F 93 16 92/56 L 95 08/05/20 11:58 08/05/20 14:04 08/05/20 14:04 08/05/20 11:58 08/05/20 14:04 Intake & Output 08/04/20 08/05/20 08/06/20 06:59 06:59 06:59 Intake Total 390 1460 Output Total 50 60 Balance 340 1400 Weight 47.9 kg 47.2 kg General appearance: PRESENT: no acute distress, cooperative Neck exam: PRESENT: JVD - Mild Respiratory exam: PRESENT: symmetrical, unlabored, wheezes - Mild. ABSENT: accessory muscle use, tachypnea Cardiovascular exam: PRESENT: RRR, +S1, +S2. ABSENT: tachycardia GI/Abdominal exam: PRESENT: soft. ABSENT: rebound, rigid, tenderness Extremities exam: ABSENT: pedal edema Neurological exam: PRESENT: alert, awake Psychiatric exam: ABSENT: agitated, anxious Focused psych exam: ABSENT: pressured speech Skin exam: ABSENT: jaundice Results Laboratory Results: 08/04/20 06:59 08/05/20 13:51 08/04/20 08/05/20 08/05/20 16:45 05:52 13:51 Sodium 133.2 L 133.5 L Potassium 6.0 H* 5.3 H Chloride 100 100 Carbon Dioxide 15 L 20 L Anion Gap 18 14 BUN 56 H 61 H Creatinine 2.55 H 2.40 H Est GFR ( Amer) 22 L 23 L Glucose 68 L 39 L* Calcium 9.8 9.3 Magnesium 2.3 Urine Color [place] Urine Appearance SLIGHTLY-CLOUDY Urine pH 5.0 Ur Specific [place] 1.013 Urine Protein 30 H Urine Glucose (UA) NEGATIVE Urine Ketones NEGATIVE Urine Blood NEGATIVE Urine Nitrite NEGATIVE Ur Leukocyte Esterase NEGATIVE Urine WBC (Auto) 5 Urine RBC (Auto) 1 08/01/20 08/01/20 08/01/20 11:55 12:30 14:20 Troponin I Cancelled Cancelled 0.050 NT-Pro-B Natriuret Pep Cancelled Cancelled [id number] H 08/01/20 08/02/20 08/02/20 22:30 15:45 23:22 Troponin I 0.057 0.058 0.061 NT-Pro-B Natriuret Pep 08/03/20 08/03/20 08/04/20 12:50 18:20 06:59 Troponin I 0.073 0.077 0.091 NT-Pro-B Natriuret Pep 08/05/20 05:52 Troponin I NT-Pro-B Natriuret Pep [id number] H Impressions: Chest X-Ray 08/01/20 11:17 IMPRESSION: CARDIAC ENLARGEMENT. VASCULAR CONGESTION. Assessment and Plan - Diagnosis (1) Combined systolic and diastolic congestive heart failure Qualifiers: Heart failure chronicity: acute on chronic Qualified Code(s): I50.43 - Acute on chronic combined systolic (congestive) and diastolic (congestive) heart failure Is this a current diagnosis for this admission?: Yes Plan: Notably patient had outpatient echocardiogram which showed EF of about 25% and Diastolic dysfunction. I did discuss with Dr. Hayward who requests repeating an echo. Patient has had very poor diuresis on IV Lasix. Also kidney function continues to worsen on twice daily dosing and even with de-escalation of Lasix dose yesterday. Today, patient put out less than 100 cc today after Bumex challenge with 2 mg of Bumex. BNP has doubled to > 80,000. I highly suspect that patient has low output heart failure with very poor forward flow to the kidneys. Unfortunately we cannot confirm this with a RHC at this facility. I discuss this issue with patient's primary dance hall host/hostess Dr. Hayward and he recommends initiating low-dose dopamine peripherally. This has been initiated. Monitor renal output and function (2) Acute kidney injury superimposed on CKD Is this a current diagnosis for this admission?: Yes Plan: likely cardiorenal since she has decompensated HF. Will monitor for any improvement with dopamine. (3) Hyperkalemia Is this a current diagnosis for this admission?: Yes Plan: 2/2 renal failure. K of 6 today. ekg obtained. Received D50 with IV insulin. Repeat BMP shows improvement. Did get hypoglycemic this afternoon requiring another amp. Monitor K. (4) Chronic respiratory failure with hypoxia Is this a current diagnosis for this admission?: Yes Plan: 2L nc currently which is about baseline (5) Paroxysmal atrial fibrillation Is this a current diagnosis for this admission?: Yes Plan: - continue eliquis (6) Hx: UTI (urinary tract infection) Is this a current diagnosis for this admission?: Yes Plan: -Has been having dysuria for several weeks now -Has completed 10-day course of Cipro and after that another 10-day course of Macrobid with minimal symptom improvement -Urinalysis no signs of UTI -oxybutynin -Has outpatient urology f/u - Time Time Spent with patient: 25-34 minutes Anticipated Discharge Disposition: Home with Home Health Anticipated Discharge Timeframe: within 72 hours
--- NOTE | 2020-08-05 17:35 | XCELERA REPORT ---
[address] [address] Transthoracic Echocardiogram Report Name: SHAWN GORDON Age: 85 yrs Gender: Female : 1935 Patient [facility]: 08/05/2020 11:02 AM Height: 59 in Weight: 104 lb BSA: 1.4 m2 Procedure: A complete two-dimensional transthoracic echocardiogram was performed (2D, M-mode, spectral and color flow Doppler). The study was technically adequate with some images being suboptimal in quality. Reason For Study: suspected low output heart failure Ordering Physician: ALEXANDREA SANABRIA Performed By: Julissa Kelley Interpretation Summary LEFT VENTRICLE: LV Systolic function: LVEF is felt to be severely depressed. Best estimate is approximately LVEF is approximately 10 to 15 %. LV Diastolic Function: Grade III diastolic dysfunction noted. Wall motion: severe wall motion abnormalities noted. There is severe diffuse hypokinesia. In addition apex is akinetic. Distal lateral wall also akinetic.. Left ventricular chamber size: moderately dilated. Left ventricular wall thickness: is increased indicative of Mild LVH. RIGHT VENTRICLE: RV systolic function: moderately depressed. Right Ventricle Size: moderately dilated. LEFT ATRIUM size: moderately dilated. RIGHT ATRIUM size: moderately dilated. INTER ATRIAL SEPTUM: No definite atrial septal defect noted however a small PFO could be missed. AORTIC ROOT: seems to be within normal limits. ASCENDING AORTA: is not well visualized. INFERIOR VENA CAVA: dilated for patient size without any respiratory variation. VALVES: MITRAL VALVE: Leaflets are mildly thickened. Mobility seems to be within normal limits. Mitral Regurgitation: moderate mitral regurgitation is noted. Mitral Stenosis: No mitral stenosis noted. Mitral valve prolapse: none noted. AORTIC VALVE: seems to be trileaflet with mild thickening but adequate excursion. Aortic stenosis: No aortic stenosis noted. Aortic regurgitation: mild aortic incompetence noted. TRICUSPID VALVE: mobility and structures within normal limit. Tricuspid stenosis: no tricuspid stenosis noted. Tricuspid regurgitation: moderate tricuspid regurgitation noted. Estimated RVSP: approximately 50 to 60 mmHg consistent with moderate to severe pulmonary hypertension. PULMONARY VALVE: was not well visualized but no significant abnormalities suspected. Pulmonary stenosis: no pulmonary stenosis noted. Pulmonary regurgitation: no significant pulmonary regurgitation noted. MASSES AND THROMBUS: No definite intracardiac thrombus or masses are noted. PERICARDIUM: No pericardial effusion was noted. IMPRESSION: 1. Severely depressed LVEF. Best estimated at approximately 15%. 2. Mild LVH noted. Four chamber dilatation noted. 3. Grade III Diastolic Dysfunction noted. 4. Moderate mitral, moderate tricuspid and mild aortic regurgitation noted. MMode/2D Measurements & Calculations RVDd: 3.8 cm LVIDd: 5.6 cm FS: 11.5 % Ao root diam: IVSd: 0.91 cm LVIDs: 5.0 cm EDV(Teich): 2.8 cm 156.7 ml Ao root area: LVPWd: 0.85 cm ESV(Teich): 6.0 cm2 118.2 ml EF(Teich): 24.6 % EDV(MOD-sp4): SV(MOD-sp4): 95.4 ml 12.5 ml ESV(MOD-sp4): 82.9 ml EF(MOD-sp4): 13.1 % Doppler Measurements & Calculations MV E max sandy: MV dec slope: Ao V2 max: AI max sandy: 97.4 cm/sec 107.7 cm/sec 376.5 cm/sec MV A max sandy: 1694 cm/sec2 Ao max PG: AI max P.7 mmHg 78.4 cm/sec MV dec time: 4.6 mmHg AI dec slope: MV E/A: 1.2 0.06 sec 515.4 cm/sec2 AI P1/2t: 213.9 msec LV V1 max PG: MR max sandy: PA V2 max: PI end-d sandy: 1.0 mmHg 409.4 cm/sec 69.0 cm/sec 202.3 cm/sec LV V1 max: MR max PG: PA max P.3 cm/sec 67.0 mmHg 1.9 mmHg TR max sandy: 303.5 cm/sec TR max P.0 mmHg : ALEXANDREA SANABRIA Shyamal
--- NOTE | 2020-08-05 18:33 | PDOC PROGRESS REPORT ---
Subjective Progress Note for:: 08/05/20 Subjective:: Patient general condition has deteriorated. She is noted to be very short of breath. She is intermittently disoriented. Patient had very poor urine output in spite of IV Bumex. Had long conversation with patient's and also the hospitalist. Shared decision was made with patient, her , hospitalist and myself to make the patient a comfort care. They want to go on hospice care. Patient also had a 2D echocardiogram which was reviewed. It shows severely depressed LVEF. RV function is also depressed. Moderate pulmonary hypertension noted. Patient also noted to have deteriorated quite significantly from last evening. Patient was placed on dopamine briefly but this caused tachycardia. Reason For Visit: ACUTE DECOMPENSATED SYSTOLIC HEART FAILURE Physical Exam Vital Signs: Temp Pulse Resp BP Pulse Ox 97.3 F 102 H 16 104/65 97 08/05/20 03:05 08/05/20 08:31 08/05/20 08:31 08/05/20 03:05 08/05/20 08:31 Intake & Output 08/04/20 08/05/20 08/06/20 06:59 06:59 06:59 Intake Total 390 1460 Output Total 50 60 Balance 340 1400 Weight 47.9 kg 47.2 kg Exam: GENERAL: Debilitated looking. Mostly alert and oriented but intermittently disoriented. HEAD: Atraumatic, normocephalic. EYES: EMORY, sclera anicteric, conjunctiva are normal. ENT: Moist mucous membranes. No oral ulcerations or bleeding gums noted. No obvious ear, nose or throat abnormalities noted. NECK: supple without lymphadenopathy. Trachea is central. No cervical or axillary lymphadenopathy noted. Carotids are 2+, JVD mildly elevated at around 8 cm from sternal angle. LUNGS: Bilateral wheezes rales or rhonchi noted. Bibasilar crackles noted right more than left. CHEST: Palpation of the chest wall shows no significant chest wall tenderness. HEART: [place] [employer] ADJUSTMENT, No PSH, 1/6 LISA aortic area, 1/6 adams systolic murmur mitral area, no rubs, no gallops. ABDOMEN: Soft, no significant tenderness appreciated, normoactive bowel sounds. No guarding, no rebound. No rigidity noted . No masses appreciated. EXTREMITIES: Pedal pulses are 1-2+, no calf tenderness noted. No clubbing or cyanosis. 1+ pedal edema noted NEUROLOGICAL: Focused neurological exam showed no significant neurologic deficit. Normal speech, no focal weakness appreciated. PSYCH: Normal mood, normal affect. Judgment and insight within normal limits. SKIN: No significant ecchymosis, skin is noted to be warm. MUSCULOSKELETAL EXAM: No significant acute joint swelling noted. Results Laboratory Results: 08/04/20 06:59 08/05/20 05:52 08/04/20 08/04/20 08/05/20 15:13 16:45 05:52 Sodium 133.2 L 133.2 L Potassium 5.5 H 6.0 H* Chloride 97 L 100 Carbon Dioxide 20 L 15 L Anion Gap 16 18 BUN 52 H 56 H Creatinine 2.14 H 2.55 H Est GFR ( Amer) 27 L 22 L Glucose 75 68 L Calcium 9.6 9.8 Magnesium 2.3 Urine Color [place] Urine Appearance SLIGHTLY-CLOUDY Urine pH 5.0 Ur Specific [place] 1.013 Urine Protein 30 H Urine Glucose (UA) NEGATIVE Urine Ketones NEGATIVE Urine Blood NEGATIVE Urine Nitrite NEGATIVE Ur Leukocyte Esterase NEGATIVE Urine WBC (Auto) 5 Urine RBC (Auto) 1 08/01/20 08/01/20 08/01/20 11:55 12:30 14:20 Troponin I Cancelled Cancelled 0.050 NT-Pro-B Natriuret Pep Cancelled Cancelled [id number] H 08/01/20 08/02/20 08/02/20 22:30 15:45 23:22 Troponin I 0.057 0.058 0.061 NT-Pro-B Natriuret Pep 08/03/20 08/03/20 08/04/20 12:50 18:20 06:59 Troponin I 0.073 0.077 0.091 NT-Pro-B Natriuret Pep 08/05/20 05:52 Troponin I NT-Pro-B Natriuret Pep [id number] H EKG Comments: Sinus rhythm with sinus tachycardia with occasional APCs and VPCs. Impressions: Chest X-Ray 08/01/20 11:17 IMPRESSION: CARDIAC ENLARGEMENT. VASCULAR CONGESTION. Assessment & Plan - Diagnosis (1) Acute decompensated heart failure Is this a current diagnosis for this admission?: Yes (2) Respiratory failure, [id number] Qualifiers: Respiratory failure complication: hypoxia Qualified Code(s): J96.21 - Acute and chronic respiratory failure with hypoxia Is this a current diagnosis for this admission?: Yes (3) CKD (chronic kidney disease), stage III Is this a current diagnosis for this admission?: Yes (4) COPD exacerbation Is this a current diagnosis for this admission?: Yes (5) Left ventricular diastolic dysfunction Is this a current diagnosis for this admission?: Yes (6) Pulmonary hypertension, moderate to severe Is this a current diagnosis for this admission?: Yes - Notes Notes: Patient had significant deterioration overnight with very poor urine output. This is in spite of IV Lasix. Decreased urine output is felt to be related to low perfusion and very low cardiac output. This low cardiac output was confirmed by 2D echo. Patient now a comfort care. At this point will give her 1 dose of Lasix 100 mg just to see the effect. Have also placed patient on morphine sulfate 1 mg IV every 4 as needed for comfort. Patient labs were revi ewed. She is noted to have worsening renal function. In addition patient has severe general debility and also severe COPD. Overall prognosis is on poor side. Discussed with patient's and Dr. Levi. - Time Time with patient: Greater than 35 minutes Medications reviewed and adjusted accordingly: Yes
[2020-08-05] MEDS ORDERED: FUROSEMIDE INJ/PF 100 MG/10 ML SDV IV ONE (18:45)
[2020-08-05] MEDS: MORPHINE SULFATE 10 MG/ML INJ IV PRN ×2 (18:56→23:55)
--- NOTE | 2020-08-05 18:57 | ADVANCED CARE ---
- Diagnosis (1) Low output heart failure Diagnosis Current: Yes (2) Combined systolic and diastolic congestive heart failure Diagnosis Current: Yes Resuscitation Status: Do Not Resuscitate Discussion: Conversation had between myself, patient's and patient. Patient became significantly tachycardic after being started on the dopamine drip. She also became more short of breath this evening. Evaluated patient at bedside. I also discussed with Dr. Hayward who informed me that the repeat echocardiogram today showed EF of less than 10% and severe pulmonary hypertension RVSP around 90 and recommends hospice. It is clear at this point the patient does have very low output heart failure and is having essentially minimal forward flow. Fortunately she has not tolerated a dopamine drip well. Blood pressure obtained during my assessment around 545pm shows BP of 90s/60s. I discussed the finding of echo with patient's and patient as well as her poor prognosis. Patient requesting to go home still but I explained to her that she is doing in terms of heart and kidney function. Patient states she understands that her heart function is poor and that she will soon and states she would like to be made comfort care and discharged on hospice. Patient's is very much in agreement and states that he understands that this has been a long coming. We will go ahead and discontinue dopamine drip. Dr. Hayward recommends attempting IV Lasix 100 mg. Will initiate comfort care. Discharge planning order placed to set up hospice. Time Spent: 30mins
--- NOTE | 2020-08-05 19:02 | EKG REPORT ---
SEVERITY:- ABNORMAL ECG - SINUS TACHYCARDIA NONSPECIFIC INTRAVENTRICULAR CONDUCTION DELAY ABNRM R PROG, CONSIDER ASMI OR LEAD PLACEMENT : Confirmed by: Nicho Cox MD 05-Aug-2020 19:01:28
[2020-08-05] MEDS ORDERED: DEXTROSE 5%-1/2 NORMAL SALINE 1,000 ML IV PRN (20:53)
[2020-08-05] MEDS: LORAZEPAM INJ 2 MG/1 ML VIAL IV PRN (23:55)
[2020-08-06] MEDS: LORAZEPAM INJ 2 MG/1 ML VIAL IV PRN ×3 (08:44→17:35)
--- NOTE | 2020-08-06 09:57 | PDOC PROGRESS REPORT ---
Subjective Progress Note for:: 08/06/20 Subjective:: Patient general condition has gotten a lot worse from yesterday. Urine output is very decreased. She is noted to be very short of breath. She is disoriented. Currently off youth nutritional monitor. She did receive 2 doses of morphine which seems to calm her down. Reason For Visit: ACUTE DECOMPENSATED SYSTOLIC HEART FAILURE Physical Exam Vital Signs: Temp Pulse Resp BP Pulse Ox 98.1 F 86 20 120/59 L 86 L 08/05/20 16:00 08/06/20 02:00 08/05/20 16:00 08/05/20 23:43 08/05/20 16:26 Intake & Output 08/05/20 08/06/20 08/07/20 06:59 06:59 06:59 Intake Total 1460 367 Output Total 60 295 Balance 1400 72 Weight 47.2 kg 47.3 kg Exam: Limited exam performed. Patient continues in some respiratory distress. Lungs shows bilateral crackles and mild wheezing. Peripheral perfusion is noted to be very low. Results Laboratory Results: 08/04/20 06:59 08/05/20 13:51 08/05/20 13:51 Sodium 133.5 L Potassium 5.3 H Chloride 100 Carbon Dioxide 20 L Anion Gap 14 BUN 61 H Creatinine 2.40 H Est GFR ( Amer) 23 L Glucose 39 L* Calcium 9.3 08/01/20 08/01/20 08/01/20 11:55 12:30 14:20 Troponin I Cancelled Cancelled 0.050 NT-Pro-B Natriuret Pep Cancelled Cancelled [id number] H 08/01/20 08/02/20 08/02/20 22:30 15:45 23:22 Troponin I 0.057 0.058 0.061 NT-Pro-B Natriuret Pep 08/03/20 08/03/20 08/04/20 12:50 18:20 06:59 Troponin I 0.073 0.077 0.091 NT-Pro-B Natriuret Pep 08/05/20 05:52 Troponin I NT-Pro-B Natriuret Pep [id number] H Impressions: Chest X-Ray 08/01/20 11:17 IMPRESSION: CARDIAC ENLARGEMENT. VASCULAR CONGESTION. Assessment & Plan - Diagnosis (1) Acute decompensated heart failure Is this a current diagnosis for this admission?: Yes (2) Respiratory failure, [id number] Qualifiers: Respiratory failure complication: hypoxia Qualified Code(s): J96.21 - Acute and chronic respiratory failure with hypoxia Is this a current diagnosis for this admission?: Yes (3) CKD (chronic kidney disease), stage III Is this a current diagnosis for this admission?: Yes (4) COPD exacerbation Is this a current diagnosis for this admission?: Yes (5) Left ventricular diastolic dysfunction Is this a current diagnosis for this admission?: Yes (6) Pulmonary hypertension, moderate to severe Is this a current diagnosis for this admission?: Yes - Notes Notes: Patient noted to have end-stage heart failure. Patient has very poor urine output. Patient currently DNR and for comfort care. Will sign off. Please reconsult if needed.
[2020-08-06] MEDS ORDERED: MORPHINE SULFATE 10 MG/ML INJ IV PRN (11:28)
[2020-08-06] MEDS ORDERED: LORAZEPAM INJ 2 MG/1 ML VIAL ONE (11:31)
--- NOTE | 2020-08-06 16:20 | PDOC DISCHARGE SUMMARY ---
Impression - Admit/DC Date/PCP Admission Date/Primary Care Provider: 08/01/20 17:55 ITA MUÑOZ PA-C Discharge Date: 08/06/20 - Discharge Diagnosis (1) Acute decompensated heart failure Is this a current diagnosis for this admission?: Yes (2) Acute kidney injury superimposed on CKD Is this a current diagnosis for this admission?: Yes (3) Hyperkalemia Is this a current diagnosis for this admission?: Yes (4) Low output heart failure Is this a current diagnosis for this admission?: Yes (5) Respiratory failure, [id number] Is this a current diagnosis for this admission?: Yes (6) Altered mental state Is this a current diagnosis for this admission?: Yes (7) Anemia Is this a current diagnosis for this admission?: Yes (8) Atrial fibrillation Is this a current diagnosis for this admission?: Yes (9) COPD (chronic obstructive pulmonary disease) Is this a current diagnosis for this admission?: Yes (10) Combined systolic and diastolic congestive heart failure Is this a current diagnosis for this admission?: Yes (11) Pulmonary hypertension, moderate to severe Is this a current diagnosis for this admission?: Yes - Additional Information Resuscitation Status: Comfort Measures Only Discharge Diet: As Tolerated Discharge Activity: Bedrest Referrals: Rossi AMAYA MD [ACTIVE STAFF] - Follow up as needed Prescriptions: Morphine Sulfate 10 mg PO Q4HP PRN #20 ml PRN Reason: Home Medications: Morphine Sulfate 10 mg PO Q4HP PRN #20 ml 08/06/20 History of Present Illiness History of Present Illness: SHAWN GORDON is a 85 year old female, COPD on chronic oxygen support, congestive heart failure EF less than 30, atrial fibrillation, CKD who came to the ED today due to shortness of breath. The patient started to experience shortness of breath with orthopnea, and PND 3 days prior to admission. She also noted that she is edematous on her legs and has had to increase her oxygen to 4 L. She also complains of dysuria and has completed a 10-day course of ciprofloxacin and then another 10-day course of Macrobid which has not helped her symptoms. She denied any fever, chest pain, palpitations. According to her she recently had an echo about 2 months ago which showed that her EF is less than 30%. There has not been any change to her heart failure medications recently. She was tried on a LifeVest about a year ago but the patient was oscar ble to use it hence it was discontinued. Follows with Dr. Hayward in the outpatient setting. In the emergency room, blood pressure 113/83, heart rate 99, respiratory rate of 20, O2 sat 98% on 4 L nasal cannula. CBC showed a WBC count of 5.3 hemoglobin of 13 platelet count 172. CMP showed sodium of 132.6 creatinine 1.44 baseline of around 1. BNP 40,000 her x-ray showed pulmonary vascular congestion. Hospitalist service was called for further evaluation and management. Patient was admitted for diuresis. Hospital Course Hospital Course: Attempts were made to diurese the patient but she did not tolerate it well. At 1 point her blood pressure started to drop and they tried to put her on a dopamine infusion but this did not help her blood pressure and it accelerated her heart rate. Echocardiogram showed she had multiple derangements, including a severely depressed EF 10 to 15%, grade 3 diastolic dysfunction, moderate to severe pulmonary hypertension, multiple valvular regurgitation, four-chamber dilation, and global hypokinesis. She also began to experience worsening of her chronic kidney failure. A long discussion was had with her and he ultimately decided to make her comfort measures only. Arrangements were made for her to go home on hospice. She was provided with a prescription for oral morphine solution. The arrangements were made and she is to be transferred home this evening on hospice. Physical Exam Vital Signs: Temp Pulse Resp BP Pulse Ox 98.1 F 68 16 67/34 L 71 L 08/06/20 10:00 08/06/20 12:59 08/06/20 12:59 08/06/20 07:58 08/06/20 07:58 Intake & Output 08/05/20 08/06/20 08/07/20 06:59 06:59 06:59 Intake Total 1460 367 Output Total 60 295 Balance 1400 72 Weight 47.2 kg 47.3 kg General appearance: PRESENT: no acute distress, other - She is laying in the bed, not responsive, mouth open, eyes closed, head turned to the left, evidence of some mottling in her extremities Respiratory exam: PRESENT: crackles, symmetrical, unlabored. ABSENT: accessory muscle use, prolonged expiratory phas, rhonchi, tachypnea, wheezes Pulses: ABSENT: normal radial pulses, normal dorsalis pedis pul GI/Abdominal exam: PRESENT: hypoactive bowel sounds, soft. ABSENT: distended, guarding, rebound, tenderness Extremities exam: PRESENT: other - Mottling Neurological exam: PRESENT: altered Skin exam: PRESENT: mottled. ABSENT: warm Results Laboratory Results: WBC 5.5 10^3/uL (4.0-10.5) 08/04/20 06:59 RBC 4.54 10^6/uL (3.72-5.28) 08/04/20 06:59 Hgb 12.4 g/dL (12.0-15.5) 08/04/20 06:59 Hct 38.2 % (36.0-47.0) 08/04/20 06:59 MCV 84 fl (80-97) 08/04/20 06:59 MCH 27.2 pg (27.0-33.4) 08/04/20 06:59 MCHC 32.3 g/dL (32.0-36.0) 08/04/20 06:59 RDW 19.5 % (11.5-14.0) H 08/04/20 06:59 Plt Count 158 10^3/uL (150-450) 08/04/20 06:59 Lymph % (Auto) 11.7 % (13-45) L 08/04/20 06:59 [place]ilion % (Auto) 13.1 % (3-13) H 08/04/20 06:59 Eos % (Auto) 1.1 % (0-6) 08/04/20 06:59 Baso % (Auto) 0.6 % (0-2) 08/04/20 06:59 Absolute Neuts (auto) 4.0 10^3/uL (1.7-8.2) 08/04/20 06:59 Absolute Lymphs (auto) 0.6 10^3/uL (0.5-4.7) 08/04/20 06:59 Absolute Monos (auto) 0.7 10^3/uL (0.1-1.4) 08/04/20 06:59 Absolute Eos (auto) 0.1 10^3/uL (0.0-0.6) 08/04/20 06:59 Absolute Basos (auto) 0.0 10^3/uL (0.0-0.2) 08/04/20 06:59 Seg Neutrophils % 73.5 % (42-78) 08/04/20 06:59 PT 96.9 SEC (11.4-15.4) H* 08/05/20 11:37 INR 13.36 H* 08/05/20 11:37 INR (Anticoag Therapy) Cancelled 08/05/20 10:32 APTT 66.0 SEC (23.5-35.8) H 08/05/20 11:37 Carbonic Acid 1.14 mmol/L (1.05-1.35) 08/01/20 16:33 HCO3/H2CO3 Ratio 19:1 08/01/20 16:33 ABG pH 7.39 (7.35-7.45) 08/01/20 16:33 ABG pCO2 37.9 mmHg (35-45) 08/01/20 16:33 ABG pO2 131.8 mmHg (80-100) H 08/01/20 16:33 ABG HCO3 22.3 mmol/L (20-24) 08/01/20 16:33 ABG Total CO2 23.4 mmol/L (21-25) 08/01/20 16:33 ABG O2 Saturation 98.6 % (94-98) H 08/01/20 16:33 ABG Base Excess -2.3 mmol/L 08/01/20 16:33 FiO2 36% 08/01/20 16:33 Sodium 133.5 mmol/L (137-145) L 08/05/20 13:51 Potassium 5.3 mmol/L (3.6-5.0) H 08/05/20 13:51 Chloride 100 mmol/L (98-107) 08/05/20 13:51 Carbon Dioxide 20 mmol/L (22-30) L 08/05/20 13:51 Anion Gap 14 (5-19) 08/05/20 13:51 BUN 61 mg/dL (7-20) H 08/05/20 13:51 Creatinine 2.40 mg/dL (0.52-1.25) H 08/05/20 13:51 Est GFR ( Amer) 23 (>60) L 08/05/20 13:51 Est GFR (Non-Af Amer) Cancelled 08/01/20 12:30 Est GFR (MDRD) Non-Af 19 (>60) L 08/05/20 13:51 Glucose 39 mg/dL (75-110) L* 08/05/20 13:51 POC Glucose 189 mg/dL (70-110) H 08/05/20 21:32 Calcium 9.3 mg/dL (8.4-10.2) 08/05/20 13:51 Magnesium 2.3 mg/dL (1.6-2.3) 08/05/20 05:52 Total Bilirubin 1.8 mg/dL (0.2-1.3) H 08/04/20 06:59 Direct Bilirubin 1.0 mg/dL (0.0-0.4) H 08/04/20 06:59 Neonat Total Bilirubin Not Reportable 08/04/20 06:59 Neonat Direct Bilirubin Not Reportable 08/04/20 06:59 Neonat Indirect Bili Not Reportable 08/04/20 06:59 AST 55 U/L (14-36) H 08/04/20 06:59 ALT 23 U/L (<35) 08/04/20 06:59 Alkaline Phosphatase 96 U/L (38-126) 08/04/20 06:59 Troponin I 0.091 ng/mL 08/04/20 06:59 NT-Pro-B Natriuret Pep 06950 pg/mL (<450) H 08/05/20 05:52 Total Protein 6.8 g/dL (6.3-8.2) 08/04/20 06:59 Albumin 3.6 g/dL (3.5-5.0) 08/04/20 06:59 EGFR Cancelled 08/01/20 12:30 Urine Color CATRACHO 08/04/20 16:45 Urine Appearance SLIGHTLY-CLOUDY 08/04/20 16:45 Urine pH 5.0 (5.0-9.0) 08/04/20 16:45 Ur Specific [place] 1.013 08/04/20 16:45 Urine Protein 30 mg/dL (NEGATIVE) H 08/04/20 16:45 Urine Glucose (UA) NEGATIVE mg/dL (NEGATIVE) 08/04/20 16:45 Urine Ketones NEGATIVE mg/dL (NEGATIVE) 08/04/20 16:45 Urine Blood NEGATIVE (NEGATIVE) 08/04/20 16:45 Urine Nitrite NEGATIVE (NEGATIVE) 08/04/20 16:45 Urine Bilirubin NEGATIVE (NEGATIVE) 08/04/20 16:45 Urine Urobilinogen NEGATIVE mg/dL (<2.0) 08/04/20 16:45 Ur Leukocyte Esterase NEGATIVE (NEGATIVE) 08/04/20 16:45 Urine WBC (Auto) 5 /HPF 08/04/20 16:45 Urine RBC (Auto) 1 /HPF 08/04/20 16:45 U Hyaline Cast (Auto) 131 /LPF 08/04/20 16:45 Urine Bacteria (Auto) TRACE /HPF 08/01/20 14:35 Squamous Epi Cells Auto 1 /HPF 08/04/20 16:45 U Non-Squamous Epis Auto 1 /HPF 08/01/20 14:35 Urine Mucus (Auto) RARE /LPF 08/04/20 16:45 Urine Ascorbic Acid NEGATIVE (NEGATIVE) 08/04/20 16:45 08/01/20 08/01/20 08/01/20 11:55 12:30 14:20 Troponin I Cancelled Cancelled 0.050 NT-Pro-B Natriuret Pep Cancelled Cancelled 16330 H 08/01/20 08/02/20 08/02/20 22:30 15:45 23:22 Troponin I 0.057 0.058 0.061 NT-Pro-B Natriuret Pep 08/03/20 08/03/20 08/04/20 12:50 18:20 06:59 Troponin I 0.073 0.077 0.091 NT-Pro-B Natriuret Pep 08/05/20 05:52 Troponin I NT-Pro-B Natriuret Pep 37594 H Impressions: Chest X-Ray 08/01/20 11:17 IMPRESSION: CARDIAC ENLARGEMENT. VASCULAR CONGESTION. Plan Time Spent: Greater than 30 Minutes Stroke Is this a Stroke Patient?: No Acute Heart Failure Is this a Heart Failure Patient?: Yes Documentation of LVEF assessment?: Yes LVEF: LVEF Less Than or Equal to 35% Anticoagulant Therapy: No, document contraindications Reason(s) not Discharged on Anticoagulant Therapy: Other - Comfort measures Anticoagulant Therapy Reason - Other: Comfort measures Discharged on Evidence-Based Beta Blockers: No, document contraindications Reason(s) not discharged on Evidence-Based Beta Blockers: Other - Comfort measures Beta Naya Reason - Other: Comfort measures Discharged on ARNI?: No-Document Contraindications Reason(s) not discharged on ARNI: Other - Comfort measures ARNI Reason - Other: Comfort measures Discharged on ARB?: No-document contraindications Reason(s) not Discharged on ARB: Other - Comfort measures ARB Reason - Other: Comfort measures Discharged on ACEI?: No, document contraindications Reason(s) not Discharged on ACEI: other ACEI Reason - Other: Comfort measures For LVEF <35%, discharged on Aldosterone Antagonist?: No-document contraincations Reason(s) not discharged on Aldosterone Antagonist: Other Aldosterone Antagonist Reason - Other: Comfort measures Follow-up Appointment scheduled within 7 days?: No, document reason - Comfort measures
[2020-08-06 18:01] VITALS: BP 109/67
== END 2020-08-06 20:18 | disposition hospice, home (50) | DRG 291 ==
LOC: ER 10:59 → EH 17:55 → 4S 18:50 → 5 19:45
PROVIDERS: ADMIT Internal Medicine; ATTEND Family Medicine
DX: I13.0 Hypertensive heart and chronic kidney disease with heart failure and stage 1 through stage 4 chronic kidney disease, or unspecified chronic kidney disease (principal); I50.43 Acute on chronic combined systolic (congestive) and diastolic (congestive) heart failure; J96.21 Acute and chronic respiratory failure with hypoxia; J96.11 Chronic respiratory failure with hypoxia; N17.9 Acute kidney failure, unspecified; Z51.5 Encounter for palliative care; J43.9 Emphysema, unspecified; N18.9 Chronic kidney disease, unspecified; E87.5 Hyperkalemia; N18.30 Chronic kidney disease, stage 3 unspecified; I27.20 Pulmonary hypertension, unspecified; I48.0 Paroxysmal atrial fibrillation; I25.2 Old myocardial infarction; Z90.49 Acquired absence of other specified parts of digestive tract; Z95.5 Presence of coronary angioplasty implant and graft; Z99.81 Dependence on supplemental oxygen; Z87.891 Personal history of nicotine dependence; Z79.01 Long term (current) use of anticoagulants; Z66 Do not resuscitate; Z83.3 Family history of diabetes mellitus; Z82.49 Family history of ischemic heart disease and other diseases of the circulatory system; Z80.9 Family history of malignant neoplasm, unspecified
CPT/HCPCS: 36415; 36600; 71045; 80048; 80053; 81001; 82803; 82962; 83735; 83880; 84484; 85025; 85610; 85730; 87086; 93005; 93010; 93306; 94640; 99285; J1265; J1815; J1940; J2060; J2270; J3490; S0119